=== PATIENT | male | born 1995 | race Caucasian/White ===

== ENCOUNTER → 2024-07-08 11:45 | Outpatient (BNVA) | payer OTHER, SELFPAY | PROVIDERS: PCP Internal Medicine; Visit Provider Internal Medicine | DX: M54.17 Radiculopathy, lumbosacral region (principal); M51.9 Unspecified thoracic, thoracolumbar and lumbosacral intervertebral disc disorder; M79.652 Pain in left thigh | CPT/HCPCS: 99212 ==

== ENCOUNTER 2024-08-20 08:41 | Outpatient (REF) | payer OTHER, SELFPAY | END 2024-08-20 08:42 | disposition home or self-care (01) | LOC: HO.MRI 08:41 | PROVIDERS: PCP Internal Medicine; Visit Provider Internal Medicine | DX: M54.17 Radiculopathy, lumbosacral region (principal); M79.652 Pain in left thigh | CPT/HCPCS: 72148 ==

== ENCOUNTER → 2024-08-20 08:50 | Outpatient (BNV) | payer OTHER, SELFPAY | PROVIDERS: PCP Internal Medicine; Visit Provider Radiology Diagnostic Radiology | DX: M54.17 Radiculopathy, lumbosacral region (principal); M51.26 Other intervertebral disc displacement, lumbar region | CPT/HCPCS: 72148 ==

== ENCOUNTER 2024-08-31 10:26 | Outpatient (AMB) | payer OTHER, SELFPAY ==
--- NOTE | 2024-08-31 10:36 | HO.SPINEOV ---
Vital Signs 08/31/24 10:38 Height 5 ft 9 in Weight 155 lb BMI 22.9 Intake Visit Reasons: Leg pain & numbness Intake Note: Mr. Foy is here today c/o pain and numbness in legs and low back. Participant Administrator Required: No Allergies No Known Allergies Allergy (Verified 08/31/24 10:40) Physical Exam Vital Signs: BMI result Body Mass Index 22.9 Assessment & Plan Assessment & Plan (1) Lumbar disc herniation with myelopathy: Code(s): M51.06 - Intervertebral disc disorders with myelopathy, lumbar region Category: Medical Plan Dear colleague Thank you for referring Zaki Foy to the office today with a chief complaint of progressive left leg pain and numbness. HPI: This 28-year-old male whose active in the [employer] developed severe back pain 3 years ago. Since that time he suffered intermittent severe low back pain that would resolve in a few days. In May, he developed severe pain radiating down his left leg. Specifically it goes to his posterior thigh to his calf and to the outside of his left foot to his small toe. In other words it, it radiates in a classic S1 distribution. He tried lifestyle modifications and position guided home exercise plan without success. Cxtm-ejz-ggxeiht medication does not alleviate his symptoms. The pain is most severe with sitting and laying down is the best position. Sneezing and coughing significantly increase the pain. In the last few weeks the pain has further progressed and in addition he developed tingling and numbness in the same distribution. No weakness. He tried an epidural shot last weekend without success. PMH: Noncontributory Medications: None Allergies: NKDA Social history: [employer] of a [employer] and active in the [employer] force. Nonsmoker Physical Exam: Pleasant male, in obvious agony. Straight leg raise is positive at 15 degrees with radiating pain down the left leg in an S1 distribution. There is numbness in the S1 dermatome. The ankle reflexes absent on the left side. Motor exam is 5/5 throughout Radiological Studies: MRI done at [facility] on 08/20/2024 shows severe lumbar degenerative disc disease L5-S1 and more importantly there is a disc herniation compressing the left S1 nerve root. 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 Conservative management has failed. In fact, his pain is further increasing and he developed neurological deficits. Therefore, I think he is an excellent candidate for a left L5-S1 lumbar microdiskectomy. He is otherwise healthy. I scheduled him for 09/13/2024. I called an 85 % success rate. We also discussed expected postoperative course. Thank you for allowing me to participate in your patients care. total time spent was 50 minutes in counseling ,coordination of plan, personal review of imaging, surgical decision making and subsequent plan Pavel Soler MD, PhD [facility] Trained Neurosurgeon Director, [facility] Coding Level of Care Code New Pt Level 4 (36132) Diagnoses Lumbar disc herniation with myelopathy M51.06
[2024-08-31 10:38] VITALS: BMI 22.9
--- OUTSIDE RECORDS SUMMARY | 2024-08-31 11:05 | XMS_ITS | Continuity of Care Document ---
Author Name [facility] Organization [facility] Care Team Providers Care Kennel Helper Name Role Phone [facility] Unavailable Unavailable Medications Combined list of outpatient medications from Department of Defense and Veterans Affairs facilities.Medications provided include 1) outpatient medications from the last 15 months, and 2) patient-reported medications. Medication Details Route Status Patient Instructions Prescription Expires Prescription Number Last Dispense Date Ordering Provider Order Date Order Qty Source ONDANSETRON ODT (ONDANSETRO N), 4MG, TAB RAPDIS, ORAL, GLENMARK PHARMA, 30 ea. BLIST PACK Active [id number] 2023 10 Pharmac y Data Transac tion Service Facilit y Allergies, Adverse Reactions, Alerts Combined list of allergies from Department of Defense and Veterans Affairs facilities. It does not include entries that were removed or entered in error. Substance Category Reaction Severity Reaction type Status Date Reported Comments Source No Known Allergies Drug allergy (disorder) active 11/18/2013 [place] [address] Immunizations Combined list of available immunizations from the Department of Defense and Veterans Affairs facilities. Immunization Series Date Given Administered By Site Reaction Lot Number CVX Code Drug Recycling Operator Status Comments Source influenza, injectable, quadrivalent- pf 2021 [id number] GlaxoSmithKli ne complet ed influenza , injectabl e, quadrival ent-pf 06/15/22 Given Ambulat ory Pharmac y influenza virus vaccine, inactivated 2020 [id number] Seqirus complet ed influenza virus vaccine, inactivat ed 05/19/21 Given Ambulat ory Pharmac y COVID Vaccine Pfizer 2020 [id number] PFIZER complet ed COVID Vaccine Pfizer 11/07/20 Given Ambulat ory Pharmac y COVID Vaccine Pfizer 2020 [id number] PFIZER complet ed COVID Vaccine Pfizer 10/17/20 Given Ambulat ory Pharmac y typhoid Vi capsular polysaccharid e vac 2020 [id number] sanofi pasteur complet ed typhoid Vi capsular polysacch aride vac 08/18/20 Given Ambulat ory Pharmac y influenza, injectable, quadrivalent, preservative free 2019 MARIELANDRENELSON, () Not Given influenza , injectabl e, quadrival ent, preservat preet free [facility] influenza, injectable, quadrivalent- pf 2018 [id number] 150 Seqirus complet ed influenza , injectabl e, quadrival ent-pf 05/13/19 Given Ambulat ory Pharmac y meningococcal A,C,Y,W-135 (MCV4P) 2018 [id number] 114 sanofi pasteur complet ed meningoco ccal A,C,Y,W-1 35 (MCV4P) 10/17/18 Given Ambulat ory Pharmac y influenza, injectable, quadrivalent- pf 2017 [id number] 150 Seqirus complet ed influenza , injectabl e, quadrival ent-pf 06/20/18 Given Ambulat ory Pharmac y typhoid Vi capsular polysaccharid e vac 2017 [id number] 101 sanofi pasteur complet ed typhoid Vi capsular polysacch aride vac 06/20/18 Given Ambulat ory Pharmac y Influenza, inj, MDCK, quadrivalent- pf 2016 [id number] Seqirus complet ed Influenza , inj, MDCK, quadrival ent-pf 06/14/17 Given Ambulat ory Pharmac y influenza, seasonal, injectable-pf 2015 [id number] 140 Seqirus complet ed influenza , seasonal, injectabl e-pf 05/18/16 Given Ambulat ory Pharmac y typhoid Vi capsular polysaccharid e vac 2015 [id number] 101 sanofi pasteur complet ed typhoid Vi capsular polysacch aride vac 05/18/16 Given Ambulat ory Pharmac y influenza, seasonal, injectable-pf 2014 [id number] 140 CSL Behring complet ed influenza , seasonal, injectabl e-pf 04/15/15 Given Ambulat ory Pharmac y typhoid Vi capsular polysaccharid e vac 2013 [id number] 101 sanofi pasteur complet ed typhoid Vi capsular polysacch aride vac 06/16/14 Given Ambulat ory Pharmac y hepatitis A adult vaccine 2013 [id number] 52 GlaxoSmithKli ne complet ed hepatitis A adult vaccine 06/16/14 Given Ambulat ory Pharmac y hepatitis B adult vaccine 2013 [id number] 43 Merck & Company Inc complet ed hepatitis B adult vaccine 06/16/14 Given Ambulat ory Pharmac y yellow fever vaccine 2013 [id number] 37 sanofi pasteur complet ed yellow fever vaccine 06/16/14 Given Ambulat ory Pharmac y yellow fever vaccine 1 2013 [id number] 37 Sanofi Pasteur (PMC) complet ed yellow fever vaccine DoD hepatitis B vaccine, adult dosage 3 2013 [id number] 43 Merck (MSD) complet ed hepatitis B vaccine, adult dosage DoD hepatitis A vaccine, adult dosage 3 2013 [id number] PressConnectKline (SKB) complet ed hepatitis A vaccine, adult dosage DoD typhoid Vi capsular polysaccharid e vaccine 1 2013 [id number] 101 Sanofi Pasteur (PMC) complet ed typhoid Vi capsular polysacch aride vaccine DoD influenza, seasonal, injectable 2013 [id number] complet ed influenza , seasonal, injectabl e 06/13/14 Given Ambulat ory Pharmac y Influenza, seasonal, injectable 1 2013 [id number] Transcribed (TRS) complet ed Influenza , seasonal, injectabl e DoD hepatitis A-hepatitis B vaccine 2013 [id number] 104 GlaxoSmithKli ne complet ed hepatitis A-hepatit is B vaccine 12/12/13 Given Ambulat ory Pharmac y varicella virus vaccine 2013 [id number] 21 Merck & Company Inc complet ed varicella virus vaccine 12/12/13 Given Ambulat ory Pharmac y measles/mumps /rubella virus vaccine 2013 [id number] 03 Merck & Company Inc complet ed measles/m umps/rube lla virus vaccine 12/12/13 Given Ambulat ory Pharmac y measles, mumps and rubella virus vaccine 2 2013 [id number] 03 Merck (MSD) complet ed measles, mumps and rubella virus vaccine DoD varicella virus vaccine 1 2013 [id number] 21 Merck (MSD) complet ed varicella virus vaccine DoD hepatitis A and hepatitis B vaccine 1 2013 [id number] 104 SmithKline (SKB) complet ed hepatitis A and hepatitis B vaccine DoD hepatitis A-hepatitis B vaccine 2013 [id number] 104 GlaxoSmithKli ne complet ed hepatitis A-hepatit is B vaccine 10/26/13 Given Ambulat ory Pharmac y measles/mumps /rubella virus vaccine 2013 [id number] 03 Merck & Company Inc complet ed measles/m umps/rube lla virus vaccine 10/26/13 Given Ambulat ory Pharmac y varicella virus vaccine 2013 [id number] 21 Merck & Company Inc complet ed varicella virus vaccine 10/26/13 Given Ambulat ory Pharmac y measles, mumps and rubella virus vaccine 1 2013 [id number] 03 Merck (MSD) complet ed measles, mumps and rubella virus vaccine DoD varicella virus vaccine 1 2013 [id number] 21 Merck (MSD) complet ed varicella virus vaccine DoD hepatitis A and hepatitis B vaccine 1 2013 [id number] 104 [facility] (SKB) complet ed hepatitis A and hepatitis B vaccine DoD poliovirus vaccine, inactivated 2013 [id number] 10 sanofi pasteur complet ed polioviru s vaccine, inactivat ed 10/20/13 Given Ambulat ory Pharmac y meningococcal A,C,Y,W-135 (MCV4P) 2013 [id number] 114 sanofi pasteur complet ed meningoco ccal A,C,Y,W-1 35 (MCV4P) 10/20/13 Given Ambulat ory Pharmac y influenza, seasonal, injectable-pf 2013 1342 1P 140 Novartis Pharmaceutica ls complet ed influenza , seasonal, injectabl e-pf 10/20/13 Given Ambulat ory Pharmac y adenovirus vaccine, live 2013 [id number] 143 Teva Pharmaceutica ls complet ed adenoviru s vaccine, live 10/20/13 Given Ambulat ory Pharmac y tuberculin purified protein derivative 2013 [id number] 96 [facility] complet ed tuberculi n purified protein derivativ e 10/20/13 Given Ambulat ory Pharmac y tetanus, diphtheria, acellular pertu is 2013 [id number] 115 GlaxACACIA SemiconductorithKli ne complet ed tetanus, diphtheri a, acellular pertussis 10/20/13 Given Ambulat ory Pharmac y poliovirus vaccine, inactivated 1 2013 [id number] 10 Sanofi Pasteur ([facility]) complet ed polioviru s vaccine, inactivat ed DoD meningococcal polysaccharid e (groups A, C, Y and W-135) diphtheria toxoid conjugate vaccine (MCV4P) 1 2013 [id number] 114 Sanofi Pasteur ([facility]) complet ed meningoco ccal polysacch aride (groups A, C, Y and W-135) diphtheri a toxoid conjugate vaccine (MCV4P) DoD tetanus toxoid, reduced diphtheria toxoid, and acellular pertu is vaccine, adsorbed 1 2013 [id number] 115 [employer] (SKB) complet ed tetanus toxoid, reduced diphtheri a toxoid, and acellular pertussis vaccine, adsorbed DoD Influenza, seasonal, injectable, preservative free 1 2013 1342 1P 140 Novartis Betify. (NOV) complet ed Influenza , seasonal, injectabl e, preservat preet free DoD Adenovirus, type 4 and type 7, live, oral 1 2013 [id number] 143 Wink (BRR) complet ed Adenoviru s, type 4 and type 7, live, oral DoD rubella virus vaccine 0 2013 06 () Not Given rubella virus vaccine DoD mumps virus vaccine 0 2013 07 () Not Given mumps virus vaccine DoD Results Combined list of recent chemistry, hematology and other laboratory results from Department of Defense and Veterans Affairs, ranging from 15 months to all on record, depending upon the facility. Order Name Results Value Reference Range Date Interpretation Specimen Comments Source Infectiou s Disease HIV-1/O/2 Non-Reac tive 1 (11/14/23 8:41 AM) 11/13 N Interpretiv e Data: INTERPRETAT ION: This method is a screening procedure for the detection of HIV p24 Antigen and Antibodies to HIV-1, including Group O, and/or HIV-2. NON-REACTIV E: HIV-1 antigen and HIV-1 / HIV-2 antibodies were not detected. No laboratory evidence of HIV infection. A negative test result does not exclude the possibility of exposure to or infection with HIV. HIV antibodies and/or p24 antigen may be undetectabl e in some stages of the infection and in some clinical conditions. If acute HIV infection is suspected, consider submitting another specimen to a reference laboratory for HIV-1 RNA. SCREEN REACTIVE - CONFIRMATIO N TO FOLLOW: Possible presence of HIV-1antibo dies, HIV-2 antibodies and/or HIV-1 p24 antigen. Specimen will reflex to the confirmatio n testing that fulfills the Center for Disease Control and Prevention' s HIV diagnostic algorithm. Refer to [facility] Lab Guide for additional information : [email or web address]://Move In Historyx. [email or web address]/ [email or web address] x Testing performed by Kaity goddard. [facility] Miscellan eous Sendouts Repository Sample Received (11/14/23 8:41 AM) 11/13 N [facility] Encounters Combined list of: 1) Encounters from Department of Veterans Affairs facilities going backup to the last 18 months, not all [place] inpatient encounters are included; 2) Encounters from the Department of Defense facilities going backup to 280 months. Location Location Details Encounter Type Encounter Number Reason For Visit Attending Provider ADM Date DC Date Status Disposition [place] [address](RAMIN Fco) OUTPATIENT [id number] Notes Entered by: DALILA CHANG 18 Nov 2013 0837 ------- ------- ------- ------- -- cough x 3 days DALILA CHANG 11/18 Released w/o Limitations [facility] [place] [address](Louise Larsenvo) [place] [address]([facility] Eleazar Metcalf) OUTPATIENT [id number] Notes Entered by: CAMI ROBLERO 03 Feb 2014 1144 ------- ------- ------- ------- -- DARRYL BLAKE 02/03 Released w/o Limitations [facility] [place] [address]([employer] Elva Falcon) [facility](Opt ometry Cl Carrera) OUTPATIENT [id number] Color Vision Testing Amauryer MAGDIEL GONZALEZ 08/23 Released w/o Limitations [employer](O ptometr y Cl Carrera) [employer](Opt ometry Cl Carrera) OUTPATIENT [id number] AEE per MAGDIEL Gong 01/23 Released w/o Limitations [employer](O ptometr y Cl Carrera) 8344R-439 AMDS Outpatient [id number] CODY KNOX 09/04 Discharge Disposition: Home or Self Care 8344R-4 39 AMDS 8344R-439 AMDS Outpatient [id number] CODY KNOX 11/11 Discharge Disposition: Home or Self Care 8344R-4 39 AMDS 8344R-439 AMDS Outpatient [id number] [facility] 11/13 Discharge Disposition: Home or Self Care 8344R-4 39 AMDS 8344R-439 AMDS Between Visit [id number] 04/16 Discharge Disposition: Home or Self Care 8344R-4 39 AMDS Procedures Combined list of: 1) Procedures from Department of Veterans Affairs facilities going back up to thelast 18 months, not all VA non-surgical procedures are included; 2) All procedures from the Department of Defense facilities. Procedure Procedure Type Code Date Perfomer Comments [facility] e OPHTHALMOLOGICAL SERVICES: MEDICAL EXAMINATION AND EVALUATION, WITH INITIATION OR CONTINUATION OF DIAGNOSTIC AND TREATMENT PROGRAM; INTERMEDIATE, ESTABLISHED PATIENT [facility] COLOR VISION EXAMINATION, EXTENDED, EG, ANOMALOSCOPE OR EQUIVALENT [facility] Ophthalmological Prior Patient Start Intermediate Level Care Ophthalmological Prior Patient Start Intermediate Level Care 22851 MAGDIEL GONZALEZ Extensive Color Vision Testing Extensive Color Vision Testing [id number] MAGDIEL GONZALEZ Determination Of Refractive State Determination Of Refractive State 85803 MAGDIEL GONZALEZ Ophthalmological New Patient Start Comprehensive Care Ophthalmological New Patient Start Comprehensive Care 46682 MAGDIEL GONZALEZ No data available for this section Ambulato ry Pharmacy Social History Combined list of available smoking, tobacco, and other social history from Department of Defense and Veterans Affairs facilities. Social History Type Response Date Comment Ghassan burks Male 07/24/2022 Ambulatory Pha rmacy This section is an empty soc ial history section. DoD Sexual Orientation Ambula tory Pharmacy Gender identity Ambulator y Pharmacy Assessment and Plan Combined list of future care activities from Department of Defense and Veterans Affairs facilities (e.g., assessment and plan notes, appointments, orders, and referrals). Additional future care activities may be listed in the Plan of Care section. Result Assessment and Plan Date Source Assessment and Plan Extracted from:Title : Fly PHA / MHA / Lab / Imms Author: LIZ NUGENT Date: 11/14/23 mbr came in for appt Addendum by KORTNEY KEY on November 14, 2023 10:42 EDT History of Refractive Surgery- No?Contact Lenses- N/A?Enrolled in Contact Lens Program- N/A?Gas Mask Inserts ordered- No?Current SRX on file- _ DVA (uncorrected) OD: 20/20 OS:?20/20 NVA (uncorrected) OD: 20/20 OS: 20/20 Phorias: ESO _2_ EXO ___ RH ___ LH _0.5__ Depth Perception Uncorrected?Pass through _F__ IOP OD:15 OS:16 Time:?1023 Optometry findings meet standards- Yes Addendum by ELSA ROWAN on November 14, 2023 10:51 EDT ?Vitals: Blood Pressure:?118 Heart Rate: 79 Height: 180 Weight: 155 BMI: Medications: None Chronic Problems: None SF 507: _ Comments: None Addendum by DENNIS JEFFREY on November 14, 2023 11:11 EDT Chief Complaint: Member here for annual fly PHA. Patient is able to complete duties required by [facility]. No acute complaints.NO: Fly?waiver. Initial Waiver Date: Waiver Exp Date: Justin. 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 Last Name: MAY 2. First Name: ZAKI 3. Middle Name: Sudarshan 4. Assessment Date: 5. : 6. Age: 27 7. Gender: M 8. DoD ID Number: [id number] 9. Service Branch: [employer] 10. 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 Unit Name: Debra GOLDSMITHFamilyLeaf 14. Duty Station/Location: [place] 15. UIC: [id number] 16. Is this your first Periodic Health Assessment (PHA)?: N 17. Are you enrolled in a secure messaging system with your health care provider?: 18. Current contact information: Preferred Method: Email 1 DSN: Day Time Phone: [phone] Night Time Phone: [phone] Email 1: [email or web address] Email 2: Address: [address] [place] [address] City: [place] State: [place] Zip Code: [id number] 19. Point of contact who can always reach you: Name: Rodo Foy Phone 1: [phone] Phone 2: EMAIL: Address: City: State: Zip Code: II. DEPLOYMENT INFORMATION (DEP) 1. [ 1 ] Total number of deployments in the PAST 5 YEARS 2. [ [place] ] Primary country of last deployment 3. [ ] Date departed theater 4. [ N ] Are you going to deploy within the NEXT 120 DAYS? III. 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 [ Yes ] Does your specialty require an operational duty physical exam? 4. [ No ] Are you currently enrolled in a medical surveillance/occupational health program?: No IV. MEDICAL CONDITIONS (IRON): 1. Since your last PHA, have you experienced any of the following health conditions, and if so, what is your status? [ ] Conditions with no medical care [ ] Conditions with medical care, but no longer under treatment [ ] Conditions with medical care, and NOW under treatment 2. Since your last PHA, have you experienced any of the following health conditions, and if so, what is your status? [ ] Conditions with no medical care [ ] Conditions with medical care, but no longer under treatment [ ] Conditions with medical care, and NOW under treatment 3. For any condition marked YES in question 1 or 2, are you currently on any profile or limited duty for that condition? [ ] Conditions 4. [ No ] Have you been based or stationed at a location where an open burn pit was used? 5. [ No ] Have you been exposed to toxic airborne chemicals or other airborne contaminants? 8. Have you had any surgery since your last PHA?: No 10.a. [ No ] Since your last PHA, has a health care provider recommended surgery(s) that you have not had? 11.a. [ No ] Do you currently require hearing aids, special medical supplies, CPAP, adaptive equipment, assistive technology devices, and/or other special accommodations? 12.a. [ No ] Do you have a waiver or profile for any part of your Service's physical fitness test? 13.a. [ No ] Do you have any problems wearing a gas mask, ballistic helmet, body armor, and/or chemical/biological protective garments? 14.a. [ No ] Have you ever been told by a health care provider that you SHOULD NOT receive an immunization for medical reasons? 15.a. [ No ] Do you have a permanent profile or an Assignment Limitation Code C? 16.a. [ No ] Are you on a temporary profile or limited duty? 17. [ 0 ] During the PAST 2 years, how many times have you been placed on a temporary profile or on limited duty? V. INDIVIDUAL MEDICAL READINESS (IMR) 1. [ No ] Do you have any allergies? 3. [ Not required ] Do you have red medical warning dog tags? 4. [ No ] Do you wear corrective lenses? . BEHAVIORAL HEALTH (MHA) 1. a. [ None ] Over the PAST MONTH, what major life stressors have you experienced that are a cause of significant concern or make it difficult for you to do your work, take care of things at home, or get along with other people (for example, serious conflicts with others, relationship problems, or a legal, disciplinary or financial problem)? 2. a. [ No ] In the PAST YEAR did you receive care for any mental health condition or concern such as, but not limited to post traumatic stress disorder (PTSD), depression, anxiety disorder, alcohol abuse or substance abuse? 3. [ None ] What prescription or over-the counter medications (including herbals/supplements) for sleep, pain, combat stress, or a mental health problem are you CURRENTLY taking? 4. a. [ No ] In the past 12 months, have you gambled? 5. a. [ 2-4 times a month ] How often do you have a drink containing alcohol? 5. b. [ 3 or 4 ] How many drinks containing alcohol do you have on a typical day when you are drinking? 5. c. [ Less than monthly ] How often do you have six or more drinks on one occasion? 6. Have you ever had any experience that was so frightening, horrible, or upsetting that in the PAST MONTH, you: 6. a. [ No ] Have had nightmares about it or thought about it when you did not want to? 6. b. [ No ] Tried hard not to think about it or went out of your way to avoid situations that remind you of it? 6. c. [ No ] Were constantly on guard, watchful or easily startled? 6. d. [ No ] [place] numb or detached from others, activities, or your surroundings? 6. e. [ Not answered ] [place] guilt or unable to stop blaming yourself or others for the event(s) or any problems the event(s) may have caused? 7. Over the LAST 2 WEEKS, how often have you been bothered by the following problems? 7. a. [ Not at all ] Little interest or pleasure in doing things 7. b. [ Not at all ] Feeling down, depressed, or hopeless 8. [ No ] Would you like to schedule an appointment with a health care provider to discuss any health concern(s)? 9. [ No ] Are you interested in receiving information or assistance for a stress, emotional or alcohol concern? 10. [ No ] Are you interested in receiving assistance for a family or relationship concern? 11. [ No ] Would you like to schedule a visit with a tool design drafter, mental health care provider, or a community support counselor? VII. FAMILY HISTORY AND LIFESTYLE (LIF) 1. [ Very Good ] Overall, how would you rate your health during the PAST MONTH? 2. [ Cancer, Diabet ] Member indicates that family members have the following problems 3. The following family members has/had a history of cancer: Colon: Brother Unknown Type of Cancer: Grandfather 5. The following family members has/had a history of diabetes: Type II: Father, Grandfather 6. [ Yes ] I participate in moderate intensity physical activites at least 2.5 hours, or a combination of moderate and vigorous aerobic activites, for at least 75 minutes per week. 7. In a typical week, I do physical activities specifically designed to STRENGTHEN my muscles: [ 2 ] Day(s) per week 8. [ None ] What prescriptions or hiwo-cpn-egprknf medications are you CURRENTLY taking for health problems on a ROUTINE BASIS? 9. Which of the following products have you taken since your last PHA: None of the above 11. Think about the PAST 30 DAYS. How often did you eat/drink the following foods/beverages? [ 3 to 6 servings per week ] Fruits [ 3 to 6 servings per week ] Vegetables [ 1 serving per day ] Starchy Vegetables [ 1 serving per day ] Whole Grains [ 3 to 6 servings per week ] Dairy and Calcium Containing Foods [ 1 or 2 servings per week ] Fish [ 1 serving per day ] Lean Protein [ 1 serving per day ] Sugar-Sweetened Beverages 12. [ No ] Have you had a cholesterol check by a health patient care manager within the PAST 5 YEARS? 13.a. In the PAST 30 DAYS, which of the following products have you used on at least one day? None 15. Which of the following best describes your past tobacco use? I have never used tobacco products. 16. [ No ] Are you regularly exposed to secondhand smoke? 17. [ 5 to less than 7 hours ] During the LAST 2 WEEKS, how many hours of sleep did you get on most days? 18. [ No ] During the LAST 2 WEEKS, have you felt impaired or unable to adequately perform due to sleepiness or poor quality sleep? 19. [ No ] Have you had any unexplained weight loss or gain since your last PHA? 20. Member is at risk for sexually transmitted infections. 21. [ No ] Have you had a syphillis, chlamydia, and gonorrhea test since your last PHA? 22. Since your last PHA, what, if anything, have you and your partner used to keep from getting ? [ Sterilization ] I am actively taking steps to prevent , including 23. [ No ] In the last year, have you or your partner had a scare, where you were not trying to get but were worried enough to use a home test? IX. RESERVE COMPONENT (RES) 1. [ No ] Do you have an injury, illness, Or disease which was incurred or aggravated while in a duty status since your last PHA? 4. [ Yes - ] Are you currently coverered under a health insurance policy? 5.a. [No, I have never applied for Worker's Compensation ] Do you have any current physical or mental health limitations related to a Worker's Compensation claim? 6. [ No ] Have you applied for or have you received a VA disability rating? X. OTHER MEDICAL (OTH) 1. [ 0 ] Rate the amount of pain you have had, on average, over the PAST 24 HOURS 3. [ Yes ] Since your last PHA, have you received care or treatment for any medical and/or mental health condition(s) from a civilian or non- facility? 4. List the condition(s) treated and where the care was provided: Conditions: Pilar Cyst removal Where: [facility] 5. Member acknowledged responsibility for reporting health issues. 7. [ No ] Woud you like to schedule an appointment with a health care provider to discuss any health concerns? XI. SEPARATION AND FDC 1. [ No ] Are you planning to separate or retire within the next year from Active Duty or [place] Duty (activated for greater than 30 continuous days) OR do you intend to file a claim for disability compensation with the [employer]? PART B. RECORD REVIEW AND RECOMMENDATIONS I. RECORD REVIEWER INFORMATION 1. Last Name: SAMIA 2. First Name: PIERO 3. Middle Name: CARROL 4. Service Branch: [employer] 5. Status: 6. 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 EMAIL: [email or web address] 8. Facility: [facility] 9. Unit: [facility] 10. Address: [address] [place] [address] 11. State: [place] 12. Zip Code: [address] 13. Phone: [phone] 14. Date Record Review: II. MEDICAL SCREENING 1. [ ] Date of retail team member's most recent PHA 2. [ 5 feet 11 inches Date: ] retail team member's most recently documented height 3. [ 155 pounds Date: ] retail team member's most recently documented weight 4. [ 121/73 Date: ] retail team member's most recently documented blood pressure reading 5. [ No ] Does the retail team member have a history of abnormal blood pressure since their last PHA? 6. [ Yes ] Does the retail team member have a laboratory test of sickle cell trait documented in their permanent medical record? 7. [ No Cholesterol Test Documented ] What is the date of the retail team member's most recently documented cholesterol test? 9. [ No Active Medications Documented ] List of retail team member's active medications listed in their permanent medical record 10. [ No ] Is there a discrepancy between the active medication record review and the retail team member's self-reported list of medications? 11. [ pilar cyst removal ] List documented significant care the retail team member has received since their last PHA from a provider OUTSIDE the Health System 12. [ No ] Is there a discrepancy between the retail team member's list of OUTSIDE care (from [facility]), and the OUTSIDE care found in the record? 13. [ No Inside Care Documented ] List documented significant care the retail team member has received since their last PHA from a provider INSIDE the Health System 15. [ Not Answered ] Confirm that vaccine exemptions are listed in the medical record for each vaccine listed III. OCCUPATION-SPECIFIC EXAMINATIONS 1. 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 IV. FAMILY HISTORY AND LIFESTYLE 1. [ Yes ] Does the [id number] reflect the retail team member's reported family history? 2. [ No ] Is there a record of the retail team member receiving a syphillis, chlamydia and gonorrhea test since their last PHA? . DEPLOYMENT-RELATED HEALTH ASSESSMENTS 1. [ No ] Based on your check of records, does the retail team member have any due or overdue deployment health assessments which need to be completed with this PHA? VII. INDIVIDUAL MEDICAL READINESS 1. [ No ] Does the retail team member have an Assignment Limitation Code C? 3. [ Classification: 1 ] Most recently documented dental exam 4. [ No: Meningococcal ] Is the retail team member current on all required immunizations in the immunization tracking system? 6. Does the retail team member have the following laboratory tests documented in their permanent medical record? [ No ] HIV test within the PAST 24 months [ Yes ] G6PD results on file [ Yes ] Blood type and Rh on file [ Yes ] DNA test on file IX. ADDITIONAL RECORD REVIEWER COMMENTS 1. This record review does NOT have a need for provider notification or referral.2. Additional comments about this record review that need to be forwarded to the Health [employer]isher completing PART C: No DLCs, pain, medications/supplements, major stressors, gambling, alcohol/tobacco concerns. Adequate diet, exercise, and sleep. Reported some numbness/tingling on SHPE earlier this yr. H/o finger injury. Date Record Review Completed: PART C. HEALTH CARE PROVIDER I. MENTAL HEALTH ASSESSMENT (MHA) PROVIDER INFORMATION 1. Last Name: WOJCIECH 2. First Name: DENNIS 3. Middle Name: 4. Service Branch: [employer] 5. 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 Title: Physician (DO WILLIAM) 7. EMAIL: [email or web address] 8. Facility: [facility] 9. Unit: [facility] 10. Address: [facility] [address] 11. State: [place] 12. Zip Code: [address] 13. Phone: [phone] 14. Date HCP Review initiated: 1. Member marked that they did not have a concern or a difficulty with a major life stressor. 2. Address concerns identified on member questions 2 and 3. History of mental health care: N/A Member's response: Provider's comments: Medications: N/A Member's response: Provider's comments: 3. Member's AUDIT-C screening score was 4. (nothing required) 4. Member did not geraldo yes on two or more of questions 6a through 6e. 5. Member did not geraldo More than half the days or nearly every day on question 7a or 7b. 6. Suicide risk evaluation. 6. a. Ask: Over the past month, have you wished you were or wished you could go to sleep and not wake up?: No 6. b. Ask: Have you actually had any thoughts of killing yourself?: No 6. f. 1. Ask: In you lifetime, have you done anything, started to do anything, or prepared to do anything to end your life?: No 6. g. Further risk assessment comments: 7. Member states that they have not had thoughts or concerns over the past month that they might hurt or lose control with someone. 9. Summary of Provider's identified concerns needing referrals: None 11. Comments: 13. Supplemental services recommended/information provided: No supplemental services required Date MHA Certified: III. PERIODIC HEALTH ASSESSMENT (PHA) PROVIDER INFORMATION 1. Last Name: WOJCIECH 2. First Name: DENNIS 3. Middle Name: 4. Service Branch: [employer] 5. 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 Title: Physician (DO WILLIAM) 7. EMAIL: [email or web address] 8. Facility: [facility] 9. Unit: [facility] 10. Address: [address] [place] [address] 11. State: [place] 12. Zip Code: [address] 13. Phone: [phone] 14. Date HCP Review initiated: IV. PERIODIC HEALTH ASSESSMENT PROVIDER RECOMMENDATIONS and REFERRALS 1. Provider concerns with this assessment: No issues or concerns identified V. SUMMARY AND COMMENTS 1. Additional information summarizing findings during the retail team member assessment: 2. Provider Comments: No new medical concern . INDIVIDUAL MEDICAL READINESS DISPOSITION DETERMINATION IRON: Ready DEN: Ready IMM: Ready LAB: Ready ME: Ready IMR Status: Fully Medically Ready VII. SERVICE MEDICAL DEPLOYABILITY EVALUATION INDICATED Based on your review of all documentation, is the retail team member medically deployable without limitations? Reference Cece 6490.07 Yes (retail team member DOES NOT currently have a medical condition that limits deployability) Date PHA Completed: END OF [id number] REPORT Impression: Meets?FCIII?medical standards per NNAMDI 48-123/MSD. Aeromedical Disposition: No DNIF. DD 2992?signed. No AF469 changes based on this encounter. [employer]. 08/31/2024 [id number] AMDS Functional Status Combined list of recent functional and cognitive assessments recorded at [employer] [facility] [employer] [facility] (VA).VA Functional Luna Measurement (FIM) Scale: 1 = Total Assistance (Subject = 0% +), 2 = Maximal Assistance (Subject = 25% +), 3 = Moderate Assistance (Subject = 50% +), 4 = Minimal Assistance (Subject = 75% +), 5 = Supervision, 6 = Modified Luna (Device), 7 = Complete Luna (Timely, Safely). Assessment Date/Time Source Assessment Type Assessment Skill Assessment Score Assessment Details No data available for this section
--- OUTSIDE RECORDS SUMMARY | 2024-08-31 11:06 | XMS_ITS | Data Portability ---
Author Organization [facility], , [facility] Address [address] [place] [address] Care Team Providers Care Gluer And Wedger Name Role Phone RAMESH HARDING Primary Care Provider [phone] Assessment Encounter Date Assessment Date Assessment LastModified by Organization Details LastModified Time 12/17/2020 12/17/2020 The care for this patient today involved the following: I have reviewed, collected, and updated relevant history and performed a physical exam. An independent historian was used to obtain history N. My assessment of Social Determinants of health: not at risk. At risk due to . My care of this patient involved: moderate Assessment of problems. moderate Review of data (review of x ray results) low Complexity of risk from disease or treatments Below is my assessment and plan for this patient? s care today. [email or web address] Not available 12/17/2020 12:49:27 01/17/2022 01/17/2022 A total of 13 minutes was spent in clinical care today, and the care for this patient involved the following: I have reviewed the patient's past medical history and medications, collected and updated relevant history, and performed a physical exam. My care of this patient involved: -Assessment of problems: -Review of data: ordered labs -Complexity of risk from disease or treatments: moderate -- new problem w/ uncertain prognosis -Providing relevant patient education and counseling. -Completing documentation of the visit. Below is my assessment and plan for this patient? s care today. [email or web address] Not available 01/20/2022 08:40:17 08/28/2022 08/28/2022 The care for this patient today involved the following: I have reviewed, collected, and updated relevant history and performed a physical exam. An independent historian was used to obtain history N. My assessment of Social Determinants of health: patient at risk. At risk due to: food, health insurance, housing, transportation, safety, health literacy. My care of this patient involved: Moderate assessment of problems. Low review of data. Moderate complexity of risk from disease or treatments. Below is my assessment and plan for this patient? s care today. [facility] Not available 08/28/2022 15:58:15 Plan of Treatment Reminders Order Date Submit Date Provider Last Modified By Organization Details Last Modified Time Details Appointments None recorded. Lab urinalysi s, dipstick 2022 023 [facility], [address] [place] [address], [address], 15:46:34 culture, urine 2022 023 [facility], [address] [place] [address], [address], 3 07:48:25 tick-born e disease panel 2021 022 [facility], [address] [place] [address], [address], 18:21:01 babesia duncani Ab, titer, immunoflo urescence , serum 2021 022 [facility], [address] [place] [address], [address], 2 18:21:00 CK (creatine kinase), total, serum 2021 022 [facility], [address] [place] [address], [address], 2 12:27:15 ESR (erythroc yte sedimenta tion rate), blood 2021 022 [facility], [address] [place] [address], [address], 17:59:49 C-reactiv e protein, quantitat preet, serum or plasma 2021 022 [facility], [address] [place], [address], 2 13:49:04 CMP, serum or plasma 2021 022 [facility], [address] [place] [address], [address], 2 12:27:14 CBC 2021 022 [facility], [address] [place] [address], [address], 2 17:07:44 Referral urologist referral 2022 023 [facility], [address] [place], [address], 3 11:20:15 Procedures None recorded. Surgeries None recorded. Imaging US, retroperi toneum - chronic painless hematuria , r/o subclinic al kidney stone vs bladder mass 2022 023 [facility] (Imaging), [address], [place], [place], [address], 3 10:49:24 XR, shoulder [address] (Outpt Imaging), [address] [place], [address], 1 13:13:17 XR, scapula [address] (Outpt Imaging), [address] [place], [address], 1 13:13:17 Medication Orders doxycycli ne hyclate 100 mg capsule 2021 022 [id number], [address], [place], [id number], 2 14:53:09 Patient TargetsNo targets recorded. Patient InstructionsNo instructions recorded. Reason for Referral Urologist Referral for Blood in urine painless hematuria x 2 years Referring Physician: Stevie Arevalo, Family Medicine, Encounter Date: 08/28/2022 Results Created Date Observation Date Name Description Value Unit Range Abnormal Flag Note LastModifiedBy Organization Detail LastModifiedTime 01/18/20 22 01/17/2022 CBC WBC 5.85 K/??L 4.23-9 .07 Not Available [address], [address], 01/17/2022 17:07:44 01/18/20 22 01/17/2022 CBC RBC 5.26 M/??L 4.63-6 .08 Not Available [address], [address], 01/17/2022 17:07:44 01/18/20 22 01/17/2022 CBC HGB 15.5 g/dL 13.7-1 7.5 Not Available [address], [address], 01/17/2022 17:07:44 01/18/20 22 01/17/2022 CBC HCT 46.8 % 40.1-5 1.0 Not Available [address], [address], 01/17/2022 17:07:44 01/18/20 22 01/17/2022 CBC MCV 89.0 fL 79.0-9 2.2 Not Available [address], [address], 01/17/2022 17:07:44 01/18/20 22 01/17/2022 CBC MCH 29.5 pg 25.7-3 2.2 Not Available [address], [address], 01/17/2022 17:07:44 01/18/20 22 01/17/2022 CBC MCHC 33.1 g/dL 32.3-3 6.5 Not Available [address], [address], 01/17/2022 17:07:44 01/18/20 22 01/17/2022 CBC plt 222 K/??L 163-33 7 Not Available [address], [address], 01/17/2022 17:07:44 01/18/20 22 01/17/2022 CBC MPV 9.7 fL 9.4-12 .4 Not Available [address], [address], 01/17/2022 17:07:44 01/18/20 22 01/17/2022 CBC neut% 55.4 % 34.0-6 7.9 Not Available [address], [address], 01/17/2022 17:07:44 01/18/20 22 01/17/2022 CBC neut# 3.24 1.78-5 .38 Not Available [address], [address], 01/17/2022 17:07:44 01/18/20 22 01/17/2022 CBC lymph % 32.1 % 21.8-5 3.1 Not Available [address], [address], 01/17/2022 17:07:44 01/18/20 22 01/17/2022 CBC lymph # 1.88 K/??L 1.32-3 .57 Not Available [address], [address], 01/17/2022 17:07:44 01/18/20 22 01/17/2022 CBC mono% 9.6 % 5.3-12 .2 Not Available [address], [address], 01/17/2022 17:07:44 01/18/20 22 01/17/2022 CBC mono# 0.56 0.30-0 .82 Not Available [address], [address], 01/17/2022 17:07:44 01/18/20 22 01/17/2022 CBC eo% 1.7 % 0.8-7. 0 Not Available [address], [address], 01/17/2022 17:07:44 01/18/20 22 01/17/2022 CBC eo# 0.10 0.04-0 .54 Not Available [address], [address], 01/17/2022 17:07:44 01/18/20 22 01/17/2022 CBC baso% 1.0 % 0.2-1. 2 Not Available [address], [address], 01/17/2022 17:07:44 01/18/20 22 01/17/2022 CBC baso# 0.06 0.00-0 .08 Not Available [address], [address], 01/17/2022 17:07:44 01/18/20 22 01/17/2022 CBC RDW-CV 12.0 % 11.6-1 4.4 Not Available [address], [address], 01/17/2022 17:07:44 01/18/20 22 01/17/2022 CBC Ig% 0.200 % 0.000- 1.500 Ig % >0.5 Indic ates possi ble Left Shift Not Available [address], [address], 01/17/2022 17:07:44 01/18/20 22 01/17/2022 CBC Ig# 0.010 0.000- 0.093 Not Available [address], [address], 01/17/2022 17:07:44 01/18/20 22 01/17/2022 CBC NRBC% 0.0 % 0.0-0. 2 Not Available [address], [address], 01/17/2022 17:07:44 01/18/20 22 01/17/2022 CBC NRBC# 0.000 0.000- 0.012 Not Available [address], [address], 01/17/2022 17:07:44 01/18/20 22 01/17/2022 ESR sed rate 2.0 0.0-20 .0 Not Available [address], [address], 01/17/2022 17:59:49 01/18/20 22 01/22/2022 COMP. METAB OLIC PANEL glucose 84 mg/dL 70-100 Not Available [address], [address], 01/22/2022 12:27:14 01/18/20 22 01/22/2022 COMP. METAB OLIC PANEL BUN 14 mg/dL 7-18 Not Available [address], [address], 01/22/2022 12:27:14 01/18/20 22 01/22/2022 COMP. METAB OLIC PANEL creatinine 1.0 mg/dL 0.8-1. 3 Not Available [address], [address], 01/22/2022 12:27:14 01/18/20 22 01/22/2022 COMP. METAB OLIC PANEL B/C 14.0 ratio Not Available [address], [address], 01/22/2022 12:27:14 01/18/20 22 01/22/2022 COMP. METAB OLIC PANEL GFR >=60ML /MIN mL/mi n normal >=60m L/min - Sue l or midly reduc ed <60mL /min- Decre ased kidne y funct ion <15mL /min - Kidne y failu re [facility] calcu lates estim ated Glome rular Filtr ation Rate (eGFR ) using the Chron ic Kidne y Disea se Epide miolo gy Colla borat ion (CKD- EPI) Equat ion (Daphne r et. al 2020) as recom raul d by the Natio nal Kidne y Found ation . eGFR is based on age, serum creat inine , and sex. CKD-E PI does not calcu late eGFR by race, does not apply to child je (age <18 years ), and shoul d not be used in pregn santi. Not Available [address], [address], 01/22/2022 12:27:14 01/18/20 22 01/22/2022 COMP. METAB OLIC PANEL sodium 142 mmol/ L 136-14 5 Not Available [address], [address], 01/22/2022 12:27:14 01/18/20 22 01/22/2022 COMP. METAB OLIC PANEL potassium 4.5 mmol/ L 3.5-5. 1 Not Available [address], [address], 01/22/2022 12:27:14 01/18/20 22 01/22/2022 COMP. METAB OLIC PANEL chloride 102 mmol/ L 96-107 Not Available [address], [address], 01/22/2022 12:27:14 01/18/20 22 01/22/2022 COMP. METAB OLIC PANEL anion gap 10.6 5.0-15 .0 Not Available [address], [address], 01/22/2022 12:27:14 01/18/20 22 01/22/2022 COMP. METAB OLIC PANEL CO2 29 mmol/ L 21-32 Not Available [address], [address], 01/22/2022 12:27:14 01/18/20 22 01/22/2022 COMP. METAB OLIC PANEL calcium 9.2 mg/dL 8.5-10 .3 Not Available [address], [address], 01/22/2022 12:27:14 01/18/20 22 01/22/2022 COMP. METAB OLIC PANEL total protein 7.3 g/dL 6.4-8. 2 Not Available [address], [address], 01/22/2022 12:27:14 01/18/20 22 01/22/2022 COMP. METAB OLIC PANEL albumin 4.6 g/dL 3.4-5. 0 Not Available [address], [address], 01/22/2022 12:27:14 01/18/20 22 01/22/2022 COMP. METAB OLIC PANEL globulin 2.7 g/dL Not Available [address], [address], 01/22/2022 12:27:14 01/18/20 22 01/22/2022 COMP. METAB OLIC PANEL A/G 1.7 ratio 0.8-2. 0 Not Available [address], [address], 01/22/2022 12:27:14 01/18/20 22 01/22/2022 COMP. METAB OLIC PANEL total bilirubin 0.50 mg/dL 0.00-1 .00 Not Available [address], [address], 01/22/2022 12:27:14 01/18/20 22 01/22/2022 COMP. METAB OLIC PANEL AST 34 U/L 0-37 Not Available [address], [address], 01/22/2022 12:27:14 01/18/20 22 01/22/2022 COMP. METAB OLIC PANEL ALT 29 U/L 6-63 Not Available [address], [address], 01/22/2022 12:27:14 01/18/20 22 01/22/2022 COMP. METAB OLIC PANEL alk. phos. 77 U/L 50-136 Not Available [address], [address], 01/22/2022 12:27:14 01/18/20 22 01/22/2022 CPK CPK 206.0 U/L 35.0-2 32.0 Not Available [address], [address], 01/22/2022 12:27:15 01/18/20 22 01/22/2022 C-ZAINA CTIVE PROTE IN-QU ANTIT ATIVE C-reactive protein -quant <2.0 mg/L 0.0-9. 0 < Not Available [address], [address], 01/22/2022 13:49:04 01/18/20 22 01/28/2022 BABES IA DUNCA NI (WA1) ANTIB CHLOÉ (IGG) , IFA babesia duncani (wa1) antibody (IgG), ifa <1:256 normal REFER ENCE RANGE : <1:25 6 INTER PRETI VE CRITE WILDA: <1:25 6 Antib chloé not detec paulie > or = 1:256 Antib chloé detec paulie Babes ia dunca ni, also known as WA1, has been assoc iated with sympt oms simil ar to those cause d by Babes ia micro ti. Littl e, if any, cross -reac tivit y occur s betwe en Babes ia micro ti and WA1. This test was devel oped and its adan tical perfo rmanc e tacho cteri stics have been deter mined by [facility]. It has not been clear ed or appro marleny by FDA. This assay has been valid ated pursu ant to the CLIA regul ation s and is used for clini livan purpo ses. Not Available [facility] [place] [facility] [address], [place], [address], 01/28/2022 18:21:00 01/18/20 22 01/28/2022 TICK BORNE DISEA SE, ACUTE MOLEC ULAR PANEL anaplasma phagocytophi lum DNA, ql real time PCR NOT DETECT ED not detect ed normal This test was devel oped and its adan tical perfo rmanc e tacho cteri stics have been deter mined by [facility]. It has not been clear ed or appro marleny by the FDA. This assay has been valid ated pursu ant to the CLIA regul ation s and is used for clini livan purpo ses. Not Available [facility] [place] [facility] [address], [place], [address], 01/28/2022 18:21:01 01/18/20 22 01/28/2022 TICK BORNE DISEA SE, ACUTE MOLEC ULAR PANEL babesia microti DNA, real time PCR NOT DETECT ED not detect ed normal This test was devel oped and its adan tical perfo rmanc e tacho cteri stics have been deter mined by [facility]. It has not been clear ed or appro marleny by the FDA. This assay has been valid ated pursu ant to the CLIA regul ation s and is used for clini livan purpo ses. Not Available [facility] [place] [facility] [address], [place], [address], 01/28/2022 18:21:01 01/18/20 22 01/28/2022 TICK BORNE DISEA SE, ACUTE MOLEC ULAR PANEL source BLOOD Not Available [facility] [place] [facility] [address], [place], [address], 01/28/2022 18:21:01 01/18/20 22 01/28/2022 TICK BORNE DISEA SE, ACUTE MOLEC ULAR PANEL borrelia miyamotoi DNA, real time PCR, misc NOT DETECT ED not detect ed normal This test was devel oped and its adan tical perfo rmanc e tacho cteri stics have been deter mined by [facility]. It has not been clear ed or appro marleny by the FDA. This assay has been valid ated pursu ant to the CLIA regul ation s and is used for clini livan purpo ses. Not Available [facility] [place] [facility] [address], [address], 01/28/2022 18:21:01 01/18/20 22 01/28/2022 TICK BORNE DISEA SE, ACUTE MOLEC ULAR PANEL ehrlichia chaffeensis DNA real time PCR NOT DETECT ED not detect ed normal This test was devel oped and its adan tical perfo rmanc e tacho cteri stics have been deter mined by [facility]. It has not been clear ed or appro marleny by the FDA. This assay has been valid ated pursu ant to the CLIA regul ation s and is used for clini livan purpo ses. Not Available [facility] [place] [facility] [address], [address], 01/28/2022 18:21:01 01/18/20 22 01/28/2022 TICK BORNE DISEA SE, ACUTE MOLEC ULAR PANEL lyme disease (borrelia spp)DNA,ql RT PCR,blood NOT DETECT ED not detect ed normal The diagn ostic value of a negat preet Borre enoc speci es PCR resul t from whole blood has not been estab lishe d. A negat preet resul t does not exclu de Borre enoc infec tion becau se the brunilda ntrat ion of the organ ism in blood tends to be low or non-e xiste nt in patie nts with Lyme disea se. This test was devel oped and its adan tical perfo rmanc e tacho cteri stics have been deter mined by [facility]. It has not been clear ed or appro marleny by the FDA. This assay has been valid ated pursu ant to the CLIA regul ation s and is used for clini livan purpo ses. Not Available [facility] [place] [facility] [address], [place], [address], 01/28/2022 18:21:01 04/07/20 22 04/08/2022 SARS- COV-2 RNA (COVI D-19) , QUALI TATIV E NAAT sarscov2 NEGATI VE negati ve normal This test has been autho rized by the FDA under an Emerg ency Use Autho rizat ion(E UA) for you by [facility]ho [facility]. Not Available [address], [address], 04/08/2022 14:33:17 08/28/19 23 08/28/2022 POC UA glu UA NEGATI VE Not Available [facility] [address] [place] [address], [address], 08/28/2022 15:19:38 08/28/19 23 08/28/2022 POC UA clarity UA CLEAR Not Available [facility] [address] [place] [address], [address], 08/28/2022 15:19:38 08/28/19 23 08/28/2022 POC UA uro UA 1.0000 Not Available [facility] [address] [place] [address], [address], 08/28/2022 15:19:38 08/28/19 23 08/28/2022 POC UA ket UA NEGATI VE Not Available [facility] [address] [place] [address], [address], 08/28/2022 15:19:38 08/28/19 23 08/28/2022 POC UA pro UA NEGATI VE Not Available [facility] [address] [place] [address], [address], 08/28/2022 15:19:38 08/28/19 23 08/28/2022 POC UA nit UA NEGATI VE Not Available [facility] [address] [place] [address], [address], 08/28/2022 15:19:38 08/28/19 23 08/28/2022 POC UA lazaro UA NEGATI VE Not Available [facility] [address] [place] [address], [address], 08/28/2022 15:19:38 08/28/19 23 08/28/2022 POC UA pH UA 6.5000 Not Available [facility] [address] [place] [address], [address], 08/28/2022 15:19:38 08/28/19 23 08/28/2022 POC UA SG UA 1.0250 Not Available [facility] [address] [place] [address], [address], 08/28/2022 15:19:38 08/28/19 23 08/28/2022 POC UA color UA YELLOW Not Available [facility] [address] [place] [address], [address], 08/28/2022 15:19:38 08/28/19 23 08/28/2022 POC UA blo UA 1+ abnormal Not Available [facility] [address] [place] [address], [address], 08/28/2022 15:19:38 08/28/19 23 08/28/2022 POC UA antonio UA NEGATI VE Not Available [facility] [address] [place], [address], 08/28/2022 15:19:38 08/28/19 23 08/30/2022 CULTU RE, URINE , ROUTI NE culture, urine, routine CULTU RE, URINE , ROUTI NE Micro Numbe r: [id number] Test Statu s: Final Speci men Sourc e: Urine Speci men Quali ty: Adequ ate Resul t: Mixed genit al joseph isola paulie. These super ficia l bacte wilda are not indic ative of a urina ry tract infec tion. No furth er organ ism ident ifica tion is warra nted on this speci men. If clini luz elena indic ated, recol lect clean -catc h, mid-s tream urine and trans viktoria immed iatel y to Urine Cultu re Trans port Tube. Not Available [facility] [place] [facility] [address], [place], [address], 08/30/2022 07:48:25 12/18/19 21 12/17/2020 XR, shoul theresa No observ ation record ed. [facility] (Outpt Imaging) [address] [facility], [place], [address], 12/17/2020 14:10:30 08/28/19 23 08/28/2022 xr finge r 2 or more views (valerie t) This image report has been auto-f inaliz ed and has not been read by a Radiol ogist. Interp retati on has been includ ed in the provid er encoun ter note for this date of niall anderson Final result MAURA-LY N GUMPRE CHT [id number] [facility] [address] [facility], [place], [address], 08/29/2022 10:06:33 09/01/19 23 09/01/2022 US, retro perit oneum CLINIC AL HISTOR Y: Chroni c painle ss hematu wilda TECHNI QUE: 2D sonogr aphy of the kidney s and bladde r. COMPAR SHASHANK: 017 FINDIN GS: Right kidney 4.2 x 0.2 cm The right kidney is normal in echote xture. There are no solid masses , stones , or hydron ephros is. Left kidney 5.5 x 11.4 cm The left kidney is normal in echote xture. There are no solid masses , stones , or hydron ephros is. Ureter al jets are visual ized bilate rally. The bladde r is normal in appear ance. The prevoi d bladde r volume is 77.6 mL. The post void bladde r volume is 10.1 mL. The prosta te gland is 3.8 x 3.0 x 3.2 cm. IMPRES CAROLINE: 1. Unrema rkable examin ation of the kidney s and bladde r. 2. 10.1 mL postvo id residu al. Jimi dumont Physic chio: Marcio ortiz Ziacarol ms [id number] [facility] (Imaging) [address], [place], [address], 09/19/2022 10:14:02 Result Notes None recorded. Problems No Known Problems Procedures Surgical History Date Name Laterality Status Provider Name and Address Organization Details Recorded Time Vasectomy MR completed Real Theodore Jr. MD [address] [place] [address], [id number], [facility] 04/11/2022 12:49:52 7 POC Urinalysis Testing completed Bridget Malone RN [facility] 07/28/2016 10:30:42 Imaging Results Imaging Date Name Status LastModified by Organization Details LastModified Time 12/17/2020 XR, shoulder completed [facility] (Outpt Imaging) [address] [place], [address], 12/17/2020 14:10:30 08/28/2022 xr finger 2 or more views (right) completed [facility] [address] [place], [address], 08/29/2022 10:06:33 09/01/2022 US, retroperitoneum completed [facility] ([facility]aging) [address], [place], [address], 09/19/2022 10:14:02 Procedure Notes None recorded. Medical Equipment None Reported. Allergies No known drug allergies Medications Name Sig Start Date Stop Date Status Note LastModified by Organization Details LastModified Time cyclobenza shea 10 mg tablet 06/25 completed Not Available Not Available Not Available Augmentin 875 mg-125 mg tablet Take 1 tablet every 12 hours by oral route for 7 days. 09/29 completed Not Available Not Available Not Available doxycyclin e hyclate 100 mg capsule Take 1 capsule every 12 hours by oral route for 10 days. 03/20 completed Not Available Not Available Not Available Aqua Glycolic Cleanser Wash daily 03/28 completed Not Available Not Available Not Available Retin-A 0.1 % topical cream Apply to the affected area(s) by topical route once daily 03/28 completed pt dosent use Not Available Not Available Not Available metronidaz ole 250 mg tablet Take 1 tablet every 8 hours by oral route for 5 days. 07/28 completed Not Available Not Available Not Available peg-electr olyte solution 420 gram oral solution 06/25 completed Not Available Not Available Not Available doxycyclin e monohydrat e 50 mg tablet Take 1 tablet twice a day by oral route for 30 days. 03/28 completed pt dosent use Not Available Not Available Not Available diclofenac sodium 50 mg tablet,del ayed release Take 1 tablet 3 times a day by oral route for 20 days. 05/13 completed Not Available Not Available Not Available diazepam 10 mg tablet TAKE 1 TABLET BY MOUTH 30 MINUTES PRIOR TO PROCEDUR E - MAY TAKE 1 ADDITION AL TABLET NEEDED 04/11 completed Not Available Not Available Not Available clindamyci n phosphate 1 % topical solution Apply 1 applicat ion twice a day by topical route. active Not Available Not Available No t Available Claravis 40 mg capsule active Not Available Not Available Not Available Claravis 30 mg capsule Take 2 tabs daily active Not Available Not Available No t Available Afluria [id number]( PF) 45 mcg (15 mcg x 3)/0.5 mL intramuscu lar syringe TO BE ADMINIST ERED BY PHARMACI ST FOR IMMUNIZA TION active Not Available Not Available No t Available Vitals Date Recorded Body height Body mass index (BMI) Body weight Heart rate Systolic blood pressure Diastolic blood pressure Provider Name and Address Organization Details Last Updated DateTime 1 176.53 cm 21.7 kg/m2 48995.2 6 g 84 /min 138 mm[Hg] 68 mm[Hg] Bruce King MA [facility] 1 09:25:36 Date Recorded Body weight Heart rate Systolic blood pressure Diastolic blood pressure Provider Name and Address Organization Details Last Updated DateTime 01/17/2022 01720.26 g 88 /min 128 mm[Hg] 88 mm[Hg] Jenaro [facility] 01/17/2022 14:01:00 Date Recorded Body temperature Provider Name a nd Address Organization Details Last Updated DateTime 01/17/2022 98.2 [degF] Melisa John, Beatriz [address] [place], [id number] 01/17/2022 14:54:17 Date Recorded Body height Body mass index (BMI) Body weight Heart rate Oxygen saturation Oxygen saturation in Arterial blood by Pulse oximetry Systolic blood pressure Diastolic blood pressure Provider Name and Address Organization Details Last Updated DateTime 2 176.53 cm 22.4 kg/m2 43568.2 2 g 73 /min 98 % 98 % 128 mm[Hg] 74 mm[Hg] Brenna Merritt MA [facility] 2 14:54:01 Date Recorded Body height Respiratory rate Systolic blood pressure Diastolic blood pressure Provider Name and Address Organization Details Last Updated DateTime 04/11/2022 176.53 cm 18 /min 138 mm[Hg] 82 mm[Hg] Jenny Llamas CMA [facility] 2 10:56:37 Date Recorded Body height Body mass index (BMI) Body weight Heart rate Oxygen saturation Oxygen saturation in Arterial blood by Pulse oximetry Systolic blood pressure Diastolic blood pressure Provider Name and Address Organization Details Last Updated DateTime 3 176.53 cm 23.7 kg/m2 56113.7 6 g 95 /min 99 % 99 % 126 mm[Hg] 84 mm[Hg] Arely Hyatt [place] [facility] 3 15:11:52 Social History Question Answer Notes LastModified by Organizat ion Details LastModified Time Tobacco Smoking Status [facility] 09:23:25 What Is Your Level Of Alcohol Consumption? None 09/2020 [email or web address] Information not available 09/24/2020 What Is Your Level Of Caffeine Consumption? Occasional Soda/coffee Information not available 09/06/2010 How Much Tobacco Do You Chew? None [email or web address] Information not available 05/29/2011 What Type Of Diet Are You Following? REGULAR [email or web address] Information not available 05/29/2011 Which Illicit Or Recreational Drugs Have You Used? None [email or web address] Information not available 05/29/2011 Do You Or Have You Ever Used E-cigarettes Or Vape? 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 0 Information not available 05/31/2015 Are There Any Guns Present In Your Home? No [email or web address] Information not available 05/29/2011 Live Alone Or With Others? With Others Information not available 05/31/2015 Marital Status jill Informbeatriz n not available 06/25/2017 Mosquito Repellent Used Routinely No DBA_[email or web address] Information not available 05/29/2011 What Was The Date Of Your Most Recent Tobacco Screening? 08/28/2022 [email or web address] Information not available 08/28/2022 How Many Children Do You Have? 2 7 And 4 Y/o 03/20/2022 [email or web address] Information not available 03/20/2022 Seat Belts Used Routinely Yes [email or web address] Information not available 05/29/2011 Are You Sexually Active? Yes 1 Person Information not available 10/08/2011 Do You Or Have You Ever Used Smokeless Tobacco? Never Used Smokeless Tobacco Information not available 09/10/2019 How Much Tobacco Do You Smoke? No [email or web address] Information not available 05/29/2011 What Types Of Sporting Activities Do You Participate In? Field Hockey Basketball, Baseball Information not available 09/06/2010 General Stress Level Low [email or web address] Information not available 05/29/2011 Do You Use Sunscreen Routinely? Yes [email or web address] Information not available 05/29/2011 How Many Years Have You Smoked Tobacco? 0 Information not available 09/10/2019 Sex: Unknown Functional Status Question Answer Note LastModified by Organization D etails LastModified Time What is your exercise level? Heavy Information n ot available 05/29/2011 Mental Status None recorded. Family History Nothing Reported. Medical History Condition Response acne Y Immunizations Vaccine Type Date Status Note Provider Nam e and Address Organization Details Recorded Time Influenza, live, trivalent, intranasal 1 completed Not Available Pending sale to [facility] 07/30/2019 02:26:40 Influenza, split virus, trivalent, preservative 2 completed Not Available [facility] 07/30/2019 02:31:15 influenza, unspecified formulation 0 completed Not Available [facility] 05/28/2011 05:22:52 OPV 4 completed Not Available [facility] 05/28/2011 05:22:52 Hep B, unspecified formulation 5 completed Not Available [facility] 05/28/2011 05:22:52 DTP 4 completed Not Available [facility] 05/28/2011 05:22:52 Hep B, unspecified formulation 4 completed Not Available [facility] 05/28/2011 05:22:52 DTP 5 completed Not Available [facility] 05/28/2011 05:22:52 Hep B, unspecified formulation 4 completed Not Available [facility] 05/28/2011 05:22:52 DTP 4 completed Not Available [facility] 05/28/2011 05:22:52 OPV 6 completed Not Available [facility] 05/28/2011 05:22:52 Hib, unspecified formulation 5 completed Not Available [facility] 05/28/2011 05:22:52 Hib, unspecified formulation 4 completed Not Available [facility] 05/28/2011 05:22:52 MMR 9 completed [facility] 05:22:52 OPV 4 completed Not Available [facility] 05/28/2011 05:22:52 OPV 9 completed Not Available [facility] 05/28/2011 05:22:52 Tdap 6 completed Not Available Pending sale to [facility] 05/28/2011 05:22:52 DTP 9 completed Not Available Pending sale to [facility] 05/28/2011 05:22:52 MMR 5 completed Not Available Pending sale to [facility] 05/28/2011 05:22:52 Hib, unspecified formulation 4 completed Not Available Pending sale to [facility] 05/28/2011 05:22:52 DTP 6 completed Not Available Pending sale to [facility] 05/28/2011 05:22:52 MMR 6 completed Not Available Pending sale to [facility] 05/28/2011 05:22:52 Hib, unspecified formulation 5 completed Not Available Pending sale to [facility] 05/28/2011 05:22:52 Influenza, split virus, quadrivalent, PF 9 completed Not Available Pending sale to [facility] 07/30/2019 02:24:08 Tdap 1 completed Kath Keen RN null, [facility] 09/26/2020 15:37:28 COVID-19, mRNA, LNP-S, PF, 30 mcg/0.3 mL dose 1 completed ZAC Simpson, [facility] 12/17/2020 09:23:55 COVID-19, mRNA, LNP-S, PF, 30 mcg/0.3 mL dose [address] [facility] 12/17/2020 09:24:02 Past Encounters Encounter ID Performer Location Encounter Start Date Encounter Closed Date Diagnosis/Indication Diagnosis SNOMED-CT Code Diagnosis ICD10 Code Diagnosis Note [id number] [facility], OFFICE [address] [facility] [place] [address] 09/06/2010 14:29:57 09/09/2010 08:07:32 [id number] [facility], OFFICE [address] [facility] [place] [address] 11/20/2010 13:14:13 11/21/2010 07:55:19 [id number] [facility], OFFICE [address] [facility] [place] [address] 12/19/2010 14:03:34 12/20/2010 08:12:37 [id number] [facility], OFFICE [address] [place] [address] [place] [address] 03/28/2011 11:05:16 03/28/2011 12:05:11 [id number] [facility] [address] [place] [address] 03/28/2011 11:34:37 03/28/2011 13:44:10 [id number] [facility], OFFICE [address] [place] [address] [place] [address] 10/08/2011 15:01:08 10/09/2011 08:00:43 [id number] [facility], OFFICE [address] [place] [address] [place] [address] 11/03/2011 14:52:40 11/03/2011 15:25:37 [id number] [facility], OFFICE [address] [place] [address] [place] [address] 11/11/2011 12:55:29 11/11/2011 14:37:10 [id number] Brina Ferguson LPN [facility], OFFICE [address] [place] [address] [place] [address] 05/03/2012 15:11:54 05/03/2012 15:33:33 [id number] Lon Randhawa [facility], OFFICE [address] [place] [address] [place] [address] 07/08/2012 10:59:52 07/08/2012 13:43:34 [id number] Ann Marie Martin MD [facility], OFFICE [address] [place] [address] [place] [address] 09/22/2012 15:58:01 09/23/2012 08:09:01 [id number] Lupis Tran PA-C [facility], OFFICE [address] [place] [address] [place] [address] 10/07/2012 15:40:16 10/07/2012 16:11:20 [id number] Seth Banegas MD [facility], OFFICE [address] [place] [address] [place] [address] 05/31/2015 12:46:37 06/01/2015 10:25:20 Altered bowel function 51843983 R19.4 2 weeks of altered bowel habits and abnormal weight loss despite normal appetite. Will check labs for infectious or inflammato ry casues. Will also refer to GI anila further evaluation and possible colonoscop y if workup is negative given his brothers history of colon cancer in late 30s. Abnormal weight loss [id number] 486858 R63.4 [id number] Brina Ferguson LPN , [facility], OFFICE [address] [place] [address] 07/28/2016 10:08:00 07/28/2016 10:47:07 Dysuria 69258454 R30.0 Venereal d isease screening 577519547 Z11.3 Pain in pelvis 44328500 R10.2 Reviewed case with REGIS Richard. Reviewed ddx including prostatits , STI, UTI. Exam is reassuring . Will treat for probably prostatiti s, check urine culture, gc/chlamyd ia, and ultrasound . Reviewed strict return precaution s. [id number] Seth Banegas MD , [facility], OFFICE [address] [place] [address] 06/25/2017 12:53:20 06/25/2017 13:29:24 Contusion of right hand [id number] 4628567 S60.221A Fracture o f proximal phalanx of finger 672046936 S62.640D Aluminum splint given to use for comfort. Advised ice, elevation, NSAIDs. X-ray result reviewed with patient and referral made to see a local hand surgeon. [id number] DEVAN Bowens , [facility], OFFICE [address] [place] [address] 05/13/2019 09:51:16 05/13/2019 11:08:41 Active or passive immunization 319488470 Z23 flu vaccine administer ed today Tendinitis of right hand [id number] 2830268 M67.843 A: 23 year old male patient present for evaluation of right hand pain for the past 2 weeks. 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 He avoids all medication s because will not let him fly if he takes medication . He wonders if he hurt his hand when moving heavy 4 galdamez vehicles 2 weeks ago; pain seemed to start hurting after that. Pain constant, low level. Nothing makes pain worse. Intermitte nt tingling sensation: to right hand. Denies any recent hand trauma, but history of right index finger fracture in 06/2017 from crush injury . He is right hand dominant. Not taking anything for pain. Denies redness or swelling of hand.. He has a history of right hand crush injury: he was seen on 06/25/2017 after suffering a crush injury to his right hand while at work: hand got trapped between excavator bucket and boom. 06/25/2017 X-ray showed a non-displa adam, comminuted , oblique fracture to the proximal phalanx of the right index finger. Other digits were normal. P: since he declines medication , will advise ice massage/co mpress 15 minutes 3 times daily. Activity modificati on. If not better in 2 weeks, patient will call [id number] Melisa John NP , [facility], OFFICE [address] [place] [address] 09/10/2019 10:48:06 09/10/2019 11:37:22 Acute low back pain 213878028 M54.5 [id number] FANTA Guerra, [facility], OFFICE [address] [place] [address] 09/24/2020 13:48:33 09/24/2020 15:33:49 Dog bite of lower leg 203894158 S81.852A Single puncture wound dog bite to posterior left knee/hamst ring area P -Wound is small, superficia l and does not appear infected at this time -Wound care instructio ness provided -Reviewed s/s of wound infection, as he will be out of town this week he will send me a portal photo in 48 hours to re-assess wound -Advised he contact the freight rate analyst of the dog and inquire for official rabies vaccinatio n records genie and within 72 hours. If he cannot locate the records he will notify the office and will go to the ER for rabies prophylaxi s treatment, we discussed the potential serious consequenc es of rabies including and the importance of ensuring the dog has been vaccinated , or receiving prophylact ic treatment for rabies if not, understand ing verbalized . -Will update tetanus -F/u in 48 hours [id number] Kath singh RN , [facility], OFFICE [address] [place] [id number] 09/26/2020 15:29:17 09/26/2020 20:24:35 Active or passive immunization 425144506 Z23 [id number] Ramesh Giraldo MD , [facility], OFFICE [address] [place] [id number] 12/17/2020 09:13:10 12/17/2020 13:13:17 Pain of left shoulder joint 2421294296 9532619 M25.512 Contusion, rule out fracture, RC injury. X ray. PT for fitness for duty assessment this week. No indication for immobiliza tion/analg esics as minimal pain with motion. [id number] Melisa John NP FP, [facility], OFFICE [address] [place] [id number] 01/17/2022 13:38:02 01/17/2022 15:35:30 Tick bite 68543822 W57.XXXA Muscle pain 74312700 M79 .10 [id number] Real Theodore Jr. MD , [facility], OFFICE [address] [place] [id number] 03/20/2022 14:32:40 03/20/2022 17:29:51 Education 265135207 Z30.09 Reviewed risks, benefits, and alternativ es for permanent contracept ion. Informatio n packet reviewed with patient in detail. He understand s that this is considered to be a permanent form of contracept ion. Reviewed preoperati ve and postoperat preet instructio ns. Patient is aware that he will need to use some form of backup contracept ion until semen specimen is confirmed to be absent of sperm at 12 weeks. Prescripti on for diazepam will be sent to the pharmacy the week of the procedure. He is aware that he needs a ride home following the procedure. I spent 25 minutes with the patient. More than 50% of visit was counseling or coordinati on of care, regarding diagnostic results/im pressions, instructio ns for management , patient education. [id number] Real Theodore Jr. MD , [facility], OFFICE [address] [place] [address] 04/11/2022 10:50:47 04/11/2022 13:18:56 Vasectomy requested 421723160 Z30.2 Tolerated well. Reviewed postoperat preet arzola. Patient to take ibuprofen which he has at home currently. Patient given a specimen cup for semen sample to be submitted in 12 weeks for confirmati on. [id number] Stevie Arevalo PA-C , [facility], OFFICE [address] [place] [address] 08/28/2022 14:56:29 08/28/2022 16:10:00 Blood in urine 39463719 R31.9 chronic, may be [place] recommend US of bladder and kidneyurol ogy consult Crush inju ry of right ring finger [id number] 9130004 S67.194A RHD, concern for crush injury with loss of sensation, advised to go to walk in [facility] todaygave contact informatio n with directions , able to drive himself Health Concerns Section Related Observation LastModified by Organization Detai ls LastModified Time None Recorded Concern Status LastModified by Organization Details LastModified Time None Recorded Advance Directives Directive None Recorded Payers Encounter Date Sequence Insurance Name Policy Number Policy Artis Covered Member ID Artis Member ID Guarantor Name 12/17/2020 1 EAST - DOS PRIOR TO 2024 - [employer] () Zaki Beausoleil [id number] Zaki Beausoleil 01/17/2022 1 [place] - DOS PRIOR TO 2024 - [employer] () Zaki Beausoleil [id number] Zaki Beausoleil 03/20/2022 1 [place] - DOS PRIOR TO 2024 - [employer] () Azki Beausoleil [id number] Zaki Beausoleil 04/11/2022 1 [place]AST - DOS PRIOR TO 2024 - [employer] () Zaki Beausoleil [id number] Zaki Beausoleil 08/28/2022 1 [place]AST - DOS PRIOR TO 2024 - [facility] () Zaki Foy [id number] Zaki Foy Notes Date Note Type Note Provider Name and Address Organization Details Recorded Time 12/17/2020 text/html Last night, Richard fell onto a brick while performing an obstacle course when a dog took out my feet. This happened at his friend's house. He has no pain at rest, but mild pain with abduction. No OTC analgesics. 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 No history of left shoulder problems. RH. Ramesh Giraldo MD [address] [place] [address], [phone], [facility] 12/17/2020 12:49:32 01/17/2022 text/html Same day prep ti me start: 1340Same day prep time end: 1344Visit start time: 1445Visit end time: 1458Same day documentation start:Same day documentation end:My total time spent today documenting and providing coordinated care for this patient is 13 minutes. --pt states all of his muscles hurt (arms, legs, abs, neck) -- aching -- not joints--doesn't think he has had fever--had two tick bites three to five weeks ago -- different times, both engorged -- not sure how long they were attached--no obvious bull's eye; no recent rashes Melisa John NP [address] [place] [address], [phone], [facility] 01/20/2022 08:40:36 03/20/2022 text/html Pt presents torios y to discuss vasectomy procedure. He has 2 children- 7 and 4 years old. Denies history of major trauma, surgery, or infections in the scrotum. Real Theodore Jr. [address] [place], [address], [facility] 03/21/2022 05:07:56 04/11/2022 text/html Patient presents for vasectomy procedure. Has been consented previously on: 03/20/22. No additional questions at this time. Wishes to proceed. Has taken diazepam approximately 10 minutes earlier. Real Theodore Jr. MD [address] [place], [address], [facility] 04/11/2022 12:50:10 08/28/2022 text/html Here with multip le issues 1. Right 4th digit injury this AM, pinched between a box car loader bucket and a tree as it fell when he misjudged the chainsaw cut'currently I don't really feel any pain now no analgesics, not coveredno gloves, no hard hatlast tetanus HD 2. heme in urine 2 years ago and this year at [facility] physical in tates that he has not been exercising vigorously or sexually active at this timeno trauma, denies tobacco useno urinary symptoms at this time or in the past Stevie Arevalo PA-C [address] [place], [phone], [facility] 08/28/2022 15:59:34
== END 2024-08-31 11:11 | disposition home or self-care (01) ==
PROVIDERS: PCP Internal Medicine; Referring Provider Internal Medicine; Visit Provider Neurological Surgery
DX: M51.06 Intervertebral disc disorders with myelopathy, lumbar region (principal)
CPT/HCPCS: 99204

== ENCOUNTER → 2024-08-31 10:26 | Outpatient (BNVA) | payer OTHER, SELFPAY | PROVIDERS: PCP Internal Medicine; Referring Provider Internal Medicine; Visit Provider Neurological Surgery | DX: M51.06 Intervertebral disc disorders with myelopathy, lumbar region (principal) | CPT/HCPCS: 99202 ==

== ENCOUNTER 2024-09-10 10:45 | Emergency (ER) | payer OTHER, SELFPAY ==
--- NOTE | ~2024-09-10 | XR_ITS ---
CLINICAL HISTORY: low back pain.known herniated disc 3 views lumbar spine Comparison: None Findings: Normal alignment. No acute fractures or dislocation. There is degenerative disc disease with disc space narrowing at the L5-S1 level. IMPRESSION: There is degenerative disc disease with disc space narrowing at the L5-S1 level. This document has been electronically signed by: Bishnu Merritt MD on 09/10/2024 12:59:45
--- NOTE | 2024-09-10 11:37 | ED.BACK ---
HPI - Back Pain/Injury General Chief Complaint: Back Pain/Injury Stated Complaint: back pain Time Seen by Provider: 09/10/24 14:16 Source: patient Mode of arrival: ambulatory Limitations: no limitations History of Present Illness ED Provider: Gavino Sandoval DO HPI Narrative: 28-year-old male scheduled for diskectomy in a few days with MRI from 08/20/2024 showing moderate left paramedian disc herniation at the L5-S1 level causing mass effect on the descending left S1 nerve root presents to the emergency department due to worsening pain. Patient states he bent over at the trunk at approximately 08:00 this morning and experienced severe pain with a ?pop? located over the lower spine which radiated up and below in the midline back. He denies any new numbness or tingling or weakness of the lower extremities. He denies saddle anesthesia, urinary retention, urinary or bowel incontinence, fevers, inability to walk or any additional symptoms. He has been avoiding NSAID therapy due to the upcoming surgery in 3 days. Has not taken anything at home for the pain. Procedure to be performed by Dr. Soler. Related Data Previous Rx's ?Medication ?Instructions ?Recorded diazepam 5 mg tablet (Valium) 5 mg PO BID PRN muscle spasm #7 09/10/24 tabs lidocaine 5 % topical patch 1 patch topical DAILY #30 ea 09/10/24 Allergies Allergy/AdvReac Type Severity Reaction Status Date / Time No Known Allergies Allergy Verified 09/10/24 11:41 Review of Systems Review of Systems: Yes all other systems are reviewed and are negative PMFSH Past Medical History Medical History (Updated 09/10/24 @ 15:40 by Gavino Sandoval DO) Numbness Back pain Surgical History (Updated 09/09/24 @ 09:29 by Cassie Soler RN) Hx of tooth extraction H/O colonoscopy Social History Social History Are you a primary manager critical care to a significant other at home: Yes Do you presently have visiting nurse or other home services: No Patient Tobacco Use Status: Never used Tobacco Advance Directives: No Advance Directives Information Provided: No Physical Exam Vital Signs: Vital Signs: Last Vital Signs Temp 97.3 F 09/10/24 11:40 Pulse 74 09/10/24 15:30 Resp 16 09/10/24 15:30 BP 120/82 09/10/24 15:30 Pulse Ox 98 09/10/24 15:30 O2 Del Method Room Air 09/10/24 15:30 BMI result Body Mass Index 21.6 Constitutional: ?Alert, oriented, speaking in full sentences, resting on exam stretcher with right leg hanging off the bed due to position of comfort HEENT: ?Normocephalic, atraumatic. Eyes: ?PERRL, EOMI Neck: ?Supple, no midline tenderness to palpation, normal range of motion Chest: ?No chest wall tenderness Respiratory: ?no increased work of breathing Cardio: 2+ DP pulses symmetrically Back: ?The patient is able to lie prone for reflex testing, stand up and sit down. He has some discomfort with all of these movements. He has no overlying skin changes or step-offs but there is midline tenderness to palpation from L1 down to the lower sacral area. There is reproducible pain in the back with straight leg raise of the bilateral lower extremities. Skin: ?No rash, no lesions Neuro: ?Alert and oriented to person, place and time, moves all 4 extremities, there is 5/5 strength of the bilateral lower extremities. There is decreased sensation all over the L1/S5 nerve roots on the left which the patient states is unchanged from baseline. 1+ patellar and Achilles reflexes symmetrically Extremities: ?No swelling or tenderness, full range of motion Psych: ?Calm, alert and cooperative, appropriate behavior Course Course Course Narrative: This is a Rapid Medical Exam performed in triage by Jennifer Davis PA-C. Full HPI, ROS and PE to be performed by primary ED provider. 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 Carl on Thursday presenting to the ED complaining of low back pain > right s/p bending over and feeling something in back. Reports pain with movement and ambulation. Denies incontinence of stool, urine, urinary retention. Denies taking anything for pain PE: + midline lumbar spinous tenderness and reproducible right paraspinal/MSK tenderness. Ambulating with steady gait. Plan: X-ray, pain control Medications Administered Discontinued Medications Generic Name Dose Route Start Last Admin Trade Name Freq PRN Reason Stop Dose Admin Acetaminophen 975 mg 09/10/24 14:56 09/10/24 15:31 Acetaminophen 325 Mg Tablet PO 09/10/24 14:57 975 mg ONCE ONE Administration Diazepam 5 mg 09/10/24 14:56 09/10/24 15:31 Diazepam 5 Mg Tablet PO 09/10/24 14:57 5 mg ONCE ONE Administration Lidocaine 1 patch 09/10/24 14:56 09/10/24 15:31 Lidocaine 4 % Patch Adh..Patch TRANSDERMA 09/10/24 14:57 1 patch ONCE ONE Administration Protocol Medical Decision Making Medical Decision Making MDM Narrative: Patient presenting with acute on chronic back pain in the setting of known disc herniation with planned procedure in 3 days. He has no new neurologic deficits per my exam. He does have a new and worsening midline lumbar and sacral back pain. Continuing to avoid NSAID therapy in preparation for surgery and provided acetaminophen, diazepam and Lidoderm patch to help manage the pain at this time. Case has been discussed with Neurosurgery specialist on-call who agrees with plan and will confirm with the patient's neurosurgeon. Plan is to discharge the patient home with pain management as needed. No fracture observed on x-ray imaging. Patient responded well to diazepam. Short course provided as needed for sleep at home. The patient is not driving home. His partners at the bedside and will machine operator picker the medication. Also encouraged acetaminophen and Lidoderm patch. The patient voices clear understanding to return with any new neurologic symptoms. Admission/Observation Consideration of admission/observation: Escalation of care including admission/observation considered Discharge Plan Discharge Clinical Impression: Lumbar disc disease Acute low back pain Qualifiers: Back pain laterality: midline Sciatica presence: without sciatica Qualified Code(s): M54.50 - Low back pain, unspecified Patient Disposition: Home, Self-Care Instructions: Acute Low Back Pain (ED) Additional Instructions: Take the prescribed diazepam up to twice a day as needed for discomfort while resting at home and to help with sleep. Do not drive with this medication as it will make you drowsy. Lidoderm patch for 12 hours, when not applied you can apply ice to your back. Acetaminophen 1000 mg 3 times a day. Return to the emergency department immediately if you develop ANY new or worsening symptoms, especially increased pain, losing control of your bladder or bowel movements, fevers (over 100.4 F), numbness in your groin/genital area, or numbness/tingling/weakness of the extremities that is NEW compared to your current symptoms. Prescriptions: New lidocaine 5 % adhesive patch,medicated 1 patch topical DAILY Qty: 30 0RF Rx Instructions: leave on most painful area for up to 12 hrs diazepam [Valium] 5 mg tablet 5 mg PO BID PRN (Reason: muscle spasm) Qty: 7 0RF Discharge Date/Time: 09/10/24 16:27 Print Language: Luxembourgish
[2024-09-10 11:40] VITALS: BP 130/94; PULSE 125; RESP 18; TEMP 36.3; O2SAT 99; BMI 21.6
--- OUTSIDE RECORDS SUMMARY | 2024-09-10 14:19 | XMS_ITS | Data Portability ---
Author Organization [facility], , [facility] Address [address] [place] [address] Care Team Providers Care Security System Technician Name Role Phone RAMESH HARDING Primary Care Provider Assessment Encounter Date Assessment Date Assessment LastModified [...] recorded. Lab urinalysi s, dipstick 2022 023 [facility], [address] [place] [address], [id number], 15:46:34 culture, urine 2022 023 [facility], [address] [place] [address], [id number], 3 07:48:25 tick-born e disease panel 2021 022 [facility], [address] [place] [address], [address], 18:21:01 babesia duncani Ab, titer, immunoflo urescence , serum 2021 022 [facility], [address] [place] [address], [id number], 2 18:21:00 CK (creatine kinase), total, serum 2021 022 [facility], [address] [place] [address], [address], 2 12:27:15 ESR (erythroc yte sedimenta tion rate), blood 2021 022 [facility], [address] [place] [address], [address], 17:59:49 C-reactiv e protein, quantitat preet, serum or plasma 2021 022 [facility], [address] [place], [address], 2 13:49:04 CMP, serum or plasma 2021 022 [facility], [address] [place] [address], [address], 2 12:27:14 CBC 2021 022 [facility], [address] [place] [address], [address], 2 17:07:44 Referral urologist referral 2022 023 [facility], [address] [place], [address], 3 11:20:15 Procedures None recorded. Surgeries None recorded. Imaging US, retroperi toneum - chronic painless hematuria , r/o subclinic al kidney stone vs bladder mass 2022 023 [facility] (Imaging), [address], [place], [place], [address], 3 10:49:24 XR, shoulder [address] (Outpt Imaging), [address] [place], [address], 1 13:13:17 XR, scapula [address] (Outpt Imaging), [address] [place], [address], 1 13:13:17 Medication Orders doxycycli ne hyclate 100 mg capsule 2021 022 [id number], [address] [place], [place], [id number], 2 14:53:09 Patient TargetsNo targets recorded. Patient InstructionsNo instructions recorded. Reason for Referral Urologist Referral for Blood in urine painless hematuria x 2 years Referring Physician: Stevie Arevalo, Family Medicine, Encounter Date: 08/28/2022 Results Created Date Observation Date Name Description Value Unit Range Abnormal Flag Note LastModifiedBy Organization Detail LastModifiedTime 01/18/20 22 01/17/2022 CBC WBC 5.85 K/??L 4.23-9 .07 Not Available [address], [address], 01/17/2022 17:07:44 01/18/20 22 01/17/2022 CBC RBC 5.26 M/??L 4.63-6 .08 Not Available [address], [address], 01/17/2022 17:07:44 01/18/20 22 01/17/2022 CBC HGB 15.5 g/dL 13.7-1 7.5 Not Available [address], [address], 01/17/2022 17:07:44 01/18/20 22 01/17/2022 CBC HCT 46.8 % 40.1-5 1.0 Not Available [address], [address], 01/17/2022 17:07:44 01/18/20 22 01/17/2022 CBC MCV 89.0 fL 79.0-9 2.2 Not Available [address], [address], 01/17/2022 17:07:44 01/18/20 22 01/17/2022 CBC MCH 29.5 pg 25.7-3 2.2 Not Available [address], [address], 01/17/2022 17:07:44 01/18/20 22 01/17/2022 CBC MCHC 33.1 g/dL 32.3-3 6.5 Not Available [address], [address], 01/17/2022 17:07:44 01/18/20 22 01/17/2022 CBC plt 222 K/??L 163-33 7 Not Available [address], [address], 01/17/2022 17:07:44 01/18/20 22 01/17/2022 CBC MPV 9.7 fL 9.4-12 .4 Not Available [address], [address], 01/17/2022 17:07:44 01/18/20 22 01/17/2022 CBC neut% 55.4 % 34.0-6 7.9 Not Available [address], [address], 01/17/2022 17:07:44 01/18/20 22 01/17/2022 CBC neut# 3.24 1.78-5 .38 Not Available [address], [address], 01/17/2022 17:07:44 01/18/20 22 01/17/2022 CBC lymph % 32.1 % 21.8-5 3.1 Not Available [address], [address], 01/17/2022 17:07:44 01/18/20 22 01/17/2022 CBC lymph # 1.88 K/??L 1.32-3 .57 Not Available [address], [address], 01/17/2022 17:07:44 01/18/20 22 01/17/2022 CBC mono% 9.6 % 5.3-12 .2 Not Available [address], [address], 01/17/2022 17:07:44 01/18/20 22 01/17/2022 CBC mono# 0.56 0.30-0 .82 Not Available [address], [address], 01/17/2022 17:07:44 01/18/20 22 01/17/2022 CBC eo% 1.7 % 0.8-7. 0 Not Available [address], [address], 01/17/2022 17:07:44 01/18/20 22 01/17/2022 CBC eo# 0.10 0.04-0 .54 Not Available [address], [address], 01/17/2022 17:07:44 01/18/20 22 01/17/2022 CBC baso% 1.0 % 0.2-1. 2 Not Available [address], [address], 01/17/2022 17:07:44 01/18/20 22 01/17/2022 CBC baso# 0.06 0.00-0 .08 Not Available [address], [address], 01/17/2022 17:07:44 01/18/20 22 01/17/2022 CBC RDW-CV 12.0 % 11.6-1 4.4 Not Available [address], [address], 01/17/2022 17:07:44 01/18/20 22 01/17/2022 CBC Ig% 0.200 % 0.000- 1.500 Ig % >0.5 Indic ates possi ble Left Shift Not Available [address], [address], 01/17/2022 17:07:44 01/18/20 22 01/17/2022 CBC Ig# 0.010 0.000- 0.093 Not Available [address], [address], 01/17/2022 17:07:44 01/18/20 22 01/17/2022 CBC NRBC% 0.0 % 0.0-0. 2 Not Available [address], [address], 01/17/2022 17:07:44 01/18/20 22 01/17/2022 CBC NRBC# 0.000 0.000- 0.012 Not Available [address], [address], 01/17/2022 17:07:44 01/18/20 22 01/17/2022 ESR sed rate 2.0 0.0-20 .0 Not Available [address], [address], 01/17/2022 17:59:49 01/18/20 22 01/22/2022 COMP. METAB OLIC PANEL glucose 84 mg/dL 70-100 Not Available [address], [address], 01/22/2022 12:27:14 01/18/20 22 01/22/2022 COMP. METAB OLIC PANEL BUN 14 mg/dL 7-18 Not Available [address], [address], 01/22/2022 12:27:14 01/18/20 22 01/22/2022 COMP. METAB OLIC PANEL creatinine 1.0 mg/dL 0.8-1. 3 Not Available [address], [address], 01/22/2022 12:27:14 01/18/20 22 01/22/2022 COMP. METAB OLIC PANEL B/C 14.0 ratio Not Available [address], [address], 01/22/2022 12:27:14 01/18/20 22 01/22/2022 COMP. METAB [...] be used in pregn santi. Not Available [address], [address], 01/22/2022 12:27:14 01/18/20 22 01/22/2022 COMP. METAB OLIC PANEL sodium 142 mmol/ L 136-14 5 Not Available [address], [address], 01/22/2022 12:27:14 01/18/20 22 01/22/2022 COMP. METAB OLIC PANEL potassium 4.5 mmol/ L 3.5-5. 1 Not Available [address], [address], 01/22/2022 12:27:14 01/18/20 22 01/22/2022 COMP. METAB OLIC PANEL chloride 102 mmol/ L 96-107 Not Available [address], [address], 01/22/2022 12:27:14 01/18/20 22 01/22/2022 COMP. METAB OLIC PANEL anion gap 10.6 5.0-15 .0 Not Available [address], [address], 01/22/2022 12:27:14 01/18/20 22 01/22/2022 COMP. METAB OLIC PANEL CO2 29 mmol/ L 21-32 Not Available [address], [address], 01/22/2022 12:27:14 01/18/20 22 01/22/2022 COMP. METAB OLIC PANEL calcium 9.2 mg/dL 8.5-10 .3 Not Available [address], [address], 01/22/2022 12:27:14 01/18/20 22 01/22/2022 COMP. METAB OLIC PANEL total protein 7.3 g/dL 6.4-8. 2 Not Available [address], [address], 01/22/2022 12:27:14 01/18/20 22 01/22/2022 COMP. METAB OLIC PANEL albumin 4.6 g/dL 3.4-5. 0 Not Available [address], [address], 01/22/2022 12:27:14 01/18/20 22 01/22/2022 COMP. METAB OLIC PANEL globulin 2.7 g/dL Not Available [address], [address], 01/22/2022 12:27:14 01/18/20 22 01/22/2022 COMP. METAB OLIC PANEL A/G 1.7 ratio 0.8-2. 0 Not Available [address], [address], 01/22/2022 12:27:14 01/18/20 22 01/22/2022 COMP. METAB OLIC PANEL total bilirubin 0.50 mg/dL 0.00-1 .00 Not Available [address], [address], 01/22/2022 12:27:14 01/18/20 22 01/22/2022 COMP. METAB OLIC PANEL AST 34 U/L 0-37 Not Available [address], [address], 01/22/2022 12:27:14 01/18/20 22 01/22/2022 COMP. METAB OLIC PANEL ALT 29 U/L 6-63 Not Available [address], [address], 01/22/2022 12:27:14 01/18/20 22 01/22/2022 COMP. METAB OLIC PANEL alk. phos. 77 U/L 50-136 Not Available [address], [address], 01/22/2022 12:27:14 01/18/20 22 01/22/2022 CPK CPK 206.0 U/L 35.0-2 32.0 Not Available [address], [address], 01/22/2022 12:27:15 01/18/20 22 01/22/2022 C-ZAINA CTIVE PROTE IN-QU ANTIT ATIVE C-reactive protein -quant <2.0 mg/L 0.0-9. 0 < Not Available [address], [address], 01/22/2022 13:49:04 01/18/20 22 01/28/2022 BABES IA [...] livan purpo ses. Not Available [facility] [place] [facility] [address], [place], [address], 01/28/2022 18:21:00 01/18/20 22 01/28/2022 TICK BORNE [...] livan purpo ses. Not Available [facility] [place] [facility] [address], [place], [address], 01/28/2022 18:21:01 01/18/20 22 01/28/2022 TICK BORNE DISEA SE, ACUTE MOLEC ULAR PANEL babesia microti DNA, real time PCR NOT DETECT ED not detect ed normal This test was devel oped and its adan tical perfo rmanc e tacho cteri stics have been deter mined by [facility]. It has not been clear ed or appro marleny by the FDA. This assay has been valid ated pursu ant to the CLIA regul ation s and is used for clini livan purpo ses. Not Available [facility] [place] [facility] [address], [place], [address], 01/28/2022 18:21:01 01/18/20 22 01/28/2022 TICK BORNE DISEA SE, ACUTE MOLEC ULAR PANEL source BLOOD Not Available [facility] [place] [facility] [address], [place], [address], 01/28/2022 18:21:01 01/18/20 22 01/28/2022 TICK BORNE DISEA SE, ACUTE MOLEC ULAR PANEL borrelia miyamotoi DNA, real time PCR, misc NOT DETECT ED not detect ed normal This test was devel oped and its adan tical perfo rmanc e tacho cteri stics have been deter mined by [facility]. It has not been clear ed or appro marleny by the FDA. This assay has been valid ated pursu ant to the CLIA regul ation s and is used for clini livan purpo ses. Not Available [facility] [place] [facility] [address], [address], 01/28/2022 18:21:01 01/18/20 22 01/28/2022 TICK BORNE DISEA SE, ACUTE MOLEC ULAR PANEL ehrlichia chaffeensis DNA real time PCR NOT DETECT ED not detect ed normal This test was devel oped and its adan tical perfo rmanc e tacho cteri stics have been deter mined by [facility]. It has not been clear ed or appro marleny by the FDA. This assay has been valid ated pursu ant to the CLIA regul ation s and is used for clini livan purpo ses. Not Available [facility] [place] [facility] [address], [address], 01/28/2022 18:21:01 01/18/20 22 01/28/2022 TICK BORNE [...] ation s and is used for clini livna purpo ses. Not Available [facility] [place] [facility] [address], [place], [address], 01/28/2022 18:21:01 04/07/20 22 04/08/2022 SARS- COV-2 RNA (COVI D-19) , QUALI TATIV E NAAT sarscov2 NEGATI VE negati ve normal This test has been autho rized by the FDA under an Emerg ency Use Autho rizat ion(E UA) for you by autho [facility]. Not Available [address], [address], 04/08/2022 14:33:17 08/28/19 23 08/28/2022 POC UA glu UA NEGATI VE Not Available [facility] [address] [place] [address], [address], 08/28/2022 15:19:38 08/28/19 23 08/28/2022 POC UA clarity UA CLEAR Not Available [facility] [address] [place] [address], [address], 08/28/2022 15:19:38 08/28/19 23 08/28/2022 POC UA uro UA 1.0000 Not Available [facility] [address] [place] [address], [address], 08/28/2022 15:19:38 08/28/19 23 08/28/2022 POC UA ket UA NEGATI VE Not Available [facility] [address] [place] [address], [address], 08/28/2022 15:19:38 08/28/19 23 08/28/2022 POC UA pro UA NEGATI VE Not Available [facility] [address] [place] [address], [address], 08/28/2022 15:19:38 08/28/19 23 08/28/2022 POC UA nit UA NEGATI VE Not Available [facility] [address] [place] [address], [address], 08/28/2022 15:19:38 08/28/19 23 08/28/2022 POC UA lazaro UA NEGATI VE Not Available [facility] [address] [place] [address], [address], 08/28/2022 15:19:38 08/28/19 23 08/28/2022 POC UA pH UA 6.5000 Not Available [facility] [address] [place] [address], [address], 08/28/2022 15:19:38 08/28/19 23 08/28/2022 POC UA SG UA 1.0250 Not Available [facility] [address] [place] [address], [address], 08/28/2022 15:19:38 08/28/19 23 08/28/2022 POC UA color UA YELLOW Not Available [facility] [address] [place] [address], [address], 08/28/2022 15:19:38 08/28/19 23 08/28/2022 POC UA blo UA 1+ abnormal Not Available [facility] [address] [place] [address], [address], 08/28/2022 15:19:38 08/28/19 23 08/28/2022 POC UA antonio UA NEGATI VE Not Available [facility] [address] [place], [address], 08/28/2022 15:19:38 08/28/19 23 08/30/2022 CULTU RE, URINE , ROUTI NE culture, urine, routine CULTU RE, URINE , ROUTI NE Micro Numbe r: [id number] Test Statu s: Final Speci men [...] Cultu re Trans port Tube. Not Available [email or web address] [place] [facility] [address], [place], [address], 08/30/2022 07:48:25 12/18/19 21 12/17/2020 XR, shoul theresa No observ ation record ed. [facility] (Outpt Imaging) [address] [facility], [place], [address], 12/17/2020 14:10:30 08/28/19 23 08/28/2022 xr finge r 2 or more views (valerie t) This image report has been auto-f inaliz ed and has not been read by a Radiol ogist. Interp retati on has been includ ed in the provid er encoun ter note for this date of niall anderson Final result MAURA-LY N GUMPRE CHT [email or web address] [facility] [address] [facility], [place], [address], 08/29/2022 10:06:33 09/01/19 23 09/01/2022 US, retro [...] dumont Physic chio: Marcio ortiz Ziacarol ms [email or web address] [facility] (Imaging) [address], [place], [address], 09/19/2022 10:14:02 Result Notes None recorded. Problems No Known Problems Procedures Surgical History Date Name Laterality Status Provider Name and Address Organization Details Recorded Time Vasectomy MR completed Real Theodore Jr. MD [address] [place] [address], [id number], [facility] 04/11/2022 12:49:52 7 POC Urinalysis Testing completed Bridget Malone RN [facility] 07/28/2016 10:30:42 Imaging Results Imaging Date Name Status LastModified by Organization Details LastModified Time 12/17/2020 XR, shoulder completed [facility] (Outpt Imaging) [address] [place], [address], 12/17/2020 14:10:30 08/28/2022 xr finger 2 or more views (right) completed [facility] [address] [place], [address], 08/29/2022 10:06:33 09/01/2022 US, retroperitoneum completed [email or web address] [facility] (Imaging) [address], [place], [address], 09/19/2022 10:14:02 Procedure Notes None recorded. Medical [...] Available Not Available No t Available Afluria [id number]( PF) 45 mcg (15 mcg x 3)/0.5 mL intramuscu lar syringe TO BE ADMINIST ERED BY PHARMACI ST FOR IMMUNIZA TION active Not Available Not Available No t Available Vitals Date Recorded Body height Body mass index (BMI) Body weight Heart rate Systolic blood pressure Diastolic blood pressure Provider Name and Address Organization Details Last Updated DateTime 1 176.53 cm 21.7 kg/m2 14057.2 6 g 84 /min 138 mm[Hg] 68 mm[Hg] Bruce King MA [facility] 1 09:25:36 Date Recorded Body weight Heart rate Systolic blood pressure Diastolic blood pressure Provider Name and Address Organization Details Last Updated DateTime 01/17/2022 18764.26 g 88 /min 128 mm[Hg] 88 mm[Hg] Jenaro [facility] 01/17/2022 14:01:00 Date Recorded Body temperature Provider Name a nd Address Organization Details Last Updated DateTime 01/17/2022 98.2 [degF] Melisa John, Beatriz P [address] [place], [address] 01/17/2022 14:54:17 Date Recorded Body height Body mass index (BMI) Body weight Heart rate Oxygen saturation Oxygen saturation in Arterial blood by Pulse oximetry Systolic blood pressure Diastolic blood pressure Provider Name and Address Organization Details Last Updated DateTime 2 176.53 cm 22.4 kg/m2 48639.2 2 g 73 /min 98 % 98 % 128 mm[Hg] 74 mm[Hg] Brenna Merritt MA [facility] 2 14:54:01 Date Recorded Body height Respiratory rate Systolic blood pressure Diastolic blood pressure Provider Name and Address Organization Details Last Updated DateTime 04/11/2022 176.53 cm 18 /min 138 mm[Hg] 82 mm[Hg] Jenny Llamas CMA [facility] 2 10:56:37 Date Recorded Body height Body mass index (BMI) Body weight Heart rate Oxygen saturation Oxygen saturation in Arterial blood by Pulse oximetry Systolic blood pressure Diastolic blood pressure Provider Name and Address Organization Details Last Updated DateTime 3 176.53 cm 23.7 kg/m2 24812.7 6 g 95 /min 99 % 99 % 126 mm[Hg] 84 mm[Hg] Arely Hyatt MA [facility] 3 15:11:52 Social History Question Answer Notes LastModified by Organizat ion Details LastModified Time Tobacco Smoking Status [facility] 12/17/2020 09:23:25 What Is Your Level Of [...] Of Your Most Recent Tobacco Screening? 08/28/2022 [email or web address] Information not available 08/28/2022 How Many Children Do You Have? 2 7 And 4 Y/o 03/20/2022 [email or web address] Information not available 03/20/2022 Seat Belts Used [...] live, trivalent, intranasal 1 completed Not Available [facility] 07/30/2019 02:26:40 Influenza, split virus, trivalent, preservative 2 completed Not Available [facility] 07/30/2019 02:31:15 influenza, unspecified formulation 0 completed Not Available [facility] 05/28/2011 05:22:52 OPV 4 completed Not Available [facility] 05/28/2011 05:22:52 Hep B, unspecified formulation 5 completed Not Available [facility] 05/28/2011 05:22:52 DTP 4 completed Not Available [facility] 05/28/2011 05:22:52 Hep B, unspecified formulation 4 completed Not Available [facility] 05/28/2011 05:22:52 DTP 5 completed Not Available [facility] 05/28/2011 05:22:52 Hep B, unspecified formulation 4 completed Not Available [facility] 05/28/2011 05:22:52 DTP 4 completed Not Available [facility] 05/28/2011 05:22:52 OPV 6 completed Not Available [facility] 05/28/2011 05:22:52 Hib, unspecified formulation 5 completed Not Available [facility] 05/28/2011 05:22:52 Hib, unspecified formulation 4 completed Not Available [facility] 05/28/2011 05:22:52 MMR 9 completed Not Available [facility] 05:22:52 OPV 4 completed Not Available [facility] 05/28/2011 05:22:52 OPV 9 completed Not Available [facility] 05/28/2011 05:22:52 Tdap 6 completed Not Available [facility] 05/28/2011 05:22:52 DTP 9 completed Not Available [facility] 05/28/2011 05:22:52 MMR 5 completed Not Available [facility] 05/28/2011 05:22:52 Hib, unspecified formulation 4 completed Not Available [facility] 05/28/2011 05:22:52 DTP 6 completed Not Available [facility] 05/28/2011 05:22:52 MMR 6 completed Not Available [facility] 05/28/2011 05:22:52 Hib, unspecified formulation 5 completed Not Available [facility] 05/28/2011 05:22:52 Influenza, split virus, quadrivalent, PF 9 completed Not Available [facility] 07/30/2019 02:24:08 Tdap 1 completed Kath Keen RN null, [facility] 09/26/2020 15:37:28 COVID-19, mRNA, LNP-S, PF, 30 mcg/0.3 mL dose 1 completed ZAC Simpson, [facility] 12/17/2020 09:23:55 COVID-19, mRNA, LNP-S, PF, 30 mcg/0.3 mL dose 1 completed ZAC Simpson [facility] 12/17/2020 09:24:02 Past Encounters Encounter ID Performer Location Encounter Start Date Encounter Closed Date Diagnosis/Indication Diagnosis SNOMED-CT Code Diagnosis ICD10 Code Diagnosis Note [id number] JUDY [facility], OFFICE [address] [facility] [place] [address] 09/06/2010 14:29:57 09/09/2010 08:07:32 [id number] JUDY [facility], OFFICE [address] [facility] [place] [address] 11/20/2010 13:14:13 11/21/2010 07:55:19 [id number] JUDY [facility], OFFICE [address] [facility] [place] [address] 12/19/2010 14:03:34 12/20/2010 08:12:37 [id number] [facility], OFFICE [address] [place] [address] [place] [address] 03/28/2011 11:05:16 03/28/2011 12:05:11 [id number] [facility] [address] [place] [address] 03/28/2011 11:34:37 03/28/2011 13:44:10 [id number] [facility], OFFICE [address] [place] [address] [place] [address] 10/08/2011 15:01:08 10/09/2011 08:00:43 [id number] [facility], OFFICE [address] [place] [address] [place] [address] 11/03/2011 14:52:40 11/03/2011 15:25:37 [id number] [facility], OFFICE [address] [place] [address] [place] [address] 11/11/2011 12:55:29 11/11/2011 14:37:10 [id number] Brina Ferguson LPN [facility], OFFICE [address] [place] [address] [place] [address] 05/03/2012 15:11:54 05/03/2012 15:33:33 [id number] Lon Randhawa [facility], OFFICE [address] [place] [address] [place] [address] 07/08/2012 10:59:52 07/08/2012 13:43:34 [id number] Ann Marie Martin MD [facility], OFFICE [address] [place] [address] [place] [address] 09/22/2012 15:58:01 09/23/2012 08:09:01 [id number] Lupis Tran PA-C [facility], OFFICE [address] [place] [address] [place] [address] 10/07/2012 15:40:16 10/07/2012 16:11:20 [id number] Seth Banegas MD [facility], OFFICE [address] [place] [address] [place] [address] 05/31/2015 12:46:37 06/01/2015 10:25:20 Altered bowel function 17687396 R19.4 2 weeks of altered bowel habits and abnormal weight loss despite normal appetite. Will check labs for infectious or inflammato ry casues. Will also refer to GI anila further evaluation and possible colonoscop y if workup is negative given his brothers history of colon cancer in late 30s. Abnormal weight loss 267 427706 R63.4 [id number] Brina Ferguson LPN , [facility], OFFICE [address] [facility] [place] [address] 07/28/2016 10:08:00 07/28/2016 10:47:07 Dysuria 76240041 R30.0 Venereal d isease screening 384877584 Z11.3 Pain in pelvis 68647062 R10.2 Reviewed case with REGIS Richard. Reviewed ddx including prostatits , STI, UTI. Exam is reassuring . Will treat for probably prostatiti s, check urine culture, gc/chlamyd ia, and ultrasound . Reviewed strict return precaution s. [id number] Seth Banegas MD , [facility], OFFICE [address] [facility] [place] [address] 06/25/2017 12:53:20 06/25/2017 13:29:24 Contusion of right hand [id number] S60.221A Fracture o f proximal phalanx of finger 788714979 S62.640D Aluminum splint given to use for comfort. Advised ice, elevation, NSAIDs. X-ray result reviewed with patient and referral made to see a local hand surgeon. [id number] DEVAN Bowens , [facility], OFFICE [address] [facility] [place] [address] 05/13/2019 09:51:16 05/13/2019 11:08:41 Active or passive immunization 562357682 Z23 flu vaccine administer ed today Tendinitis of right hand [id number] M67.843 A: 23 year old male patient [...] better in 2 weeks, patient will call [id number] Melisa John NP , [facility], OFFICE [address] [place] [address] 09/10/2019 10:48:06 09/10/2019 11:37:22 Acute low back pain [id number] M54.5 [id number] FANTA Guerra, [facility] [facility], OFFICE [address] [place] [address] 09/24/2020 13:48:33 09/24/2020 15:33:49 Dog bite of lower leg [id number] S81.852A Single puncture wound dog bite to posterior left knee/hamst ring area P -Wound is small, superficia l and does not appear infected at this time -Wound care instructio ness provided -Reviewed s/s of wound infection, as he will be out of town this week he will send me a portal photo in 48 hours to re-assess wound -Advised he contact the 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 X ray. PT for fitness for duty assessment this week. No indication for immobiliza tion/analg esics as minimal pain with motion. [id number] Melisa John NP FP, [facility], OFFICE [address] [place] [phone] 1 01/17/2022 13:38:02 01/17/2022 15:35:30 Tick bite [id number] W57.XXXA Muscle pain [id number] M79 .10 [id number] Real Theodore Jr. MD , [facility], OFFICE [address] [place] [phone] 1 03/20/2022 14:32:40 03/20/2022 17:29:51 Education [id number] Z30.09 Reviewed risks, benefits, and alternativ es [...] instructio ns for management , patient education. [id number] Real Theodore Jr. MD , [facility], OFFICE [address] [facility] [place] [address] 04/11/2022 10:50:47 04/11/2022 13:18:56 Vasectomy requested [id number] Z30.2 Tolerated well. Reviewed postoperat preet arzola. Patient to take ibuprofen which he has at home currently. Patient given a specimen cup for semen sample to be submitted in 12 weeks for confirmati on. [id number] Stevie Arevalo PA-C , [facility], OFFICE [address] [facility] [place] [address] 08/28/2022 14:56:29 08/28/2022 16:10:00 Blood in urine [id number] R31.9 chronic, may be [place] recommend US of bladder and kidneyurol ogy consult Crush inju ry of right ring finger [id number] S67.194A RHD, concern for crush injury with [...] TO 2024 - [facility] () Zaki Beausoleil [id number] Zaki Beausoleil 01/17/2022 1 EAST - DOS PRIOR TO 2024 - [facility] () Zaki Beausoleil [id number] Zaki Beausoleil 03/20/2022 1 EAST - DOS PRIOR TO 2024 - [facility] () Zaki Beausoleil [id number] Zaki Beausoleil 04/11/2022 1 EAST - DOS PRIOR TO 2024 - [facility] () Zaki Beausoleil [id number] Zaki Beausoleil 08/28/2022 1 EAST - DOS PRIOR TO 2024 - [facility] () Zaki Foy [id number] Zaki Foy Notes Date Note Type Note Provider Name and Address Organization Details Recorded Time 12/17/2020 text/html Last night, Richard fell onto a brick while performing an obstacle course when a dog took out my feet. This happened at his friend's house. He has no pain at rest, but mild pain with abduction. No OTC analgesics. 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 No history of left shoulder problems. RH. Ramesh Giraldo MD [address] [place] [address], [phone], [facility] 12/17/2020 12:49:32 01/17/2022 text/html Same day prep [...] eye; no recent rashes Melisa John NP [address] [place] [address], [phone], [facility] 01/20/2022 08:40:36 03/20/2022 text/html Pt presents torios y to discuss vasectomy procedure. He has 2 children- 7 and 4 years old. Denies history of major trauma, surgery, or infections in the scrotum. Real Theodore Jr. [address] [place], [phone], [facility] 03/21/2022 05:07:56 04/11/2022 text/html Patient presents for vasectomy procedure. Has been consented previously on: 03/20/22. No additional questions at this time. Wishes to proceed. Has taken diazepam approximately 10 minutes earlier. Real Theodore Jr. MD [address] [place], [phone], [facility] 04/11/2022 12:50:10 08/28/2022 text/html Here with multip le issues 1. Right 4th digit injury this AM, pinched between a concrete bucket loader bucket and a tree as it fell when he misjudged the chainsaw cut'currently I don't really feel any pain now no analgesics, not coveredno gloves, no hard hatlast tetanus HD 2. heme in urine 2 years ago and this year at [facility] physical in tates that he has not been exercising vigorously or sexually active at this timeno trauma, denies tobacco useno urinary symptoms at this time or in the past Stevie Arevalo PA-C [address] [place], [phone], [facility] 08/28/2022 15:59:34
[2024-09-10 15:30] VITALS: BP 120/82; PULSE 74; RESP 16; O2SAT 98
[2024-09-10] MEDS: Lidocaine 4 % Patch ADH..PATCH 1 PATCH TRANSDERMA (15:31)
[2024-09-10] MEDS: Acetaminophen 325 MG TABLET 975 MG PO (15:31)
[2024-09-10] MEDS: diazePAM 5 MG TABLET PO (15:31)
== END 2024-09-10 16:27 | disposition home or self-care (01) ==
PROVIDERS: Emergency Provider Emergency Medicine; PCP Internal Medicine
DX: M54.50 Low back pain, unspecified (principal); M51.369 Other intervertebral disc degeneration, lumbar region without mention of lumbar back pain or lower extremity pain
CPT/HCPCS: 72100; 99283

== ENCOUNTER → 2024-09-10 11:43 | Outpatient (BNV) | payer OTHER, SELFPAY | PROVIDERS: PCP Internal Medicine; Visit Provider Radiology Diagnostic Radiology | DX: M54.50 Low back pain, unspecified (principal); M51.369 Other intervertebral disc degeneration, lumbar region without mention of lumbar back pain or lower extremity pain | CPT/HCPCS: 72100 ==

== ENCOUNTER 2024-09-13 11:14 | Day surgery (SDC) | payer OTHER, SELFPAY ==
--- OUTSIDE RECORDS SUMMARY | 2024-09-02 12:17 | XMS_ITS | Continuity of Care Document ---
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 BLIST PACK Active [id number] 2023 10 Pharmac y Data Transac tion Service Facilit y Allergies, Adverse Reactions, Alerts Combined list of allergies from Department of Defense and Veterans Affairs facilities. It does not include entries that were removed or entered in error. Substance Category Reaction Severity Reaction type Status Date Reported Comments Source No Known Allergies Drug allergy (disorder) active 11/18/2013 [facility] [place] [address] Immunizations Combined list of available immunizations from the Department of Defense and Veterans Affairs facilities. 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 Source influenza, injectable, quadrivalent- pf 2021 [id number] GlaxoSmithKli ne complet ed influenza , injectabl e, quadrival ent-pf 06/15/22 Given Ambulat ory Pharmac y influenza virus vaccine, inactivated 2020 [id number] Seqirus complet ed influenza virus vaccine, inactivat ed 05/19/21 Given Ambulat ory Pharmac y COVID Vaccine Pfizer 2020 [id number] PFIZER complet ed COVID Vaccine Pfizer 11/07/20 Given Ambulat ory Pharmac y COVID Vaccine Pfizer 2020 [id number] PFIZER complet ed COVID Vaccine Pfizer 10/17/20 Given Ambulat ory Pharmac y typhoid Vi capsular polysaccharid e vac 2020 [id number] sanofi pasteur complet ed typhoid Vi capsular polysacch aride vac 08/18/20 Given Ambulat ory Pharmac y influenza, injectable, quadrivalent, preservative free 2019 MARIELANDRENELSON, () Not Given influenza , injectabl e, quadrival ent, preservat preet free [facility] influenza, injectable, quadrivalent- pf 2018 [id number] 150 Seqirus complet ed influenza , injectabl e, quadrival ent-pf 05/13/19 Given Ambulat ory Pharmac y meningococcal A,C,Y,W-135 (MCV4P) 2018 [id number] 114 sanofi pasteur complet ed meningoco ccal A,C,Y,W-1 35 (MCV4P) 10/17/18 Given Ambulat ory Pharmac y influenza, injectable, quadrivalent- pf 2017 [id number] 150 Seqirus complet ed influenza , injectabl e, quadrival ent-pf 06/20/18 Given Ambulat ory Pharmac y typhoid Vi capsular polysaccharid e vac 2017 [id number] 101 sanofi pasteur complet ed typhoid Vi capsular polysacch aride vac 06/20/18 Given Ambulat ory Pharmac y Influenza, inj, MDCK, quadrivalent- pf 2016 [id number] 171 Seqirus complet ed Influenza , inj, MDCK, quadrival ent-pf 06/14/17 Given Ambulat ory Pharmac y influenza, seasonal, injectable-pf 2015 [id number] 140 Seqirus complet ed influenza , seasonal, injectabl e-pf 05/18/16 Given Ambulat ory Pharmac y typhoid Vi capsular polysaccharid e vac 2015 [id number] 101 sanofi pasteur complet ed typhoid Vi capsular polysacch aride vac 05/18/16 Given Ambulat ory Pharmac y influenza, seasonal, injectable-pf 2014 [id number] 140 CSL Behring complet ed influenza , [...] Pharmac y hepatitis B adult vaccine 2013 [id number] 43 Merck & Company Inc complet ed hepatitis B adult vaccine 06/16/14 Given Ambulat ory Pharmac y yellow fever vaccine 2013 [id number] 37 sanofi pasteur complet ed yellow fever vaccine 06/16/14 Given Ambulat ory Pharmac y yellow fever vaccine 1 2013 [id number] 37 Sanofi Pasteur (PMC) complet ed yellow fever vaccine DoD hepatitis B vaccine, adult dosage 3 2013 [id number] 43 Merck (MSD) complet ed hepatitis B vaccine, adult dosage DoD hepatitis A vaccine, adult dosage 3 2013 [id number] 52 AudigenceKline (SKB) complet ed hepatitis A vaccine, adult dosage DoD typhoid Vi capsular polysaccharid e vaccine 1 2013 [id number] 101 Sanofi Pasteur (PMC) complet ed typhoid Vi capsular polysacch aride vaccine DoD influenza, seasonal, injectable 2013 [id number] 141 complet ed influenza , seasonal, injectabl e 06/13/14 Given Ambulat ory Pharmac y Influenza, seasonal, injectable 1 2013 [id number] 141 Transcribed (TRS) complet ed Influenza , seasonal, injectabl e DoD hepatitis A-hepatitis B vaccine 2013 [id number] 104 GlaxoSmithKli ne complet ed hepatitis A-hepatit is B vaccine 12/12/13 Given Ambulat ory Pharmac y varicella virus vaccine 2013 [id number] 21 Merck & Company Inc complet ed varicella virus vaccine 12/12/13 Given Ambulat ory Pharmac y measles/mumps /rubella virus vaccine 2013 [id number] 03 Merck & Company Inc complet ed measles/m umps/rube lla virus vaccine 12/12/13 Given Ambulat ory Pharmac y measles, mumps and rubella virus vaccine 2 2013 [id number] 03 Merck (MSD) complet ed measles, mumps and rubella virus vaccine DoD varicella virus vaccine 1 2013 [id number] 21 Merck (MSD) complet ed varicella virus vaccine DoD hepatitis A and hepatitis B vaccine 1 2013 [id number] 104 SmithKline (SKB) complet ed hepatitis A and hepatitis B vaccine DoD hepatitis A-hepatitis B vaccine 2013 [id number] 104 GlaxoSmithKli ne complet ed hepatitis A-hepatit is B vaccine 10/26/13 Given Ambulat ory Pharmac y measles/mumps /rubella virus vaccine 2013 [id number] 03 Merck & Company Inc complet ed measles/m umps/rube lla virus vaccine 10/26/13 Given Ambulat ory Pharmac y varicella virus vaccine 2013 [id number] 21 Merck & Company Inc complet ed varicella virus vaccine 10/26/13 Given Ambulat ory Pharmac y measles, mumps and rubella virus vaccine 1 2013 [id number] 03 Merck (MSD) complet ed measles, mumps and rubella virus vaccine DoD varicella virus vaccine 1 2013 [id number] 21 Merck (MSD) complet ed varicella virus vaccine DoD hepatitis A and hepatitis B vaccine 1 2013 [id number] 104 [facility] (SKB) complet ed hepatitis A and hepatitis B vaccine DoD poliovirus vaccine, inactivated 2013 [id number] 10 sanofi pasteur complet ed polioviru s vaccine, inactivat ed 10/20/13 Given Ambulat ory Pharmac y meningococcal A,C,Y,W-135 (MCV4P) 2013 [id number] 114 sanofi pasteur complet ed meningoco ccal A,C,Y,W-1 35 (MCV4P) 10/20/13 Given Ambulat ory Pharmac y influenza, seasonal, injectable-pf 2013 1342 1P 140 Novartis Pharmaceutica ls complet ed influenza , seasonal, injectabl e-pf 10/20/13 Given Ambulat ory Pharmac y adenovirus vaccine, live 2013 [id number] 143 Teva Pharmaceutica ls complet ed adenoviru s vaccine, live 10/20/13 Given Ambulat ory Pharmac y tuberculin purified protein derivative 2013 [id number] 96 [facility] complet ed tuberculi n purified protein derivativ e 10/20/13 Given Ambulat ory Pharmac y tetanus, diphtheria, acellular pertu is 2013 [id number] 115 GlaxMobiTVithKli ne complet ed tetanus, diphtheri a, acellular pertussis 10/20/13 Given Ambulat ory Pharmac y poliovirus vaccine, inactivated 1 2013 [id number] 10 Sanofi Pasteur ([facility]) complet ed polioviru s vaccine, inactivat ed DoD meningococcal polysaccharid e (groups A, C, Y and W-135) diphtheria toxoid conjugate vaccine (MCV4P) 1 2013 [id number] 114 Sanofi Pasteur ([facility]) complet ed meningoco ccal polysacch aride (groups A, C, Y and W-135) diphtheri a toxoid conjugate vaccine (MCV4P) DoD tetanus toxoid, reduced diphtheria toxoid, and acellular pertu is vaccine, adsorbed 1 2013 [id number] 115 dooub (SKB) complet ed tetanus toxoid, reduced diphtheri a toxoid, and acellular pertussis vaccine, adsorbed DoD Influenza, seasonal, injectable, preservative free 1 2013 1342 1P 140 Novartis conXt. (NOV) complet ed Influenza , seasonal, injectabl e, preservat preet free DoD Adenovirus, type 4 and type 7, live, oral 1 2013 [id number] 143 katena (BRR) complet ed Adenoviru s, type 4 [...] Prevention' s HIV diagnostic algorithm. Refer to [facility] Lab Guide for additional information : [email or web address] x Testing performed by Kaity goddard. [facility] EPILAB Miscellan eous Sendouts Repository Sample Received (11/14/23 8:41 AM) 11/13 N [facility] EP[facility] Encounters Combined list of: 1) Encounters from Department of Veterans Affairs facilities going backup to the last 18 months, not all [place] inpatient encounters are included; 2) Encounters from the Department of Defense facilities going backup to 280 months. Location Location Details Encounter Type Encounter Number Reason For Visit Attending Provider ADM Date DC Date Status Disposition Source [facility] [place] [address](RAMIN Fco) OUTPATIENT [id number] Notes Entered by: DALILA CHANG 18 Nov 2013 0837 ------- ------- ------- ------- -- cough x 3 days DALILA CHANG 11/18 Released w/o Limitations [facility] [place] [address](Louise Larsenvo) [facility] [place] [address]([facility] Eleazar Metcalf) OUTPATIENT [id number] Notes Entered by: CAMI ROBLERO 03 Feb 2014 1144 ------- ------- ------- ------- -- DARRYL BLAKE 02/03 [facility]itations [facility] [place] [address]([employer] Elva Falcon) [facility](Opt ometry Cl Carrera) OUTPATIENT [id number] Color Vision Testing Amauryer MAGDIEL GONZALEZ 08/23 Released w/o Limitations [employer] [facility](O ptometr y Cl Carrera) [employer] [facility](Opt ometry Cl Carrera) OUTPATIENT [id number] AEE per MAGDIEL Gong 01/23 Released w/o Limitations [employer](O ptometr y Cl Carrera) 8344R-439 AMDS Outpatient [id number] CODY KNOX 09/04 Discharge Disposition: Home or Self Care 8344R-4 39 AMDS 8344R-439 AMDS Outpatient [id number] CODY KNOX 11/11 Discharge Disposition: Home or Self Care 8344R-4 39 AMDS 8344R-439 AMDS Outpatient [id number] [facility] 11/13 Discharge Disposition: Home or Self Care 8344R-4 39 AMDS 8344R-439 AMDS Between Visit [id number] 04/16 Discharge Disposition: Home or Self Care 8344R-4 39 AMDS Procedures Combined list of: 1) Procedures from Department of Veterans Affairs facilities going back up to thelast 18 months, not all VA non-surgical procedures are included; 2) All procedures from the Department of Defense facilities. Procedure Procedure Type Code Date Perfomer Comments [facility] e OPHTHALMOLOGICAL SERVICES: MEDICAL EXAMINATION AND EVALUATION, WITH INITIATION OR CONTINUATION OF DIAGNOSTIC AND TREATMENT PROGRAM; INTERMEDIATE, ESTABLISHED PATIENT [facility] COLOR VISION EXAMINATION, EXTENDED, EG, ANOMALOSCOPE OR EQUIVALENT [facility] Ophthalmological Prior Patient Start Intermediate Level Care Ophthalmological Prior Patient Start Intermediate Level Care 84331 MAGDIEL GONZALEZ Extensive Color Vision Testing Extensive Color Vision Testing 80803 MAGDIEL GONZALEZ Determination Of Refractive State Determination Of Refractive State 20504 MAGDIEL GONZALEZ Ophthalmological New Patient Start Comprehensive Care Ophthalmological New Patient Start Comprehensive Care 90718 MAGDIEL GONZALEZ No data available for this [...] is able to complete duties required by [facility]. No acute complaints.NO: Fly?waiver. Initial Waiver Date: Waiver Exp Date: Justin. Test results reviewed: Audio: Audiogram H-1, no asymmetric hearing loss, no significant threshhold shift Optometry:Meets vision standards for: Near and distant visual acuity, IOP, Depth perception, Phorias EKG:?_ PHYSICAL EXAM: HEENT:?Normal Valsalva:?Normal Joints:?Normal Spine:Normal Skin:Normal Neuro:?Normal Lungs:?Normal Heart:?Normal Abdomen:?Normal Comments: ANNUAL PERIODIC HEALTH ASSESSMENT I. STUDIO HAND INFORMATION AND DEMOGRAPHICS (SMI) 1. Last Name: MAY 2. First Name: ZAKI 3. Middle Name: Sudarshan 4. Assessment Date: 5. : 6. Age: 27 7. Gender: M 8. DoD ID Number: [id number] 9. Service Branch: [employer] 10. 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 Unit Name: Debra [employer] 14. Duty Station/Location: [place] 15. UIC: [id number] 16. Is this your first Periodic Health Assessment (PHA)?: N 17. Are you enrolled in a secure messaging system with your health care provider?: 18. Current contact information: Preferred Method: Email 1 DSN: Day Time Phone: [phone] Night Time Phone: [phone] Email 1: [email or web address] Email 2: Address: [address] [place] [address] City: [place] State: [place] Zip Code: [id number] 19. Point of contact who can always reach you: Name: Rodo Foy Phone 1: [phone] Phone 2: EMAIL: Address: City: State: Zip Code: II. DEPLOYMENT INFORMATION (DEP) 1. [ 1 ] Total number of deployments in the PAST 5 YEARS 2. [ [place] ] Primary country of last deployment 3. [ ] Date departed theater 4. [ N ] Are you going to deploy within the NEXT 120 DAYS? III. OCCUPATIONAL INFORMATION (OCC) 1 [ [id number] ] What is your occupational code 2. [...] easily startled? 6. d. [ No ] [place] numb or detached from others, activities, or your surroundings? 6. e. [ Not answered ] [place] guilt or unable to stop blaming yourself [...] like to schedule a visit with a cork sorter, mental health care provider, or a community [...] 8. [ None ] What prescriptions or looy-tiv-txoxqkn medications are you CURRENTLY taking for health [...] had a cholesterol check by a health behavioral health care coordinator within the PAST 5 YEARS? 13.a. In [...] was provided: Conditions: Pilar Cyst removal Where: [facility] 5. Member acknowledged responsibility for reporting health issues. 7. [ No ] Woud you like to schedule an appointment with a health care provider to discuss any health concerns? XI. SEPARATION AND MCFP 1. [ No ] Are you planning to separate or retire within the next year from Active Duty or [place] Duty (activated for greater than 30 continuous days) OR do you intend to file a claim for disability compensation with the [employer]? PART B. RECORD REVIEW AND RECOMMENDATIONS I. RECORD REVIEWER INFORMATION 1. Last Name: SAMIA 2. First Name: PIERO 3. Middle Name: [place] 4. Service Branch: [employer] 5. Status: 6. 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 EMAIL: [email or web address] 8. Facility: [facility] 9. Unit: [facility] 10. Address: [address] [place] [address] 11. State: [place] 12. Zip Code: [address] 13. Phone: [phone] 14. Date Record Review: II. MEDICAL SCREENING 1. 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 [ 155 pounds Date: ] forestry faculty member's most recently documented weight 4. [ 121/73 Date: ] forestry faculty member's most recently documented blood pressure reading 5. [ No ] Does the forestry faculty member have a history of abnormal blood pressure since their last PHA? 6. [ Yes ] Does the forestry faculty member have a laboratory test of sickle cell trait documented in their permanent medical record? 7. [ No Cholesterol Test Documented ] What is the date of the forestry faculty member's most recently documented cholesterol test? 9. [ No Active Medications Documented ] List of forestry faculty member's active medications listed in their permanent medical record 10. [ No ] Is there a discrepancy between the active medication record review and the forestry faculty member's self-reported list of medications? 11. [ pilar cyst removal ] List documented significant care the forestry faculty member has received since their last PHA from a provider OUTSIDE the Health System 12. [ No ] Is there a discrepancy between the forestry faculty member's list of OUTSIDE care (from OTH5), and the OUTSIDE care found in the record? 13. 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 [ Not Answered ] Confirm that vaccine exemptions are listed in the medical record for each vaccine listed III. OCCUPATION-SPECIFIC EXAMINATIONS 1. 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 IV. FAMILY HISTORY AND LIFESTYLE 1. [ Yes ] Does the RC8501 reflect the forestry faculty member's reported family history? 2. [ No ] Is there a record of the forestry faculty member receiving a syphillis, chlamydia and gonorrhea test since their last PHA? . DEPLOYMENT-RELATED HEALTH ASSESSMENTS 1. [ No ] Based on your check of records, does the forestry faculty member have any due or overdue deployment health assessments which need to be completed with this PHA? VII. INDIVIDUAL MEDICAL READINESS 1. [ No ] Does the forestry faculty member have an Assignment Limitation Code C? 3. [ Classification: 1 ] Most recently documented dental exam 4. [ No: Meningococcal ] Is the forestry faculty member current on all required immunizations in the immunization tracking system? 6. Does the forestry faculty member have the following laboratory tests documented [...] need to be forwarded to the Health Loan Representative completing PART C: No DLCs, pain, medications/supplements, [...] 6. Title: Physician (DO WILLIAM) 7. EMAIL: [email or web address] 8. Facility: [facility] 9. Unit: [facility] 10. Address: [facility] [place] 11. State: [place] 12. Zip Code: [address] 13. Phone: [phone] 14. Date HCP Review initiated: 1. Member [...] DENNIS 3. Middle Name: 4. Service Branch: [employer] 5. 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 Title: Physician (DO WILLIAM) 7. EMAIL: [email or web address] 8. Facility: [facility] 9. Unit: [facility] 10. Address: [address] [place] [address] 11. State: [place] 12. Zip Code: [address] 13. Phone: [phone] 14. Date HCP Review initiated: IV. PERIODIC HEALTH ASSESSMENT PROVIDER RECOMMENDATIONS and REFERRALS 1. Provider concerns with this assessment: No issues or concerns identified V. SUMMARY AND COMMENTS 1. Additional information summarizing findings during the forestry faculty member assessment: 2. Provider Comments: No new medical concern . INDIVIDUAL MEDICAL READINESS DISPOSITION DETERMINATION IRON: Ready DEN: Ready IMM: Ready LAB: Ready ME: Ready IMR Status: Fully Medically Ready VII. SERVICE MEDICAL DEPLOYABILITY EVALUATION INDICATED Based on your review of all documentation, is the forestry faculty member medically deployable without limitations? Reference Cece 6490.07 Yes (forestry faculty member DOES NOT currently have a medical condition that limits deployability) Date PHA Completed: END OF [id number] REPORT Impression: Meets?FCIII?medical standards per NNAMDI 48-123/MSD. Aeromedical Disposition: No DNIF. DD 2992?signed. No AF469 changes based on this encounter. [employer]. 09/02/2024 8344R-439 AMDS Functional Status Combined list of recent functional and cognitive assessments recorded at Department of Defense and Veterans Affairs (VA).VA Functional Concho Measurement (FIM) Scale: 1 = Total Assistance (Subject = 0% +), 2 = Maximal Assistance (Subject = 25% +), 3 = Moderate Assistance (Subject = 50% +), 4 = Minimal Assistance (Subject = 75% +), 5 = Supervision, 6 = Modified Concho (Device), 7 = Complete Concho (Timely, Safely). Assessment Date/Time Source Assessment Type Assessment Skill Assessment Score Assessment Details No data available for this section
[2024-09-09 09:30] VITALS: BMI 21.6
[2024-09-13] VITALS (13 sets, daily range): BP systolic 95–127; BP diastolic 50–89; PULSE 67–108; RESP 16–18; TEMP 36.1–36.8; O2SAT 98–100
--- NOTE | ~2024-09-13 | FL_ITS ---
EXAMINATION: FL GUIDANCE ONLY HISTORY: L5-S1 MicroLumbar Discectomy COMPARISON: Correlation is made with plain films of the lumbar spine dated 09/10/2024. TECHNIQUE: Fluoroscopy time: 3.5 seconds. Cumulative Dose: 1.2193 mGy. DAP: 0.3935 mGym2 Images: 1. FINDINGS: Images demonstrate a probe within the L5-S1 intervertebral disc space from a posterior approach. FL/FL guidance in OR IMPRESSION: Fluoroscopy during procedure. Please see procedure report for additional information. Electronically signed by: Nicholas Wu MD 09/16/2024 09:11 AM JAD
[2024-09-13] MEDS: methocarbamoL 750 MG TABLET PO (12:08)
[2024-09-13] MEDS: Gabapentin 300 MG CAPSULE PO (12:08)
[2024-09-13] MEDS: Lactated Ringers 1,000 ML 100 ML IVCONT (12:09)
--- NOTE | 2024-09-13 12:17 | MHC.SHP ---
Pre-Procedural Eval Section A - 24 Hr Update-Section A only Date of Service: 09/13/24 The patient is an INPATIENT: No Section B - Complete if H&P > 30 days Chief Complaint: Intervertebral disc disorders with myelopathy, lum Allergies: Allergies Allergy/AdvReac Type Severity Reaction Status Date / Time No Known Allergies Allergy Verified 09/10/24 11:41 Review of Systems Sugical H&P ROS: Negative: Constitution, Cardiovascular, Respiratory, Psychiatric, Hem-Onc, Allergic/Immunologic, Gastrointestinal, Genitourinary, Musculoskeletal, Integumentary, Endocrine and Eyes/Ears/Nose/Throat and Yes, Specify: Neurological (numbness left leg) Exam Surgical H&P Exam: Normal: HEENT, Normal: Heart, Normal: Lungs, Normal: Extremities, Normal: Abdomen, Normal: Skin and Normal: Neurological Plan I have reviewed the history and physical and performed a pertinent physical examination on my patient. No changes have occurred unless specified. left L5-S1 microdiscectomy Time Spent With Patient Time: Total time managing care of this patient today ___5_ minutes.
--- NOTE | 2024-09-13 13:04 | HO.ANESPROP2 ---
Documented by User: Gloria Alvares NP 09/12/24 11:57 HPI - Anesthesia Eval Consult details Narrative: 28yo M for Left L5-S1 MicroLumbar discectomy [facility] Active Problems Active Problems: All Active Problems Lumbar disc herniation with myelopathy (Acute) Lumbosacral radiculopathy at L5 (Acute) Left thigh pain (Acute) Lumbosacral radiculopathy at S1 (Acute) Lumbar disc disease (Acute) Pain of right great toe (Acute) Past Medical History Medical History (Updated 09/11/24 @ 00:00 by Background Daemon) Numbness Back pain Surgical History Surgical History (Updated 09/09/24 @ 09:29 by Cassie Soler RN) Hx of tooth extraction H/O colonoscopy Social History Social History Are you a 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 If so, by whom?: No Are you DNR?: No Advance Directives: No Advance Directives Information Provided: Yes Advance Directives on File: No Recently lost weight without trying: No Eating poorly because of decreased appetite: No Nutrition Risks: No Nutritional Risk Poor oral hygiene: No Meds Allergies Allergy/AdvReac Type Severity Reaction Status Date / Time No Known Allergies Allergy Verified 09/10/24 11:41 Exam Height,Weight and Vital Signs: Height 5 ft 11 in Weight 70.307 kg Assessment and Plan Assessment Anesthesia Assessment: Chart Reviewed Documented by User: Heidi Robles DO 09/13/24 13:05 [facility] Past Medical History Medical History (Updated 09/11/24 @ 00:00 by Background Daalisia) Numbness Back pain Family History Family history of problems with anesthesia: No Surgical History Surgical History (Updated 09/09/24 @ 09:29 by Cassie Soler RN) Hx of tooth extraction H/O colonoscopy History of Problems with Anesthesia: Unobtainable (never had anesthesia previously) Social History Social History Are you a 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 If so, by whom?: No Are you DNR?: No Advance Directives: No Advance Directives Information Provided: Yes Advance Directives on File: No Recently lost weight without trying: No Eating poorly because of decreased appetite: No Nutrition Risks: No Nutritional Risk Poor oral hygiene: No Meds Allergies Allergy/AdvReac Type Severity Reaction Status Date / Time No Known Allergies Allergy Verified 09/10/24 11:41 Exam Exam Date and Time: 09/13/24 1303 Height,Weight and Vital Signs: Height 5 ft 11 in Weight 70.307 kg Vital Signs Temperature 98.2 F 09/13/24 12:09 Pulse Rate 108 H 09/13/24 12:09 Respiratory Rate 16 09/13/24 12:09 Blood Pressure 114/76 09/13/24 12:09 Pulse Oximetry 98 09/13/24 12:09 Oxygen Delivery Method Room Air 09/13/24 12:09 Temperature 98.2 F 09/13/24 12:09 Pulse Rate 108 H 09/13/24 12:09 Respiratory Rate 16 09/13/24 12:09 Blood Pressure 114/76 09/13/24 12:09 Pulse Oximetry 98 09/13/24 12:09 Oxygen Delivery Method Room Air 09/13/24 12:09 Airway Mallampati Class: I TM Dist: >3cm Neck ROM: Full Loose/Missing/Broken Teeth: No (patient denies any loose or broken teeth) Heart: S1S2 Lungs: CTAB Assessment and Plan Assessment Anesthesia Assessment: Anesthesia Plan Discussed and Chart Reviewed Final Anesthetic Review Family History of Problems with Anesthesia: No History of Problems with Anesthesia: Unobtainable (never had anesthesia previously) NPO: Yes ASA Class: I Final Preanesthetic Review: No Changes in Pt Med Stat, Meds/Allgs Chart Reviewed, Consent Obtained/Reviewed and Anes Risks/Benef Reviewed Patient Risk: Low Procedure Risk: Low Anesthetic Plan Anesthetic Plan: GA and Agree w/ Assess. and Plan Disposition: Standard PACU
[2024-09-13] MEDS: ceFAZolin Sodium/Dextrose,Iso 2 GM/50 ML PIGGYBACK IV (13:35)
--- NOTE | 2024-09-13 15:04 | P.OP_ITS ---
Operative Note Operative Note Date of Service: 09/13/24 Narrative: Preoperative diagnosis: Left S1 radiculopathy due to disc herniation Postoperative diagnosis: Same Procedure: Left L5-S1 microdiskectomy with microscope Surgeon: Pavel Soler MD, PhD Culinary Arts Instructor: hermelindo Barrow Due to a disc herniation L5-S1 compressing S under.. The patient was offered a L5-S1 microdiskectomy to decompress the nerve root. The procedure complications were explained. The patient was consented. The patient was brought to the operating room and endotracheally intubated. The patient was turned in a prone position on the Doug frame. Prepping and draping was done followed by time-out. A mid lumbar incision was made followed by release of the paravertebral muscles on the left side to expose the L5-S1 interspace. An intraoperative x-rays obtained to confirm the correct level. The microscope was brought in. A L5 laminotomy was done followed by opening of the flavum ligament. The S1 nerve root was identified and retracted medially to expose the L5-S1 disc space. I found a perforation in the annulus which I enlarged. I could palpate a disc herniation medial from the S1 nerve root, which I carefully removed with a pituitary. This fragments were hard to remove at was a very soft material. The disc space was very degenerated. The disc space was inspected and any residual disc fragments were removed. This resulted in an excellent decompression of the S1 nerve root. Hemostasis was done. The microscope was removed. Marcaine was injected intramuscularly.The incision was closed in two layers. Steri-Strips used to approximate the incision. An op-site were taken there was used to cover the incision. All sponge and needle counts were correct. Patient was extubated and transported in stable condition to recovery room. this procedure was done with the aid of a physician patient care nursing assistant who performed the initial exposure until the microscope was brought in and performed the closure of the incision. Anesthesia: General Blood loss: 10 mL Complications: None Specimen: None Surgical time: Disposition: Discharge home
--- NOTE | 2024-09-13 15:11 | PM.DS ---
DS: Providers Provider Date of Service: 09/13/24 Date of discharge: 09/13/24 Primary care physician: Brittany Augustin MD Admitting clinician: Pavel Soler DS: Diagnosis Discharge Diagnosis (1) Lumbar disc herniation with myelopathy: Status: Acute DS: Summary Time Attestation Discharge Coordination Time (in mins): 5 Quality: Safe Use of Opioids Does Pt have an Active Cancer Diagnosis on the Problem List?: No Quality: Stroke Does the patient have a stroke diagnosis?: No Physical Exam Vital Signs: Vital Signs: Last Vital Signs Temp 98.2 F 09/13/24 12:09 Pulse 108 H 09/13/24 12:09 Resp 16 09/13/24 12:09 BP 114/76 09/13/24 12:09 Pulse Ox 98 09/13/24 12:09 O2 Del Method Room Air 09/13/24 12:09 BMI result Body Mass Index 21.6 Discharge Plan Discharge Patient Disposition: Home, Self-Care Referrals: Brittany Augustin MD [Primary Care Provider] - 1 Week Discharge Medications: New docusate sodium [Colace] 100 mg capsule 100 mg PO BID Qty: 20 0RF oxycodone 5 mg tablet 5 mg PO Q4H PRN (Reason: pain) Qty: 14 0RF Rx Instructions: Partial Fill upon patient request. Continued lidocaine 5 % adhesive patch,medicated 1 patch topical DAILY Qty: 30 0RF Rx Instructions: leave on most painful area for up to 12 hrs diazepam [Valium] 5 mg tablet 5 mg PO BID PRN (Reason: muscle spasm) Qty: 7 0RF Discharge Orders: Discharge Order (Routine); Ordered 09/13/24 Ordered By: Rela Knight Diet: Advance to usual diet Activity on Discharge: As tolerated Activity Restrictions/Additional Instructions: After your spinal surgery we ask you to observe the following restrictions/guidelines: Activity: It is normal to feel some discomfort as you increase your activity, but that will improve with time. We ask you avoid heavy lifting or acitivities that cause pain. As a general rule, 8lbs is a safe limit for lifting right after surgery. Walk as much as you feel comfortable but not to exhaustion. You will feel extra tired the first few days after surgery. Stay well hydrated. It is OK to walk up and down stairs You may return to driving when you are off narcotics (such as vicodin, oxycodone, dilaudid, etc), and you are back to normal functional capacity. If you have any concerns please check with office before driving. Return to work is specific to each patient and each surgery, so please speak with your doctor/PA at first follow up. Please bring paperwork such as FMLA at that time if you need it filled out. Medications: For optimum pain control, it is best to start with a combination of 500 mg of Tylenol every 4 hours with 600 mg of Motrin every 8 hours, and use narcotics as needed in between for breakthrough pain. We will give you a short supply of narcotics after surgery (usually one weeks worth). If you need more please call the office but do not use more than prescribed. You will need to give our office 48 hours notice if you need narcotics refilled and we do not fill narcotics on weekends or evenings. If you are on a narcotic, it is a good idea to take a stool softener such as colace or senna to avoid constipation If you take blood thinner such as aspirin, Plavix, Coumadin, Effient, Eliquis etc for conditions such as Afib, DVT, Pulmonary embolus, coronary disease, stents etc please speak with your surgeon about specific details as to when you can resume these medications. You can resume NSAIDs on post op day 1 (eg: Motrin, Naproxen, etc). Follow up: Please call the office, , after surgery to arrange a 3 week follow up for wound check. Wound Care: You may remove your dressing on the first day after surgery. ?You may ?leave open to air. Please do not remove the steri strips underneath. they will fall off on their own in one week. IT IS NORMAL FOR THE WOUND TO OOZE OR BE BLOODY FOR A FEW DAYS AFTER SURGERY. ?IF THIS HAPPENS JUST PLACE NEW DRESSING OVER IT TO AVOID STAINING CLOTHES. You may shower on post op day # 1 We ask that you do not let the water soak the wound. If it does get wet, just towel dry lightly. Please do not scrub your incision or place any type of chemical/ointment on the wound. No tub baths, pools or jacuzzis for one month. If you have any leaking or redness from your wound, or fevers, please call office Print Language: Citizen [place]
[2024-09-13] MEDS: fentaNYL citrate/PF 100 MCG/2 ML VIAL 50 MCG IVPUSH (15:55)
== END 2024-09-13 16:52 | disposition home or self-care (01) ==
PROVIDERS: PCP Internal Medicine; Visit Provider Neurological Surgery
PROC: (CPT 63030; principal; 2024-09-13 13:50)
DX: M51.16 Intervertebral disc disorders with radiculopathy, lumbar region (principal); R20.0 Anesthesia of skin; M54.50 Low back pain, unspecified
CPT/HCPCS: 63030; J0131; J0690; J1100; J1885; J2003; J2250; J2405; J2704; J3010

== ENCOUNTER → 2024-09-13 11:14 | Outpatient (BNV) | payer OTHER, SELFPAY | PROVIDERS: PCP Internal Medicine; Visit Provider Neurological Surgery | DX: M51.16 Intervertebral disc disorders with radiculopathy, lumbar region (principal) | CPT/HCPCS: 63030; 99499 ==

== ENCOUNTER 2024-09-15 13:14 | Outpatient (AMB) | payer OTHER, SELFPAY ==
--- NOTE | 2024-09-15 13:15 | A.SPINEOV_ITS ---
Intake Visit Reasons: pain and low temp Intake Note: Mr. Foy is here today c/o pain that will not go away after surgery. Straight Line Press Setter Required: No Allergies No Known Allergies Allergy (Verified 09/10/24 11:41) Assessment & Plan Assessment & Plan (1) Lumbar disc herniation with myelopathy: Code(s): M51.06 - Intervertebral disc disorders with myelopathy, lumbar region Category: Medical Plan Mr Foy is 2 days out from an L5-S1 microdiskectomy. He noticed an in crease in back pain yesterday after having had about 24 hours or so after surgery feeling excellent. He noticed a little return of his leg pain similar to what he had before surgery but primarily centralized low back pain was his complaint currently. Did take oxycodone, Tylenol and Motrin and that seems to have made things better. He is much more comfortable today and this morning than he was last night. On my exam he looks comfortable, his strength reveals he has some mild weakness of his left EHL but I am not sure if this is just pain related. He positive straight leg raise at about 30 degrees. His wound is healed up beautifully. I reassured him that I think this is probably muscle spasm or just postsurgical reaction as he is now about 48 hours after surgery and he is in peak period of swelling. I called him in and gabapentin and a muscle relaxer. I told him to check in with us next week. He was also reporting a fever but tells me he has gotten sick with a virus since his surgery 2 days ago so he is suspecting that is where that is coming from. Real Soler MD, PhD [facility] Medications: New methocarbamol 500 mg PO Q8H 30 tabs 0RF gabapentin 300 mg PO TID 90 caps 11RF Coding Level of Care Code Global (30153) Diagnoses Lumbar disc herniation with myelopathy M51.06
== END 2024-09-15 13:35 | disposition home or self-care (01) ==
LOC: HO.HNS 13:14
PROVIDERS: PCP Internal Medicine; Visit Provider Physician Assistant
DX: M51.06 Intervertebral disc disorders with myelopathy, lumbar region (principal)
CPT/HCPCS: 99024

== ENCOUNTER → 2024-09-15 13:14 | Outpatient (BNVA) | payer OTHER, SELFPAY | PROVIDERS: PCP Internal Medicine; Visit Provider Physician Assistant | DX: M51.06 Intervertebral disc disorders with myelopathy, lumbar region (principal); Z47.89 Encounter for other orthopedic aftercare; Z98.890 Other specified postprocedural states | CPT/HCPCS: 99212 ==

== ENCOUNTER 2024-09-20 18:44 | Emergency (ER) | payer OTHER, SELFPAY ==
--- NOTE | ~2024-09-20 | CT_ITS ---
CLINICAL HISTORY: shortness of breath CT angiography chest with contrast. 3D Postprocessing. Comparison: None Findings: The heart size is normal. RV/LV ratio is normal. The thoracic aorta is normal caliber. No acute pulmonary embolus. The visualized thyroid and mediastinum are unremarkable. No consolidation. 2 mm subpleural nodule of the left upper lobe series 6, image 50. 2 mm nodule of the left upper lobe image 52. 5 mm nodule of the right lower lobe image 94. 4.8 mm nodule of the right middle lobe image 99. There is mild emphysema. Small hypodensities of the liver is too small to characterize statistically representing a cyst or hemangioma. No acute fractures. IMPRESSION: No pulmonary emboli in the visualized pulmonary artery. There are multiple pulmonary nodules measuring up to [address] chest follow-up as indicated. The Fleischner criteria does not apply due to patient's young age. This document has been electronically signed by: Sarah Elias MD on 09/20/2024 20:47:37
--- NOTE | ~2024-09-20 | US_ITS ---
CLINICAL HISTORY: pain Venous duplex ultrasound left lower extremity Comparison: None Findings: The visualized deep veins are fully compressible with normal Doppler color flow and spectral tracings. No popliteal cyst. IMPRESSION: 1. Negative for left lower extremity deep vein thrombosis. This document has been electronically signed by: Musa Bernard MD on 09/20/2024 20:02:32
[2024-09-20 18:49] VITALS: BP 126/87; PULSE 127; RESP 20; TEMP 36.3; O2SAT 99; BMI 20.6
--- NOTE | 2024-09-20 18:53 | ECG_ITS ---
Test Reason : TACHYCARDIA Blood Pressure : */* mmHG Vent. Rate : 112 BPM Atrial Rate : 112 BPM P-R Int : 146 ms QRS Dur : 108 ms QT Int : 332 ms P-R-T Axes : 76 95 10 degrees QTcB Int : 453 ms Sinus tachycardia Biatrial enlargement Rightward axis Incomplete right bundle branch block Nonspecific ST abnormality Abnormal ECG No previous ECGs available Referred By: Aris Fernandez Electronically Signed By: SANGITA NEWSOME
--- NOTE | 2024-09-20 18:53 | ED.GENADULT ---
HPI - General Adult General Chief complaint: Dyspnea Stated complaint: SOB /7 days post op Time Seen by Provider: 09/20/24 21:17 Source: patient and family (, Brittany) Mode of arrival: ambulatory Limitations: no limitations History of Present Illness ED Provider: Dr. Abhijit Mitchell HPI narrative: 28-year-old male with a history of lumbar disc disease who had a microdiscectomy at L5-S1 on 09/13/2024 (7 days prior) at [facility] [place] Soler. Patient states that prior to the surgery, he was having pain in his left lower extremity and after the surgery the discomfort persisted. Patient states that he developed fever, chills and a cough on Thursday ( 09/13/2024) 6 days prior to evaluation. Patient was re-evaluated by Dr. Johnson and later at home he took a flu test which was positive. Patient states that his cough is still present but has improved. His cough is nonproductive.. He denied fever, chills, myalgias, arthralgias nausea, vomiting or diarrhea. He states that prior to coming to the emergency department, he developed shortness of breath at rest. He states that when he got up and walked around his heart rate went from 90 beats per minute to 140 beats per minute. He denied dyspnea on exertion. His chest pain is worse with taking a deep breath in, he states that he has to pause secondary to discomfort. He states that his chest pain is 5/10 at its worse and at the time my evaluation. The pain is a sharp pain. The patient has been taking ibuprofen 600 mg and acetaminophen 1000 mg with no relief of his leg pain or his chest pain. He states that he was prescribed oxycodone but he was only taken 1 or 2 doses of this medication. Related Data Previous Rx's ?Medication ?Instructions ?Recorded diazepam 5 mg tablet (Valium) 5 mg PO BID PRN muscle spasm #7 09/10/24 tabs lidocaine 5 % topical patch 1 patch topical DAILY #30 ea 09/10/24 docusate sodium 100 mg capsule 100 mg PO BID #20 caps 09/13/24 (Colace) oxycodone 5 mg tablet 5 mg PO Q4H PRN pain #14 tabs 09/13/24 gabapentin 300 mg capsule 300 mg PO TID #90 caps 09/15/24 methocarbamol 500 mg tablet 500 mg PO Q8H #30 tabs 09/15/24 Allergies Allergy/AdvReac Type Severity Reaction Status Date / Time No Known Allergies Allergy Verified 09/20/24 18:53 Review of Systems Review of Systems: Yes all other systems are reviewed and are negative [facility] Past Medical History [facility] Narrative: Social history: Patient was . His is here in the emergency department with him. He denies tobacco use. He states he occasionally drinks alcohol. 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 Do you presently have visiting nurse or other home services: No Patient Tobacco Use Status: Never used Tobacco Advance Directives: No Advance Directives Information Provided: No Physical Exam ED Vital Signs: Vital Signs - 24 hr 09/20/24 18:49 09/20/24 19:09 09/20/24 20:35 Temperature 97.4 F 97.6 F 97.3 F Pulse Rate 127 H 96 Respiratory Rate 20 16 Blood Pressure 126/87 106/59 L Pulse Oximetry 99 97 Oxygen Delivery Method Room Air Room Air BMI result Body Mass Index 20.6 Vital signs revealed an elevated heart rate of 127 otherwise unremarkable Exam: General: Awake, alert in no distress Head: Normocephalic, atraumatic EENT: PERRL, Lids normal, sclera normal, conjunctiva normal, nose normal , ears normal, throat without erythema or exudates Neck: Supple, no adenopathy Lung: breath sounds symmetric, no wheezing, rales or rhonchi Chest: symmetric movement, nontender Heart: regular rate and rhythm, normal S1, S2 no murmurs or rubs Abdomen: soft, non-tender, nondistended, normal bowel sounds Back: Patient does have mild to moderate tenderness over the surgical incision site, dressing was not taken down, no significant erythema surrounding the dressing, no significant tenderness palpation of the paraspinal muscles of the thoracic, lumbar sacral region. Patient has positive straight leg raise on the right and positive straight leg raise on the left. Extremities: no deformities, moves all extremities symmetrically Neuro: Awake, alert, oriented, normal speech, moves all extremities symmetrically Psych: Pleasant, cooperative Course Course Course Narrative: RME, this is a rapid medical exam performed by Sina Fernandez please refer to primary provider for complete H&P- 28-year-old male presents for evaluation of shortness of breath. He had an L4-L5 microdiskectomy last week here. He has been complaining of left leg pain and shortness of breath. Per his who reports that she was a physician, the patient was hypoxic to 88% and tachycardic to 130 while ambulating around the house at home. The patient is tachycardic to 130 in triage at rest but is not hypoxic. His sat is 99% on room air. Plan for labs, CT angiography. We will also get an ultrasound of the left lower extremity to rule out DVT. Medications Administered Discontinued Medications Generic Name Dose Route Start Last Admin Trade Name Freq PRN Reason Stop Dose Admin Iohexol 65 ml 09/20/24 19:49 09/20/24 19:50 Iohexol 350 Mg/Ml 100 Ml Infus..Btl IV 09/20/24 19:50 65 ml ONCE ONE Administration Medical Decision Making Medical Decision Making [facility] Narrative: 28-year-old male with a history of lumbar disc disease who had a microdiscectomy at L5-S1 on 09/13/2024 (7 days prior) at [facility] [place]. Soler. Patient states that prior to the surgery, he was having pain in his left lower extremity and after the surgery the discomfort persisted. Patient states that he developed fever, chills and a cough on Thursday ( 09/13/2024) 6 days prior to evaluation. Patient was re-evaluated by Dr. Johnson and later at home he took a flu test which was positive. Patient states that his cough is still present but has improved. His cough is nonproductive.. He denied fever, chills, myalgias, arthralgias nausea, vomiting or diarrhea. Prior to coming to the emergency department the patient developed pleuritic chest pain, shortness of breath but no dyspnea on exertion. He also was continuing to experience left lower extremity pain. He denied fever, chills, myalgias arthralgias. Patient was taking ibuprofen 600 mg and acetaminophen 1000 mg no improvement of his pain. He did not take any of his oxycodone that was prescribed postoperatively for his pain Differential diagnosis: ?Includes but is not limited to left lower extremity DVT, left lower extremity radiculopathy, pleuritic chest pain, pneumonia, pulmonary embolism, pericarditis, myocarditis, electrolyte abnormalities, anemia Course: 22:07 My interpretation patient's laboratory evaluation is as follows: Glucose was elevated 127. CBC was normal. Troponin was below detectable limits. BNP was below detectable limits. COVID-19 and RSV were negative. Influenza was positive. Urinalysis was positive for blood. Microscopic revealed 6-10 RBCs, 0-7 WBCs, no bacteria. CT pulmonary angiogram PE protocol did not reveal any PEs, the patient did have multiple pulmonary nodules less than 5 mm-I suspect that this may be secondary to his influenza and I do not think that these represent a malignancy, this patient was a low risk since he was young and has no history of smoking. Duplex ultrasound revealed no DVT in the right lower extremity. Twelve EKG did reveal a sinus tachycardia but otherwise was unremarkable. Given the patient was negative workup, I suspect that the patient has pleuritic pain most likely related to influenza and I did discuss this with him. He was given Toradol 15 mg IV here in the emergency department prior to being discharged. He was advised to continue taking his ibuprofen in his Tylenol as directed and I also advised him to take oxycodone as needed for his pain. Patient was given printed and verbal instructions and discharged home. Admission/Observation Consideration of admission/observation: Escalation of care including admission/observation considered (Yes) Lab Data MDM Lab Attestation statement: I reviewed the patient's lab results. 09/20/24 19:01 09/20/24 19:01 Labs: Lab Results 09/20/24 09/20/24 Range/Units 19:01 19:38 WBC 8.8 (4.8-10.8) X10*3/uL RBC 5.53 (4.60-5.80) X10*6/uL Hgb 16.4 (14.0-18.0) g/dl Hct 48.9 (42.0-52.0) % MCV 88.4 (80.0-98.0) fL MCH 29.7 (27.0-33.0) pg MCHC 33.5 (31.0-36.0) g/dl RDW 11.9 (11.0-16.0) % Plt Count 175 (160-400) X10*3/uL MPV 9.3 L (9.4-12.4) fL Immature Gran % (Auto) 0.2 (0.0-0.4) % Neut % (Auto) 70.9 (45-73) % Lymph % (Auto) 22.5 (20-40) % [place] % (Auto) 5.0 (2-11) % Eos % (Auto) 1.1 (0-4) % Baso % (Auto) 0.3 (0-2) % Lymph # (Auto) 2.0 (1.2-4.9) X10*3/uL [place] # (Auto) 0.4 (0.1-1.2) X10*3/uL Eos # (Auto) 0.1 (0.0-0.4) X10*3/uL Baso # (Auto) 0.0 (0.0-0.2) X10*3/uL Abs Immat Gran (auto) 0.02 (0.00-0.03) X10*3/uL Absolute Neuts (auto) 6.2 (2.0-8.3) x10*3/uL Absolute Nucleated RBC 0.000 (0.0-0.012) X10*3/uL Nucleated RBC % (auto) 0.0 (0.0-0.2) /100WBC Sodium 141 (135-145) mmol/L Potassium 4.3 (3.3-5.1) mmol/L Chloride 105 (96-108) mmol/L Carbon Dioxide 28 (22-29) mmol/L Anion Gap 12 (12-20) BUN 14 (9-16) mg/dL Creatinine 0.99 (0.5-1.4) mg/dL Estim Creat Clear Calc 103.2 Estimated GFR > 60 Random Glucose 127 H (60-115) mg/dL Calcium 9.9 (8.4-10.2) mg/dL Total Bilirubin 0.7 (0.0-1.0) mg/dL AST 20 (5-37) U/L ALT 22 (0-40) U/L Alkaline Phosphatase 60 (39-117) U/L Troponin I High Sens < 2.7 (<3.5-35.0) ng/L B-Natriuretic Peptide < 10 (<100) pg/mL Total Protein 7.9 (6.5-8.0) g/dL Albumin 4.6 (3.5-5.0) g/dL Urine Color Yellow Urine Appearance Clear Urine pH 5.5 (5.0-9.0) Ur Specific [place] 1.025 (1.005-1.025) Urine Protein Negative (Neg-Trace) mg/dL Urine Glucose (UA) Negative (Negative) mg/dL Urine Ketones Trace (Negative) mg/dL Urine Blood Small (1+) H (Negative) Urine Nitrite Negative (Negative) Ur Leukocyte Esterase Negative (Negative) Urine RBC 6-10 H (0-2) /HPF Urine WBC 0-5 (0-5) /HPF Ur Squamous Epith Cells 0-2 (0-2) /HPF Urine Bacteria None Seen (None Seen) Hyaline Casts 0-2 (0-2) /LPF Influenza Type A (PCR) POSITIVE A (Negative) Influenza Type B (PCR) NEGATIVE (Negative) RSV RNA Qual (PCR) NEGATIVE (Negative) SARS-CoV-2 RNA (RT-PCR) NEGATIVE (Negative) Independent Interpretation I performed an independent interpretation of an: EKG Interpretation: My independent interpretation patient's 12 EKG done on 09/20/2024 at 18:54 hours is as follows: Sinus tachycardia with a rate of 112, normal UT interval, slightly prolonged QRS interval 108 milliseconds, normal QTC interval, no ST segment elevation, no ST segment depression, no significant T-wave abnormalities, RR prime in V1 consistent with incomplete right bundle-branch block. Radiology Impression Discussion of test interpretation with radiology: I have reviewed the radiologist's reading. Radiologist Impression: CT angiography chest with contrast. 3D Postprocessing. Comparison: None Findings: The heart size is normal. RV/LV ratio is normal. The thoracic aorta is normal caliber. No acute pulmonary embolus. The visualized thyroid and mediastinum are unremarkable. No consolidation. 2 mm subpleural nodule of the left upper lobe series 6, image 50. 2 mm nodule of the left upper lobe image 52. 5 mm nodule of the right lower lobe image 94. 4.8 mm nodule of the right middle lobe image 99. There is mild emphysema. Small hypodensities of the liver is too small to characterize statistically representing a cyst or hemangioma. No acute fractures. IMPRESSION: No pulmonary emboli in the visualized pulmonary artery. There are multiple pulmonary nodules measuring up to [address] chest follow-up as indicated. The Fleischner criteria does not apply due to patient's young age. This document has been electronically signed by: Sarah Elias MD on 09/20/2024 20:47:37 Venous duplex ultrasound left lower extremity Comparison: None Findings: The visualized deep veins are fully compressible with normal Doppler color flow and spectral tracings. No popliteal cyst. IMPRESSION: 1. Negative for left lower extremity deep vein thrombosis. This document has been electronically signed by: Musa Bernard MD on 09/20/2024 20:02:32 Independent Historian Clinical information obtained from an independent historian. History obtained from or confirmed by: Spouse Discharge Plan Discharge Clinical Impression: Chest pain, pleuritic, Dyspnea, Left leg pain, Influenza A Patient Disposition: Home, Self-Care Instructions: Pleurisy (ED) Additional Instructions: You had a complete blood count and comprehensive metabolic panel. These tests were normal. Your troponin (marker of heart damage) was below detectable limits. Your EKG revealed a slightly fast heart rate 112 beats per minute but otherwise was unremarkable. Your COVID and RSV tests were negative. Your influenza test was positive for influenza A. The duplex ultrasound of your left lower extremity did not reveal any blood clots. This test can miss small blood clots so if the pain is getting worse or if you develop swelling of your calf or thigh then you will need a repeat ultrasound to re-evaluate your leg for possible blood clots. The CT angiogram of your pulmonary artery revealed no blood clots. Again, this test can miss small blood clots as well, but usually small blood clots do not cause shortness of breath or significant pain. The CT scan did reveal small pulmonary nodules, I believe that the he was may be related to your influenza A. There was no evidence for pneumonia at this time on the CT scan of your lungs. Your chest pain is consistent with pleuritic chest pain (pain that is worse with breathing) and influenza A may have caused inflammation of the pleural space giving you this discomfort. Continue taking ibuprofen 200 mg pills, 2 pills (400 mg, 3 times a day as needed for pain. Continue taking your Tylenol 500 mg pills, 2 pills 3 times a day as needed for pain. For pain not relieved by these medications take oxycodone as prescribed by your providers. Follow-up with your doctor in 2 days. Please return to the emergency department if your symptoms get worse or if you develop any symptoms that are concerning to you. Prescriptions: No Action docusate sodium [Colace] 100 mg capsule 100 mg PO BID Qty: 20 0RF oxycodone 5 mg tablet 5 mg PO Q4H PRN (Reason: pain) Qty: 14 0RF Rx Instructions: Partial Fill upon patient request. lidocaine 5 % adhesive patch,medicated 1 patch topical DAILY Qty: 30 0RF Rx Instructions: leave on most painful area for up to 12 hrs diazepam [Valium] 5 mg tablet 5 mg PO BID PRN (Reason: muscle spasm) Qty: 7 0RF methocarbamol 500 mg tablet 500 mg PO Q8H Qty: 30 0RF gabapentin 300 mg capsule 300 mg PO TID Qty: 90 11RF Print Language: Mozambican
[2024-09-20 19:05] LABS: MANUAL DIFF FLAG NO
[2024-09-20 19:08] LABS: Basophils Percent Auto 0.3 % (0-2); Eosinophils Absolute Auto 0.1 X10*3/uL (0.0-0.4); Eosinophils Percent Auto 1.1 % (0-4); Hematocrit 48.9 % (42.0-52.0); Hemoglobin 16.4 g/dl (14.0-18.0); Imm Gran Abs Auto 0.02 X10*3/uL (0.00-0.03); Imm Gran Pct Auto 0.2 % (0.0-0.4); Lymphocytes Percent Auto 22.5 % (20-40); Mean Corpuscular HGB Conc 33.5 g/dl (31.0-36.0); Mean Corpuscular Hemoglobin 29.7 pg (27.0-33.0); Mean Corpuscular Volume 88.4 fL (80.0-98.0); Mean Platelet Volume 9.3 fL (9.4-12.4); Monocytes Absolute Auto 0.4 X10*3/uL (0.1-1.2); Neutrophils Absolute Auto 6.2 x10*3/uL (2.0-8.3); Neutrophils Percent Auto 70.9 % (45-73); Platelet Count 175 X10*3/uL (160-400); Red Blood Count 5.53 X10*6/uL (4.60-5.80); Red Cell Distribution Width 11.9 % (11.0-16.0); White Blood Count 8.8 X10*3/uL (4.8-10.8)
[2024-09-20 19:09] VITALS: TEMP 36.4
[2024-09-20 19:22] LABS: Alanine Aminotransferase 22 U/L (0-40); Albumin Level 4.6 g/dL (3.5-5.0); Alkaline Phosphatase 60 U/L (39-117); Anion Gap 12 (12-20); Aspartate Amino Transferase 20 U/L (5-37); Bilirubin Total 0.7 mg/dL (0.0-1.0); Blood Urea Nitrogen 14 mg/dL (9-16); Calcium 9.9 mg/dL (8.4-10.2); Carbon Dioxide 28 mmol/L (22-29); Chloride 105 mmol/L (96-108); Creatinine Clr Calc Pharmacy 103.2; Estimated Glomerular Filt Rate > 60; Glucose Random 127 mg/dL (60-115); Potassium 4.3 mmol/L (3.3-5.1); Sodium 141 mmol/L (135-145); Total Protein 7.9 g/dL (6.5-8.0)
[2024-09-20 19:28] LABS: B Type Natriuretic Peptide < 10 pg/mL (<100)
[2024-09-20 19:35] LABS: Troponin-I High Sensitivity < 2.7 ng/L (<3.5-35.0)
--- OUTSIDE RECORDS SUMMARY | 2024-09-20 19:38 | XMS_ITS | Data Portability ---
Author Organization [facility], , [facility] Address [address] [place] [address] Care Team Providers Care Miller Head Name Role Phone RAMESH HARDING Primary Care [...] plan for this patient? s care today. [facility] Not available 08/28/2022 15:58:15 Plan of Treatment Reminders Order Date Submit Date Provider Last Modified By Organization Details Last Modified Time Details Appointments None recorded. Lab urinalysi s, dipstick 2022 023 [facility], [address] [place] [address], [address], 15:46:34 culture, urine 2022 023 [facility], [address] [place] [address], [address], 3 07:48:25 tick-born e disease panel 2021 022 [facility], [address] [place] [address], [address], 18:21:01 babesia duncani Ab, titer, immunoflo urescence , serum 2021 022 [facility], [address] [place] [address], [address], 2 18:21:00 CK (creatine kinase), total, serum 2021 022 [facility], [address] [place] [address], [address], 2 12:27:15 ESR (erythroc yte sedimenta tion rate), blood 2021 022 [facility], [address] [place] [address], [address], 17:59:49 C-reactiv e protein, quantitat preet, serum or plasma 2021 022 [facility], [address] [place], [address], 2 13:49:04 CMP, serum or plasma 2021 022 [facility], [address] [place] [address], [address], 2 12:27:14 CBC 2021 022 [facility], [address] [place] [address], [address], 2 17:07:44 Referral urologist referral 2022 023 [facility], [address] [place], [address], 3 11:20:15 Procedures None recorded. Surgeries None recorded. Imaging US, retroperi toneum - chronic painless hematuria , r/o subclinic al kidney stone vs bladder mass 2022 023 [facility] (Imaging), [address], [place], [place], [address], 3 10:49:24 XR, shoulder [address] (Outpt Imaging), [address] [place], [address], 1 13:13:17 XR, scapula [address] (Outpt Imaging), [address] [place], [address], 1 13:13:17 Medication Orders doxycycli ne hyclate 100 mg capsule 2021 022 [id number], [address] [place], [place], [id number], 2 14:53:09 Patient TargetsNo targets recorded. Patient InstructionsNo instructions recorded. Reason for Referral Urologist Referral for Blood in urine painless hematuria x 2 years Referring Physician: Stevie Arevalo, Family Medicine, Encounter Date: 08/28/2022 Results Created Date Observation Date Name Description Value Unit Range Abnormal Flag Note LastModifiedBy Organization Detail LastModifiedTime 01/18/20 22 01/17/2022 CBC WBC 5.85 K/??L 4.23-9 .07 Not Available [address], [address], 01/17/2022 17:07:44 01/18/20 22 01/17/2022 CBC RBC 5.26 M/??L 4.63-6 .08 Not Available [address], [address], 01/17/2022 17:07:44 01/18/20 22 01/17/2022 CBC HGB 15.5 g/dL 13.7-1 7.5 Not Available [address], [address], 01/17/2022 17:07:44 01/18/20 22 01/17/2022 CBC HCT 46.8 % 40.1-5 1.0 Not Available [address], [address], 01/17/2022 17:07:44 01/18/20 22 01/17/2022 CBC MCV 89.0 fL 79.0-9 2.2 Not Available [address], [address], 01/17/2022 17:07:44 01/18/20 22 01/17/2022 CBC MCH 29.5 pg 25.7-3 2.2 Not Available [address], [address], 01/17/2022 17:07:44 01/18/20 22 01/17/2022 CBC MCHC 33.1 g/dL 32.3-3 6.5 Not Available [address], [address], 01/17/2022 17:07:44 01/18/20 22 01/17/2022 CBC plt 222 K/??L 163-33 7 Not Available [address], [address], 01/17/2022 17:07:44 01/18/20 22 01/17/2022 CBC MPV 9.7 fL 9.4-12 .4 Not Available [address], [address], 01/17/2022 17:07:44 01/18/20 22 01/17/2022 CBC neut% 55.4 % 34.0-6 7.9 Not Available [address], [address], 01/17/2022 17:07:44 01/18/20 22 01/17/2022 CBC neut# 3.24 1.78-5 .38 Not Available [address], [address], 01/17/2022 17:07:44 01/18/20 22 01/17/2022 CBC lymph % 32.1 % 21.8-5 3.1 Not Available [address], [address], 01/17/2022 17:07:44 01/18/20 22 01/17/2022 CBC lymph # 1.88 K/??L 1.32-3 .57 Not Available [address], [address], 01/17/2022 17:07:44 01/18/20 22 01/17/2022 CBC mono% 9.6 % 5.3-12 .2 Not Available [address], [address], 01/17/2022 17:07:44 01/18/20 22 01/17/2022 CBC mono# 0.56 0.30-0 .82 Not Available [address], [address], 01/17/2022 17:07:44 01/18/20 22 01/17/2022 CBC eo% 1.7 % 0.8-7. 0 Not Available [address], [address], 01/17/2022 17:07:44 01/18/20 22 01/17/2022 CBC eo# 0.10 0.04-0 .54 Not Available [address], [address], 01/17/2022 17:07:44 01/18/20 22 01/17/2022 CBC baso% 1.0 % 0.2-1. 2 Not Available [address], [address], 01/17/2022 17:07:44 01/18/20 22 01/17/2022 CBC baso# 0.06 0.00-0 .08 Not Available [address], [address], 01/17/2022 17:07:44 01/18/20 22 01/17/2022 CBC RDW-CV 12.0 % 11.6-1 4.4 Not Available [address], [address], 01/17/2022 17:07:44 01/18/20 22 01/17/2022 CBC Ig% 0.200 % 0.000- 1.500 Ig % >0.5 Indic ates possi ble Left Shift Not Available [address], [address], 01/17/2022 17:07:44 01/18/20 22 01/17/2022 CBC Ig# 0.010 0.000- 0.093 Not Available [address], [address], 01/17/2022 17:07:44 01/18/20 22 01/17/2022 CBC NRBC% 0.0 % 0.0-0. 2 Not Available [address], [address], 01/17/2022 17:07:44 01/18/20 22 01/17/2022 CBC NRBC# 0.000 0.000- 0.012 Not Available [address], [address], 01/17/2022 17:07:44 01/18/20 22 01/17/2022 ESR sed rate 2.0 0.0-20 .0 Not Available [address], [address], 01/17/2022 17:59:49 01/18/20 22 01/22/2022 COMP. METAB OLIC PANEL glucose 84 mg/dL 70-100 Not Available [address], [address], 01/22/2022 12:27:14 01/18/20 22 01/22/2022 COMP. METAB OLIC PANEL BUN 14 mg/dL 7-18 Not Available [address], [address], 01/22/2022 12:27:14 01/18/20 22 01/22/2022 COMP. METAB OLIC PANEL creatinine 1.0 mg/dL 0.8-1. 3 Not Available [address], [address], 01/22/2022 12:27:14 01/18/20 22 01/22/2022 COMP. METAB OLIC PANEL B/C 14.0 ratio Not Available [address], [address], 01/22/2022 12:27:14 01/18/20 22 01/22/2022 COMP. METAB [...] be used in pregn santi. Not Available [address], [address], 01/22/2022 12:27:14 01/18/20 22 01/22/2022 COMP. METAB OLIC PANEL sodium 142 mmol/ L 136-14 5 Not Available [address], 05[address], 01/22/2022 12:27:14 01/18/20 22 01/22/2022 COMP. METAB OLIC PANEL potassium 4.5 mmol/ L 3.5-5. 1 Not Available [address], 67[address], 01/22/2022 12:27:14 01/18/20 22 01/22/2022 COMP. METAB OLIC PANEL chloride 102 mmol/ L 96-107 Not Available [address], 12603, 01/22/2022 12:27:14 01/18/20 22 01/22/2022 COMP. METAB OLIC PANEL anion gap 10.6 5.0-15 .0 Not Available [address], [address], 01/22/2022 12:27:14 01/18/20 22 01/22/2022 COMP. METAB OLIC PANEL CO2 29 mmol/ L 21-32 Not Available [address], 67361, 01/22/2022 12:27:14 01/18/20 22 01/22/2022 COMP. METAB OLIC PANEL calcium 9.2 mg/dL 8.5-10 .3 Not Available [address], [address]298, 01/22/2022 12:27:14 01/18/20 22 01/22/2022 COMP. METAB OLIC PANEL total protein 7.3 g/dL 6.4-8. 2 Not Available [address], [address], 01/22/2022 12:27:14 01/18/20 22 01/22/2022 COMP. METAB OLIC PANEL albumin 4.6 g/dL 3.4-5. 0 Not Available [address], 9[address]58, 01/22/2022 12:27:14 01/18/20 22 01/22/2022 COMP. METAB OLIC PANEL globulin 2.7 g/dL Not Available [address], 13454, 01/22/2022 12:27:14 01/18/20 22 01/22/2022 COMP. METAB OLIC PANEL A/G 1.7 ratio 0.8-2. 0 Not Available [address], [address]98, 01/22/2022 12:27:14 01/18/20 22 01/22/2022 COMP. METAB OLIC PANEL total bilirubin 0.50 mg/dL 0.00-1 .00 Not Available [address], 08397, 01/22/2022 12:27:14 01/18/20 22 01/22/2022 COMP. METAB OLIC PANEL AST 34 U/L 0-37 Not Available [address], 24[address], 01/22/2022 12:27:14 01/18/20 22 01/22/2022 COMP. METAB OLIC PANEL ALT 29 U/L 6-63 Not Available [address], 39400, 01/22/2022 12:27:14 01/18/20 22 01/22/2022 COMP. METAB OLIC PANEL alk. phos. 77 U/L 50-136 Not Available [address], 04149, 01/22/2022 12:27:14 01/18/20 22 01/22/2022 CPK CPK 206.0 U/L 35.0-2 32.0 Not Available [address], 18[address], 01/22/2022 12:27:15 01/18/20 22 01/22/2022 C-ZAINA CTIVE PROTE IN-QU ANTIT ATIVE C-reactive protein -quant <2.0 mg/L 0.0-9. 0 < Not Available [address], [address], 01/22/2022 13:49:04 01/18/20 22 01/28/2022 BABES IA [...] livan purpo ses. Not Available [facility] [place] [facility] [address], [place], [address], 01/28/2022 18:21:00 01/18/20 22 01/28/2022 TICK BORNE [...] livan purpo ses. Not Available [facility] [place] [facility] [address], [place], [address], 01/28/2022 18:21:01 01/18/20 22 01/28/2022 TICK BORNE DISEA SE, ACUTE MOLEC ULAR PANEL babesia microti DNA, real time PCR NOT DETECT ED not detect ed normal This test was devel oped and its adan tical perfo rmanc e tacho cteri stics have been deter mined by [facility]. It has not been clear ed or appro marleny by the FDA. This assay has been valid ated pursu ant to the CLIA regul ation s and is used for clini livan purpo ses. Not Available [facility] [place] [facility] [address], [place], [address], 01/28/2022 18:21:01 01/18/20 22 01/28/2022 TICK BORNE DISEA SE, ACUTE MOLEC ULAR PANEL source BLOOD Not Available [facility] [place] [facility] [address], [place], [address], 01/28/2022 18:21:01 01/18/20 22 01/28/2022 TICK BORNE DISEA SE, ACUTE MOLEC ULAR PANEL borrelia miyamotoi DNA, real time PCR, misc NOT DETECT ED not detect ed normal This test was devel oped and its adan tical perfo rmanc e tacho cteri stics have been deter mined by [facility] [employer] [facility]. It has not been clear ed or appro marleny by the FDA. This assay has been valid ated pursu ant to the CLIA regul ation s and is used for clini livan purpo ses. Not Available [facility] [place] [facility] [address], [address], 01/28/2022 18:21:01 01/18/20 22 01/28/2022 TICK BORNE DISEA SE, ACUTE MOLEC ULAR PANEL ehrlichia chaffeensis DNA real time PCR NOT DETECT ED not detect ed normal This test was devel oped and its adan tical perfo rmanc e tacho cteri stics have been deter mined by [employer] [facility]. It has not been clear ed or appro marleny by the FDA. This assay has been valid ated pursu ant to the CLIA regul ation s and is used for clini livan purpo ses. Not Available [facility] [place] [facility] [address], [address], 01/28/2022 18:21:01 01/18/20 22 01/28/2022 TICK BORNE [...] for clini livan purpo ses. Not Available [facility] [place] [facility] [address], [place], [address], 01/28/2022 18:21:01 04/07/20 22 04/08/2022 SARS- COV-2 RNA (COVI D-19) , QUALI TATIV E NAAT sarscov2 NEGATI VE negati ve normal This test has been autho rized by the FDA under an Emerg ency Use Autho rizat ion(E UA) for you by autho [facility]. Not Available [address], [address], 04/08/2022 14:33:17 08/28/19 23 08/28/2022 POC UA glu UA NEGATI VE Not Available [facility] [address] [place] [address], [address], 08/28/2022 15:19:38 08/28/19 23 08/28/2022 POC UA clarity UA CLEAR Not Available [facility] [address] [place] [address], [address], 08/28/2022 15:19:38 08/28/19 23 08/28/2022 POC UA uro UA 1.0000 Not Available [facility] [address] [place] [address], [address], 08/28/2022 15:19:38 08/28/19 23 08/28/2022 POC UA ket UA NEGATI VE Not Available [facility] [address] [place] [address], [address], 08/28/2022 15:19:38 08/28/19 23 08/28/2022 POC UA pro UA NEGATI VE Not Available [facility] [address] [place] [address], [address], 08/28/2022 15:19:38 08/28/19 23 08/28/2022 POC UA nit UA NEGATI VE Not Available [facility] [address] [place] [address], [address], 08/28/2022 15:19:38 08/28/19 23 08/28/2022 POC UA lazaro UA NEGATI VE Not Available [facility] [address] [place] [address], [address], 08/28/2022 15:19:38 08/28/19 23 08/28/2022 POC UA pH UA 6.5000 Not Available [facility] [address] [place] [address], [address], 08/28/2022 15:19:38 08/28/19 23 08/28/2022 POC UA SG UA 1.0250 Not Available [facility] [address] [place] [address], [address], 08/28/2022 15:19:38 08/28/19 23 08/28/2022 POC UA color UA YELLOW Not Available [facility] [address] [place] [address], [address], 08/28/2022 15:19:38 08/28/19 23 08/28/2022 POC UA blo UA 1+ abnormal Not Available [facility] [address] [place] [address], [address], 08/28/2022 15:19:38 08/28/19 23 08/28/2022 POC UA antonio UA NEGATI VE Not Available [facility] [address] [place], [address], 08/28/2022 15:19:38 08/28/19 23 08/30/2022 CULTU RE, URINE , ROUTI NE culture, urine, routine CULTU RE, URINE , ROUTI NE Micro Numbe r: [id number] Test Statu s: Final Speci men [...] Cultu re Trans port Tube. Not Available [facility] [place] [facility] [address], [place], [address], 08/30/2022 07:48:25 12/18/19 21 12/17/2020 XR, shoul theresa No observ ation record ed. [facility] (Outpt Imaging) [address] [facility], [place], [address], 12/17/2020 14:10:30 08/28/19 23 08/28/2022 xr finge r 2 or more views (valerie t) This image report has been auto-f inaliz ed and has not been read by a Radiol ogist. Interp retati on has been includ ed in the provid er encoun ter note for this date of niall anderson Final result MAURA-LY N GUMPRE CHT [facility] [address] [facility], [place], [address], 08/29/2022 10:06:33 09/01/19 23 09/01/2022 US, retro [...] dumont Physic chio: Marcio ortiz Ziacarol ms [facility] (Imaging) [address], [place], [address], 09/19/2022 10:14:02 Result Notes None recorded. Problems No Known Problems Procedures Surgical History Date Name Laterality Status Provider Name and Address Organization Details Recorded Time Vasectomy MR completed Real Theodore Jr. MD [address] [place] [address], [id number], [facility] 04/11/2022 12:49:52 7 POC Urinalysis Testing completed Bridget Malone RN [facility] 07/28/2016 10:30:42 Imaging Results Imaging Date Name Status LastModified by Organization Details LastModified Time 12/17/2020 XR, shoulder completed [facility] (Outpt Imaging) [address] [place], [address], 12/17/2020 14:10:30 08/28/2022 xr finger 2 or more views (right) completed [email or web address] [facility] [address] [place], [address], 08/29/2022 10:06:33 09/01/2022 US, retroperitoneum completed [facility] (Imaging) [address], [place], [address], 09/19/2022 10:14:02 Procedure Notes None recorded. Medical [...] Available Not Available No t Available Afluria [id number]( PF) 45 mcg (15 mcg x 3)/0.5 mL intramuscu lar syringe TO BE ADMINIST ERED BY PHARMACI ST FOR IMMUNIZA TION active Not Available Not Available No t Available Vitals Date Recorded Body height Body mass index (BMI) Body weight Heart rate Systolic blood pressure Diastolic blood pressure Provider Name and Address Organization Details Last Updated DateTime 1 176.53 cm 21.7 kg/m2 03020.2 6 g 84 /min 138 mm[Hg] 68 mm[Hg] Bruce King MA [facility] 1 09:25:36 Date Recorded Body weight Heart rate Systolic blood pressure Diastolic blood pressure Provider Name and Address Organization Details Last Updated DateTime 01/17/2022 97088.26 g 88 /min 128 mm[Hg] 88 mm[Hg] Jenaro [facility] 01/17/2022 14:01:00 Date Recorded Body temperature Provider Name a nd Address Organization Details Last Updated DateTime 01/17/2022 98.2 [degF] Melisa John, Beatriz P [address] [place], [address] 01/17/2022 14:54:17 Date Recorded Body height Body mass index (BMI) Body weight Heart rate Oxygen saturation Oxygen saturation in Arterial blood by Pulse oximetry Systolic blood pressure Diastolic blood pressure Provider Name and Address Organization Details Last Updated DateTime 2 176.53 cm 22.4 kg/m2 08544.2 2 g 73 /min 98 % 98 % 128 mm[Hg] 74 mm[Hg] Brenna Merritt MA [facility] 2 14:54:01 Date Recorded Body height Respiratory rate Systolic blood pressure Diastolic blood pressure Provider Name and Address Organization Details Last Updated DateTime 04/11/2022 176.53 cm 18 /min 138 mm[Hg] 82 mm[Hg] Jenny Llamas CMA [facility] 2 10:56:37 Date Recorded Body height Body mass index (BMI) Body weight Heart rate Oxygen saturation Oxygen saturation in Arterial blood by Pulse oximetry Systolic blood pressure Diastolic blood pressure Provider Name and Address Organization Details Last Updated DateTime 3 176.53 cm 23.7 kg/m2 92042.7 6 g 95 /min 99 % 99 % 126 mm[Hg] 84 mm[Hg] Arely Hyatt MA [facility] 3 15:11:52 Social History Question Answer Notes LastModified by Organizat ion Details LastModified Time Tobacco Smoking Status [facility]/2020 09:23:25 What Is Your Level Of [...] Of Your Most Recent Tobacco Screening? 08/28/2022 [email or web address] Information not available 08/28/2022 How Many Children Do You Have? 2 7 And 4 Y/o 03/20/2022 [email or web address] Information not available 03/20/2022 Seat Belts Used [...] live, trivalent, intranasal 1 completed Not Available [facility] 07/30/2019 02:26:40 Influenza, split virus, trivalent, preservative 2 completed Not Available [facility] 07/30/2019 02:31:15 influenza, unspecified formulation 0 completed Not Available [facility] 05/28/2011 05:22:52 OPV 4 completed Not Available [facility] 05/28/2011 05:22:52 Hep B, unspecified formulation 5 completed Not Available [facility] 05/28/2011 05:22:52 DTP 4 completed Not Available [facility] 05/28/2011 05:22:52 Hep B, unspecified formulation 4 completed Not Available [facility] 05/28/2011 05:22:52 DTP 5 completed Not Available [facility] 05/28/2011 05:22:52 Hep B, unspecified formulation 4 completed Not Available [facility] 05/28/2011 05:22:52 DTP 4 completed Not Available [facility] 05/28/2011 05:22:52 OPV 6 completed Not Available [facility] 05/28/2011 05:22:52 Hib, unspecified formulation 5 completed Not Available [facility] 05/28/2011 05:22:52 Hib, unspecified formulation 4 completed Not Available [facility] 05/28/2011 05:22:52 MMR 9 completed [facility] Available [facility] 05:22:52 OPV 4 completed Not Available [facility] 05/28/2011 05:22:52 OPV 9 completed Not Available [facility] 05/28/2011 05:22:52 Tdap 6 completed Not Available [facility] 05/28/2011 05:22:52 DTP 9 completed Not Available [facility] 05/28/2011 05:22:52 MMR 5 completed Not Available [facility] 05/28/2011 05:22:52 Hib, unspecified formulation 4 completed Not Available [facility] 05/28/2011 05:22:52 DTP 6 completed Not Available [facility] 05/28/2011 05:22:52 MMR 6 completed Not Available [facility] 05/28/2011 05:22:52 Hib, unspecified formulation 5 completed Not Available [facility] 05/28/2011 05:22:52 Influenza, split virus, quadrivalent, PF 9 completed Not Available [facility] 07/30/2019 02:24:08 Tdap 1 completed Kath Keen RN null, [facility] 09/26/2020 15:37:28 COVID-19, mRNA, LNP-S, PF, 30 mcg/0.3 mL dose 1 completed ZAC Simpson, [facility] 12/17/2020 09:23:55 COVID-19, mRNA, LNP-S, PF, 30 mcg/0.3 mL dose 1 completed ZAC Simpson [facility] 12/17/2020 09:24:02 Past Encounters Encounter ID Performer Location Encounter Start Date Encounter Closed Date Diagnosis/Indication Diagnosis SNOMED-CT Code Diagnosis ICD10 Code Diagnosis Note [id number] [facility], OFFICE [address] [facility] [place] [address] 09/06/2010 14:29:57 09/09/2010 08:07:32 [id number] [facility], OFFICE [address] [facility] [place] [address] 11/20/2010 13:14:13 11/21/2010 07:55:19 [id number] [facility], OFFICE [address] [facility] [place] [address] 12/19/2010 14:03:34 12/20/2010 08:12:[id number] [facility], OFFICE [address] [place] [address] [place] [address] 03/28/2011 11:05:16 03/28/2011 12:05:11 [id number] [facility] [address] [place] [address] 03/28/2011 11:34:37 03/28/2011 13:44:[id number] [facility], OFFICE [address] [place] [address] [place] [address] 10/08/2011 15:01:08 10/09/2011 08:00:[id number] [facility], OFFICE [address] [place] [address] [place] [address] 11/03/2011 14:52:40 11/03/2011 15:25:[id number] [facility], OFFICE [address] [place] [address] [place] [address] 11/11/2011 12:55:29 11/11/2011 14:37:10 [id number] Ferguson LPN [facility], OFFICE [address] [place] [address] [place] [address] 05/03/2012 15:11:54 05/03/2012 15:33:[id number] [facility], OFFICE [address] [place] [address] [place] [address] 07/08/2012 10:59:52 07/08/2012 13:43:34 [id number] Ann Marie Martin MD [facility], OFFICE [address] [place] [address] [place] [address] 09/22/2012 15:58:01 09/23/2012 08:09:01 [id number] Lupis Tran PA-C [facility], OFFICE [address] [place] [address] [place] [address] 10/07/2012 15:40:16 10/07/2012 16:11:20 [id number] [address] [facility], OFFICE [address] [place] [address] [place] [address] 05/31/2015 12:46:37 06/01/2015 10:25:20 Altered bowel function 47053222 R19.4 2 weeks of altered bowel habits and abnormal weight loss despite normal appetite. Will check labs for infectious or inflammato ry casues. Will also refer to GI anila further evaluation and possible colonoscop y if workup is negative given his brothers history of colon cancer in late 30s. Abnormal weight loss 267 315725 R63.4 [id number] Brina Ferguson LPN , [facility], OFFICE [address] [place] [address] 07/28/2016 10:08:00 07/28/2016 10:47:07 Dysuria 32152728 R30.0 Venereal d isease screening [id number] Z11.3 Pain in pelvis 43215424 R10.2 Reviewed case with REGIS Richard. Reviewed ddx including prostatits , STI, UTI. Exam is reassuring . Will treat for probably prostatiti s, check urine culture, gc/chlamyd ia, and ultrasound . Reviewed strict return precaution s. [id number] Seth Banegas MD , [facility], OFFICE [address] [place] [address] 06/25/2017 12:53:20 06/25/2017 13:29:24 Contusion of right hand [id number] S60.221A Fracture o f proximal phalanx of finger 711018653 S62.640D Aluminum splint given to use for comfort. Advised ice, elevation, NSAIDs. X-ray result reviewed with patient and referral made to see a local hand surgeon. [id number] DEVAN Bowens , [facility], OFFICE [address] [place] [address] 05/13/2019 09:51:16 05/13/2019 11:08:41 Active or passive immunization [id number] Z23 flu vaccine administer ed today Tendinitis of right hand [id number] M67.843 A: 25 year old male patient [...] better in 2 weeks, patient will call [phone] Melisa John NP , [facility], OFFICE [address] [place] [address] 09/10/2019 10:48:06 09/10/2019 11:37:22 Acute low back pain [id number] M54.5 [id number] FANTA Guerra, [facility], OFFICE [address] [place] [address] 09/24/2020 13:48:33 09/24/2020 15:33:49 Dog bite of lower leg [id number] S81.852A Single puncture wound dog bite to posterior left knee/hamst ring area P -Wound is small, superficia l and does not appear infected at this time -Wound care instructio ness provided -Reviewed s/s of wound infection, as he will be out of town this week he will send me a portal photo in 48 hours to re-assess wound -Advised he contact the owner/photographer of the dog and inquire for official [...] -Will update tetanus -F/u in 48 hours [id number] Kath singh RN , [facility], OFFICE [address] [place] [phone] 09/26/2020 15:29:17 09/26/2020 20:24:35 Active or passive immunization [id number] Z23 [id number] aRmesh Giraldo MD , [facility], OFFICE [address] [place] [phone] 12/17/2020 09:13:10 12/17/2020 13:13:17 Pain of left shoulder joint [id number] M25.512 Contusion, rule out fracture, RC injury. X ray. PT for fitness for duty assessment this week. No indication for immobiliza tion/analg esics as minimal pain with motion. [id number] Melisa John NP FP, [facility], OFFICE [address] [place] [phone] 01/17/2022 13:38:02 01/17/2022 15:35:30 Tick bite [id number] W57.XXXA Muscle pain [id number] M79 .10 [id number] Real Theodore Jr. MD , [facility], OFFICE [address] [place] [phone] 03/20/2022 14:32:40 03/20/2022 17:29:51 Education [id number] Z30.09 Reviewed risks, benefits, and alternativ es [...] instructio ns for management , patient education. [id number] Real Theodore Jr. MD , [facility], OFFICE [address] [place] [address] 04/11/2022 10:50:47 04/11/2022 13:18:56 Vasectomy requested [id number] Z30.2 Tolerated well. Reviewed postoperat preet arzola. Patient to take ibuprofen which he has at home currently. Patient given a specimen cup for semen sample to be submitted in 12 weeks for confirmati on. [id number] Stevie Arevalo PA-C , [facility], [address]ICE [address] [place] [address] 08/28/2022 14:56:29 08/28/2022 16:10:00 Blood in urine [id number] R31.9 chronic, may be [place] recommend US of bladder and kidneyurol ogy consult Crush inju ry of right ring finger [id number] S67.194A RHD, concern for crush injury with [...] TO 2024 - [facility] () Zaki Beausoleil [id number] Zaki Beausoleil 01/17/2022 1 E[facility] - DOS PRIOR TO 2024 - [facility] () Zaki Beausoleil [id number] Zaki Beausoleil 03/20/2022 1 E[facility] - DOS PRIOR TO 2024 - [facility] () Zaki Beausoleil [id number] Zaki Beausoleil 04/11/2022 1 E[facility] - DOS PRIOR TO 2024 - [facility] () Zaki Beausoleil [id number] Zaki Beausoleil 08/28/2022 1 E[facility] - DOS PRIOR TO 2024 - [facility] () Zaki Foy [id number] Zaki Foy Notes Date Note Type Note Provider Name and Address Organization Details Recorded Time 12/17/2020 text/html Last night, Richard fell onto a brick while performing an obstacle course when a dog took out my feet. This happened at his friend's house. He has no pain at rest, but mild pain with abduction. No OTC analgesics. 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 No history of left shoulder problems. RH. Ramesh Giraldo MD [address] [place] [address], [phone], [facility] 12/17/2020 12:49:32 01/17/2022 text/html Same day prep [...] eye; no recent rashes Melisa John NP [address] [place] [address], [phone], [facility] 01/20/2022 08:40:36 03/20/2022 text/html Pt presents torios y to discuss vasectomy procedure. He has 2 children- 7 and 4 years old. Denies history of major trauma, surgery, or infections in the scrotum. Real Theodore Jr. [address] [place], [phone], [facility] 03/21/2022 05:07:56 04/11/2022 text/html Patient presents for vasectomy procedure. Has been consented previously on: 03/20/22. No additional questions at this time. Wishes to proceed. Has taken diazepam approximately 10 minutes earlier. Real Theodore Jr. MD [address] [place], [phone], [facility] 04/11/2022 12:50:10 08/28/2022 text/html Here with multip le issues 1. 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 heme in urine 2 years ago and this year at [facility] physical in tates that he has not been exercising vigorously or sexually active at this timeno trauma, denies tobacco useno urinary symptoms at this time or in the past Stevie Arevalo PA-C [address] [place], [phone], [facility] 08/28/2022 15:59:34
--- OUTSIDE RECORDS SUMMARY | 2024-09-20 19:38 | XMS_ITS | Continuity of Care Document ---
Author Name [facility] Organization [facility] Care Team Providers Care Scenery Builder Name Role Phone [facility] Unavailable Unavailable Medications Combined list of outpatient [...] GLENMARK PHARMA, 30 ea. BLIST PACK Active [id number] 2023 10 Pharmac y Data Transac tion Service Facilit y Allergies, Adverse Reactions, Alerts Combined list of allergies from Department of Defense and Veterans Affairs facilities. It does not include entries that were removed or entered in error. Substance Category Reaction Severity Reaction type Status Date Reported Comments Source No Known Allergies Drug allergy (disorder) active 11/18/2013 [place] [address] Immunizations Combined list of available immunizations from the Department of Defense and Veterans Affairs facilities. Immunization Series Date Given Administered By Site Reaction Lot Number CVX Code Drug Early Childhood Education Specialist Status Comments Source influenza, injectable, quadrivalent- pf 2021 [id number] GlaxoSmithKli ne complet ed influenza , injectabl e, quadrival ent-pf 06/15/22 Given Ambulat ory Pharmac y influenza virus vaccine, inactivated 2020 [id number] Seqirus complet ed influenza virus vaccine, inactivat ed 05/19/21 Given Ambulat ory Pharmac y COVID Vaccine Pfizer 2020 [id number] PFIZER complet ed COVID Vaccine Pfizer 11/07/20 Given Ambulat ory Pharmac y COVID Vaccine Pfizer 2020 [id number] PFIZER complet ed COVID Vaccine Pfizer 10/17/20 Given Ambulat ory Pharmac y typhoid Vi capsular polysaccharid e vac 2020 [id number] sanofi pasteur complet ed typhoid Vi capsular polysacch aride vac 08/18/20 Given Ambulat ory Pharmac y influenza, injectable, quadrivalent, preservative free 2019 MARIELANDRENELSON, () Not Given influenza , injectabl e, quadrival ent, preservat preet free [facility] influenza, injectable, quadrivalent- pf 2018 [id number] 150 Seqirus complet ed influenza , injectabl e, quadrival ent-pf 05/13/19 Given Ambulat ory Pharmac y meningococcal A,C,Y,W-135 (MCV4P) 2018 [id number] 114 sanofi pasteur complet ed meningoco ccal A,C,Y,W-1 35 (MCV4P) 10/17/18 Given Ambulat ory Pharmac y influenza, injectable, quadrivalent- pf 2017 [id number] 150 Seqirus complet ed influenza , injectabl e, quadrival ent-pf 06/20/18 Given Ambulat ory Pharmac y typhoid Vi capsular polysaccharid e vac 2017 [id number] 101 sanofi pasteur complet ed typhoid Vi capsular polysacch aride vac 06/20/18 Given Ambulat ory Pharmac y Influenza, inj, MDCK, quadrivalent- pf 2016 [id number] 171 Seqirus complet ed Influenza , inj, MDCK, quadrival ent-pf 06/14/17 Given Ambulat ory Pharmac y influenza, seasonal, injectable-pf 2015 [id number] 140 Seqirus complet ed influenza , seasonal, injectabl e-pf 05/18/16 Given Ambulat ory Pharmac y typhoid Vi capsular polysaccharid e vac 2015 [id number] 101 sanofi pasteur complet ed typhoid Vi capsular polysacch aride vac 05/18/16 Given Ambulat ory Pharmac y influenza, seasonal, injectable-pf 2014 [id number] 140 CSL Behring complet ed influenza , [...] Pharmac y hepatitis B adult vaccine 2013 [id number] 43 Merck & Company Inc complet ed hepatitis B adult vaccine 06/16/14 Given Ambulat ory Pharmac y yellow fever vaccine 2013 [id number] 37 sanofi pasteur complet ed yellow fever vaccine 06/16/14 Given Ambulat ory Pharmac y yellow fever vaccine 1 2013 [id number] 37 Sanofi Pasteur (PMC) complet ed yellow fever vaccine DoD hepatitis B vaccine, adult dosage 3 2013 [id number] 43 Merck (MSD) complet ed hepatitis B vaccine, adult dosage DoD hepatitis A vaccine, adult dosage 3 2013 [id number] 52 KrossoverKline (SKB) complet ed hepatitis A vaccine, adult dosage DoD typhoid Vi capsular polysaccharid e vaccine 1 2013 [id number] 101 Sanofi Pasteur (PMC) complet ed typhoid Vi capsular polysacch aride vaccine DoD influenza, seasonal, injectable 2013 [id number] 141 complet ed influenza , seasonal, injectabl e 06/13/14 Given Ambulat ory Pharmac y Influenza, seasonal, injectable 1 2013 [id number] 141 Transcribed (TRS) complet ed Influenza , seasonal, injectabl e DoD hepatitis A-hepatitis B vaccine 2013 [id number] 104 GlaxoSmithKli ne complet ed hepatitis A-hepatit is B vaccine 12/12/13 Given Ambulat ory Pharmac y varicella virus vaccine 2013 [id number] 21 Merck & Company Inc complet ed varicella virus vaccine 12/12/13 Given Ambulat ory Pharmac y measles/mumps /rubella virus vaccine 2013 [id number] 03 Merck & Company Inc complet ed measles/m umps/rube lla virus vaccine 12/12/13 Given Ambulat ory Pharmac y measles, mumps and rubella virus vaccine 2 2013 [id number] 03 Merck (MSD) complet ed measles, mumps and rubella virus vaccine DoD varicella virus vaccine 1 2013 [id number] 21 Merck (MSD) complet ed varicella virus vaccine DoD hepatitis A and hepatitis B vaccine 1 2013 [id number] 104 SmithKline (SKB) complet ed hepatitis A and hepatitis B vaccine DoD hepatitis A-hepatitis B vaccine 2013 [id number] 104 GlaxoSmithKli ne complet ed hepatitis A-hepatit is B vaccine 10/26/13 Given Ambulat ory Pharmac y measles/mumps /rubella virus vaccine 2013 [id number] 03 Merck & Company Inc complet ed measles/m umps/rube lla virus vaccine 10/26/13 Given Ambulat ory Pharmac y varicella virus vaccine 2013 [id number] 21 Merck & Company Inc complet ed varicella virus vaccine 10/26/13 Given Ambulat ory Pharmac y measles, mumps and rubella virus vaccine 1 2013 [id number] 03 Merck (MSD) complet ed measles, mumps and rubella virus vaccine DoD varicella virus vaccine 1 2013 [id number] 21 Merck (MSD) complet ed varicella virus vaccine DoD hepatitis A and hepatitis B vaccine 1 2013 [id number] 104 [facility] (SKB) complet ed hepatitis A and hepatitis B vaccine DoD poliovirus vaccine, inactivated 2013 [id number] 10 sanofi pasteur complet ed polioviru s vaccine, inactivat ed 10/20/13 Given Ambulat ory Pharmac y meningococcal A,C,Y,W-135 (MCV4P) 2013 [id number] 114 sanofi pasteur complet ed meningoco ccal A,C,Y,W-1 35 (MCV4P) 10/20/13 Given Ambulat ory Pharmac y influenza, seasonal, injectable-pf 2013 1342 1P 140 Novartis Pharmaceutica ls complet ed influenza , seasonal, injectabl e-pf 10/20/13 Given Ambulat ory Pharmac y adenovirus vaccine, live 2013 [id number] 143 Teva Pharmaceutica ls complet ed adenoviru s vaccine, live 10/20/13 Given Ambulat ory Pharmac y tuberculin purified protein derivative 2013 [id number] 96 [facility] complet ed tuberculi n purified protein derivativ e 10/20/13 Given Ambulat ory Pharmac y tetanus, diphtheria, acellular pertu is 2013 [id number] 115 GlaxKewenithKli ne complet ed tetanus, diphtheri a, acellular pertussis 10/20/13 Given Ambulat ory Pharmac y poliovirus vaccine, inactivated 1 2013 J1561 10 Sanofi Pasteur ([facility]) complet ed polioviru s vaccine, inactivat ed DoD meningococcal polysaccharid e (groups A, C, Y and W-135) diphtheria toxoid conjugate vaccine (MCV4P) 1 2013 [id number] 114 Sanofi Pasteur ([facility]) complet ed meningoco ccal polysacch aride (groups A, C, Y and W-135) diphtheri a toxoid conjugate vaccine (MCV4P) DoD tetanus toxoid, reduced diphtheria toxoid, and acellular pertu is vaccine, adsorbed 1 2013 [id number] 115 News Corp (SKB) complet ed tetanus toxoid, reduced diphtheri a toxoid, and acellular pertussis vaccine, adsorbed DoD Influenza, seasonal, injectable, preservative free 1 2013 1342 1P 140 Novartis Nomanini. (NOV) complet ed Influenza , seasonal, injectabl e, preservat preet free DoD Adenovirus, type 4 and type 7, live, oral 1 2013 [id number] 143 [employer] (BRR) complet ed Adenoviru s, type 4 [...] Prevention' s HIV diagnostic algorithm. Refer to [facility] Lab Guide for additional information : [email or web address] x Testing performed by Kaity goddard. [facility] EP[facility] Miscellan eous Sendouts Repository Sample Received (11/14/23 8:41 AM) 11/13 N [facility] Encounters Combined list of: 1) Encounters from Department of Veterans Affairs facilities going backup to the last 18 months, not all [place] inpatient encounters are included; 2) Encounters from the Department of Defense facilities going backup to 280 months. Location Location Details Encounter Type Encounter Number Reason For Visit Attending Provider ADM Date DC Date Status Disposition [place] [address](RAMIN Fco) OUTPATIENT [id number] Notes Entered by: DALILA CHANG 18 Nov 2013 0837 ------- ------- ------- ------- -- cough x 3 days DALILA CHANG 11/18 Released w/o Limitations [facility] [place] [address](Louise Larsenvo) [place] [address]([facility] Eleazar Metcalf) OUTPATIENT [id number] Notes Entered by: CAMI ROBLERO 03 Feb 2014 1144 ------- ------- ------- ------- -- DARRYL BLAKE 02/03 Released w/o Limitations [facility] [place] [address]([employer] Elva Falcon) [facility](Opt ometry Cl Carrera) OUTPATIENT [id number] Color Vision Testing Amauryer MAGDIEL GONZALEZ 08/23 Released w/o Limitations [employer] [employer] [facility](O ptometr y Cl Carrera) [facility] [employer] [facility](Opt ometry Cl Carrera) OUTPATIENT [id number] AEE per MAGDIEL Gong 01/23 Released w/o Limitations [employer] [employer] [facility](O ptometr y Cl Carrera) 8344R-439 AMDS Outpatient [id number] CODY KNOX 11/11 Discharge Disposition: Home or Self Care 8344R-4 39 AMDS 8344R-439 AMDS Outpatient [id number] CODY KNOX 11/13 Discharge Disposition: Home or Self Care 8344R-4 39 AMDS 8344R-439 AMDS Between Visit [id number] 04/16 Discharge Disposition: Home or Self Care 8344R-4 39 AMDS Procedures Combined list of: 1) Procedures from Department of Veterans Affairs facilities [facility], not all [facility] non-surgical procedures are included; 2) All procedures from the Department of Defense facilities. Procedure Procedure Type Code Date Perfomer Comments Sourc e No data available for this section Ambulato ry Pharmacy Ophthalmological Prior Patient Start Intermediate Level Care Ophthalmological Prior Patient Start Intermediate Level Care 54882 MAGDIEL GONZALEZ [facility] Extensive Color Vision Testing Extensive Color Vision Testing [id number] MAGDIEL GONZALEZ Determination Of Refractive State Determination Of Refractive State [id number] MAGDIEL GONZALEZ Ophthalmological New Patient Start Comprehensive Care Ophthalmological New Patient Start Comprehensive Care [id number] MAGDIEL GONZALEZ [facility] Social History Combined list of available smoking, tobacco, and other social history from Department of Defense and Veterans Affairs facilities. Social History Type Response Date Comment Sourc e Sex Representation Male 07/24/2022 Unknow n Organization Sexual Orientation Ambula tory Pharmacy Gender identity Ambulator y Pharmacy This section is an empty soc ial history section. DoD Assessment and Plan Combined list of future care activities from Department of Defense and Veterans Affairs facilities (e.g., assessment and plan notes, appointments, orders, and referrals). Additional future care activities may be listed in the Plan of Care section. Result Assessment and Plan Date Source Assessment and Plan Extracted from:Title : Office Clinic Note Author: ROGE MARTINEZ MD Date: 09/10/24 Needs DNIF.? Surgery planned with Neurosurgery 09/13/24 after unclear mechanism of injury and extensive workup to include MRI and NSS planning surgery.? Will DNIF today. Will place Mobility restricting 469. Recommend f/u after surgery with surgical notes Will need aeromedical waiver. Flyer aware of plan and will go home today due to acute pain. ? Extracted from:Title: Fly PHA / MHA / Lab / [...] 155 BMI: Medications: None Chronic Problems: None 507: _ Comments: None Addendum by DENNIS JEFFREY on November 14, 2023 11:11 EDT Chief Complaint: Member here for annual fly PHA. Patient is able to complete duties required by [facility]. No acute complaints.NO: Fly?waiver. Initial Waiver Date: Waiver Exp Date: Justin. Test results reviewed: Audio: Audiogram H-1, no asymmetric hearing loss, no significant threshhold shift Optometry:Meets vision standards for: Near and distant visual acuity, IOP, Depth perception, Phorias EKG:?_ PHYSICAL EXAM: HEENT:?Normal Valsalva:?Normal Joints:?Normal Spine:Normal Skin:Normal Neuro:?Normal Lungs:?Normal Heart:?Normal Abdomen:?Normal Comments: ANNUAL PERIODIC HEALTH ASSESSMENT I. CRIMINAL PSYCHOLOGIST INFORMATION AND DEMOGRAPHICS (SMI) 1. Last Name: MAY 2. First Name: ZAKI 3. Middle Name: Sudarshan 4. Assessment Date: 5. : 6. Age: 27 7. Gender: M 8. DoD ID Number: [id number] 9. Service Branch: [employer] 10. 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 Unit Name: [address] 14. Duty Station/Location: [place] 15. UIC: [id number] 16. Is this your first Periodic Health Assessment (PHA)?: N 17. Are you enrolled in a secure messaging system with your health care provider?: 18. Current contact information: Preferred Method: Email 1 DSN: Day Time Phone: [phone] Night Time Phone: [phone] Email 1: [email or web address] Email 2: Address: [address] [place] [address] City: [place] State: [place] Zip Code: [id number] 19. Point of contact who can always reach you: Name: Rodo Foy Phone 1: [phone] Phone 2: EMAIL: Address: City: State: Zip Code: II. DEPLOYMENT INFORMATION (DEP) 1. [ 1 ] Total number of deployments in the PAST 5 YEARS 2. [ [place] ] Primary country of last deployment 3. [ ] Date departed theater 4. [ N ] Are you going to deploy within the NEXT 120 DAYS? III. OCCUPATIONAL INFORMATION (OCC) 1 [ [id number] ] What is your occupational code 2. [...] easily startled? 6. d. [ No ] [place] numb or detached from others, activities, or your surroundings? 6. e. [ Not answered ] [place] guilt or unable to stop blaming yourself [...] like to schedule a visit with a dip lube operator, mental health care provider, or a community [...] 8. [ None ] What prescriptions or mket-oiw-lscabyg medications are you CURRENTLY taking for health [...] had a cholesterol check by a health critical care paramedic within the PAST 5 YEARS? 13.a. In [...] was provided: Conditions: Pilar Cyst removal Where: [facility] 5. Member acknowledged responsibility for reporting health issues. 7. [ No ] Woud you like to schedule an appointment with a health care provider to discuss any health concerns? XI. SEPARATION AND INTERMEDIATE 1. [ No ] Are you planning to separate or retire within the next year from Active Duty or [place] Duty (activated for greater than 30 continuous days) OR do you intend to file a claim for disability compensation with the [employer]? PART B. RECORD REVIEW AND RECOMMENDATIONS I. RECORD REVIEWER INFORMATION 1. Last Name: SAMIA 2. First Name: PIERO 3. Middle Name: CARROL 4. Service Branch: [employer] 5. Status: 6. 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 EMAIL: [email or web address] 8. Facility: [facility] 9. Unit: [facility] 10. Address: [address] [place], [place] [address]Ar[place] 11. State: [place] 12. Zip Code: [address] 13. Phone: [phone] 14. Date Record Review: II. MEDICAL SCREENING 1. [ ] Date of produce service team member's most recent PHA 2. [ 5 feet 11 inches Date: ] produce service team member's most recently documented height 3. [ 155 pounds Date: ] produce service team member's most recently documented weight 4. [ 121/73 Date: ] produce service team member's most recently documented blood pressure reading 5. [ No ] Does the produce service team member have a history of abnormal blood pressure since their last PHA? 6. [ Yes ] Does the produce service team member have a laboratory test of sickle cell trait documented in their permanent medical record? 7. [ No Cholesterol Test Documented ] What is the date of the produce service team member's most recently documented cholesterol test? 9. [ No Active Medications Documented ] List of produce service team member's active medications listed in their permanent medical record 10. [ No ] Is there a discrepancy between the active medication record review and the produce service team member's self-reported list of medications? 11. [ pilar cyst removal ] List documented significant care the produce service team member has received since their last PHA from a provider OUTSIDE the Health System 12. [ No ] Is there a discrepancy between the produce service team member's list of OUTSIDE care (from OTH5), and the OUTSIDE care found in the record? 13. [ No Inside Care Documented ] List documented significant care the produce service team member has received since their last PHA from a provider INSIDE the Health System 15. [ Not Answered ] Confirm that vaccine exemptions are listed in the medical record for each vaccine listed III. OCCUPATION-SPECIFIC EXAMINATIONS 1. [ ] When was the produce service team member's most recently documented special operational duty physical exam? IV. FAMILY HISTORY AND LIFESTYLE 1. [ Yes ] Does the [id number] reflect the produce service team member's reported family history? 2. [ No ] Is there a record of the produce service team member receiving a syphillis, chlamydia and gonorrhea test since their last PHA? . DEPLOYMENT-RELATED HEALTH ASSESSMENTS 1. [ No ] Based on your check of records, does the produce service team member have any due or overdue deployment health assessments which need to be completed with this PHA? VII. INDIVIDUAL MEDICAL READINESS 1. [ No ] Does the produce service team member have an Assignment Limitation Code C? 3. [ Classification: 1 ] Most recently documented dental exam 4. [ No: Meningococcal ] Is the produce service team member current on all required immunizations in the immunization tracking system? 6. Does the produce service team member have the following laboratory tests [...] need to be forwarded to the Health Straight Line Press Setter completing PART C: No DLCs, pain, medications/supplements, [...] 6. Title: Physician (DO WILLIAM) 7. EMAIL: [email or web address] 8. Facility: [address] [facility] 9. Unit: [address] [facility] 10. Address: [address] [place] [address] 11. State: [place] 12. Zip Code: [address] 13. Phone: [phone] 14. Date HCP Review initiated: 1. Member [...] DENNIS 3. Middle Name: 4. Service Branch: [employer] 5. 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 Title: Physician (DO WILLIAM) 7. EMAIL: [email or web address] 8. Facility: [facility] 9. Unit: [facility] 10. Address: [address] [place] [address] 11. State: [facility]. Zip Code: [address] 13. Phone: [phone] 14. Date HCP Review initiated: IV. PERIODIC HEALTH ASSESSMENT PROVIDER RECOMMENDATIONS and REFERRALS 1. Provider concerns with this assessment: No issues or concerns identified V. SUMMARY AND COMMENTS 1. Additional information summarizing findings during the produce service team member assessment: 2. Provider Comments: No new medical concern . INDIVIDUAL MEDICAL READINESS DISPOSITION DETERMINATION IRON: Ready DEN: Ready IMM: Ready LAB: Ready ME: Ready IMR Status: Fully Medically Ready VII. SERVICE MEDICAL DEPLOYABILITY EVALUATION INDICATED Based on your review of all documentation, is the produce service team member medically deployable without limitations? Reference [facility] 6490.07 Yes (produce service team member DOES NOT currently have a medical condition that limits deployability) Date PHA Completed: END OF [id number] REPORT Impression: Meets?FCIII?medical standards per NNAMDI 48-123/MSD. Aeromedical Disposition: No DNIF. DD 2992?signed. No AF469 changes based on this encounter. [employer]ide Qualified. 09/20/2024 8344R-439 AMDS Functional Status Combined list of recent functional and cognitive assessments recorded at Department of Defense and Veterans Affairs (VA).VA Functional [place] Measurement (FIM) Scale: 1 = Total Assistance (Subject = 0% +), 2 = Maximal Assistance (Subject = 25% +), 3 = Moderate Assistance (Subject = 50% +), 4 = Minimal Assistance (Subject = 75% +), 5 = Supervision, 6 = Modified [place] (Device), 7 = Complete [place] (Timely, Safely). Assessment Date/Time Source Assessment Type Assessment Skill Assessment Score Assessment Details No data available for this section
--- NOTE | 2024-09-20 19:41 | PC.NURSE ---
Pt brought to room, supervisor policy change clerks, ua collected and sent, Iv placed in left AC.
[2024-09-20 19:50] LABS: Appearance Urine Clear; Color Urine Yellow; Glucose Urine UA Negative (Negative); Leukocyte Esterase Urine Negative (Negative); Nitrite Urine Negative (Negative); PH 5.5 (5.0-9.0); Specific Gravity - Urine 1.025 (1.005-1.025); UMIC TRIGGER UACC YES; Urine Blood Small (1+) (Negative); Urine Ketones Trace mg/dL (Negative); Urine Protein Negative (Neg-Trace)
[2024-09-20] MEDS: iohexoL 350 MG/ML 100 ML INFUS..BTL 65 ML IV (19:50)
[2024-09-20 19:55] LABS: Bacteria Urine None Seen (None Seen); Hyaline Casts Urine 0-2 /LPF (0-2); Squamous Epithelial Cell Urine 0-2 /HPF (0-2); WBC Urine 0-5 /HPF (0-5)
[2024-09-20 19:59] LABS: Influenza A PCR POSITIVE (Negative); Influenza B PCR NEGATIVE (Negative); Resp Syncy Virus RNA Qual PCR NEGATIVE (Negative); SARS COV2 PCR INHOUSE NEGATIVE (Negative)
[2024-09-20 20:35] VITALS: BP 106/59; PULSE 96; RESP 16; TEMP 36.3; O2SAT 97
--- NOTE | 2024-09-20 21:11 | PC.NURSE ---
Notified provider of imaging results are in.
--- NOTE | 2024-09-20 21:42 | PC.NURSE ---
Provider into discuss plan of care.
[2024-09-20] MEDS: Ketorolac Tromethamine 15 MG/ML VIAL IVPUSH (21:49)
[2024-09-20 21:59] VITALS: BP 122/63; PULSE 81; RESP 16; TEMP 36.7; O2SAT 98
--- NOTE | 2024-09-20 22:03 | PC.NURSE ---
Reviewed discharge instructions with pt. pt verbalized understanding, no sign of distress upon discharge. Iv removed.
[2024-09-20 22:04] VITALS: BP 122/63; PULSE 81; RESP 16; TEMP 36.7; O2SAT 98
== END 2024-09-20 22:05 | disposition home or self-care (01) ==
PROVIDERS: Physician Assistant; Emergency Provider Emergency Medicine Emergency Medical Services; PCP Internal Medicine
DX: J10.1 Influenza due to other identified influenza virus with other respiratory manifestations (principal); R07.89 Other chest pain; R06.02 Shortness of breath; M79.662 Pain in left lower leg; R50.9 Fever, unspecified; R05.9 Cough, unspecified; R60.0 Localized edema; Z03.818 Encounter for observation for suspected exposure to other biological agents ruled out; Z79.899 Other long term (current) drug therapy
CPT/HCPCS: 0241U; 36415; 71275; 80053; 81001; 83880; 84484; 85025; 93005; 93971; 96374; 99284; 99285; J1885; Q9967

== ENCOUNTER → 2024-09-20 18:53 | Outpatient (BNV) | payer OTHER, SELFPAY | PROVIDERS: Emergency Provider Emergency Medicine Emergency Medical Services; PCP Internal Medicine; Visit Provider Internal Medicine | DX: R00.0 Tachycardia, unspecified (principal); I51.7 Cardiomegaly; I45.19 Other right bundle-branch block; R94.31 Abnormal electrocardiogram [ECG] [EKG] | CPT/HCPCS: 93010 ==

== ENCOUNTER → 2024-09-20 18:57 | Outpatient (BNV) | payer OTHER, SELFPAY | PROVIDERS: PCP Internal Medicine; Visit Provider Nuclear Medicine | DX: R06.02 Shortness of breath (principal); R91.8 Other nonspecific abnormal finding of lung field; M79.662 Pain in left lower leg | CPT/HCPCS: 71275; 93971 ==

== ENCOUNTER 2024-10-04 13:17 | Outpatient (AMB) | payer OTHER, SELFPAY ==
--- NOTE | 2024-10-04 13:19 | HO.SPINEOV ---
Intake Visit Reasons: 1st post op Intake Note: Mr. Foy is here today for his 1st post op. [employer] Required: No Allergies No Known Allergies Allergy (Verified 10/04/24 13:30) Assessment & Plan Assessment & Plan (1) S/P lumbar microdiscectomy: Code(s): Z98.890 - Other specified postprocedural states Category: Surgical Plan Procedure: L5-S1 microdiskectomy Zaki comes in today for his 1st postoperative visit after having a L5-S1 microdiskectomy completed by Dr. Domingo about 3 weeks ago. To recap he had a complicated postoperative course, and unfortunately was diagnosed with influenza shortly after surgery. He was seen acutely in office for a fever and severe leg pain. Thankfully, today he is doing much better. He reports that yesterday and today he had no leg pain on the left side. He has been completing his activities of daily living without much issue. He asked several questions regarding the postoperative healing course, all of which I answered to the best of my ability. We reviewed postoperative lifting and activity guidelines. 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 No new neurological deficits. The patient ambulates well and rises from seated position without assistance/difficulty. His posterior incision site is closed and well healed, but does still have a small area of edema which is nontender to palpation and soft. I would like Zaki to follow up with us again in 6 weeks for his 2nd postoperative visit. He requested a letter to return to work at his next visit. Ben Soler MD,PhD [facility] Coding Level of Care Code Global (71988) Diagnoses S/P lumbar microdiscectomy Z98.890
--- OUTSIDE RECORDS SUMMARY | 2024-10-04 16:09 | XMS_ITS | Data Portability ---
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 s care today. [facility] 08/28/2022 15:58:15 Plan of Treatment Reminders Order Date Submit Date Provider Last Modified By Organization Details Last Modified Time Details Appointments None recorded. Lab urinalysi s, dipstick 2022 023 [facility], [address] [place] [address], [address], 3 15:46:34 culture, urine 2022 023 [facility], [address] [place] [address], [address], 3 07:48:25 tick-born e disease panel 2021 022 [facility], [address] [place] [address], [address], 2 18:21:01 babesia duncani Ab, titer, immunoflo urescence , serum 2021 022 [facility], [address] [place] [address], [address], 2 18:21:00 CK (creatine kinase), total, serum 2021 022 [facility], [address] [place] [address], [address], 2 12:27:15 ESR (erythroc yte sedimenta tion rate), blood 2021 022 [facility], [address] [place] [address], [address], 17:59:49 C-reactiv e protein, quantitat preet, serum or plasma 2021 022 [facility], [address] [place], [address], 2 13:49:04 CMP, serum or plasma 2021 022 [facility], [address] [place] [address], [address], 2 12:27:14 CBC 2021 022 [facility], [address] [place], [address], 2 17:07:44 Referral urologist referral 2022 023 [facility], [address] [place], [address], 3 11:20:15 Procedures None recorded. Surgeries None recorded. Imaging US, retroperi toneum - chronic painless hematuria , r/o subclinic al kidney stone vs bladder mass 2022 023 [facility] (Imaging), [address], [place], [address], 3 10:49:24 XR, shoulder [address] (Outpt Imaging), [address] [place], [address], 1 13:13:17 XR, scapula [address] (Outpt Imaging), [address] [place], [address], 1 13:13:17 Medication Orders doxycycli ne hyclate 100 mg capsule 2021 022 [id number], [address] [place], [place], [id number], 14:53:09 Patient TargetsNo targets recorded. Patient InstructionsNo instructions recorded. Reason for Referral Urologist Referral for Blood in urine painless hematuria x 2 years Referring Physician: Stevie Arevalo, Family Medicine, Encounter Date: 08/28/2022 Results Created Date Observation Date Name Description Value Unit Range Abnormal Flag Note LastModifiedBy Organization Detail LastModifiedTime 01/18/20 22 01/17/2022 CBC WBC 5.85 K/? ? ?L 4.23-9 .07 Not Available [address], [address], 01/17/2022 17:07:44 01/18/20 22 01/17/2022 CBC RBC 5.26 M/? ? ?L 4.63-6 .08 Not Available [address], [address], 01/17/2022 17:07:44 01/18/20 22 01/17/2022 CBC HGB 15.5 g/dL 13.7-1 7.5 Not Available [address], [address], 01/17/2022 17:07:44 01/18/20 22 01/17/2022 CBC HCT 46.8 % 40.1-5 1.0 Not Available [address], [address], 01/17/2022 17:07:44 01/18/20 22 01/17/2022 CBC MCV 89.0 fL 79.0-9 2.2 Not Available [address], [address], 01/17/2022 17:07:44 01/18/20 22 01/17/2022 CBC MCH 29.5 pg 25.7-3 2.2 Not Available [address], [address], 01/17/2022 17:07:44 01/18/20 22 01/17/2022 CBC MCHC 33.1 g/dL 32.3-3 6.5 Not Available [address], [address], 01/17/2022 17:07:44 01/18/20 22 01/17/2022 CBC plt 222 K/? ? ?L 163-33 7 Not Available [address], [address], 01/17/2022 17:07:44 01/18/20 22 01/17/2022 CBC MPV 9.7 fL 9.4-12 .4 Not Available [address], [address], 01/17/2022 17:07:44 01/18/20 22 01/17/2022 CBC neut% 55.4 % 34.0-6 7.9 Not Available [address], [address], 01/17/2022 17:07:44 01/18/20 22 01/17/2022 CBC neut# 3.24 1.78-5 .38 Not Available [address], [address], 01/17/2022 17:07:44 01/18/20 22 01/17/2022 CBC lymph % 32.1 % 21.8-5 3.1 Not Available [address], [address], 01/17/2022 17:07:44 01/18/20 22 01/17/2022 CBC lymph # 1.88 K/? ? ?L 1.32-3 .57 Not Available [address], [address], 01/17/2022 17:07:44 01/18/20 22 01/17/2022 CBC mono% 9.6 % 5.3-12 .2 Not Available [address], [address], 01/17/2022 17:07:44 01/18/20 22 01/17/2022 CBC mono# 0.56 0.30-0 .82 Not Available [address], [address], 01/17/2022 17:07:44 01/18/20 22 01/17/2022 CBC eo% 1.7 % 0.8-7. 0 Not Available [address], [address], 01/17/2022 17:07:44 01/18/20 22 01/17/2022 CBC eo# 0.10 0.04-0 .54 Not Available [address], [address], 01/17/2022 17:07:44 01/18/20 22 01/17/2022 CBC baso% 1.0 % 0.2-1. 2 Not Available [address], [address], 01/17/2022 17:07:44 01/18/20 22 01/17/2022 CBC baso# 0.06 0.00-0 .08 Not Available [address], [address], 01/17/2022 17:07:44 01/18/20 22 01/17/2022 CBC RDW-CV 12.0 % 11.6-1 4.4 Not Available [address], [address], 01/17/2022 17:07:44 01/18/20 22 01/17/2022 CBC Ig% 0.200 % 0.000- 1.500 Ig % >0.5 Indic ates possi ble Left Shift Not Available [address], [address], 01/17/2022 17:07:44 01/18/20 22 01/17/2022 CBC Ig# 0.010 0.000- 0.093 Not Available [address] [place], [address], 01/17/2022 17:07:44 01/18/20 22 01/17/2022 CBC NRBC% 0.0 % 0.0-0. 2 Not Available [address], [address], 01/17/2022 17:07:44 01/18/20 22 01/17/2022 CBC NRBC# 0.000 0.000- 0.012 Not Available [address], [address], 01/17/2022 17:07:44 01/18/20 22 01/17/2022 ESR sed rate 2.0 0.0-20 .0 Not Available [address], [address], 01/17/2022 17:59:49 01/18/20 22 01/22/2022 COMP. METAB OLIC PANEL glucose 84 mg/dL 70-100 Not Available [address], [address], 01/22/2022 12:27:14 01/18/20 22 01/22/2022 COMP. METAB OLIC PANEL BUN 14 mg/dL 7-18 Not Available [address], [address], 01/22/2022 12:27:14 01/18/20 22 01/22/2022 COMP. METAB OLIC PANEL creatinine 1.0 mg/dL 0.8-1. 3 Not Available [address], [address], 01/22/2022 12:27:14 01/18/20 22 01/22/2022 COMP. METAB OLIC PANEL B/C 14.0 ratio Not Available [address], [address], 01/22/2022 12:27:14 01/18/20 22 01/22/2022 COMP. METAB [...] be used in pregn santi. Not Available [address], [address], 01/22/2022 12:27:14 01/18/20 22 01/22/2022 COMP. METAB OLIC PANEL sodium 142 mmol/ L 136-14 5 Not Available [address], [address], 01/22/2022 12:27:14 01/18/20 22 01/22/2022 COMP. METAB OLIC PANEL potassium 4.5 mmol/ L 3.5-5. 1 Not Available [address], [address], 01/22/2022 12:27:14 01/18/20 22 01/22/2022 COMP. METAB OLIC PANEL chloride 102 mmol/ L 96-107 Not Available [address], [address], 01/22/2022 12:27:14 01/18/20 22 01/22/2022 COMP. METAB OLIC PANEL anion gap 10.6 5.0-15 .0 Not Available [address], [address], 01/22/2022 12:27:14 01/18/20 22 01/22/2022 COMP. METAB OLIC PANEL CO2 29 mmol/ L 21-32 Not Available [address], [address], 01/22/2022 12:27:14 01/18/20 22 01/22/2022 COMP. METAB OLIC PANEL calcium 9.2 mg/dL 8.5-10 .3 Not Available [address], [address], 01/22/2022 12:27:14 01/18/20 22 01/22/2022 COMP. METAB OLIC PANEL total protein 7.3 g/dL 6.4-8. 2 Not Available [address], [address], 01/22/2022 12:27:14 01/18/20 22 01/22/2022 COMP. METAB OLIC PANEL albumin 4.6 g/dL 3.4-5. 0 Not Available [address], [address], 01/22/2022 12:27:14 01/18/20 22 01/22/2022 COMP. METAB OLIC PANEL globulin 2.7 g/dL Not Available [address], [address], 01/22/2022 12:27:14 01/18/20 22 01/22/2022 COMP. METAB OLIC PANEL A/G 1.7 ratio 0.8-2. 0 Not Available [address], [address], 01/22/2022 12:27:14 01/18/20 22 01/22/2022 COMP. METAB OLIC PANEL total bilirubin 0.50 mg/dL 0.00-1 .00 Not Available [address], [address], 01/22/2022 12:27:14 01/18/20 22 01/22/2022 COMP. METAB OLIC PANEL AST 34 U/L 0-37 Not Available [address], [address], 01/22/2022 12:27:14 01/18/20 22 01/22/2022 COMP. METAB OLIC PANEL ALT 29 U/L 6-63 Not Available [address], [address], 01/22/2022 12:27:14 01/18/20 22 01/22/2022 COMP. METAB OLIC PANEL alk. phos. 77 U/L 50-136 Not Available [address], [address], 01/22/2022 12:27:14 01/18/20 22 01/22/2022 CPK CPK 206.0 U/L 35.0-2 32.0 Not Available [address], [address], 01/22/2022 12:27:15 01/18/20 22 01/22/2022 C-ZAINA CTIVE PROTE IN-QU ANTIT ATIVE C-reactive protein -quant <2.0 mg/L 0.0-9. 0 < Not Available [address], [address], 01/22/2022 13:49:04 01/18/20 22 01/28/2022 BABES IA CATINAA NI (WA1) ANTIB LAZ (IGG) , IFA babesia duncani (wa1) antibody (IgG), ifa <1:256 normal REFER ENCE RANGE : <1:25 6 INTER PRETI VE CRITE WILDA: <1:25 6 Antib laz not detec paulie > or = 1:256 Antib laz detec paulie Babes ia dunca ni, also [...] livan purpo ses. Not Available [facility] [place] [facility] [address], [place], [address], 01/28/2022 18:21:00 01/18/20 22 01/28/2022 TICK BORNE [...] livan purpo ses. Not Available [facility] [place] [facility] [address], [place], [address], 01/28/2022 18:21:01 01/18/20 22 01/28/2022 TICK BORNE [...] livan purpo ses. Not Available [facility] [place] [facility] [address], [place], [address], 01/28/2022 18:21:01 01/18/20 22 01/28/2022 TICK BORNE DISEA SE, ACUTE MOLEC ULAR PANEL source BLOOD Not Available [facility] [place] [facility] [address], [place], [address], 01/28/2022 18:21:01 01/18/20 22 01/28/2022 TICK BORNE [...] livan purpo ses. Not Available [facility] [place] [facility] [address], [address], 01/28/2022 18:21:01 01/18/20 22 01/28/2022 TICK BORNE DISEA SE, ACUTE MOLEC ULAR PANEL ehrlichia chaffeensis DNA real time PCR NOT DETECT ED not detect ed normal This test was devel oped and its adan tical perfo rmanc e tacho cteri stics have been deter mined by [employer]. It has not been clear ed or appro marleny by the FDA. This assay has been valid ated pursu ant to the CLIA regul ation s and is used for clini livan purpo ses. Not Available [facility] [place] [facility] [address], [address], 01/28/2022 18:21:01 01/18/20 22 01/28/2022 TICK BORNE [...] for clini livan purpo ses. Not Available [facility] [place] [facility] [address] [place], [place], [address], 01/28/2022 18:21:01 04/07/20 22 04/08/2022 SARS- COV-2 RNA (COVI D-19) , QUALI TATIV E NAAT sarscov2 NEGATI VE negati ve normal This test has been autho rized by the FDA under an Emerg ency Use Autho rizat ion(E UA) for you by autho rized labs. Not Available [address], [address], 04/08/2022 14:33:17 08/28/19 23 08/28/2022 POC UA glu UA NEGATI VE Not Available [facility] [address] [place] [address], [address], 08/28/2022 15:19:38 08/28/19 23 08/28/2022 POC UA clarity UA CLEAR Not Available [facility] [address] [place] [address], [address], 08/28/2022 15:19:38 08/28/19 23 08/28/2022 POC UA uro UA 1.0000 Not Available [facility] [address] [place] [address], [address], 08/28/2022 15:19:38 08/28/19 23 08/28/2022 POC UA ket UA NEGATI VE Not Available [facility] [address] [place] [address], [address], 08/28/2022 15:19:38 08/28/19 23 08/28/2022 POC UA pro UA NEGATI VE Not Available [facility] [address] [place] [address], [address], 08/28/2022 15:19:38 08/28/19 23 08/28/2022 POC UA nit UA NEGATI VE Not Available [facility] [address] [place] [address], [address], 08/28/2022 15:19:38 08/28/19 23 08/28/2022 POC UA lazaro UA NEGATI VE Not Available [facility] [address] [place] [address], [address], 08/28/2022 15:19:38 08/28/19 23 08/28/2022 POC UA pH UA 6.5000 Not Available [facility] [address] [place] [address], [address], 08/28/2022 15:19:38 08/28/19 23 08/28/2022 POC UA SG UA 1.0250 Not Available [facility] [address] [place] [address], [address], 08/28/2022 15:19:38 08/28/19 23 08/28/2022 POC UA color UA YELLOW Not Available [facility] [address] [place] [address], [address], 08/28/2022 15:19:38 08/28/19 23 08/28/2022 POC UA blo UA 1+ abnormal Not Available [facility] [address] [place] [address], [address], 08/28/2022 15:19:38 08/28/19 23 08/28/2022 POC UA antonio UA NEGATI VE Not Available [facility] [address] [place] [address], [address], 08/28/2022 15:19:38 08/28/19 23 08/30/2022 CULTU RE, URINE , ROUTI NE culture, urine, routine CULTU RE, URINE , ROUTI NE Micro Numbe r: [id number] Test Statu s: Final Speci men [...] Cultu re Trans port Tube. Not Available [facility] [place] [facility] [address], [place], [address], 08/30/2022 07:48:25 12/18/19 21 12/17/2020 XR, shoul theresa No observ ation record ed. [facility] (Outpt Imaging) [address] [place], [address], 12/17/2020 14:10:30 08/28/19 23 08/28/2022 xr finge r 2 or more views (valerie t) This image report has been auto-f inaliz ed and has not been read by a Radiol ogist. Interp retati on has been includ ed in the provid er encoun ter note for this date of niall anderson Final result MAURA-LY N GUMPRE CHT [email or web address] [facility] [address] [facility], [place], [address], 08/29/2022 10:06:33 09/01/19 23 09/01/2022 US, retro [...] 2. 10.1 mL postvo id residu al. Readin g Physic chio: Joseafshin diana Xiomara ms [facility] (Imaging) [address] [place], [address], 09/19/2022 10:14:02 Result Notes None recorded. Problems No Known Problems Procedures Surgical History Date Name Laterality Status Provider Name and Address Organization Details Recorded Time Vasectomy MR completed Real Theodore Jr. MD [address] [place] [address], [phone], [facility] 04/11/2022 12:49:52 7 POC Urinalysis Testing completed Bridget Malone RN [facility] 07/28/2016 10:30:42 Imaging Results Imaging Date Name Status LastModified by Organization Details LastModified Time 12/17/2020 XR, shoulder completed [facility] (Outpt Imaging) [address] [place], [address], 12/17/2020 14:10:30 08/28/2022 xr finger 2 or more views (right) completed [facility] [address] [place], [address], 08/29/2022 10:06:33 09/01/2022 US, retroperitoneum completed [email or web address] [facility] (Imaging) [address] [place], [address], 09/19/2022 10:14:02 Procedure Notes None recorded. Medical [...] Available Not Available No t Available Afluria 6130-3191( PF) 45 mcg (15 mcg x 3)/0.5 mL intramuscu lar syringe TO BE ADMINIST ERED BY PHARMACI ST FOR IMMUNIZA TION active Not Available Not Available No t Available Vitals Date Recorded Body height Body mass index (BMI) Body weight Heart rate Systolic blood pressure Diastolic blood pressure Provider Name and Address Organization Details Last Updated DateTime 1 176.53 cm 21.7 kg/m2 45155.2 6 g 84 /min 138 mm[Hg] 68 mm[Hg] Bruce King MA [facility] 1 09:25:36 Date Recorded Body weight Heart rate Systolic blood pressure Diastolic blood pressure Provider Name and Address Organization Details Last Updated DateTime 01/17/2022 30912.26 g 88 /min 128 mm[Hg] 88 mm[Hg] Jenaro Salas [facility] 01/17/2022 14:01:00 Date Recorded Body temperature Provider Name a pa Address Organization Details Last Updated DateTime 01/17/2022 98.2 [degF] Melisa John, Beatriz P [address] [place] [address], [id number] 01/17/2022 14:54:17 Date Recorded Body height Body mass index (BMI) Body weight Heart rate Oxygen saturation Oxygen saturation in Arterial blood by Pulse oximetry Systolic blood pressure Diastolic blood pressure Provider Name and Address Organization Details Last Updated DateTime 2 176.53 cm 22.4 kg/m2 15401.2 2 g 73 /min 98 % 98 % 128 mm[Hg] 74 mm[Hg] Brenna Merritt MA [facility] 2 14:54:01 Date Recorded Body height Respiratory rate Systolic blood pressure Diastolic blood pressure Provider Name and Address Organization Details Last Updated DateTime 04/11/2022 176.53 cm 18 /min 138 mm[Hg] 82 mm[Hg] Jenny Llamas CMA [facility] 2 10:56:37 Date Recorded Body height Body mass index (BMI) Body weight Heart rate Oxygen saturation Oxygen saturation in Arterial blood by Pulse oximetry Systolic blood pressure Diastolic blood pressure Provider Name and Address Organization Details Last Updated DateTime 3 176.53 cm 23.7 kg/m2 62292.7 6 g 95 /min 99 % 99 % 126 mm[Hg] 84 mm[Hg] Arely Hyatt MA [facility] 3 15:11:52 Social History Question Answer Notes LastModified by Organizat ion Details LastModified Time Tobacco Smoking Status Never Smoker ZAC Simpson, [facility] 12/17/2020 09:23:25 What Is Your Level [...] Information not available 05/31/2015 Marital Status jill Reyes n not available 06/25/2017 Mosquito Repellent Used Routinely No [email or web address] Information not available 05/29/2011 What Was The Date Of Your Most Recent Tobacco Screening? 08/28/2022 [email or web address] Information not available 08/28/2022 How Many Children Do You Have? 2 7 And 4 Y/o 03/20/2022 [email or web address] Information not available 03/20/2022 Seat Belts Used [...] trivalent, intranasal 1 completed Not Available [facility] 07/30/2019 02:26:40 Influenza, split virus, trivalent, preservative 2 completed Not Available [facility] 07/30/2019 02:31:15 influenza, unspecified formulation 0 completed Not Available [facility] 05/28/2011 05:22:52 OPV 4 completed Not Available [facility] 05/28/2011 05:22:52 Hep B, unspecified formulation 5 completed Not Available [facility] 05/28/2011 05:22:52 DTP 4 completed Not Available [facility] 05/28/2011 05:22:52 Hep B, unspecified formulation 4 completed Not Available [facility] 05/28/2011 05:22:52 DTP 5 completed Not Available [facility] 05/28/2011 05:22:52 Hep B, unspecified formulation 4 completed Not Available [facility] 05/28/2011 05:22:52 DTP 4 completed Not Available [facility] 05/28/2011 05:22:52 OPV 6 completed Not Available [facility] 05/28/2011 05:22:52 Hib, unspecified formulation 5 completed Not Available [facility] 05/28/2011 05:22:52 Hib, unspecified formulation 4 completed Not Available [facility] 05/28/2011 05:22:52 MMR 9 completed Not Available [facility] 05/28/2011 05:22:52 OPV 4 completed Not Available [facility] 05/28/2011 05:22:52 OPV 9 completed Not Available [facility] 05/28/2011 05:22:52 Tdap 6 completed Not Available [facility] 05/28/2011 05:22:52 DTP 9 completed Not Available [facility] 05/28/2011 05:22:52 MMR 5 completed Not Available [facility] 05/28/2011 05:22:52 Hib, unspecified formulation 4 completed Not Available [facility] 05/28/2011 05:22:52 DTP 6 completed Not Available [facility] 05/28/2011 05:22:52 MMR 6 completed Not Available [facility] 05/28/2011 05:22:52 Hib, unspecified formulation 5 completed Not Available [facility] 05/28/2011 05:22:52 Influenza, split virus, quadrivalent, PF 9 completed Not Available [facility] 07/30/2019 02:24:08 Tdap 1 completed KIMMIE Lopez, [facility] 09/26/2020 15:37:28 COVID-19, mRNA, LNP-S, PF, 30 mcg/0.3 mL dose 1 completed ZAC Simpson, [facility] 12/17/2020 09:23:55 COVID-19, mRNA, LNP-S, PF, 30 mcg/0.3 mL dose 1 completed ZAC Simpson [facility] 12/17/2020 09:24:02 Past Encounters Encounter ID Performer Location Encounter Start Date Encounter Closed Date Diagnosis/Indication Diagnosis SNOMED-CT Code Diagnosis ICD10 Code Diagnosis Note [id number] ALBA KIM, OFFICE [address] [facility] [place] [address] 09/06/2010 14:29:57 09/09/2010 08:07:32 [id number] ALBA KIM, OFFICE [address] [facility] [place] [address] 11/20/2010 13:14:13 11/21/2010 07:55:19 [id number] ALBA KIM, OFFICE [address] [facility] [place] [address] 12/19/2010 14:03:34 12/20/2010 08:12:37 [id number] [facility], OFFICE [address] [place] [address] 03/28/2011 11:05:16 03/28/2011 12:05:11 [id number] [facility] [address] [place] [address] 03/28/2011 11:34:37 03/28/2011 13:44:10 [id number] [facility], OFFICE [address] [place], [place] [address] 10/08/2011 15:01:08 10/09/2011 08:00:43 [id number] [facility], OFFICE [facility] [place], [place] [address] 11/03/2011 14:52:40 11/03/2011 15:25:37 [id number] [facility], [place] [address] 11/11/2011 12:55:29 11/11/2011 14:37:10 [id number] Brina Ferguson LPN [facility], OFFICE [facility] [place], [place] [address] 05/03/2012 15:11:54 05/03/2012 15:33:33 [id number] Lon Randhawa [facility], OFFICE [facility] [place], [place] [address] 07/08/2012 10:59:52 07/08/2012 13:43:34 [id number] Ann Marie Martin MD [facility], [place] [address] 09/22/2012 15:58:01 09/23/2012 08:09:01 [id number] Lupis Tran PA-C [facility], [place] [address] 10/07/2012 15:40:16 10/07/2012 16:11:20 [id number] Seth Banegas MD [facility], OFFICE [facility] [place] [address] 05/31/2015 12:46:37 06/01/2015 10:25:20 Altered bowel function 26097637 R19.4 2 weeks of altered bowel habits and abnormal weight loss despite normal appetite. Will check labs for infectious or inflammato ry casues. Will also refer to GI anila further evaluation and possible colonoscop y if workup is negative given his brothers history of colon cancer in late 30s. Abnormal weight loss 267 708720 R63.4 [id number] Brina Ferguson LPN , [facility], OFFICE [address] [place] [address] 07/28/2016 10:08:00 07/28/2016 10:47:07 Dysuria 13373085 R30.0 Venereal d isease screening 982292503 Z11.3 Pain in pelvis 50683438 R10.2 Reviewed case with REGIS Richard. Reviewed ddx including prostatits , STI, UTI. Exam is reassuring . Will treat for probably prostatiti s, check urine culture, gc/chlamyd ia, and ultrasound . Reviewed strict return precaution s. [id number] Seth Banegas MD , [facility], OFFICE [address] [place] [address] 06/25/2017 12:53:20 06/25/2017 13:29:24 Contusion of right hand [id number] S60.221A Fracture o f proximal phalanx of finger 256885611 S62.640D Aluminum splint given to use for comfort. Advised ice, elevation, NSAIDs. X-ray result reviewed with patient and referral made to see a local hand surgeon. [id number] DEVAN Bowens, [facility], OFFICE [address] [place] [address] 05/13/2019 09:51:16 05/13/2019 11:08:41 Active or passive immunization 561169306 Z23 flu vaccine administer ed today Tendinitis of right hand [id number] M67.843 A: 23 year old male patient [...] better in 2 weeks, patient will call [id number] Melisa John NP , [facility], OFFICE [address] [place] [address] 09/10/2019 10:48:06 09/10/2019 11:37:22 Acute low back pain 195966490 M54.5 [id number] FANTA Guerra , [facility], OFFICE [address] [place] [address] 09/24/2020 13:48:33 09/24/2020 15:33:49 Dog bite of lower leg 264319277 S81.852A Single puncture wound dog bite to posterior left knee/hamst ring area P -Wound is small, superficia l and does not appear infected at this time -Wound care instructio ness provided -Reviewed s/s of wound infection, as he will be out of town this week he will send me a portal photo in 48 hours to re-assess wound -Advised he contact the base cloth inspector of the dog and inquire for official [...] -Will update tetanus -F/u in 48 hours [id number] Kath singh RN , [facility], OFFICE [address] [place], [place] [id number] 1 09/26/2020 15:29:17 09/26/2020 20:24:35 Active or passive immunization [id number] Z23 [id number] Ramesh Giraldo MD , [facility], OFFICE [address] [place] [id number] 1 12/17/2020 09:13:10 12/17/2020 13:13:17 Pain of left shoulder joint [id number] M25.512 Contusion, rule out fracture, RC injury. X ray. PT for fitness for duty assessment this week. No indication for immobiliza tion/analg esics as minimal pain with motion. [id number] Melisa John NP , [facility], OFFICE [address] [place] [id number] 1 01/17/2022 13:38:02 01/17/2022 15:35:30 Tick bite [id number] W57.XXXA Muscle pain 98388056 M79 .10 [id number] Real Theodore Jr. MD , [facility], OFFICE [address] [place] [id number] 1 03/20/2022 14:32:40 03/20/2022 17:29:51 Education [id number] Z30.09 Reviewed risks, benefits, and alternativ es [...] instructio ns for management , patient education. [id number] Real Theodore Jr. MD , [facility], OFFICE [address] [place] [phone] 04/11/2022 10:50:47 04/11/2022 13:18:56 Vasectomy requested [id number] Z30.2 Tolerated well. Reviewed postoperat preet arzola. Patient to take ibuprofen which he has at home currently. Patient given a specimen cup for semen sample to be submitted in 12 weeks for confirmati on. [id number] Stevie Arevalo PA-C , [facility], OFFICE [address] [place] [phone] 08/28/2022 14:56:29 08/28/2022 16:10:00 Blood in urine [id number] R31.9 chronic, may be Bill recommend US of bladder and kidneyurol ogy consult Crush inju ry of right ring finger [id number] S67.194A RHD, concern for crush injury with [...] TO 2024 - [facility] () Zaki Beausoleil [id number] Zaki Beausoleil 01/17/2022 1 EAST - DOS PRIOR TO 2024 - [facility] () Azki Beausoleil [id number] Zaki Beausoleil 03/20/2022 1 EAST - DOS PRIOR TO 2024 - [facility] () Zaki Beausoleil [id number] Zaki Beausoleil 04/11/2022 1 EAST - DOS PRIOR TO 2024 - [facility] () Zaki Beausoleil [id number] Zaki Law 08/28/2022 1 EAST - DOS PRIOR TO 2024 - [facility] () Zaki Law [id number] Zaki Foy Notes Date Note Type Note Provider Name and Address Organization Details Recorded Time 12/17/2020 text/html Last night, Richard fell onto a brick while performing an obstacle course when a dog took out my feet. This happened at his friend's house. He has no pain at rest, but mild pain with abduction. No OTC analgesics. 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 No history of left shoulder problems. RH. Ramesh Giraldo MD [address] [place] [address], [phone], [facility] [place] 12/17/2020 12:49:32 01/17/2022 text/html [...] eye; no recent rashes Melisa John NP [address] [place] [address], [phone], [facility] [place] 01/20/2022 08:40:36 03/20/2022 text/html Pt presents toda y to discuss vasectomy procedure. He has 2 children- 7 and 4 years old. Denies history of major trauma, surgery, or infections in the scrotum. Real Theodore Jr. [address] [place] [address], [phone], [facility] [place] 03/21/2022 05:07:56 04/11/2022 text/html Patient presents for vasectomy procedure. Has been consented previously on: 9/8/22. No additional questions at this time. Wishes to proceed. Has taken diazepam approximately 10 minutes earlier. Real Theodore Jr. [address] [place], [phone], [facility] [place] 04/11/2022 12:50:10 08/28/2022 text/html Here with multip le issues 1. Right 4th digit injury this AM, pinched between a buggy loader bucket and a tree as it fell when he misjudged the chainsaw cut'currently I don't really feel any pain now no analgesics, not coveredno gloves, no hard hatlast tetanus HD 2. heme in urine 2 years ago and this year at [employer] physical in tates that he has not been exercising vigorously or sexually active at this timeno trauma, denies tobacco useno urinary symptoms at this time or in the past Stevie Arevalo PA-C [address] [place] [address], [phone], [facility] [place] 08/28/2022 15:59:34
== END 2024-10-04 13:54 | disposition home or self-care (01) ==
LOC: HO.HNS 13:18
PROVIDERS: PCP Internal Medicine; Visit Provider Physician Assistant
DX: Z98.890 Other specified postprocedural states (principal)
CPT/HCPCS: 99024

== ENCOUNTER → 2024-10-04 13:17 | Outpatient (BNVA) | payer OTHER, SELFPAY | PROVIDERS: PCP Internal Medicine; Visit Provider Physician Assistant | DX: Z47.89 Encounter for other orthopedic aftercare (principal); Z98.890 Other specified postprocedural states | CPT/HCPCS: 99212 ==

== ENCOUNTER 2024-11-09 14:13 | Outpatient (AMB) | payer OTHER, SELFPAY ==
--- NOTE | 2024-11-09 14:31 | HO.SPINEOV ---
Intake Visit Reasons: 2nd post op Intake Note: Mr. Foy is here today for his 2nd post op. Management Professor Required: No Allergies No Known Allergies Allergy (Verified 10/04/24 13:30) Assessment & Plan Assessment & Plan (1) S/P lumbar microdiscectomy: Code(s): Z98.890 - Other specified postprocedural states Category: Surgical Plan Procedure: Left L5-S1 microdiskectomy Zaki is a pleasant 28-year-old male who underwent L5-S1 microdiskectomy with Dr. Soler about 2 months ago. To recap he initially had a difficult postoperative course and was in quite a bit of pain directly after surgery, but thankfully this subsided on its own. Today, he states he is essentially back to regular activity, with no significant pain or restrictions. He has been completing activities of daily living without much issue, and has been more mindful about how he lifts things, bending with his knees primarily versus his back. 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 No new neurological deficits. The patient ambulates well and rises from seated position without difficulty. His gait is non spastic and nonantalgic. His posterior incision site is closed and well healed. 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 Given this is overall risk of recurrent disc herniation should be fairly low now that he has passed the 8 week thresholds during which over 90% of recurrent herniated discs occur. Ben Soler MD,PhD [facility] Coding Level of Care Code Global (37897) Diagnoses S/P lumbar microdiscectomy Z98.890
--- OUTSIDE RECORDS SUMMARY | 2024-11-09 15:26 | XMS_ITS | Data Portability ---
Author Organization [facility], , [facility] Address [address] [place] [address] Care Team Providers Care Accounting Advisory Services Manager Name Role Phone RAMESH HARDING Primary Care Provider [phone] Assessment Encounter Date Assessment Date Assessment LastModified [...] plan for this patient? [facility] care today. [facility] 08/28/2022 15:58:15 Plan of Treatment Reminders Order Date Submit Date Provider Last Modified By Organization Details Last Modified Time Details Appointments None recorded. Lab urinalysi s, dipstick 2022 023 [facility], [address] [place] [address], [address], 3 15:46:34 culture, urine 2022 023 [facility], [address] [place] [address], [address], 3 07:48:25 tick-born e disease panel 2021 022 [facility], [address] [place] [address], [address], 2 18:21:01 babesia duncani Ab, titer, immunoflo urescence , serum 2021 022 [facility], [address] [place] [address], [address], 2 18:21:00 CK (creatine kinase), total, serum 2021 022 [facility], [address] [place] [address], [address], 2 12:27:15 ESR (erythroc yte sedimenta tion rate), blood 2021 022 [facility], [address] [place] [address], [address], 17:59:49 C-reactiv e protein, quantitat preet, serum or plasma 2021 022 [facility], [address] [place], [address], 2 13:49:04 CMP, serum or plasma 2021 022 [facility], [address] [place] [address], [address], 2 12:27:14 CBC 2021 022 [facility], [address] [place], [address], 2 17:07:44 Referral urologist referral 2022 023 [facility], [address] [place], [address], 3 11:20:15 Procedures None recorded. Surgeries None recorded. Imaging US, retroperi toneum - chronic painless hematuria , r/o subclinic al kidney stone vs bladder mass 2022 023 [facility] (Imaging), [address], [place], [address], 3 10:49:24 XR, shoulder [address] (Outpt Imaging), [address] [place], [address], 1 13:13:17 XR, scapula [address] (Outpt Imaging), [address] [place], [address], 1 13:13:17 Medication Orders doxycycli ne hyclate 100 mg capsule 2021 022 [id number], [address], [place], [id number], 14:53:09 Patient TargetsNo targets recorded. Patient InstructionsNo instructions recorded. Reason for Referral Urologist Referral for Blood in urine painless hematuria x 2 years Referring Physician: Stevie Arevalo, Family Medicine, Encounter Date: 08/28/2022 Results Created Date Observation Date Name Description Value Unit Range Abnormal Flag Note LastModifiedBy Organization Detail LastModifiedTime 01/18/20 22 01/17/2022 CBC WBC 5.85 K/? ? ?L 4.23-9 .07 Not Available [address], [address], 01/17/2022 17:07:44 01/18/20 22 01/17/2022 CBC RBC 5.26 M/? ? ?L 4.63-6 .08 Not Available [address], [address], 01/17/2022 17:07:44 01/18/20 22 01/17/2022 CBC HGB 15.5 g/dL 13.7-1 7.5 Not Available [address], [address], 01/17/2022 17:07:44 01/18/20 22 01/17/2022 CBC HCT 46.8 % 40.1-5 1.0 Not Available [address], [address], 01/17/2022 17:07:44 01/18/20 22 01/17/2022 CBC MCV 89.0 fL 79.0-9 2.2 Not Available [address], [address], 01/17/2022 17:07:44 01/18/20 22 01/17/2022 CBC MCH 29.5 pg 25.7-3 2.2 Not Available [address], [address], 01/17/2022 17:07:44 01/18/20 22 01/17/2022 CBC MCHC 33.1 g/dL 32.3-3 6.5 Not Available [address], [address], 01/17/2022 17:07:44 01/18/20 22 01/17/2022 CBC plt 222 K/? ? ?L 163-33 7 Not Available [address], [address], 01/17/2022 17:07:44 01/18/20 22 01/17/2022 CBC MPV 9.7 fL 9.4-12 .4 Not Available [address], [address], 01/17/2022 17:07:44 01/18/20 22 01/17/2022 CBC neut% 55.4 % 34.0-6 7.9 Not Available [address], [address], 01/17/2022 17:07:44 01/18/20 22 01/17/2022 CBC neut# 3.24 1.78-5 .38 Not Available [address], [address], 01/17/2022 17:07:44 01/18/20 22 01/17/2022 CBC lymph % 32.1 % 21.8-5 3.1 Not Available [address], [address], 01/17/2022 17:07:44 01/18/20 22 01/17/2022 CBC lymph # 1.88 K/? ? ?L 1.32-3 .57 Not Available [address], [address], 01/17/2022 17:07:44 01/18/20 22 01/17/2022 CBC mono% 9.6 % 5.3-12 .2 Not Available [address], [address], 01/17/2022 17:07:44 01/18/20 22 01/17/2022 CBC mono# 0.56 0.30-0 .82 Not Available [address], [address], 01/17/2022 17:07:44 01/18/20 22 01/17/2022 CBC eo% 1.7 % 0.8-7. 0 Not Available [address], [address], 01/17/2022 17:07:44 01/18/20 22 01/17/2022 CBC eo# 0.10 0.04-0 .54 Not Available [address], [address], 01/17/2022 17:07:44 01/18/20 22 01/17/2022 CBC baso% 1.0 % 0.2-1. 2 Not Available [address], [address], 01/17/2022 17:07:44 01/18/20 22 01/17/2022 CBC baso# 0.06 0.00-0 .08 Not Available [address], [address], 01/17/2022 17:07:44 01/18/20 22 01/17/2022 CBC RDW-CV 12.0 % 11.6-1 4.4 Not Available [address], [address], 01/17/2022 17:07:44 01/18/20 22 01/17/2022 CBC Ig% 0.200 % 0.000- 1.500 Ig % >0.5 Indic ates possi ble Left Shift Not Available [address], [address], 01/17/2022 17:07:44 01/18/20 22 01/17/2022 CBC Ig# 0.010 0.000- 0.093 Not Available [address] [place], [address], 01/17/2022 17:07:44 01/18/20 22 01/17/2022 CBC NRBC% 0.0 % 0.0-0. 2 Not Available [address], [address], 01/17/2022 17:07:44 01/18/20 22 01/17/2022 CBC NRBC# 0.000 0.000- 0.012 Not Available [address], [address], 01/17/2022 17:07:44 01/18/20 22 01/17/2022 ESR sed rate 2.0 0.0-20 .0 Not Available [address], [address], 01/17/2022 17:59:49 01/18/20 22 01/22/2022 COMP. METAB OLIC PANEL glucose 84 mg/dL 70-100 Not Available [address], [address], 01/22/2022 12:27:14 01/18/20 22 01/22/2022 COMP. METAB OLIC PANEL BUN 14 mg/dL 7-18 Not Available [address], [address], 01/22/2022 12:27:14 01/18/20 22 01/22/2022 COMP. METAB OLIC PANEL creatinine 1.0 mg/dL 0.8-1. 3 Not Available [address], [address], 01/22/2022 12:27:14 01/18/20 22 01/22/2022 COMP. METAB OLIC PANEL B/C 14.0 ratio Not Available [address], [address], 01/22/2022 12:27:14 01/18/20 22 01/22/2022 COMP. METAB [...] be used in pregn santi. Not Available [address], [address], 01/22/2022 12:27:14 01/18/20 22 01/22/2022 COMP. METAB OLIC PANEL sodium 142 mmol/ L 136-14 5 Not Available [address], [address], 01/22/2022 12:27:14 01/18/20 22 01/22/2022 COMP. METAB OLIC PANEL potassium 4.5 mmol/ L 3.5-5. 1 Not Available [address], [address], 01/22/2022 12:27:14 01/18/20 22 01/22/2022 COMP. METAB OLIC PANEL chloride 102 mmol/ L 96-107 Not Available [address], [address], 01/22/2022 12:27:14 01/18/20 22 01/22/2022 COMP. METAB OLIC PANEL anion gap 10.6 5.0-15 .0 Not Available [address], [address], 01/22/2022 12:27:14 01/18/20 22 01/22/2022 COMP. METAB OLIC PANEL CO2 29 mmol/ L 21-32 Not Available [address], [address], 01/22/2022 12:27:14 01/18/20 22 01/22/2022 COMP. METAB OLIC PANEL calcium 9.2 mg/dL 8.5-10 .3 Not Available [address], [address], 01/22/2022 12:27:14 01/18/20 22 01/22/2022 COMP. METAB OLIC PANEL total protein 7.3 g/dL 6.4-8. 2 Not Available [address], [address], 01/22/2022 12:27:14 01/18/20 22 01/22/2022 COMP. METAB OLIC PANEL albumin 4.6 g/dL 3.4-5. 0 Not Available [address], [address], 01/22/2022 12:27:14 01/18/20 22 01/22/2022 COMP. METAB OLIC PANEL globulin 2.7 g/dL Not Available [address], [address], 01/22/2022 12:27:14 01/18/20 22 01/22/2022 COMP. METAB OLIC PANEL A/G 1.7 ratio 0.8-2. 0 Not Available [address], [address], 01/22/2022 12:27:14 01/18/20 22 01/22/2022 COMP. METAB OLIC PANEL total bilirubin 0.50 mg/dL 0.00-1 .00 Not Available [address], [address], 01/22/2022 12:27:14 01/18/20 22 01/22/2022 COMP. METAB OLIC PANEL AST 34 U/L 0-37 Not Available [address], [address], 01/22/2022 12:27:14 01/18/20 22 01/22/2022 COMP. METAB OLIC PANEL ALT 29 U/L 6-63 Not Available [address], [address], 01/22/2022 12:27:14 01/18/20 22 01/22/2022 COMP. METAB OLIC PANEL alk. phos. 77 U/L 50-136 Not Available [address], [address], 01/22/2022 12:27:14 01/18/20 22 01/22/2022 CPK CPK 206.0 U/L 35.0-2 32.0 Not Available [address], [address], 01/22/2022 12:27:15 01/18/20 22 01/22/2022 C-ZAINA CTIVE PROTE IN-QU ANTIT ATIVE C-reactive protein -quant <2.0 mg/L 0.0-9. 0 < Not Available [address], [address], 01/22/2022 13:49:04 01/18/20 22 01/28/2022 BABES IA CATINAA NI (WA1) ANTIB ALZ (IGG) , IFA babesia duncani (wa1) antibody [...] livan purpo ses. Not Available [facility] [place] [facility] [address], [place], [address], 01/28/2022 18:21:00 01/18/20 22 01/28/2022 TICK BORNE [...] livan purpo ses. Not Available [facility] [place] [facility] [address], [place], [address], 01/28/2022 18:21:01 01/18/20 22 01/28/2022 TICK BORNE [...] livan purpo ses. Not Available [facility] [place] [facility] [address], [place], [address], 01/28/2022 18:21:01 01/18/20 22 01/28/2022 TICK BORNE DISEA SE, ACUTE MOLEC ULAR PANEL source BLOOD Not Available [facility] [place] [facility] [address], [place], [address], 01/28/2022 18:21:01 01/18/20 22 01/28/2022 TICK BORNE [...] livan purpo ses. Not Available [facility] [place] [facility] [address], [address], 01/28/2022 18:21:01 01/18/20 22 01/28/2022 TICK BORNE DISEA SE, ACUTE MOLEC ULAR PANEL ehrlichia chaffeensis DNA real time PCR NOT DETECT ED not detect ed normal This test was devel oped and its adan tical perfo rmanc e tacho cteri stics have been deter mined by [employer] ostic s. It has not been clear ed or appro marleny by the FDA. This assay has been valid ated pursu ant to the CLIA regul ation s and is used for clini livan purpo ses. Not Available [facility] [place] [facility] [address], [address], 01/28/2022 18:21:01 01/18/20 22 01/28/2022 TICK BORNE [...] for clini livan purpo ses. Not Available [facility] [place] [facility] [address], [place], [address], 01/28/2022 18:21:01 04/07/20 22 04/08/2022 SARS- COV-2 RNA (COVI D-19) , QUALI TATIV E NAAT sarscov2 NEGATI VE negati ve normal This test has been autho rized by the FDA under an Emerg ency Use Autho rizat ion(E UA) for you by autho rized labs. Not Available [address], [address], 04/08/2022 14:33:17 08/28/19 23 08/28/2022 POC UA glu UA NEGATI VE Not Available [facility] [address] [place] [address], [address], 08/28/2022 15:19:38 08/28/19 23 08/28/2022 POC UA clarity UA CLEAR Not Available [facility] [address] [place] [address], [address], 08/28/2022 15:19:38 08/28/19 23 08/28/2022 POC UA uro UA 1.0000 Not Available [facility] [address] [place] [address], [address], 08/28/2022 15:19:38 08/28/19 23 08/28/2022 POC UA ket UA NEGATI VE Not Available [facility] [address] [place] [address], [address], 08/28/2022 15:19:38 08/28/19 23 08/28/2022 POC UA pro UA NEGATI VE Not Available [facility] [address] [place] [address], [address], 08/28/2022 15:19:38 08/28/19 23 08/28/2022 POC UA nit UA NEGATI VE Not Available [facility] [address] [place] [address], [address], 08/28/2022 15:19:38 08/28/19 23 08/28/2022 POC UA lazaro UA NEGATI VE Not Available [facility] [address] [place] [address], [address], 08/28/2022 15:19:38 08/28/19 23 08/28/2022 POC UA pH UA 6.5000 Not Available [facility] [address] [place] [address], [address], 08/28/2022 15:19:38 08/28/19 23 08/28/2022 POC UA SG UA 1.0250 Not Available [facility] [address] [place] [address], [address], 08/28/2022 15:19:38 08/28/19 23 08/28/2022 POC UA color UA YELLOW Not Available [facility] [address] [place] [address], [address], 08/28/2022 15:19:38 08/28/19 23 08/28/2022 POC UA blo UA 1+ abnormal Not Available [facility] [address] [place] [address], [address], 08/28/2022 15:19:38 08/28/19 23 08/28/2022 POC UA antonio UA NEGATI VE Not Available [facility] [address] [place] [address], [address], 08/28/2022 15:19:38 08/28/19 23 08/30/2022 CULTU RE, URINE , ROUTI NE culture, urine, routine CULTU RE, URINE , ROUTI NE Micro Numbe r: [id number] Test Statu s: Final Speci men [...] Cultu re Trans port Tube. Not Available [facility] [place] [facility] [address], [place], [address], 08/30/2022 07:48:25 12/18/19 21 12/17/2020 XR, shoul theresa No observ ation record ed. [facility] (Outpt Imaging) [address] [place], [address], 12/17/2020 14:10:30 08/28/19 23 08/28/2022 xr finge r 2 or more views (valerie t) This image report has been auto-f inaliz ed and has not been read by a Radiol ogist. Interp retati on has been includ ed in the provid er encoun ter note for this date of niall anderson Final result MAURA-LY N GUMPRE CHT [email or web address] [facility] [address] [facility], [place], [address], 08/29/2022 10:06:33 09/01/19 23 09/01/2022 US, retro [...] g Physic chio: Joseafshin diana Xiomara ms [email or web address] [facility] (Imaging) [address] [place], [address], 09/19/2022 10:14:02 Result Notes None recorded. Problems No Known Problems Procedures Surgical History Date Name Laterality Status Provider Name and Address Organization Details Recorded Time Vasectomy MR completed Real Theodore Jr. MD [address] [place] [address], [id number], [facility] 04/11/2022 12:49:52 7 POC Urinalysis Testing completed Bridget Malone RN [facility] 07/28/2016 10:30:42 Imaging Results Imaging Date Name Status LastModified by Organization Details LastModified Time 12/17/2020 XR, shoulder completed [facility] (Outpt Imaging) [address] [place], [address], 12/17/2020 14:10:30 08/28/2022 xr finger 2 or more views (right) completed [facility] [address] [place], [address], 08/29/2022 10:06:33 09/01/2022 US, retroperitoneum completed [email or web address] [facility] (Imaging) [address] [place], [address], 09/19/2022 10:14:02 Procedure Notes None recorded. Medical [...] Available Not Available No t Available Afluria 6027-1037( PF) 45 mcg (15 mcg x 3)/0.5 mL intramuscu lar syringe TO BE ADMINIST ERED BY PHARMACI ST FOR IMMUNIZA TION active Not Available Not Available No t Available Vitals Date Recorded Body height Body mass index (BMI) Body weight Heart rate Systolic blood pressure Diastolic blood pressure Provider Name and Address Organization Details Last Updated DateTime 1 176.53 cm 21.7 kg/m2 35089.2 6 g 84 /min 138 mm[Hg] 68 mm[Hg] Bruce King MA [facility] 1 09:25:36 Date Recorded Body weight Heart rate Systolic blood pressure Diastolic blood pressure Provider Name and Address Organization Details Last Updated DateTime 01/17/2022 10957.26 g 88 /min 128 mm[Hg] 88 mm[Hg] Jenaro Salas [facility] 01/17/2022 14:01:00 Date Recorded Body temperature Provider Name a nm Address Organization Details Last Updated DateTime 01/17/2022 98.2 [degF] Melisa John, Beatriz P [address] [place] [address], [id number] 01/17/2022 14:54:17 Date Recorded Body height Body mass index (BMI) Body weight Heart rate Oxygen saturation Oxygen saturation in Arterial blood by Pulse oximetry Systolic blood pressure Diastolic blood pressure Provider Name and Address Organization Details Last Updated DateTime 2 176.53 cm 22.4 kg/m2 26367.2 2 g 73 /min 98 % 98 % 128 mm[Hg] 74 mm[Hg] Brenna Merritt MA [facility] 2 14:54:01 Date Recorded Body height Respiratory rate Systolic blood pressure Diastolic blood pressure Provider Name and Address Organization Details Last Updated DateTime 04/11/2022 176.53 cm 18 /min 138 mm[Hg] 82 mm[Hg] Jenny Llamas CMA [facility] 2 10:56:37 Date Recorded Body height Body mass index (BMI) Body weight Heart rate Oxygen saturation Oxygen saturation in Arterial blood by Pulse oximetry Systolic blood pressure Diastolic blood pressure Provider Name and Address Organization Details Last Updated DateTime 3 176.53 cm 23.7 kg/m2 09662.7 6 g 95 /min 99 % 99 % 126 mm[Hg] 84 mm[Hg] Arely Hyatt MA [facility] 3 15:11:52 Social History Question Answer Notes LastModified by Organizat ion Details LastModified Time Tobacco Smoking Status Never Smoker ZAC Simpson, [facility] 12/17/2020 09:23:25 What Is Your [...] Of Your Most Recent Tobacco Screening? 08/28/2022 [email or web address] Information not available 08/28/2022 How Many Children Do You Have? 2 7 And 4 Y/o 03/20/2022 Information not available 03/20/2022 Seat Belts Used [...] live, trivalent, intranasal 1 completed Not Available [facility] 07/30/2019 02:26:40 Influenza, split virus, trivalent, preservative 2 completed Not Available [facility] 07/30/2019 02:31:15 influenza, unspecified formulation 0 completed Not Available [facility] 05/28/2011 05:22:52 OPV 4 completed Not Available [facility] 05/28/2011 05:22:52 Hep B, unspecified formulation 5 completed Not Available [facility] 05/28/2011 05:22:52 DTP 4 completed Not Available [facility] 05/28/2011 05:22:52 Hep B, unspecified formulation 4 completed Not Available [facility] 05/28/2011 05:22:52 DTP 5 completed Not Available [facility] 05/28/2011 05:22:52 Hep B, unspecified formulation 4 completed Not Available [facility] 05/28/2011 05:22:52 DTP 4 completed Not Available [facility] 05/28/2011 05:22:52 OPV 6 completed Not Available [facility] 05/28/2011 05:22:52 Hib, unspecified formulation 5 completed Not Available [facility] 05/28/2011 05:22:52 Hib, unspecified formulation 4 completed Not Available [facility] 05/28/2011 05:22:52 MMR 9 completed Not Available [facility] 05/28/2011 05:22:52 OPV 4 completed Not Available [facility] 05/28/2011 05:22:52 OPV 9 completed [facility] Available [facility] 05/28/2011 05:22:52 Tdap 6 completed Not Available [facility] 05/28/2011 05:22:52 DTP 9 completed Not Available [facility] 05/28/2011 05:22:52 MMR 5 completed Not Available [facility] 05/28/2011 05:22:52 Hib, unspecified formulation 4 completed Not Available [facility] 05/28/2011 05:22:52 DTP 6 completed Not Available [facility] 05/28/2011 05:22:52 MMR 6 completed Not Available [facility] 05/28/2011 05:22:52 Hib, unspecified formulation 5 completed Not Available [facility] 05/28/2011 05:22:52 Influenza, split virus, quadrivalent, PF 9 completed Not Available [facility] 07/30/2019 02:24:08 Tdap 1 completed Kath Keen RN null, [facility] 09/26/2020 15:37:28 COVID-19, mRNA, LNP-S, PF, 30 mcg/0.3 mL dose 1 completed ZAC Simpson, [facility] 12/17/2020 09:23:55 COVID-19, mRNA, LNP-S, PF, 30 mcg/0.3 mL dose [address] [facility] 12/17/2020 09:24:02 Past Encounters Encounter ID Performer Location Encounter Start Date Encounter Closed Date Diagnosis/Indication Diagnosis SNOMED-CT Code Diagnosis ICD10 Code Diagnosis Note [id number] Dana Smith MD FP, [facility], OFFICE [address] [facility] [place] [address] 09/06/2010 14:29:57 09/09/2010 08:07:32 [id number] Lupis Tran PA-C FP, [facility], OFFICE [address] [facility] [place] [address] 11/20/2010 13:14:13 11/21/2010 07:55:19 [id number] Bailee Hahn NP FP, [facility], OFFICE [address] [facility] [place] [address] 12/19/2010 14:03:34 12/20/2010 08:12:37 [id number] Ramesh Giraldo MD [facility], OFFICE [address] [facility] [place] [id number] 03/28/2011 11:05:16 03/28/2011 12:05:11 [id number] [facility] , [address] [place] [address] 03/28/2011 11:34:37 03/28/2011 13:44:10 [id number] Lupis Tran PA-C [facility], OFFICE [address] [facility] [place] [place] [address] 10/08/2011 15:01:08 10/09/2011 08:00:43 [id number] Makayla Eagle MD [facility], OFFICE [address] [facility] [place] [id number] 11/03/2011 14:52:40 11/03/2011 15:25:37 [id number] Lupis Tran PA-C [facility], OFFICE [address] [facility] [place] [id number] 11/11/2011 12:55:29 11/11/2011 14:37:10 [id number] FAMILY PRACTICE TREATMENT NURSE [facility], OFFICE [address] [facility] [place] [id number] 05/03/2012 15:11:54 05/03/2012 15:33:33 [id number] Ann Marie Martin MD [facility], OFFICE [address] [facility] [place] [id number] 07/08/2012 10:59:52 07/08/2012 13:43:34 [id number] [facility] [address] [place] [address] [facility] [place] [place] [id number] 09/22/2012 15:58:01 09/23/2012 08:09:01 [id number] Ann Marie Martin MD [facility], OFFICE [address] [place] [address] [place] [id number] 10/07/2012 15:40:16 10/07/2012 16:11:20 [id number] MD JUDY Casanova, [facility], OFFICE [address] [place] [address] 05/31/2015 12:46:37 06/01/2015 10:25:20 Altered bowel function 29029580 R19.4 2 weeks of altered bowel habits and abnormal weight loss despite normal appetite. Will check labs for infectious or inflammato ry casues. Will also refer to GI anila further evaluation and possible colonoscop y if workup is negative given his brothers history of colon cancer in late 30s. Abnormal weight loss 267 873999 R63.4 [id number] Melyssa Acosta NP , [facility], OFFICE [address] [place] [address] 07/28/2016 10:08:00 07/28/2016 10:47:07 Dysuria 88767282 R30.0 Venereal d isease screening 049183797 Z11.3 Pain in pelvis 17518505 R10.2 Reviewed case with REGIS Richard. Reviewed ddx including prostatits , STI, UTI. Exam is reassuring . Will treat for probably prostatiti s, check urine culture, gc/chlamyd ia, and ultrasound . Reviewed strict return precaution s. [id number] Real Theodore Jr. MD , [facility], OFFICE [address] [place] [address] 06/25/2017 12:53:20 06/25/2017 13:29:24 Contusion of right hand 8230406476 2168529 S60.221A Fracture o f proximal phalanx of finger 807100205 S62.640D Aluminum splint given to use for comfort. Advised ice, elevation, NSAIDs. X-ray result reviewed with patient and referral made to see a local hand surgeon. [id number] Ann Marie Martin MD , [facility], OFFICE [address] [place] [address] 05/13/2019 09:51:16 05/13/2019 11:08:41 Active or passive immunization 308582745 Z23 flu vaccine administer ed today Tendinitis of right hand [id number] 1476471 M67.843 A: 23 year old male patient [...] better in 2 weeks, patient will call [id number] Juani Barkley MD , [facility], OFFICE [address] [place] [address] 09/10/2019 10:48:06 09/10/2019 11:37:22 Acute low back pain 432969498 M54.5 [id number] Sushma South MD , [facility], OFFICE [address] [place] [address] 09/24/2020 13:48:33 09/24/2020 15:33:49 Dog bite of lower leg 289826795 S81.852A Single puncture wound dog bite to posterior left knee/hamst ring area P -Wound is small, superficia l and does not appear infected at this time -Wound care instructio ness provided -Reviewed s/s of wound infection, as he will be out of town this week he will send me a portal photo in 48 hours to re-assess wound -Advised he contact the bird raiser of the dog and inquire for official [...] -Will update tetanus -F/u in 48 hours [id number] Ramesh Giraldo MD , [facility], OFFICE [address] [place] [address], [place] [phone] 09/26/2020 15:29:17 09/26/2020 20:24:35 Active or passive immunization [id number] [id number] Ramesh Giraldo MD , [facility], OFFICE [address] [place] [address], [place] [address] 12/17/2020 09:13:10 12/17/2020 13:13:17 Pain of left shoulder joint [id number] M25.512 Contusion, rule out fracture, RC injury. X ray. PT for fitness for duty assessment this week. No indication for immobiliza tion/analg esics as minimal pain with motion. [id number] Ramesh Giraldo MD , [facility], OFFICE [address] [place] [address], [place] [address] 01/17/2022 13:38:02 01/17/2022 15:35:30 Tick bite [id number] W57.XXXA Muscle pain [id number] M79 .10 [id number] Real Theodore Jr. MD , [facility], OFFICE [address] [place] [id number] 03/20/2022 14:32:40 03/20/2022 17:29:51 Education [id number] Z30.09 Reviewed risks, benefits, and alternativ es [...] instructio ns for management , patient education. [id number] Real Theodore Jr. , [facility], OFFICE [address] [place] [address] 04/11/2022 10:50:47 04/11/2022 13:18:56 Vasectomy requested [id number] Z30.2 Tolerated well. Reviewed postoperat preet instructio ns. Patient to take ibuprofen which he has at home currently. Patient given a specimen cup for semen sample to be submitted in 12 weeks for confirmati on. [id number] FEDERICA Henderson MD , [facility], OFFICE [address] [place] [address] 08/28/2022 14:56:29 08/28/2022 16:10:00 Blood in urine [id number] R31.9 chronic, may be Bill recommend US of bladder and kidneyurol ogy consult Crush inju ry of right ring finger [id number] S67.194A RHD, concern for crush injury with loss of sensation, advised to go to walk in [facility] clinic todaygave contact informatio n with directions [...] TO 2024 - [facility] () Zaki Beausoleil [id number] Zaki Beausoleil 01/17/2022 1 EAST - DOS PRIOR TO 2024 - [facility] () Zaki Beausoleil [id number] Zaki Beausoleil 03/20/2022 1 EAST - DOS PRIOR TO 2024 - [facility] () Zaki Beausoleil [id number] Zaki Beausoleil 04/11/2022 1 EAST - DOS PRIOR TO 2024 - [facility] () Zaki Beausoleil [id number] Zaki Beausoleil 08/28/2022 1 EAST - DOS PRIOR TO 2024 - [facility] () Zaki Raooleil [id number] Zaki Raooleelvie Notes Date Note Type Note Provider Name and Address Organization Details Recorded Time 12/17/2020 text/html Last night, Richard fell onto a brick while performing an obstacle course when a dog took out my feet. This happened at his friend's house. He has no pain at rest, but mild pain with abduction. No OTC analgesics. 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 No history of left shoulder problems. RH. Ramesh Giraldo MD [address] [place] [address], [phone], [facility] 12/17/2020 12:49:32 01/17/2022 text/html Same day prep [...] eye; no recent rashes Melisa John NP [address] [place] [address], [phone], [facility] 01/20/2022 08:40:36 03/20/2022 text/html Pt presents torios malik to discuss vasectomy procedure. He has 2 children- 7 and 4 years old. Denies history of major trauma, surgery, or infections in the scrotum. Real Theodore Jr. MD [address] [place] [address], [phone], [facility] 03/21/2022 05:07:56 04/11/2022 text/html Patient presents for vasectomy procedure. Has been consented previously on: 03/20/22. No additional questions at this time. Wishes to proceed. Has taken diazepam approximately 10 minutes earlier. Real Theodore Jr. MD [address] [place] [address], [phone], [facility] 04/11/2022 12:50:10 08/28/2022 text/html Here with multip le issues 1. Right 4th digit injury this AM, pinched between a lehr loader bucket and a tree as it [...] or in the past Stevie Arevalo PA-C [address] [place] [address], [phone], [facility] 08/28/2022 15:59:34
--- OUTSIDE RECORDS SUMMARY | 2024-11-09 15:27 | XMS_ITS | Continuity of Care Document ---
Author Name [facility] Organization [facility] Care Team Providers Care Instructional Technology Coordinator Name Role Phone [facility] Unavailable Unavailable Medications Combined list of outpatient [...] GLENMARK PHARMA, 30 ea. BLIST PACK Active [id number] 2023 10 Pharmac y Data Transac tion Service Facilit y Allergies, Adverse Reactions, Alerts Combined list of allergies from Department of Defense and Veterans Affairs facilities. It does not include entries that were removed or entered in error. Substance Category Reaction Severity Reaction type Status Date Reported Comments Source No Known Allergies Drug allergy (disorder) active 11/18/2013 [place] [address] Immunizations Combined list of available immunizations from the Department of Defense and Veterans Affairs facilities. Immunization Series Date Given Administered By Site Reaction Lot Number CVX Code Drug Paper Spooler Status Comments Source influenza, injectable, quadrivalent- pf 2021 [id number] GlaxoSmithKli ne complet ed influenza , injectabl e, quadrival ent-pf 06/15/22 Given Ambulat ory Pharmac y influenza virus vaccine, inactivated 2020 [id number] Seqirus complet ed influenza virus vaccine, inactivat ed 05/19/21 Given Ambulat ory Pharmac y COVID Vaccine Pfizer 2020 [id number] PFIZER complet ed COVID Vaccine Pfizer 11/07/20 Given Ambulat ory Pharmac y COVID Vaccine Pfizer 2020 [id number] PFIZER complet ed COVID Vaccine Pfizer 10/17/20 Given Ambulat ory Pharmac y typhoid Vi capsular polysaccharid e vac 2020 [id number] 101 sanofi pasteur complet ed typhoid Vi capsular polysacch aride vac 08/18/20 Given Ambulat ory Pharmac y influenza, injectable, quadrivalent, preservative free 2019 MARIELANDRENELSON, () Not Given influenza , injectabl e, quadrival ent, preservat preet free [facility] influenza, injectable, quadrivalent- pf 2018 [id number] 150 Seqirus complet ed influenza , injectabl e, quadrival ent-pf 05/13/19 Given Ambulat ory Pharmac y meningococcal A,C,Y,W-135 (MCV4P) 2018 [id number] 114 sanofi pasteur complet ed meningoco ccal A,C,Y,W-1 35 (MCV4P) 10/17/18 Given Ambulat ory Pharmac y influenza, injectable, quadrivalent- pf 2017 [id number] 150 Seqirus complet ed influenza , injectabl e, quadrival ent-pf 06/20/18 Given Ambulat ory Pharmac y typhoid Vi capsular polysaccharid e vac 2017 [id number] 101 sanofi pasteur complet ed typhoid Vi capsular polysacch aride vac 06/20/18 Given Ambulat ory Pharmac y Influenza, inj, MDCK, quadrivalent- pf 2016 [id number] 171 Seqirus complet ed Influenza , inj, MDCK, quadrival ent-pf 06/14/17 Given Ambulat ory Pharmac y influenza, seasonal, injectable-pf 2015 [id number] 140 Seqirus complet ed influenza , seasonal, injectabl e-pf 05/18/16 Given Ambulat ory Pharmac y typhoid Vi capsular polysaccharid e vac 2015 [id number] 101 sanofi pasteur complet ed typhoid Vi capsular polysacch aride vac 05/18/16 Given Ambulat ory Pharmac y influenza, seasonal, injectable-pf 2014 [id number] 140 CSL Behring complet ed influenza , [...] Pharmac y hepatitis B adult vaccine 2013 [id number] 43 Merck & Company Inc complet ed hepatitis B adult vaccine 06/16/14 Given Ambulat ory Pharmac y yellow fever vaccine 2013 [id number] 37 sanofi pasteur complet ed yellow fever vaccine 06/16/14 Given Ambulat ory Pharmac y yellow fever vaccine 1 2013 [id number] 37 Sanofi Pasteur (PMC) complet ed yellow fever vaccine DoD hepatitis B vaccine, adult dosage 3 2013 [id number] 43 Merck (MSD) complet ed hepatitis B vaccine, adult dosage DoD hepatitis A vaccine, adult dosage 3 2013 [id number] 52 Cyber GiftsKline (SKB) complet ed hepatitis A vaccine, adult dosage DoD typhoid Vi capsular polysaccharid e vaccine 1 2013 [id number] 101 Sanofi Pasteur (PMC) complet ed typhoid Vi capsular polysacch aride vaccine DoD influenza, seasonal, injectable 2013 [id number] complet ed influenza , seasonal, injectabl e 06/13/14 Given Ambulat ory Pharmac y Influenza, seasonal, injectable 1 2013 [id number] 141 Transcribed (TRS) complet ed Influenza , seasonal, injectabl e DoD hepatitis A-hepatitis B vaccine 2013 [id number] 104 GlaxoSmithKli ne complet ed hepatitis A-hepatit is B vaccine 12/12/13 Given Ambulat ory Pharmac y varicella virus vaccine 2013 [id number] 21 Merck & Company Inc complet ed varicella virus vaccine 12/12/13 Given Ambulat ory Pharmac y measles/mumps /rubella virus vaccine 2013 [id number] 03 Merck & Company Inc complet ed measles/m umps/rube lla virus vaccine 12/12/13 Given Ambulat ory Pharmac y measles, mumps and rubella virus vaccine 2 2013 [id number] 03 Merck (MSD) complet ed measles, mumps and rubella virus vaccine DoD varicella virus vaccine 1 2013 [id number] 21 Merck (MSD) complet ed varicella virus vaccine DoD hepatitis A and hepatitis B vaccine 1 2013 [id number] 104 SmithKline (SKB) complet ed hepatitis A and hepatitis B vaccine DoD hepatitis A-hepatitis B vaccine 2013 [id number] 104 GlaxoSmithKli ne complet ed hepatitis A-hepatit is B vaccine 10/26/13 Given Ambulat ory Pharmac y measles/mumps /rubella virus vaccine 2013 [id number] 03 Merck & Company Inc complet ed measles/m umps/rube lla virus vaccine 10/26/13 Given Ambulat ory Pharmac y varicella virus vaccine 2013 [id number] 21 Merck & Company Inc complet ed varicella virus vaccine 10/26/13 Given Ambulat ory Pharmac y measles, mumps and rubella virus vaccine 1 2013 [id number] 03 Merck (MSD) complet ed measles, mumps and rubella virus vaccine DoD varicella virus vaccine 1 2013 [id number] 21 Merck (MSD) complet ed varicella virus vaccine DoD hepatitis A and hepatitis B vaccine 1 2013 [id number] 104 [facility] (SKB) complet ed hepatitis A and hepatitis B vaccine DoD poliovirus vaccine, inactivated 2013 [id number] 10 sanofi pasteur complet ed polioviru s vaccine, inactivat ed 10/20/13 Given Ambulat ory Pharmac y meningococcal A,C,Y,W-135 (MCV4P) 2013 [id number] 114 sanofi pasteur complet ed meningoco ccal A,C,Y,W-1 35 (MCV4P) 10/20/13 Given Ambulat ory Pharmac y influenza, seasonal, injectable-pf 2013 1342 1P 140 Novartis Pharmaceutica ls complet ed influenza , seasonal, injectabl e-pf 10/20/13 Given Ambulat ory Pharmac y adenovirus vaccine, live 2013 [id number] 143 Teva Pharmaceutica ls complet ed adenoviru s vaccine, live 10/20/13 Given Ambulat ory Pharmac y tuberculin purified protein derivative 2013 [id number] 96 [facility] complet ed tuberculi n purified protein derivativ e 10/20/13 Given Ambulat ory Pharmac y tetanus, diphtheria, acellular pertu is 2013 [id number] 115 GlaxWangluotianxiaithKli ne complet ed tetanus, diphtheri a, acellular pertussis 10/20/13 Given Ambulat ory Pharmac y poliovirus vaccine, inactivated 1 2013 [id number] 10 Sanofi Pasteur ([facility]) complet ed polioviru s vaccine, inactivat ed DoD meningococcal polysaccharid e (groups A, C, Y and W-135) diphtheria toxoid conjugate vaccine (MCV4P) 1 2013 [id number] 114 Sanofi Pasteur ([facility]) complet ed meningoco ccal polysacch aride (groups A, C, Y and W-135) diphtheri a toxoid conjugate vaccine (MCV4P) DoD tetanus toxoid, reduced diphtheria toxoid, and acellular pertu is vaccine, adsorbed 1 2013 [id number] 115 StaphOff Biotech (SKB) complet ed tetanus toxoid, reduced diphtheri a toxoid, and acellular pertussis vaccine, adsorbed DoD Influenza, seasonal, injectable, preservative free 1 2013 1342 1P 140 Novartis Digital [employer] Systems. (NOV) complet ed Influenza , seasonal, injectabl e, preservat preet free DoD Adenovirus, type 4 and type 7, live, oral 1 2013 [id number] 143 [employer] (BRR) complet ed Adenoviru s, type 4 [...] Prevention' s HIV diagnostic algorithm. Refer to [facility] Lab Guide for additional information : [email or web address]/ [email or web address]/[email or web address]/EPIL [email or web address] [email or web address] x Testing performed by Kaity goddard. [facility] EPILAB Miscellan eous Sendouts Repository Sample Received (11/14/23 8:41 AM) 11/13 N [facility] Encounters Combined list of: 1) Encounters from Department of Veterans Affairs facilities going backup to the last 18 months, not all [place] inpatient encounters are included; 2) Encounters from the Department of Defense facilities going backup to 280 months. Location Location Details Encounter Type Encounter Number Reason For Visit Attending Provider ADM Date DC Date Status Disposition Source [facility] [place] [address](RAMIN Fco) OUTPATIENT [id number] Notes Entered by: DALILA CHANG 18 Nov 2013 0837 ------- ------- ------- ------- -- cough x 3 days DALILA CHANG 11/18 Released w/o Limitations [facility] [place] [address](Louise Larsenvo) [facility] [place] [address]([facility] Eleazar Metcalf) OUTPATIENT [id number] Notes Entered by: CAMI ROBLERO 03 Feb 2014 1144 ------- ------- ------- ------- -- DARRYL BLAKE 02/03 Released w/o Limitations [facility] [place] [address]([facility] [employer] [facility] Elva Falcon) [facility](Opt ometry Cl Carrera) OUTPATIENT [id number] Color Vision Testing Amauryer MAGDIEL GONZALEZ 08/23 Released w/o Limitations [employer](O ptometr y Cl Carrera) [employer](Opt ometry Cl Carrera) OUTPATIENT [id number] AEE per MAGDIEL Gong 01/23 Released w/o Limitations [employer](O ptometr y Cl Carrera) 8344R-439 AMDS Outpatient [id number] [facility] 11/11 Discharge Disposition: Home or Self Care 8344R-4 39 AMDS 8344R-439 AMDS Outpatient [id number] [facility] 11/13 Discharge Disposition: Home or Self Care 8344R-4 39 AMDS 8344R-439 AMDS Between Visit [id number] 04/16 Discharge Disposition: Home or Self Care 8344R-4 39 AMDS Procedures Combined list of: 1) Procedures from Department of Veterans Affairs facilities [facility], not all VA non-surgical procedures are included; 2) All procedures from the Department of Defense facilities. Procedure Procedure Type Code Date Perfomer Comments Sourc e OPHTHALMOLOGICAL SERVICES: MEDICAL EXAMINATION AND EVALUATION, WITH INITIATION OR CONTINUATION OF DIAGNOSTIC AND TREATMENT PROGRAM; INTERMEDIATE, ESTABLISHED PATIENT [facility] COLOR VISION EXAMINATION, EXTENDED, EG, ANOMALOSCOPE OR EQUIVALENT [facility] Ophthalmological Prior Patient Start Intermediate Level Care Ophthalmological Prior Patient Start Intermediate Level Care [id number] MAGDIEL GONZALEZ Extensive Color Vision Testing Extensive Color Vision Testing [id number] MAGDIEL GONZALEZ Determination Of Refractive State Determination Of Refractive State [id number] [phone] MAGDIEL GONZALEZ Ophthalmological New Patient Start Comprehensive Care Ophthalmological New Patient Start Comprehensive Care [id number] MAGDIEL GONZALEZ [facility] No data available for this section Ambulato ry Pharmacy Social History Combined list of available smoking, tobacco, and other social history from Department of Defense and Veterans Affairs facilities. Social History Type Response Date Comment Sourc e Sex Representation Male (finding) 07/24/2022 Un known Organization This section is an empty social history section. [facility] Sexual Orientation Ambula tory Pharmacy Gender identity [...] is able to complete duties required by AFKS. No acute complaints.NO: Fly?waiver. Initial Waiver Date: Waiver Exp Date: IMR?green. Test results reviewed: Audio: Audiogram H-1, no asymmetric hearing loss, no significant threshhold shift Optometry:Meets vision standards for: Near and distant visual acuity, IOP, Depth perception, Phorias EKG:?_ PHYSICAL EXAM: HEENT:?Normal Valsalva:?Normal Joints:?Normal Spine:Normal Skin:Normal Neuro:?Normal Lungs:?Normal Heart:?Normal Abdomen:?Normal Comments: ANNUAL PERIODIC HEALTH ASSESSMENT I. 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 Last Name: MAY 2. First Name: ZAKI 3. Middle Name: Sudarshan 4. Assessment Date: 5. : 6. Age: 27 7. Gender: M 8. DoD ID Number: [id number] 9. Service Branch: [employer] 10. 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 Unit Name: Debra ANDINO 14. Duty Station/Location: [place] 15. UIC: [id number] 16. Is this your first Periodic Health Assessment (PHA)?: N 17. Are you enrolled in a secure messaging system with your health care provider?: 18. Current contact information: Preferred Method: Email 1 DSN: Day Time Phone: [phone] Night Time Phone: [phone] Email 1: [email or web address] Email 2: Address: [address] [place] [address] City: [place] State: [place] Zip Code: [id number] 19. Point of contact who can always reach you: Name: Rodo Foy Phone 1: [phone] Phone 2: EMAIL: Address: City: State: Zip Code: II. DEPLOYMENT INFORMATION (DEP) 1. [ 1 ] Total number of deployments in the PAST 5 YEARS 2. [ [place] ] Primary country of last deployment 3. [ ] Date departed theater 4. [ N ] Are you going to deploy within the NEXT 120 DAYS? III. OCCUPATIONAL INFORMATION (OCC) 1 [ [id number] ] What is your occupational code 2. [...] easily startled? 6. d. [ No ] [place] numb or detached from others, activities, or your surroundings? 6. e. [ Not answered ] [place] guilt or unable to stop blaming yourself [...] like to schedule a visit with a land department head, mental health care provider, or a community [...] 8. [ None ] What prescriptions or rsco-jvi-xunmyeq medications are you CURRENTLY taking for health [...] had a cholesterol check by a health post anesthesia care unit nurse within the PAST 5 YEARS? 13.a. In [...] was provided: Conditions: Pilar Cyst removal Where: [facility] 5. Member acknowledged responsibility for reporting health issues. 7. [ No ] Woud you like to schedule an appointment with a health care provider to discuss any health concerns? XI. SEPARATION AND MCC 1. [ No ] Are you planning to separate or retire within the next year from Active Duty or [place] Duty (activated for greater than 30 continuous days) OR do you intend to file a claim for disability compensation with the Veterans Benefits Administration? PART B. RECORD REVIEW AND RECOMMENDATIONS I. RECORD REVIEWER INFORMATION 1. Last Name: SAMIA 2. First Name: PIERO 3. Middle Name: CARROL 4. Service Branch: Interior Define 5. Status: 6. 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 EMAIL: [email or web address] 8. Facility: [facility] 9. Unit: [facility] 10. Address: [address] [place] [address] 11. State: [place] 12. Zip Code: [address] 13. Phone: [phone] 14. Date Record Review: II. MEDICAL SCREENING 1. [ ] Date of service member's most recent PHA 2. [ 5 feet 11 inches Date: ] service member's most recently documented height 3. [ 155 pounds Date: ] service member's most recently documented weight 4. [ 121/73 Date: ] service member's most recently documented blood pressure reading 5. [ No ] Does the service member have a history of abnormal blood pressure since their last PHA? 6. [ Yes ] Does the service member have a laboratory test of sickle cell trait documented in their permanent medical record? 7. [ No Cholesterol Test Documented ] What is the date of the service member's most recently documented cholesterol test? 9. [ No Active Medications Documented ] List of service member's active medications listed in their permanent medical record 10. [ No ] Is there a discrepancy between the active medication record review and the service member's self-reported list of medications? 11. [ pilar cyst removal ] List documented significant care the service member has received since their last PHA from a provider OUTSIDE the Health System 12. [ No ] Is there a discrepancy between the service member's list of OUTSIDE care (from OTH5), and the OUTSIDE care found in the record? 13. [ No Inside Care Documented ] List documented significant care the service member has received since their last PHA from a provider INSIDE the Health System 15. [ Not Answered ] Confirm that vaccine exemptions are listed in the medical record for each vaccine listed III. OCCUPATION-SPECIFIC EXAMINATIONS 1. [ ] When was the service member's most recently documented special operational duty physical exam? IV. FAMILY HISTORY AND LIFESTYLE 1. [ Yes ] Does the FC6115 reflect the service member's reported family history? 2. [ No ] Is there a record of the service member receiving a syphillis, chlamydia and gonorrhea test since their last PHA? . DEPLOYMENT-RELATED HEALTH ASSESSMENTS 1. [ No ] Based on your check of records, does the service member have any due or overdue deployment health assessments which need to be completed with this PHA? VII. INDIVIDUAL MEDICAL READINESS 1. [ No ] Does the service member have an Assignment Limitation Code C? 3. [ Classification: 1 ] Most recently documented dental exam 4. [ No: Meningococcal ] Is the service member current on all required immunizations in the immunization tracking system? 6. Does the service member have the following laboratory tests documented [...] need to be forwarded to the Health Front Desk Specialist completing PART C: No DLCs, pain, medications/supplements, major stressors, gambling, alcohol/tobacco concerns. Adequate diet, exercise, and sleep. Reported some numbness/tingling on SHPE earlier this yr. H/o finger injury. Date Record Review Completed: PART C. HEALTH CARE PROVIDER I. MENTAL HEALTH ASSESSMENT (MHA) PROVIDER INFORMATION 1. Last Name: WOJCIECH 2. First Name: DENNIS 3. Middle Name: 4. Service Branch: Interior [employer] 5. 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 Title: Physician (DO WILLIAM) 7. EMAIL: [email or web address] 8. Facility: [address] [place], [place] [address] 9. Unit: [address] [place], [place] [address] 10. Address: [address] [place], [place] [address] 11. State: [place] 12. Zip Code: [address] 13. Phone: [phone] 14. Date HCP Review initiated: 1. Member [...] DENNIS 3. Middle Name: 4. Service Branch: Interior Define 5. 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 Title: Physician (DO WILLIAM) 7. EMAIL: [email or web address] 8. Facility: [address] [place], [place] [address] 9. Unit: [address] [place], [place] [address] 10. Address: [address] [place] [address] 11. State: [place] 12. Zip Code: [address] 13. Phone: [phone] 14. Date HCP Review initiated: IV. PERIODIC HEALTH ASSESSMENT PROVIDER RECOMMENDATIONS and REFERRALS 1. Provider concerns with this assessment: No issues or concerns identified V. SUMMARY AND COMMENTS 1. Additional information summarizing findings during the service member assessment: 2. Provider Comments: No new medical concern . INDIVIDUAL MEDICAL READINESS DISPOSITION DETERMINATION IRON: Ready DEN: Ready IMM: Ready LAB: Ready ME: Ready IMR Status: Fully Medically Ready VII. SERVICE MEDICAL DEPLOYABILITY EVALUATION INDICATED Based on your review of all documentation, is the service member medically deployable without limitations? Reference Cece 6490.07 Yes (service member DOES NOT currently have a medical condition that limits deployability) Date PHA Completed: END OF EI0029 REPORT Impression: Meets?FCIII?medical standards per NNAMDI 48-123/MSD. Aeromedical Disposition: No DNIF. DD 2992?signed. No AF469 changes based on this encounter. [employer] Qualified. 11/09/2024 8344R-439 AMDS Functional Status Combined list of recent functional and cognitive assessments recorded at Department of Defense and Veterans Affairs (VA).VA Functional [place] Measurement (FIM) Scale: 1 = Total Assistance (Subject = 0% +), 2 = Maximal Assistance (Subject = 25% +), 3 = Moderate Assistance (Subject = 50% +), 4 = Minimal Assistance (Subject = 75% +), 5 = Supervision, 6 = Modified [place] (Device), 7 = Complete [place] (Timely, Safely). Assessment Date/Time Source Assessment Type Assessment Skill Assessment Score Assessment Details No data available for this section
== END 2024-11-09 14:47 | disposition home or self-care (01) ==
LOC: HO.HNS 14:13
PROVIDERS: PCP Internal Medicine; Visit Provider Physician Assistant
DX: Z98.890 Other specified postprocedural states (principal)
CPT/HCPCS: 99024

== ENCOUNTER → 2024-11-09 14:13 | Outpatient (BNVA) | payer OTHER, SELFPAY | PROVIDERS: PCP Internal Medicine; Visit Provider Physician Assistant | DX: Z48.89 Encounter for other specified surgical aftercare (principal); Z98.890 Other specified postprocedural states | CPT/HCPCS: 99212 ==

== ENCOUNTER 2025-02-08 14:49 | Outpatient (AMB) | payer OTHER, SELFPAY ==
--- OUTSIDE RECORDS SUMMARY | 2025-02-08 15:30 | XMS_ITS | Continuity of Care Document ---
Author Name [facility] Organization [facility] Care Team Providers Care Instrumentation Engineering Technician Name Role Phone [facility] Unavailable Unavailable Medications Combined list of outpatient [...] GLENMARK PHARMA, 30 ea. BLIST PACK Active [id number] 2023 10 Pharmac y Data Transac tion Service Facilit y Allergies, Adverse Reactions, Alerts Combined list of allergies from Department of Defense and Veterans Affairs facilities. It does not include entries that were removed or entered in error. Substance Category Reaction Severity Reaction type Status Date Reported Comments Source No Known Allergies Drug allergy (disorder) active 11/18/2013 [place] [address] Immunizations Combined list of available immunizations from the Department of Defense and Veterans Affairs facilities. Immunization Series Date Given Administered By Site Reaction Lot Number CVX Code Drug Business Continuity Consultant Status Comments Source influenza, injectable, quadrivalent- pf 2021 [id number] GlaxoSmithKli ne complet ed influenza , injectabl e, quadrival ent-pf 06/15/22 Given Ambulat ory Pharmac y influenza virus vaccine, inactivated 2020 [id number] Seqirus complet ed influenza virus vaccine, inactivat ed 05/19/21 Given Ambulat ory Pharmac y COVID Vaccine Pfizer 2020 [id number] PFIZER complet ed COVID Vaccine Pfizer 11/07/20 Given Ambulat ory Pharmac y COVID Vaccine Pfizer 2020 [id number] 208 PFIZER complet ed COVID Vaccine Pfizer 10/17/20 Given Ambulat ory Pharmac y typhoid Vi capsular polysaccharid e vac 2020 [id number] 101 sanofi pasteur complet ed typhoid Vi capsular polysacch aride vac 08/18/20 Given Ambulat ory Pharmac y influenza, injectable, quadrivalent, preservative free 2019 MARIELANDRENELSON, () Not Given influenza , injectabl e, quadrival ent, preservat preet free [facility] influenza, injectable, quadrivalent- pf 2018 [id number] 150 Seqirus complet ed influenza , injectabl e, quadrival ent-pf 05/13/19 Given Ambulat ory Pharmac y meningococcal A,C,Y,W-135 (MCV4P) 2018 [id number] 114 sanofi pasteur complet ed meningoco ccal A,C,Y,W-1 35 (MCV4P) 10/17/18 Given Ambulat ory Pharmac y influenza, injectable, quadrivalent- pf 2017 [id number] 150 Seqirus complet ed influenza , injectabl e, quadrival ent-pf 06/20/18 Given Ambulat ory Pharmac y typhoid Vi capsular polysaccharid e vac 2017 [id number] 101 sanofi pasteur complet ed typhoid Vi capsular polysacch aride vac 06/20/18 Given Ambulat ory Pharmac y Influenza, inj, MDCK, quadrivalent- pf 2016 [id number] 171 Seqirus complet ed Influenza , inj, MDCK, quadrival ent-pf 06/14/17 Given Ambulat ory Pharmac y influenza, seasonal, injectable-pf 2015 [id number] 140 Seqirus complet ed influenza , seasonal, injectabl e-pf 05/18/16 Given Ambulat ory Pharmac y typhoid Vi capsular polysaccharid e vac 2015 [id number] 101 sanofi pasteur complet ed typhoid Vi capsular polysacch aride vac 05/18/16 Given Ambulat ory Pharmac y influenza, seasonal, injectable-pf 2014 [id number] 140 CSL Behring complet ed influenza , [...] Pharmac y hepatitis B adult vaccine 2013 [id number] 43 Merck & Company Inc complet ed hepatitis B adult vaccine 06/16/14 Given Ambulat ory Pharmac y yellow fever vaccine 2013 [id number] 37 sanofi pasteur complet ed yellow fever vaccine 06/16/14 Given Ambulat ory Pharmac y yellow fever vaccine 1 2013 [id number] 37 Sanofi Pasteur (PMC) complet ed yellow fever vaccine DoD hepatitis B vaccine, adult dosage 3 2013 [id number] 43 Merck (MSD) complet ed hepatitis B vaccine, adult dosage DoD hepatitis A vaccine, adult dosage 3 2013 [id number] 52 PogoplugKline (SKB) complet ed hepatitis A vaccine, adult dosage DoD typhoid Vi capsular polysaccharid e vaccine 1 2013 [id number] 101 Sanofi Pasteur (PMC) complet ed typhoid Vi capsular polysacch aride vaccine DoD influenza, seasonal, injectable 2013 [id number] 141 complet ed influenza , seasonal, injectabl e 06/13/14 Given Ambulat ory Pharmac y Influenza, seasonal, injectable 1 2013 [id number] 141 Transcribed (TRS) complet ed Influenza , seasonal, injectabl e DoD hepatitis A-hepatitis B vaccine 2013 [id number] 104 GlaxoSmithKli ne complet ed hepatitis A-hepatit is B vaccine 12/12/13 Given Ambulat ory Pharmac y varicella virus vaccine 2013 [id number] 21 Merck & Company Inc complet ed varicella virus vaccine 12/12/13 Given Ambulat ory Pharmac y measles/mumps /rubella virus vaccine 2013 [id number] 03 Merck & Company Inc complet ed measles/m umps/rube lla virus vaccine 12/12/13 Given Ambulat ory Pharmac y measles, mumps and rubella virus vaccine 2 2013 [id number] 03 Merck (MSD) complet ed measles, mumps and rubella virus vaccine DoD varicella virus vaccine 1 2013 [id number] 21 Merck (MSD) complet ed varicella virus vaccine DoD hepatitis A and hepatitis B vaccine 1 2013 [id number] 104 SmithKline (SKB) complet ed hepatitis A and hepatitis B vaccine DoD hepatitis A-hepatitis B vaccine 2013 [id number] 104 GlaxoSmithKli ne complet ed hepatitis A-hepatit is B vaccine 10/26/13 Given Ambulat ory Pharmac y measles/mumps /rubella virus vaccine 2013 [id number] 03 Merck & Company Inc complet ed measles/m umps/rube lla virus vaccine 10/26/13 Given Ambulat ory Pharmac y varicella virus vaccine 2013 [id number] 21 Merck & Company Inc complet ed varicella virus vaccine 10/26/13 Given Ambulat ory Pharmac y measles, mumps and rubella virus vaccine 1 2013 [id number] 03 Merck (MSD) complet ed measles, mumps and rubella virus vaccine DoD varicella virus vaccine 1 2013 [id number] 21 Merck (MSD) complet ed varicella virus vaccine DoD hepatitis A and hepatitis B vaccine 1 2013 [id number] 104 [facility] (SKB) complet ed hepatitis A and hepatitis B vaccine DoD poliovirus vaccine, inactivated 2013 [id number] 10 sanofi pasteur complet ed polioviru s vaccine, inactivat ed 10/20/13 Given Ambulat ory Pharmac y meningococcal A,C,Y,W-135 (MCV4P) 2013 [id number] 114 sanofi pasteur complet ed meningoco ccal A,C,Y,W-1 35 (MCV4P) 10/20/13 Given Ambulat ory Pharmac y influenza, seasonal, injectable-pf 2013 1342 1P 140 Novartis Pharmaceutica ls complet ed influenza , seasonal, injectabl e-pf 10/20/13 Given Ambulat ory Pharmac y adenovirus vaccine, live 2013 [id number] 143 Teva Pharmaceutica ls complet ed adenoviru s vaccine, live 10/20/13 Given Ambulat ory Pharmac y tuberculin purified protein derivative 2013 [id number] 96 [facility] complet ed tuberculi n purified protein derivativ e 10/20/13 Given Ambulat ory Pharmac y tetanus, diphtheria, acellular pertu is 2013 [id number] 115 GlaxOpenEdithKli ne complet ed tetanus, diphtheri a, acellular pertussis 10/20/13 Given Ambulat ory Pharmac y poliovirus vaccine, inactivated 1 2013 J1561 10 Sanofi Pasteur ([facility]) complet ed polioviru s vaccine, inactivat ed DoD meningococcal polysaccharid e (groups A, C, Y and W-135) diphtheria toxoid conjugate vaccine (MCV4P) 1 2013 [id number] 114 Sanofi Pasteur ([facility]) complet ed meningoco ccal polysacch aride (groups A, C, Y and W-135) diphtheri a toxoid conjugate vaccine (MCV4P) DoD tetanus toxoid, reduced diphtheria toxoid, and acellular pertu is vaccine, adsorbed 1 2013 [id number] 115 NovaSparks (SKB) complet ed tetanus toxoid, reduced diphtheri a toxoid, and acellular pertussis vaccine, adsorbed DoD Influenza, seasonal, injectable, preservative free 1 2013 1342 1P 140 Novartis Facio. (NOV) complet ed Influenza , seasonal, injectabl e, preservat preet free DoD Adenovirus, type 4 and type 7, live, oral 1 2013 [id number] 143 Plain Vanilla (BRR) complet ed Adenoviru s, type 4 [...] Prevention' s HIV diagnostic algorithm. Refer to [facility] Lab Guide for additional information : [email or web address] x Testing performed by Kaity goddard. [facility] EPIL[facility] Miscellan eous Sendouts Repository Sample Received (11/14/23 8:41 AM) 11/13 N [facility] Encounters Combined list of: 1) Encounters from Department of Veterans Affairs facilities going backup to the last 18 months, not all [place] inpatient encounters are included; 2) Encounters from the Department of Defense facilities going backup to 280 months. Location Location Details Encounter Type Encounter Number Reason For Visit Attending Provider ADM Date DC Date Status Disposition Source [facility] [place] [address](RAMIN Fco) OUTPATIENT [id number] Notes Entered by: DALILA CHANG 18 Nov 2013 0837 ------- ------- ------- ------- -- cough x 3 days DALILA CHNAG 11/18 Released w/o Limitations [facility] [place] [facility] [place] [address](Louise Larsenvo) [place] [address]([facility] Eleazar Metcalf) OUTPATIENT [id number] Notes Entered by: CAMI ROBLERO 03 Feb 2014 1144 ------- ------- ------- ------- -- DARRYL BLAKE 02/03 [facility] w/o Limitations [facility] [place] [place] [address]([employer] Elva Falcon) [facility](Opt ometry Cl Carrera) OUTPATIENT [id number] Color Vision Testing Amauryer MAGDIEL GONZALEZ 08/23 Released w/o Limitations [employer] [facility](O ptometr y Cl Carrera) [employer] [facility](Opt ometry Cl Carrera) OUTPATIENT [id number] AEE per MAGDIEL Gong 01/23 Released w/o Limitations [employer] [facility](O ptometr y Cl Carrera) 8344R-439 AMDS Between Visit [id number] 04/16 Discharge Disposition: Home or Self Care 8344R-4 39 AMDS 8344R-439 AMDS Between Visit [id number] 11/16 Discharge Disposition: Home or Self Care 8344R-4 39 AMDS 8344R-439 AMDS Preclinic [id number] 02/02 8344R-4 39 AMDS Procedures Combined list of: 1) Procedures from Department of Veterans Affairs facilities [facility], not all [facility] non-surgical procedures are included; 2) All procedures from the Department of Defense facilities. Procedure Procedure Type Code Date Perfomer Comments Sourc e No data available for this section Ambulato ry Pharmacy Ophthalmological Prior Patient Start Intermediate Level Care Ophthalmological Prior Patient Start Intermediate Level Care 30583 MAGDIEL GONZALEZ [facility] Extensive Color Vision Testing Extensive Color Vision Testing 92452 MAGDIEL GONZALEZ [facility] Determination Of Refractive State Determination Of Refractive State [address]367 MAGDIEL GONZALEZ Ophthalmological New Patient Start Comprehensive Care Ophthalmological New Patient Start Comprehensive Care [address] MAGDIEL GONZALEZ [facility] OPHTHALMOLOGICAL SERVICES: MEDICAL EXAMINATION AND EVALUATION, WITH INITIATION OR CONTINUATION OF DIAGNOSTIC AND TREATMENT PROGRAM; INTERMEDIATE, ESTABLISHED PATIENT [facility] COLOR VISION EXAMINATION, EXTENDED, EG, ANOMALOSCOPE OR EQUIVALENT [facility] Social History Combined list of available smoking, tobacco, and other social history from Department of Defense and Veterans Affairs facilities. Social History Type Response Date Comment Sourc e Sex Representation Male (finding) 07/24/2022 Un known Organization Sexual Orientation Ambula tory Pharmacy Gender identity Ambulator y Pharmacy This section is an empty social history section. DoD Assessment and Plan Combined list of future care activities from Department of Defense and Veterans Affairs facilities (e.g., assessment and plan notes, appointments, orders, and referrals). Additional future care activities may be listed in the Plan of Care section. Result Assessment and Plan Date Source Assessment and Plan Extracted from:Title : Fly PHA Author: SOLOMON MARINA Date: 02/02/25 Mbr came in for appt Addendum by ANUPAM PIMENTEL on February 02, 2025 08:58 EDT History of Refractive Surgery- No C ontact Lenses- N/A E nrolled in Contact Lens Program- N/A G as Mask Inserts ordered- No C urrent SRX on file- _ [facility] (Uncorrected) OD: 20/20 OS: 2 0/20 [facility] (Corrected) OD: 20/ OS: 20/ [facility] (Uncorrected) OD: 20/20 OS: 20/20 Phorias: ESO _2_ EXO ___ RH ___ LH ___ Depth Perception Uncorrected P ass through _E__ IOP OD:14 OS:15 Time: 0 855 Optometry findings meet standards- Yes Addendum by EMANUEL BLACK on February 02, 2025 09:10 EDT V itals: Blood Pressure: 1 Heart Rate:80 Height: 71 Weight: 155 lbs BMI: 21.62 Medications: none Ciprofloxacin (Cipro) 500 mg 06/16/2014 Cleared Temazepam (Restoril) 30 mg 06/16/2014 Deferred Zaleplon (Sonata) 10 mg 06/16/2014 Deferred Zolpidem (Ambien) 10 mg 06/16/2014 Deferred 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 N o acute complaints. I MR julia sanchez. HEENT: N ormal Joints: N ormal Lungs: N ormal Heart: N ormal Comments: A NNUAL PERIODIC HEALTH ASSESSMENT I. 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 Last Name: MAY 2. First Name: ZAKI 3. Middle Name: Sudarshan 4. Assessment Date: 5. : 6. Age: 28 7. Sex: M 8. DoD ID Number: [id number] 9. Service Branch: [employer] 10. 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 Unit Name: Debra ANDINO 14. Duty Station/Location: [place] 15. UIC: [id number] 16. Is this your first Periodic Health Assessment (PHA)?: N 17. Are you enrolled in a secure messaging system with your health care provider?: 18. Current contact information: Preferred Method: Night Time Phone DSN: Day Time Phone: [phone] Night Time Phone: [phone] Email 1: [email or web address] Email 2: Address: [address] [place] [address] City: [place] State: [place] Zip Code: [phone] 19. Point of contact who can always reach you: Name: Sabrinabrittjeffrey Foy Phone 1: [phone] Phone 2: EMAIL: Address: City: State: Zip Code: II. DEPLOYMENT INFORMATION (DEP) 1. [ 1 ] Total number of deployments in the PAST 5 YEARS 2. [ [place] ] Primary country of last deployment 3. [ ] Date departed theater 4. [ N ] Are you going to deploy within the NEXT 120 DAYS? III. 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 [ [...] ] Conditions with no medical care [ Recurring muscle, joint, or low back pain ] Conditions with medical care, but no longer under treatment [ ] Conditions with medical care, and NOW under treatment 3. For any condition marked YES in question 1 or 2, are you currently on any profile or limited duty for that condition? [ Recurring muscle, joint, or low back pain ] Conditions 4. [ No ] Have you been based or stationed at a location where an open burn pit was used? 5. [ No ] Have you been exposed to toxic airborne chemicals or other airborne contaminants? 8. Have you had any surgery since your last PHA?: Yes 9. What was the condition(s) for which you had surgery and the type of surgery? 9.a. Condition: Herniated Disc 5.a.1 Type of Surgery: Microdisectomy 9.b. Condition: 5.b.1 Type of Surgery: 9.c. Condition: 5.c.1 Type of Surgery: 10.a. [ No ] Since your last [...] an Assignment Limitation Code C? 16.a. [ Yes, but I feel ready to be evaluated and return to full duty ] Are you on a temporary profile or limited duty? 16.b. [ surgery ] Why? 17. [ 1 ] During the PAST 2 years, how [...] months, have you gambled? 5. a. [ Monthly or less ] How often do you have a drink containing alcohol? 5. b. [ 1 or 2 ] How many drinks containing alcohol do you have on a typical day when you are drinking? 5. c. [ Never ] How often do you have six [...] easily startled? 6. d. [ No ] Goree numb or detached from others, activities, or your surroundings? 6. e. [ Not answered ] Goree guilt or unable to stop blaming yourself [...] like to schedule a visit with a sales mgr, mental health care provider, or a community support counselor? 12. [ Not answered ] Are you currently being evaluated for, have a current diagnosis or history of, or exhibit symptoms consistent with gender dysphoria? (i.e. distress due to gender identity differing from sex that impacts or limits functioning) VII. FAMILY HISTORY AND LIFESTYLE (LIF) 1. [ Very Good ] Overall, how would you rate your health during the PAST MONTH? 2. [ Cancer, Diabet ] Member indicates that family members have the following problems 3. The following family members has/had a history of cancer: Breast: Mother Colon: Brother Lung: Mother Unknown Type of Cancer: Grandfather 5. The [...] specifically designed to STRENGTHEN my muscles: [ 0 ] Day(s) per week 8. [ None ] What prescriptions or uhra-laa-cowgegk medications are you CURRENTLY taking for health problems on a ROUTINE BASIS? 9. Which of the following products have you taken since your last PHA: None of the above 11. Think about the PAST 30 DAYS. How often did you eat/drink the following foods/beverages? [ 3 to 6 servings per week ] Fruits [ 1 serving per day ] Vegetables [ 3 to 6 servings per week ] Starchy Vegetables [ 2 servings per day ] Whole Grains [ 1 serving per day ] Dairy and Calcium Containing Foods [ 1 or 2 servings per week ] Fish [ 2 servings per day ] Lean Protein [ 1 or 2 servings per week ] Sugar-Sweetened Beverages 12. [ No ] Have you had a cholesterol check by a health career center advisor within the PAST 5 YEARS? 13.a. In the PAST 30 DAYS, which of the following products have you used on at least one day? None 15. Which of the following best describes your past tobacco use? I have never used tobacco products. 16. [ No ] Are you regularly exposed to secondhand smoke? 17. [ 7 to 9 hours ] During the LAST 2 WEEKS, how many hours of sleep did you get on most days? 18. [ No ] During the LAST 2 WEEKS, have you felt impaired or unable to adequately perform due to sleepiness or poor quality sleep? 19. [ No ] Have you had any unexplained weight loss or gain since your last PHA? 20. Member is not at risk for sexually transmitted infections. 22. Since your last PHA, what, if [...] and where the care was provided: Conditions: herniated disc Where: [facility] 5. Member acknowledged responsibility for reporting health issues. 7. [ No ] Woud you like to schedule an appointment with a health care provider to discuss any health concerns? XI. SEPARATION AND SENIOR CARE 1. [ No ] Are you planning to separate or retire within the next year from Active Duty or [place] Duty (activated for greater than 30 continuous days) OR do you intend to file a claim for disability compensation with the Veterans Benefits Administration? PART B. RECORD REVIEW AND RECOMMENDATIONS I. RECORD REVIEWER INFORMATION 1. Last Name: HARPAL 2. First Name: ELSA 3. Middle Name: 4. Service Branch: [employer] 5. 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 EMAIL: [email or web address] 8. Facility: [facility] 9. Unit: [facility] 10. Address: [address] [place] [address] 11. State: [place] 12. Zip Code: [address] 13. Phone: [phone] 14. Date Record Review: II. MEDICAL SCREENING 1. [ ] Date of kennel staff member's most recent PHA 2. [ 5 feet 11 inches Date: ] kennel staff member's most recently documented height 3. [ 154 pounds Date: ] kennel staff member's most recently documented weight 4. [ 118/79 Date: ] kennel staff member's most recently documented blood pressure reading 5. [ No ] Does the kennel staff member have a history of abnormal blood pressure since their last PHA? 6. [ Yes ] Does the kennel staff member have a laboratory test of sickle cell trait documented in their permanent medical record? 7. [ No Cholesterol Test Documented ] What is the date of the kennel staff member's most recently documented cholesterol test? 9. [ No Active Medications Documented ] List of kennel staff member's active medications listed in their permanent medical record 10. [ No ] Is there a discrepancy between the active medication record review and the kennel staff member's self-reported list of medications? 11. [ No Outside Care Documented ] List documented significant care the kennel staff member has received since their last PHA from a provider OUTSIDE the Health System 12. [ No ] Is there a discrepancy between the kennel staff member's list of OUTSIDE care (from OT5), and the OUTSIDE care found in the record? 13. [ No Inside Care Documented ] List documented significant care the kennel staff member has received since their last PHA from a provider INSIDE the Health System 14. Is there documentation in the record for each surgery listed below? Herniated Disc/Microdisectomy: Yes 15. [ Not Answered ] Confirm that vaccine exemptions are listed in the medical record for each vaccine listed III. OCCUPATION-SPECIFIC EXAMINATIONS 1. [ ] When was the kennel staff member's most recently documented special operational duty physical exam? IV. FAMILY HISTORY AND LIFESTYLE 1. [ Yes ] Does the [id number] reflect the kennel staff member's reported family history? . DEPLOYMENT-RELATED HEALTH ASSESSMENTS 1. [ No ] Based on your check of records, does the kennel staff member have any due or overdue deployment health assessments which need to be completed with this PHA? VII. INDIVIDUAL MEDICAL READINESS 1. [ No ] Does the kennel staff member have an Assignment Limitation Code C? 2. [ 1 Expires: ] Number of months in the past year the kennel staff member has been in temporary duty status 3. [ Classification: 1 ] Most recently documented dental exam 4. [ No: Typhoid ] Is the kennel staff member current on all required immunizations in the immunization tracking system? 6. Does the kennel staff member have the following laboratory tests documented in their permanent medical record? [ Yes ] HIV test within the PAST 24 [...] need to be forwarded to the Health Marketing Information Analyst completing PART C: One deployment within the past five years. Member is currently on a temporary profile or limited duty end 12/09/2024. Member reports very good health. Member has never used tobacco products. No VA rating. Pain level: 0. Member is not currently taking prescription or tjjc-hki-iipodhc medications. No other significant findings. JLV reviewed. No other discrepancies found. Date Record Review Completed: PART C. HEALTH CARE PROVIDER I. MENTAL HEALTH ASSESSMENT (MHA) PROVIDER INFORMATION 1. Last Name: ESTRADA 2. First Name: NANCI 3. Middle Name: 4. Service Branch: [employer] 5. 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 Title: Physician (DO WILLIAM) 7. EMAIL: [email or web address] 8. Facility: [address] [place], [place] [address] 9. Unit: [address] [place], [place] [address] 10. Address: [address] [place] [address] 11. State: [place] 12. Zip Code: [address] 13. Phone: [phone] 14. Date HCP Review initiated: 1. Member marked that they did not have a concern or a difficulty with a major life stressor. 2. Address concerns identified on member questions 2 and 3. History of mental health care: N/A Member's response: Provider's comments: NA Medications: N/A Member's response: Provider's comments: NA 3. Member's AUDIT-C screening score was 1. (nothing required) 4. Member did not geraldo [...] ASSESSMENT (PHA) PROVIDER INFORMATION 1. Last Name: SEAN 2. First Name: NANCI 3. Middle Name: 4. Service Branch: [employer] 5. 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 Title: Physician (DO WILLIAM) 7. EMAIL: [email or web address] 8. Facility: [address] [place], [place] [address] 9. Unit: [address] [place], [place] [address] 10. Address: [address] [place] [address] 11. State: [place] 12. Zip Code: [address] 13. Phone: [phone] 14. Date HCP Review initiated: IV. PERIODIC HEALTH ASSESSMENT PROVIDER RECOMMENDATIONS and REFERRALS 1. Provider concerns with this assessment: No issues or concerns identified V. SUMMARY AND COMMENTS 1. Additional information summarizing findings during the kennel staff member assessment: 2. Provider Comments: member with herniated disc s/p surgery September 13, 2024, microdiscectomy, was doing well and back up, now with recurrent symptoms, will be evaluated next week and let us know . INDIVIDUAL MEDICAL READINESS DISPOSITION DETERMINATION IRON: Ready DEN: Ready IMM: Ready LAB: Ready ME: Ready IMR Status: Fully Medically Ready VII. SERVICE MEDICAL DEPLOYABILITY EVALUATION INDICATED Based on your review of all documentation, is the kennel staff member medically deployable without limitations? Reference Cece 6490.07 Yes (kennel staff member DOES NOT currently have a medical condition that limits deployability) Date PHA Completed: END OF [id number] REPORT Impression:Meets m edical standards per NNAMDI 48-123/MSD. Disposition: N o AF469 changes based on this encounter.World-Wide Qualified. Extracted from:Title: Office Clinic Note Author: ROGE MARTINEZ MD Date: 09/10/24 Needs DNIF. Surgery planned with Neurosurgery 09/13/24 after unclear mechanism of injury and extensive workup to include MRI and NSS planning surgery. Will DNIF today. Will place Mobility restricting 469. Recommend f/u after surgery with surgical notes Will need aeromedical waiver. Flyer aware of plan and will go home today due to acute pain. Extracted from:Title: Fly PHA / MHA / Lab / Imms Author: LIZ NUGENT Date: 11/14/23 mbr came in for appt Addendum by KORTNEY KEY on November 14, 2023 10:42 EDT History of Refractive Surgery- No C ontact Lenses- N/A E nrolled in Contact Lens Program- N/A G as Mask Inserts ordered- No C urrent SRX on file- _ DVA (uncorrected) OD: 20/20 OS: 2 0/20 NVA (uncorrected) OD: 20/20 OS: 20/20 Phorias: ESO _2_ EXO ___ RH ___ LH _0.5__ Depth Perception Uncorrected P ass through _F__ IOP OD:15 OS:16 Time: 1 023 Optometry findings meet standards- Yes Addendum by ELSA ROWAN on November 14, 2023 10:51 EDT V itals: Blood Pressure: 1 18 Heart Rate: 79 Height: 180 Weight: 155 BMI: Medications: None Chronic Problems: None 507: _ Comments: None Addendum by DENNIS JEFFREY on November 14, 2023 11:11 EDT Chief Complaint: Member here for annual fly PHA. Patient is able to complete duties required by AFTN. No acute complaints.NO: Fly w aiver. Initial Waiver Date: Waiver Exp Date: [facility] julia sanchez. Test results reviewed: Audio: Audiogram H-1, no asymmetric hearing loss, no significant threshhold shift Optometry:Meets vision standards for: Near and distant visual acuity, IOP, Depth perception, Phorias EKG: _ PHYSICAL EXAM: HEENT: N ormal Valsalva: N ormal Joints: N ormal Spine:Normal Skin:Normal Neuro: N ormal Lungs: N ormal Heart: N ormal Abdomen: N ormal Comments: ANNUAL PERIODIC HEALTH ASSESSMENT I. 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 Last Name: MAY 2. First Name: ZAKI 3. Middle Name: Sudarshan 4. Assessment Date: 5. : 6. Age: 27 7. Gender: M 8. DoD ID Number: [id number] 9. Service Branch: [employer] 10. 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 Unit Name: [facility] 14. Duty Station/Location: [place] 15. UIC: [id number] 16. Is this your first Periodic Health Assessment (PHA)?: N 17. Are you enrolled in a secure messaging system with your health care provider?: 18. Current contact information: Preferred Method: Email 1 DSN: Day Time Phone: [phone] Night Time Phone: [phone] Email 1: [email or web address] Email 2: Address: [address] [place] [address] City: [place] State: [place] Zip Code: [id number] 19. Point of contact who can always reach you: Name: Rodo Foy Phone 1: [phone] Phone 2: EMAIL: Address: City: State: Zip Code: II. DEPLOYMENT INFORMATION (DEP) 1. [ 1 ] Total number of deployments in the PAST 5 YEARS 2. [ [place] ] Primary country of last deployment 3. [ ] Date departed theater 4. [ N ] Are you going to deploy within the NEXT 120 DAYS? III. OCCUPATIONAL INFORMATION (OCC) 1 [ [id number] ] What is your occupational code 2. [...] easily startled? 6. d. [ No ] Gore[place] numb or detached from others, activities, or your surroundings? 6. e. [ Not answered ] [place] guilt or unable to stop blaming yourself [...] like to schedule a visit with a sales mgr, mental health care provider, or a community [...] 8. [ None ] What prescriptions or vlme-ogl-yadmcie medications are you CURRENTLY taking for health [...] had a cholesterol check by a health career center advisor within the PAST 5 YEARS? 13.a. In [...] Conditions: Pilar Cyst removal Where: [facility] 5. Member acknowledged responsibility for reporting health issues. 7. [ No ] Woud you like to schedule an appointment with a health care provider to discuss any health concerns? XI. SEPARATION AND SENIOR CARE 1. [ No ] Are you planning to separate or retire within the next year from Active Duty or Lockney Duty (activated for greater than 30 continuous days) OR do you intend to file a claim for disability compensation with the Veterans Benefits Administration? PART B. RECORD REVIEW AND RECOMMENDATIONS I. RECORD REVIEWER INFORMATION 1. Last Name: SAMIA 2. First Name: SABRINA 3. Middle Name: CARROL 4. Service Branch: [employer] 5. Status: 6. 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 EMAIL: [email or web address] 8. Facility: [facility] 9. Unit: [facility] 10. Address: [address] [place] [address] 11. State: [place] 12. Zip Code: [address] 13. Phone: [phone] 14. Date Record Review: II. MEDICAL SCREENING 1. [ ] Date of kennel staff member's most recent PHA 2. [ 5 feet 11 inches Date: ] kennel staff member's most recently documented height 3. [ 155 pounds Date: ] kennel staff member's most recently documented weight 4. [ 121/73 Date: ] kennel staff member's most recently documented blood pressure reading 5. [ No ] Does the kennel staff member have a history of abnormal blood pressure since their last PHA? 6. [ Yes ] Does the kennel staff member have a laboratory test of sickle cell trait documented in their permanent medical record? 7. [ No Cholesterol Test Documented ] What is the date of the kennel staff member's most recently documented cholesterol test? 9. [ No Active Medications Documented ] List of kennel staff member's active medications listed in their permanent medical record 10. [ No ] Is there a discrepancy between the active medication record review and the kennel staff member's self-reported list of medications? 11. [ pilar cyst removal ] List documented significant care the kennel staff member has received since their last PHA from a provider OUTSIDE the Health System 12. [ No ] Is there a discrepancy between the kennel staff member's list of OUTSIDE care (from OT5), and the OUTSIDE care found in the record? 13. [ No Inside Care Documented ] List documented significant care the kennel staff member has received since their last PHA from a provider INSIDE the Health System 15. [ Not Answered ] Confirm that vaccine exemptions are listed in the medical record for each vaccine listed III. OCCUPATION-SPECIFIC EXAMINATIONS 1. [ ] When was the kennel staff member's most recently documented special operational duty physical exam? IV. FAMILY HISTORY AND LIFESTYLE 1. [ Yes ] Does the [id number] reflect the kennel staff member's reported family history? 2. [ No ] Is there a record of the kennel staff member receiving a syphillis, chlamydia and gonorrhea test since their last PHA? . DEPLOYMENT-RELATED HEALTH ASSESSMENTS 1. [ No ] Based on your check of records, does the kennel staff member have any due or overdue deployment health assessments which need to be completed with this PHA? VII. INDIVIDUAL MEDICAL READINESS 1. [ No ] Does the kennel staff member have an Assignment Limitation Code C? 3. [ Classification: 1 ] Most recently documented dental exam 4. [ No: Meningococcal ] Is the kennel staff member current on all required immunizations in the immunization tracking system? 6. Does the kennel staff member have the following laboratory tests documented [...] need to be forwarded to the Health Marketing Information Analyst completing PART C: No DLCs, pain, medications/supplements, major stressors, gambling, alcohol/tobacco concerns. Adequate diet, exercise, and sleep. Reported some numbness/tingling on SHPE earlier this yr. H/o finger injury. Date Record Review Completed: PART C. HEALTH CARE PROVIDER I. MENTAL HEALTH ASSESSMENT (MHA) PROVIDER INFORMATION 1. Last Name: WOJCIECH 2. First Name: DENNIS 3. Middle Name: 4. Service Branch: [employer] 5. 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 Title: Physician (DO WILLIAM) 7. EMAIL: [email or web address] 8. Facility: [facility] 9. Unit: [address] [place], [place] [address] 10. Address: [address] [place] [address] 11. State: [place] 12. Zip Code: [address] 13. Phone: [phone] 14. Date HCP Review initiated: 1. Member [...] ASSESSMENT (PHA) PROVIDER INFORMATION 1. Last Name: LAKESHAHUGO 2. First Name: DENNIS 3. Middle Name: 4. Service Branch: [employer] 5. 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 Title: Physician (DO WILLIAM) 7. EMAIL: [email or web address] 8. Facility: [address] [place], [place] [address] 9. Unit: [address] [place], [place] [address] 10. Address: [address] [place] [address] 11. State: [place] 12. Zip Code: [address] 13. Phone: [phone] 14. Date HCP Review initiated: IV. PERIODIC HEALTH ASSESSMENT PROVIDER RECOMMENDATIONS and REFERRALS 1. Provider concerns with this assessment: No issues or concerns identified V. SUMMARY AND COMMENTS 1. Additional information summarizing findings during the kennel staff member assessment: 2. Provider Comments: No new medical concern . INDIVIDUAL MEDICAL READINESS DISPOSITION DETERMINATION IRON: Ready DEN: Ready IMM: Ready LAB: Ready ME: Ready IMR Status: Fully Medically Ready VII. SERVICE MEDICAL DEPLOYABILITY EVALUATION INDICATED Based on your review of all documentation, is the kennel staff member medically deployable without limitations? Reference Cece 6490.07 Yes (kennel staff member DOES NOT currently have a medical condition that limits deployability) Date PHA Completed: END OF [id number] REPORT Impression: Meets F CIII m edical standards per NNAMDI 48-123/MSD. Aeromedical Disposition: No DNIF. DD 2992 s igned. No AF469 changes based on this encounter. World-Wide Qualified. 02/08/2025 [id number] AMDS Functional Status Combined list of recent functional and cognitive assessments recorded at Department of Defense and Veterans Affairs (VA).VA Functional Bethesda Measurement (FIM) Scale: 1 = Total Assistance (Subject = 0% +), 2 = Maximal Assistance (Subject = 25% +), 3 = Moderate Assistance (Subject = 50% +), 4 = Minimal Assistance (Subject = 75% +), 5 = Supervision, 6 = Modified Bethesda (Device), 7 = Complete Bethesda (Timely, Safely). Assessment Date/Time Source Assessment Type Assessment Skill Assessment Score Assessment Details No data available for this section
--- OUTSIDE RECORDS SUMMARY | 2025-02-08 15:31 | XMS_ITS | Clinical Summary ---
Author Organization [facility] Address [address] [facility] [address] [place] [phone] Phone Care Team Providers Care New Client Banking Services Clerk Name Role Phone Stevie Arevalo Primary Care Provider Allergies No known active allergies Medications No known medications Active Problems No known active problems Social History Tobacco Use Types Packs/Day Years Used Date Smoking Tobacco: Never Assessed Education Answer Date Recorded Are you interested in more education? Not on lois e 11/08/2022 Are you concerned about learning? Not on file 11/08/2022 No 11/08/2022 No 11/08/2022 Digital Access Answer Date Recorded No 2022 No 2022 Reliable internet access at home? Not on file 2022 Device with a working camera? Not on file Sex and Gender Information Value Date Recorded Sex Assigned at Not on file Legal Sex Male 1:03 PM EST Gender Identity Not on file Sexual Orientation Not on file Last Filed Vital Signs Vital Sign Reading Time Taken Comments Blood Pressure 130/71 05/16/2024 9:20 AM EST Pulse 68 05/16/2024 9:20 AM EST Temperature 36.8 C (98.2 F) 05/16/2024 9:20 AM EST Respiratory Rate 16 05/27/2022 3:21 PM EST Oxygen Saturation 99% 05/16/2024 9:20 AM EST Inhaled Oxygen Concentration - - Weight 70.3 kg (155 lb) 05/16/2024 9:20 AM EST Height 180.3 cm (5' 11 ) 05/16/2024 9:20 AM EST Body Mass Index 21.62 05/16/2024 9:20 AM EST Plan of Treatment Health Maintenance Due Date Last Done Comments DEPRESSION SCREENING 2005 SMOKING Hx and SMOKELESS TOBACCO SCREENING 2006 HEPATITIS C SCREENING 12/08/2011 HIV ONE-TIME SCREENING (18-65 YEARS) 12/08/2011 COVID-19 VACCINE ( season) 2024 11/07/2020, 10/17/2020 Adult Td,Tdap Booster 09/26/2030 09/26/2020, 006 HIB VACCINES Completed 05/05/1995, 07/13, 04/07/1994, Additional history exists HEPATITIS A VACCINES Aged Out No long er eligible based on patient's age to complete this topic MENINGOCOCCAL VACCINES (ACWY) Aged Out No longer eligible based on patient's age to complete this topic MENINGOCOCCAL VACCINES (B) Aged Out N o longer eligible based on patient's age to complete this topic PNEUMOCOCCAL VACCINES (0-49 years) Aged Out No longer eligible based on patient's age to complete this topic Medical Devices Not on file Insurance [facility] SAF[employer] NET PARTIAL [facility] SAF[employer] NET PARTIAL Member Subscriber Plan / Payer (Ef fective 2021-Present) Name:Law Zaki Relation to Subscriber:Self Name:FrankorikaelvieZaki Payer ID:Not on file Group ID:Not on file Type:Medicaid Address: [address] [facility] PART[facility] SAF[employer] NET PARTIAL Member Subscriber Plan / Payer (Ef fective 2021-) Name:Zaki Foy Relation to Subscriber:Self Name:Zaki Foy Payer ID:Not on file Group ID:Not on file Type:Medicaid Address: [address] [employer] Member Subscriber Plan / Payer (Ef fective 2021-Present) Name:Zaki Foy Relation to Subscriber:Self Name:Zaki Foy Payer ID:Not on file Group ID:Not on file Type:Medicaid Address: [address] [facility] NET PARTIAL Member Subscriber Plan / Payer (Ef fective 2021-Present) Name:Zaki Foy Relation to Subscriber:Self Name:Zaki Foy Payer ID:Not on file Group ID:Not on file Type:Medicaid Address: [address] [facility] NET PARTIAL [employer] Care Teams New Client Banking Services Clerk Relationship Specialty Start Date End Date Stevie Arevalo PA [address] [place] [phone] [email or web address] PCP - General Physician Supervisor Coffee 08/28/22 Additional Source Comments The information contained in this document represents components of the legal health record. It is not the complete legal health record.[facility]
--- NOTE | 2025-02-08 15:37 | HO.SPINEOV ---
Intake Visit Reasons: recurring pain after surgery Intake Note: Mr. Foy is here today c/o recurring pain after surgery. 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 He underwent a left L5-S1 microdiskectomy about 4-5 months ago. About 4 weeks ago he was shoveling and felt something pop in his back and immediately felt pain shooting down his leg into his calf. He has numbness of his foot and severe pain with activity or prolonged sitting. He has been taking ibuprofen, Tylenol and doing some light stretching to try to help this out but unfortunately it is not getting any better. Lying down seems to help quite a bit. On examination today, he is very uncomfortable, he has a straight leg raise at about 20 degrees. He has antalgic gait. Appears to have an early footdrop which I would rate as 4-5. Absent Achilles reflex. I am concerned he has reherniated the disc or has a new herniated disc. There is some foot weakness and positive straight leg raise so I would like to get an MRI lumbar with and without gadolinium. We can call him with the results. Total amount of time spent in this visit was 20 minutes in discussion of symptoms, ordering imaging and subsequent plan of care Real Soler MD,PhD [facility] Orders: Orders MR lumbar spine wo/w con Today M51.06 - Intervertebral disc disorders with myelopathy, lumbar region Coding Level of Care Code Est Pt Level 3 (95470) Diagnoses Lumbar disc herniation with myelopathy M51.06
== END 2025-02-08 16:29 | disposition home or self-care (01) ==
LOC: HO.HNS 14:50
PROVIDERS: PCP Internal Medicine; Visit Provider Physician Assistant
DX: M51.06 Intervertebral disc disorders with myelopathy, lumbar region (principal)
CPT/HCPCS: 99213

== ENCOUNTER → 2025-02-08 14:49 | Outpatient (BNVA) | payer OTHER, SELFPAY | PROVIDERS: PCP Internal Medicine; Visit Provider Physician Assistant | DX: M51.06 Intervertebral disc disorders with myelopathy, lumbar region (principal); Z98.890 Other specified postprocedural states | CPT/HCPCS: 99212 ==

== ENCOUNTER → 2025-02-18 19:10 | Outpatient (BNV) | payer OTHER, SELFPAY | PROVIDERS: PCP Internal Medicine; Visit Provider Radiology Diagnostic Radiology | DX: M51.27 Other intervertebral disc displacement, lumbosacral region (principal) | CPT/HCPCS: 72158 ==

== ENCOUNTER 2025-02-18 19:12 | Outpatient (REF) | payer OTHER, SELFPAY ==
--- NOTE | ~2025-02-18 | MR_ITS ---
CLINICAL HISTORY: M51.06 - Intervertebral disc disorders with myelopathy, lumbar region --- Additional Notes or Special Instructions: Recurrent left leg pain, status post microdiskectomy 4 months ago. MRI lumbar spine without/with contrast Comparison: 08/20/2024 Findings: L5-S1 midline and left paramidline disc herniation. This encroaches upon left S1 nerve root. Finding is unchanged from prior study. Disc fragment margins and S1 nerve root enhance. This indicates current inflammation. Enhancing scar noted in left canal. Probable small left laminectomy defect. No fluid collections are identified. No other significant intervertebral disc abnormality. No other canal or neural foraminal narrowing. No acute bony signal abnormalities noted. Posterior bony alignment is normal. No other abnormal areas of contrast enhancement. Impression: Large midline and left paramidline L5-S1 disc rupture Left L5-S1 spinal canal enhancing scar Findings involve left S1 nerve root as above This document has been electronically signed by: Chai Jane MD on 02/18/2025 20:26:24
--- OUTSIDE RECORDS SUMMARY | 2025-02-18 19:19 | XMS_ITS | Clinical Summary ---
Author Organization [facility] Address [address] [facility] [address] [place] [phone] Phone Care Team Providers Care Risk Assessment Consultant Name Role Phone Stevie Arevalo Primary Care [...] topic Medical Devices Not on file Insurance [facility] SAFET[facility] NET PARTIAL [facility] SAF[employer] NET PARTIAL Member Subscriber Plan / Payer (Ef fective 2021-Present) Name:Law Zaki Relation to Subscriber:Self Name:FrankorikaelvieZaki Payer ID:Not on file Group ID:Not on file Type:Medicaid Address: [address] [facility] Address: [facility] [id number] [place] [phone] [facility] SAFET[facility] NET PARTIAL Member Subscriber Plan / Payer (Ef fective 2021-) Name:Zaki Foy Relation to Subscriber:Self Name:Zaki Foy Payer ID:Not on file Group ID:Not on file Type:Medicaid Address: [address] [facility] Address: [facility] [id number] [place] [phone] Member Subscriber Plan / Payer (Ef fective 2021-Present) Name:Zaki Foy Relation to Subscriber:Self Name:Zaki Foy Payer ID:Not on file Group ID:Not on file Type:Medicaid Address: [address] [facility] Address: [facility] [id number] [place] [phone] [facility] NET PARTIAL Member Subscriber Plan / Payer (Ef fective 2021-Present) Name:Zaki Foy Relation to Subscriber:Self Name:Zaki Foy Payer ID:Not on file Group ID:Not on file Type:Medicaid Address: [address] [facility] [employer]IAL [employer] Care Teams Risk Assessment Consultant Relationship Specialty Start Date End Date Stevie Arevalo PA [address] [place] [phone] [email or web address] PCP - General Physician Director Of Planning 08/28/22 Additional Source Comments The information contained in this document represents components of the legal health record. It is not the complete legal health record.[facility]
== END 2025-02-18 19:13 | disposition home or self-care (01) ==
LOC: HO.MRI 19:12
PROVIDERS: PCP Internal Medicine; Visit Provider Internal Medicine
DX: M51.06 Intervertebral disc disorders with myelopathy, lumbar region (principal)
CPT/HCPCS: 72158; A9585

== ENCOUNTER 2025-03-07 08:07 | Outpatient (AMB) | payer OTHER, SELFPAY ==
--- OUTSIDE RECORDS SUMMARY | 2025-03-07 08:13 | XMS_ITS | Continuity of Care Document ---
Author Name [facility] Organization [facility] Care Team Providers Care Research Tech Name Role Phone [facility] Unavailable Unavailable Medications Combined list of outpatient [...] GLENMARK PHARMA, 30 ea. BLIST PACK Active [id number] 2023 10 Pharmac y Data Transac tion Service Facilit y Allergies, Adverse Reactions, Alerts Combined list of allergies from Department of Defense and Veterans Affairs facilities. It does not include entries that were removed or entered in error. Substance Category Reaction Severity Reaction type Status Date Reported Comments Source No Known Allergies Drug allergy (disorder) active 11/18/2013 [place] [address] Immunizations Combined list of available immunizations from the Department of Defense and Veterans Affairs facilities. 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 Status Comments Source influenza, injectable, quadrivalent- pf 2021 [id number] GlaxoSmithKli ne complet ed influenza , injectabl e, quadrival ent-pf 06/15/22 Given Ambulat ory Pharmac y influenza virus vaccine, inactivated 2020 [id number] Seqirus complet ed influenza virus vaccine, inactivat ed 05/19/21 Given Ambulat ory Pharmac y COVID Vaccine Pfizer 2020 [id number] PFIZER complet ed COVID Vaccine Pfizer 11/07/20 Given Ambulat ory Pharmac y COVID Vaccine Pfizer 2020 [id number] PFIZER complet ed COVID Vaccine Pfizer 10/17/20 Given Ambulat ory Pharmac y typhoid Vi capsular polysaccharid e vac 2020 [id number] sanofi pasteur complet ed typhoid Vi capsular polysacch aride vac 08/18/20 Given Ambulat ory Pharmac y influenza, injectable, quadrivalent, preservative free 2019 MARIELANDRENELSON, () Not Given influenza , injectabl e, quadrival ent, preservat preet free [facility] influenza, injectable, quadrivalent- pf 2018 [id number] 150 Seqirus complet ed influenza , injectabl e, quadrival ent-pf 05/13/19 Given Ambulat ory Pharmac y meningococcal A,C,Y,W-135 (MCV4P) 2018 [id number] 114 sanofi pasteur complet ed meningoco ccal A,C,Y,W-1 35 (MCV4P) 10/17/18 Given Ambulat ory Pharmac y influenza, injectable, quadrivalent- pf 2017 [id number] 150 Seqirus complet ed influenza , injectabl e, quadrival ent-pf 06/20/18 Given Ambulat ory Pharmac y typhoid Vi capsular polysaccharid e vac 2017 [id number] 101 sanofi pasteur complet ed typhoid Vi capsular polysacch aride vac 06/20/18 Given Ambulat ory Pharmac y Influenza, inj, MDCK, quadrivalent- pf 2016 [id number] 171 Seqirus complet ed Influenza , inj, MDCK, quadrival ent-pf 06/14/17 Given Ambulat ory Pharmac y influenza, seasonal, injectable-pf 2015 [id number] 140 Seqirus complet ed influenza , seasonal, injectabl e-pf 05/18/16 Given Ambulat ory Pharmac y typhoid Vi capsular polysaccharid e vac 2015 [id number] 101 sanofi pasteur complet ed typhoid Vi capsular polysacch aride vac 05/18/16 Given Ambulat ory Pharmac y influenza, seasonal, injectable-pf 2014 [id number] 140 CSL Behring complet ed influenza , [...] Pharmac y hepatitis B adult vaccine 2013 [id number] 43 Merck & Company Inc complet ed hepatitis B adult vaccine 06/16/14 Given Ambulat ory Pharmac y yellow fever vaccine 2013 [id number] 37 sanofi pasteur complet ed yellow fever vaccine 06/16/14 Given Ambulat ory Pharmac y yellow fever vaccine 1 2013 [id number] 37 Sanofi Pasteur (PMC) complet ed yellow fever vaccine DoD hepatitis B vaccine, adult dosage 3 2013 [id number] 43 Merck (MSD) complet ed hepatitis B vaccine, adult dosage DoD hepatitis A vaccine, adult dosage 3 2013 [id number] 52 TubisKline (SKB) complet ed hepatitis A vaccine, adult dosage DoD typhoid Vi capsular polysaccharid e vaccine 1 2013 [id number] 101 Sanofi Pasteur (PMC) complet ed typhoid Vi capsular polysacch aride vaccine DoD influenza, seasonal, injectable 2013 [id number] 141 complet ed influenza , seasonal, injectabl e 06/13/14 Given Ambulat ory Pharmac y Influenza, seasonal, injectable 1 2013 [id number] 141 Transcribed (TRS) complet ed Influenza , seasonal, injectabl e DoD hepatitis A-hepatitis B vaccine 2013 [id number] 104 GlaxoSmithKli ne complet ed hepatitis A-hepatit is B vaccine 12/12/13 Given Ambulat ory Pharmac y varicella virus vaccine 2013 [id number] 21 Merck & Company Inc complet ed varicella virus vaccine 12/12/13 Given Ambulat ory Pharmac y measles/mumps /rubella virus vaccine 2013 [id number] 03 Merck & Company Inc complet ed measles/m umps/rube lla virus vaccine 12/12/13 Given Ambulat ory Pharmac y measles, mumps and rubella virus vaccine 2 2013 [id number] 03 Merck (MSD) complet ed measles, mumps and rubella virus vaccine DoD varicella virus vaccine 1 2013 [id number] 21 Merck (MSD) complet ed varicella virus vaccine DoD hepatitis A and hepatitis B vaccine 1 2013 [id number] 104 SmithKline (SKB) complet ed hepatitis A and hepatitis B vaccine DoD hepatitis A-hepatitis B vaccine 2013 [id number] 104 GlaxoSmithKli ne complet ed hepatitis A-hepatit is B vaccine 10/26/13 Given Ambulat ory Pharmac y measles/mumps /rubella virus vaccine 2013 [id number] 03 Merck & Company Inc complet ed measles/m umps/rube lla virus vaccine 10/26/13 Given Ambulat ory Pharmac y varicella virus vaccine 2013 [id number] 21 Merck & Company Inc complet ed varicella virus vaccine 10/26/13 Given Ambulat ory Pharmac y measles, mumps and rubella virus vaccine 1 2013 [id number] 03 Merck (MSD) complet ed measles, mumps and rubella virus vaccine DoD varicella virus vaccine 1 2013 [id number] 21 Merck (MSD) complet ed varicella virus vaccine DoD hepatitis A and hepatitis B vaccine 1 2013 [id number] 104 [facility] (SKB) complet ed hepatitis A and hepatitis B vaccine DoD poliovirus vaccine, inactivated 2013 [id number] 10 sanofi pasteur complet ed polioviru s vaccine, inactivat ed 10/20/13 Given Ambulat ory Pharmac y meningococcal A,C,Y,W-135 (MCV4P) 2013 [id number] 114 sanofi pasteur complet ed meningoco ccal A,C,Y,W-1 35 (MCV4P) 10/20/13 Given Ambulat ory Pharmac y influenza, seasonal, injectable-pf 2013 1342 1P 140 Novartis Pharmaceutica ls complet ed influenza , seasonal, injectabl e-pf 10/20/13 Given Ambulat ory Pharmac y adenovirus vaccine, live 2013 [id number] 143 Teva Pharmaceutica ls complet ed adenoviru s vaccine, live 10/20/13 Given Ambulat ory Pharmac y tuberculin purified protein derivative 2013 [id number] 96 [facility] complet ed tuberculi n purified protein derivativ e 10/20/13 Given Ambulat ory Pharmac y tetanus, diphtheria, acellular pertu is 2013 [id number] 115 GlaxClear VascularithKli ne complet ed tetanus, diphtheri a, acellular pertussis 10/20/13 Given Ambulat ory Pharmac y poliovirus vaccine, inactivated 1 2013 J1561 10 Sanofi Pasteur ([facility]) complet ed polioviru s vaccine, inactivat ed DoD meningococcal polysaccharid e (groups A, C, Y and W-135) diphtheria toxoid conjugate vaccine (MCV4P) 1 2013 [id number] 114 Sanofi Pasteur ([facility]) complet ed meningoco ccal polysacch aride (groups A, C, Y and W-135) diphtheri a toxoid conjugate vaccine (MCV4P) DoD tetanus toxoid, reduced diphtheria toxoid, and acellular pertu is vaccine, adsorbed 1 2013 [id number] 115 Trac Emc & Safety (SKB) complet ed tetanus toxoid, reduced diphtheri a toxoid, and acellular pertussis vaccine, adsorbed DoD Influenza, seasonal, injectable, preservative free 1 2013 1342 1P 140 Novartis Vokle. (NOV) complet ed Influenza , seasonal, injectabl e, preservat preet free DoD Adenovirus, type 4 and type 7, live, oral 1 2013 [id number] 143 Vital Art and Science (BRR) complet ed Adenoviru s, type 4 [...] Prevention' s HIV diagnostic algorithm. Refer to [facility] Lab Guide for additional information : [email or web address] [email or web address]/ [email or web address] x Testing performed by Kaity goddard. [facility] EPILAB Miscellan eous Sendouts Repository Sample Received (11/14/23 8:41 AM) 11/13 N [facility] Encounters Combined list of: 1) Encounters from Department of Veterans Affairs facilities going backup to the last 18 months, not all [place] inpatient encounters are included; 2) Encounters from the Department of Defense facilities going backup to 280 months. Location Location Details Encounter Type Encounter Number Reason For Visit Attending Provider ADM Date DC Date Status Disposition Source [place] [address](RAMIN Fco) OUTPATIENT [id number] Notes Entered by: DALILA CHANG 18 Nov 2013 0837 ------- ------- ------- ------- -- cough x 3 days DALILA CHANG 11/18 Released w/o Limitations [facility] [place] [address](Louise Larsenvo) [place] [address]([facility] Eleazar Metcalf) OUTPATIENT [id number] Notes Entered by: CAMI ROBLERO 03 Feb 2014 1144 ------- ------- ------- ------- -- DARRYL BLAKE 02/03 [facility] w[facility] Limitations [facility] [place] [place] [address]([employer] Elva Falcon) [facility](Opt ometry Cl Carrera) OUTPATIENT [id number] Color Vision Testing Amauryer MAGDIEL GONZALEZ 08/23 Released w/o Limitations [employer](O ptometr y Cl Carrera) [employer](Opt ometry Cl Carrera) OUTPATIENT [id number] AEE per MAGDIEL Gong 01/23 Released w/o Limitations [employer](O ptometr y Cl Carrera) 8344R-439 AMDS Between Visit [id number] 04/16 Discharge Disposition: Home or Self Care 8344R-4 39 AMDS 8344R-439 AMDS Between Visit [id number] 11/16 Discharge Disposition: Home or Self Care 8344R-4 39 AMDS 8344R-439 AMDS Care Not Rendered [id number] 02/02 Discharge Disposition: Home or Self Care 8344R-4 39 AMDS Procedures Combined list of: 1) Procedures from Department of Veterans Affairs facilities going back up to [facility], not all VA non-surgical procedures are included; 2) All procedures from the Department of Defense facilities. Procedure Procedure Type Code Date Perfomer Comments Sourc e No data available for this section Ambulato ry Pharmacy Ophthalmological Prior Patient Start Intermediate Level Care Ophthalmological Prior Patient Start Intermediate Level Care [address]14 MAGDIEL GONZALEZ [facility] Extensive Color Vision Testing Extensive Color Vision Testing 83635 MAGDIEL GONZALEZ [facility] Determination Of Refractive State Determination Of Refractive State [address] MAGDIEL GONZALEZ Ophthalmological New Patient Start Comprehensive Care Ophthalmological New Patient Start Comprehensive Care [address]76 MAGDIEL GONZALEZ [facility] OPHTHALMOLOGICAL SERVICES: MEDICAL EXAMINATION AND EVALUATION, WITH INITIATION OR CONTINUATION OF DIAGNOSTIC AND TREATMENT PROGRAM; INTERMEDIATE, ESTABLISHED PATIENT [facility] COLOR VISION EXAMINATION, EXTENDED, EG, ANOMALOSCOPE OR EQUIVALENT [facility] Social History Combined list of available smoking, [...] 09:10 EDT V itals: Blood Pressure: 1 27/86 Heart Rate:80 Height: 71 Weight: 155 lbs [...] Comments: A NNUAL PERIODIC HEALTH ASSESSMENT I. APPLICATION SPEC INFORMATION AND DEMOGRAPHICS (SMI) 1. Last Name: MAY 2. First Name: ZAKI 3. Middle Name: Sudarshan 4. Assessment Date: 5. : 6. Age: 28 7. Sex: M 8. DoD ID Number: [id number] 9. Service Branch: [employer] 10. 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 Unit Name: Debra ANDINO 14. Duty Station/Location: [place] 15. UIC: [id number] 16. Is this your first Periodic Health Assessment (PHA)?: N 17. Are you enrolled in a secure messaging system with your health care provider?: 18. Current contact information: Preferred Method: Night Time Phone DSN: Day Time Phone: [phone] Night Time Phone: [phone] Email 1: [email or web address] Email 2: Address: [address] [place] [address] City: [place] State: [place] Zip Code: [id number] 19. Point of contact who can always reach you: Name: Sabrinabrittjeffrey Foy Phone 1: [phone] Phone 2: EMAIL: Address: City: State: Zip Code: II. DEPLOYMENT INFORMATION (DEP) 1. [ 1 ] Total number of deployments in the PAST 5 YEARS 2. [ [place] ] Primary country of last deployment 3. [ ] Date departed theater 4. [ N ] Are you going to deploy within the NEXT 120 DAYS? III. OCCUPATIONAL INFORMATION (OCC) 1 [ [id number] ] What is your occupational code 2. [...] easily startled? 6. d. [ No ] [place] numb or detached from others, activities, or your surroundings? 6. e. [ Not answered ] [place] guilt or unable to stop blaming yourself [...] like to schedule a visit with a psychology tech, mental health care provider, or a community [...] 8. [ None ] What prescriptions or vdbe-vvf-xsggkah medications are you CURRENTLY taking for health [...] had a cholesterol check by a health team primary care physician within the PAST 5 YEARS? 13.a. In [...] care was provided: Conditions: herniated disc Where: [facility] 5. Member acknowledged responsibility for reporting health issues. 7. [ No ] Woud you like to schedule an appointment with a health care provider to discuss any health concerns? XI. SEPARATION AND RESIDENTIAL 1. [ No ] Are you planning to separate or retire within the next year from Active Duty or [place] Duty (activated for greater than 30 continuous days) OR do you intend to file a claim for disability compensation with the Veterans Benefits Administration? PART B. RECORD REVIEW AND RECOMMENDATIONS I. RECORD REVIEWER INFORMATION 1. Last Name: HARPAL 2. First Name: ELSA 3. Middle Name: 4. Service Branch: [employer] 5. 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 Title: Medic/Paid Intern/Operations And Maintenance Technican 7. EMAIL: [email or web address] 8. Facility: [facility] 9. Unit: [facility] 10. Address: [address] [place] [address] 11. State: [place] 12. Zip Code: [address] 13. Phone: [phone] 14. Date Record Review: II. MEDICAL SCREENING 1. [ ] Date of store team member's most recent PHA 2. [ 5 feet 11 inches Date: ] store team member's most recently documented height 3. [ 154 pounds Date: ] store team member's most recently documented weight 4. [ 118/79 Date: ] store team member's most recently documented blood pressure reading 5. [ No ] Does the store team member have a history of abnormal blood pressure since their last PHA? 6. [ Yes ] Does the store team member have a laboratory test of sickle cell trait documented in their permanent medical record? 7. [ No Cholesterol Test Documented ] What is the date of the store team member's most recently documented cholesterol test? 9. [ No Active Medications Documented ] List of store team member's active medications listed in their permanent medical record 10. [ No ] Is there a discrepancy between the active medication record review and the store team member's self-reported list of medications? 11. [ No Outside Care Documented ] List documented significant care the store team member has received since their last PHA from a provider OUTSIDE the Health System 12. [ No ] Is there a discrepancy between the store team member's list of OUTSIDE care (from OT5), and the OUTSIDE care found in the record? 13. [ No Inside Care Documented ] List documented significant care the store team member has received since their last PHA from a provider INSIDE the Health System 14. Is there documentation in the record for each surgery listed below? Herniated Disc/Microdisectomy: Yes 15. [ Not Answered ] Confirm that vaccine exemptions are listed in the medical record for each vaccine listed III. OCCUPATION-SPECIFIC EXAMINATIONS 1. [ ] When was the store team member's most recently documented special operational duty physical exam? IV. FAMILY HISTORY AND LIFESTYLE 1. [ Yes ] Does the [id number] reflect the store team member's reported family history? . DEPLOYMENT-RELATED HEALTH ASSESSMENTS 1. [ No ] Based on your check of records, does the store team member have any due or overdue deployment health assessments which need to be completed with this PHA? VII. INDIVIDUAL MEDICAL READINESS 1. [ No ] Does the store team member have an Assignment Limitation Code C? 2. [ 1 Expires: ] Number of months in the past year the store team member has been in temporary duty status 3. [ Classification: 1 ] Most recently documented dental exam 4. [ No: Typhoid ] Is the store team member current on all required immunizations in the immunization tracking system? 6. Does the store team member have the following laboratory tests [...] need to be forwarded to the Health P 3 Armament/Ordnance Ima Technician completing PART C: One deployment within the past five years. Member is currently on a temporary profile or limited duty end 12/09/2024. Member reports very good health. Member has never used tobacco products. No VA rating. Pain level: 0. Member is not currently taking prescription or jrcq-zsa-opjsqsm medications. No other significant findings. JLV reviewed. No other discrepancies found. Date Record Review Completed: PART C. HEALTH CARE PROVIDER I. MENTAL HEALTH ASSESSMENT (MHA) PROVIDER INFORMATION 1. Last Name: SEAN 2. First Name: NANCI 3. Middle Name: 4. Service Branch: [employer] 5. 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 Title: Physician (DO WILLIAM) 7. EMAIL: [email or web address] 8. Facility: [address] [place], [place] [address] 9. Unit: [address] [place], [place] [address] 10. Address: [address] [place] [address] 11. State: [place] 12. Zip Code: [address] 13. Phone: [phone] 14. Date HCP Review initiated: 1. Member [...] NANCI 3. Middle Name: 4. Service Branch: [employer] 5. 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 Title: Physician (DO WILLIAM) 7. EMAIL: [email or web address] 8. Facility: [address] [place], [place] [address] 9. Unit: [address] [place] [address] 10. Address: [address] [place] [address] 11. State: [place] 12. Zip Code: [address] 13. Phone: [phone] 14. Date HCP Review initiated: IV. PERIODIC HEALTH ASSESSMENT PROVIDER RECOMMENDATIONS and REFERRALS 1. Provider concerns with this assessment: No issues or concerns identified V. SUMMARY AND COMMENTS 1. Additional information summarizing findings during the store team member assessment: 2. Provider Comments: member with [...] your review of all documentation, is the store team member medically deployable without limitations? Reference Cece 6490.07 Yes (store team member DOES NOT currently have a medical condition that limits deployability) Date PHA Completed: END OF VR8556 REPORT Impression:Meets m edical standards per NNAMDI [...] is able to complete duties required by [employer]. No acute complaints.NO: Fly w aiver. Initial Waiver Date: Waiver Exp Date: [facility] julia daniel. Test results reviewed: Audio: Audiogram H-1, no asymmetric hearing loss, no significant threshhold shift Optometry:Meets vision standards for: Near and distant visual acuity, IOP, Depth perception, Phorias EKG: _ PHYSICAL EXAM: HEENT: N ormal Valsalva: N ormal Joints: N ormal Spine:Normal Skin:Normal Neuro: N ormal Lungs: N ormal Heart: N ormal Abdomen: N ormal Comments: ANNUAL PERIODIC HEALTH ASSESSMENT I. APPLICATION SPEC INFORMATION AND DEMOGRAPHICS (SMI) 1. Last Name: MAY 2. First Name: ZAKI 3. Middle Name: Sudarshan 4. Assessment Date: 5. : 6. Age: 27 7. Gender: M 8. DoD ID Number: [id number] 9. Service Branch: [employer] 10. 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 [facility] 14. Duty Station/Location: [place] 15. [facility]: [id number] 16. Is this your first Periodic Health Assessment (PHA)?: N 17. Are you enrolled in a secure messaging system with your health care provider?: 18. Current contact information: Preferred Method: Email 1 DSN: Day Time Phone: [phone] Night Time Phone: [phone] Email 1: [email or web address] Email 2: Address: [address] [place] [address] City: [place] State: [place] Zip Code: [id number] 19. Point of contact who can always reach you: Name: Rodo Foy Phone 1: [phone] Phone 2: EMAIL: Address: City: State: Zip Code: II. DEPLOYMENT INFORMATION (DEP) 1. [ 1 ] Total number of deployments in the PAST 5 YEARS 2. [ [place] ] Primary country of last deployment 3. [ ] Date departed theater 4. [ N ] Are you going to deploy within the NEXT 120 DAYS? III. OCCUPATIONAL INFORMATION (OCC) 1 [ [id number] ] What is your occupational code 2. [...] easily startled? 6. d. [ No ] [place] numb or detached from others, activities, or your surroundings? 6. e. [ Not answered ] [place] guilt or unable to stop blaming yourself [...] like to schedule a visit with a psychology tech, mental health care provider, or a community [...] 8. [ None ] What prescriptions or qmzd-qim-gvttvxb medications are you CURRENTLY taking for health [...] had a cholesterol check by a health team primary care physician within the PAST 5 YEARS? 13.a. In [...] was provided: Conditions: Pilar Cyst removal Where: [facility] 5. Member acknowledged responsibility for reporting health issues. 7. [ No ] Woud you like to schedule an appointment with a health care provider to discuss any health concerns? XI. SEPARATION AND RESIDENTIAL 1. [ No ] Are you planning to separate or retire within the next year from Active Duty or [place] Duty (activated for greater than 30 continuous days) OR do you intend to file a claim for disability compensation with the [employer] Benefits Administration? PART B. RECORD REVIEW AND RECOMMENDATIONS I. RECORD REVIEWER INFORMATION 1. Last Name: SAMIA 2. First Name: SABRINA 3. Middle Name: CARROL 4. Service Branch: [employer] 5. Status: 6. Title: Medic/Paid Intern/Operations And Maintenance Technican 7. EMAIL: [email or web address] 8. Facility: [facility] 9. Unit: [facility] 10. Address: [address] [place] [address] 11. State: [facility]. Zip Code: [address] 13. Phone: [phone] 14. Date Record Review: II. MEDICAL SCREENING 1. [ ] Date of store team member's most recent PHA 2. [ 5 feet 11 inches Date: ] store team member's most recently documented height 3. [ 155 pounds Date: ] store team member's most recently documented weight 4. [ 121/73 Date: ] store team member's most recently documented blood pressure reading 5. [ No ] Does the store team member have a history of abnormal blood pressure since their last PHA? 6. [ Yes ] Does the store team member have a laboratory test of sickle cell trait documented in their permanent medical record? 7. [ No Cholesterol Test Documented ] What is the date of the store team member's most recently documented cholesterol test? 9. [ No Active Medications Documented ] List of store team member's active medications listed in their permanent medical record 10. [ No ] Is there a discrepancy between the active medication record review and the store team member's self-reported list of medications? 11. [ pilar cyst removal ] List documented significant care the store team member has received since their last PHA from a provider OUTSIDE the Health System 12. [ No ] Is there a discrepancy between the store team member's list of OUTSIDE care (from OT5), and the OUTSIDE care found in the record? 13. [ No Inside Care Documented ] List documented significant care the store team member has received since their last PHA from a provider INSIDE the Health System 15. [ Not Answered ] Confirm that vaccine exemptions are listed in the medical record for each vaccine listed III. OCCUPATION-SPECIFIC EXAMINATIONS 1. [ ] When was the store team member's most recently documented special operational duty physical exam? IV. FAMILY HISTORY AND LIFESTYLE 1. [ Yes ] Does the [id number] reflect the store team member's reported family history? 2. [ No ] Is there a record of the store team member receiving a syphillis, chlamydia and gonorrhea test since their last PHA? . DEPLOYMENT-RELATED HEALTH ASSESSMENTS 1. [ No ] Based on your check of records, does the store team member have any due or overdue deployment health assessments which need to be completed with this PHA? VII. INDIVIDUAL MEDICAL READINESS 1. [ No ] Does the store team member have an Assignment Limitation Code C? 3. [ Classification: 1 ] Most recently documented dental exam 4. [ No: Meningococcal ] Is the store team member current on all required immunizations in the immunization tracking system? 6. Does the store team member have the following laboratory tests [...] need to be forwarded to the Health P 3 Armament/Ordnance Ima Technician completing PART C: No DLCs, pain, medications/supplements, major stressors, gambling, alcohol/tobacco concerns. Adequate diet, exercise, and sleep. Reported some numbness/tingling on SHPE earlier this yr. H/o finger injury. Date Record Review Completed: PART C. HEALTH CARE PROVIDER I. MENTAL HEALTH ASSESSMENT (MHA) PROVIDER INFORMATION 1. Last Name: WOJCIECH 2. First Name: DENNIS 3. Middle Name: 4. Service Branch: [employer] 5. 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 Title: Physician (DO WILLIAM) 7. EMAIL: [email or web address] 8. Facility: [facility] 9. Unit: [facility] 10. Address: [address] [place] [address] 11. State: [place] 12. Zip Code: [address] 13. Phone: [phone] 14. Date HCP Review initiated: 1. Member [...] DENNIS 3. Middle Name: 4. Service Branch: [employer] [place] 5. 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 Title: Physician (, DO) 7. EMAIL: [email or web address] 8. Facility: [facility] 9. Unit: [facility] 10. Address: [address] [place] [address] 11. State: [place] 12. Zip Code: [address] 13. Phone: [phone] 14. Date HCP Review initiated: IV. PERIODIC HEALTH ASSESSMENT PROVIDER RECOMMENDATIONS and REFERRALS 1. Provider concerns with this assessment: No issues or concerns identified V. SUMMARY AND COMMENTS 1. Additional information summarizing findings during the store team member assessment: 2. Provider Comments: No new medical concern . INDIVIDUAL MEDICAL READINESS DISPOSITION DETERMINATION IRON: Ready DEN: Ready IMM: Ready LAB: Ready ME: Ready IMR Status: Fully Medically Ready VII. SERVICE MEDICAL DEPLOYABILITY EVALUATION INDICATED Based on your review of all documentation, is the store team member medically deployable without limitations? Reference Cece 6490.07 Yes (store team member DOES NOT currently have a medical condition that limits deployability) Date PHA Completed: END OF [id number] REPORT Impression: Meets F CIII m edical standards per NNAMDI 48-123/MSD. Aeromedical Disposition: No DNIF. DD 2992 s igned. No AF469 changes based on this encounter. [employer]. 03/07/2025 [id number] AMDS Functional Status Combined list of recent functional and cognitive assessments recorded at Department of Defense and Veterans Affairs (VA).VA Functional [place] Measurement (FIM) Scale: 1 = Total Assistance (Subject = 0% +), 2 = Maximal Assistance (Subject = 25% +), 3 = Moderate Assistance (Subject = 50% +), 4 = Minimal Assistance (Subject = 75% +), 5 = Supervision, 6 = Modified [place] (Device), 7 = Complete [place] (Timely, Safely). Assessment Date/Time Source Assessment Type Assessment Skill Assessment Score Assessment Details No data available for this section
--- OUTSIDE RECORDS SUMMARY | 2025-03-07 08:14 | XMS_ITS | Clinical Summary ---
Author Organization [facility] Address [address] [facility] [address] [place] [id number] Phone Care Team Providers Care Palliative Care Nurse Name Role Phone Stevie Arevalo Primary Care [...] topic Medical Devices Not on file Insurance [facility] [employer] NET PARTIAL [employer] [facility] [employer] NET PARTIAL Member Subscriber Plan / Payer (Ef fective 2021-Present) Name:Law Zaki Relation to Subscriber:Self Name:FrankorikaelvieZaki Payer ID:Not on file Group ID:Not on file Type:Medicaid Address: [address] [facility] Address: [facility] [id number] [place] [phone] [facility] PARTIAL [facility] [employer] NET PARTIAL Member Subscriber Plan / Payer (Ef fective 2021-) Name:Zaki Foy Relation to Subscriber:Self Name:Zaki Foy Payer ID:Not on file Group ID:Not on file Type:Medicaid Address: [address] [facility] Address: [facility] [id number] [place] [phone] Member Subscriber Plan / Payer (Ef fective 2021-Present) Name:Zaki Foy Relation to Subscriber:Self Name:Zaki Foy Payer ID:Not on file Group ID:Not on file Type:Medicaid Address: [address] [facility] Address: [facility] [id number] [place] [phone] [facility] NET PARTIAL Member Subscriber Plan / Payer (Ef fective 2021-Present) Name:Zaki Foy Relation to Subscriber:Self Name:Zaki Foy Payer ID:Not on file Group ID:Not on file Type:Medicaid Address: [address] [facility] NET PARTIAL SELECT Care Teams Palliative Care Nurse Relationship Specialty Start Date End Date Stevie Arevalo PA [address] [place] [phone] [email or web address] PCP - General Physician Community Organization Worker 08/28/22 Additional Source Comments The information contained in this document represents components of the legal health record. It is not the complete legal health record.[facility]
[2025-03-07 08:17] VITALS: BP 124/68; PULSE 98; TEMP 36.6; O2SAT 68; BMI 21.0
--- NOTE | 2025-03-07 08:17 | MHC.PC.OV ---
Vital Signs 03/07/25 08:17 Height 6 ft 0.75 in Weight 158 lb 0.8 oz BMI 21.0 BP 124/68 Blood Pressure Location Rt brachial Pulse 98 Pulse Source Pulse Oximeter Temp 97.9 F Pulse Oximetry (%) 68 L Intake Visit Reasons: Establish Care Intake Note: Having issues with anxiety Allergies No Known Allergies Allergy (Verified 03/07/25 08:21) Tobacco use date assessed: 03/07/25 Dental Screening Dental Screen Date: 03/07/25 Did you have a dental visit in the last 12 months?: Yes Did you have a dental problem in the last 6 months where you did not have access to dental care?: No Was dental information given to patient?: No [facility] Medical History (Updated 03/07/25 @ 08:48 by Pavel Miramontes MD) Generalized anxiety disorder Numbness Back pain Surgical History (Updated 10/04/24 @ 13:55 by REGIS Yun) Hx of tooth extraction H/O colonoscopy Social History Housing: House Are you 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 1. Little interest or pleasure in doing things: not at all 2. Feeling down, depressed, or hopeless: not at all 3. Trouble falling or staying asleep, or sleeping too much: not at all 4. Feeling tired or having little energy: not at all 5. Poor appetite or overeating: not at all 6. Feeling bad about yourself - or that you are a failure or have let yourself or your family down: not at all 7. Trouble concentrating on things, such as reading the newspaper or watching television: not at all 8. Moving or speaking so slowly that other people could have noticed. Or the opposite - being so fidgety or restless that you have been moving around a lot more than usual: not at all 9. Thoughts that you would be better off or of hurting yourself in some way: not at all Total score: 0 Source: Developed by Drs. Nicholas Callaway, Marvin Cortes and colleagues, with an educational klaudia from [employer]. Thrive Questionnaire Date Thrive assessed: 03/07/25 I am a: Patient What is your living situation today?: I have a steady place to live Within the past 12 months, did the food you bought not last and you didn't have the money to get more?: Never true Within the past 12 months, did you worry whether your food would run out before you got money to buy more?: Never true Do you have trouble paying for medicines?: No Do you have trouble getting transportation to medical appointments?: No Do you have trouble paying your heating and electricity bill?: No Do you have trouble taking care of your child, family member or friend?: No Do you have trouble with day-to-day activities such as bathing, preparing meals, shopping, managing finances, etc.?: No Are you currently unemployed and looking for a job?: No Are you interested in more education?: No THRIVE Score: 0 AUDIT C Alcohol Use Questionnaire (AUDIT-C) 1. How often do you have a drink containing alcohol?: 2-4 times a month 2. How many drinks containing alcohol do you have on a typical day when you are drinking?: 3 or 4 3. How often do you have six or more drinks on one occasion?: Less than monthly Total Score: 4 WOLFGANG-7 AMB Questionnaire WOLFGANG-7 Date WOLFGANG - 7 assessed: 03/07/25 Feeling nervous, anxious, or on edge: 1 = Several days Not being able to stop or control worryin = Not at all Worrying too much about different things: 1 = Several days Trouble relaxin = More than half the days Being so restless that it is hard to sit still: 1 = Several days Becoming easily annoyed or irritable: 1 = Several days Feeling afraid as if something awful might happen: 0 = Not at all Total WOLFGANG-7 score (0-4 normal; 5-9 mild; 10-14 moderate; 15-21 severe): 6 Source: Developed by Amber Randle Kurt Kroenke and colleagues, with an educational klaudia from [employer]. Physical exam (Primary Care) Vital Signs: Last Vital Signs Temp 97.9 F 03/07/25 08:17 Pulse 98 03/07/25 08:17 BP 124/68 03/07/25 08:17 Pulse Ox 68 L 03/07/25 08:17 BMI result Body Mass Index 21.0 Tobacco/Smoking Status: Tobacco use Status Tobacco use date assessed 03/07/25 03/07/25 08:28 Patient Tobacco Use Status Never used Tobacco 03/07/25 08:28 e-Cigarette/Vaping Use Never Used 03/07/25 08:28 PHQ-9: PHQ-9 Score PHQ-9: Total score 0 03/07/25 08:28 Thrive Assessment: Date of Thrive Assessment Date Thrive assessed 03/07/25 03/07/25 08:28 Coding Level of Care Code Est Pt Level 4 (03495) Complex EM visit Add On G2211 Diagnoses Generalized anxiety disorder F41.1 Assessment & Plan Assessment & Plan (1) Generalized anxiety disorder: Code(s): F41.1 - Generalized anxiety disorder Category: Medical Plan: History of Present Illness - The patient is a 29-year-old male presenting with back pain and anxiety. - Herniated intervertebral disc: The patient had a ruptured disc earlier this year, leading to surgery in September, followed by a re-herniation in December, with another surgery planned for April. - Herniated intervertebral disc: Pain management includes Tylenol, Advil, and gabapentin, with limited effectiveness reported. - Anxiety disorder: The patient describes chronic anxiety symptoms, including restlessness and irritability, with no prior medication use but considering treatment due to relationship impact. Review of Systems - Musculoskeletal: Reports persistent back pain due to herniated disc. - Neurological: Denies any sleep disturbances, reports feeling refreshed upon waking. - Psychiatric: Reports chronic anxiety, characterized by restlessness and irritability. Plan Patient was informed and verbally consented to the use of an ambient scribe for clinic note documentation during this visit. 1. Herniated Intervertebral Disc - Plan: Awaiting rescheduled surgery in early April. Current pain management includes Tylenol, Advil, and gabapentin, with monitoring of pain levels and medication adjustment as needed. 2. Anxiety Disorder - Plan: Start citalopram 10 mg daily, with a follow-up in one month to evaluate side effects and effectiveness. The patient should keep a log of symptoms and medication effects. Discussion Notes I discussed with the patient the nature of his anxiety and the role of SSRIs, specifically citalopram, in managing symptoms. We reviewed the importance of adherence to medication and the potential side effects, emphasizing the need for a gradual adjustment period. I also explained the necessity of keeping a symptom log to track progress and side effects. We agreed on a follow-up in one month to assess the medication's impact and make any necessary adjustments. Patient Instructions - Take citalopram 10 mg once daily as prescribed. - Keep a daily log of symptoms and any side effects experienced. - Monitor pain levels and adjust [id number] pain medication as needed. - Follow up in one month to evaluate the effectiveness of the medication and discuss any concerns.
== END 2025-03-07 08:49 | disposition home or self-care (01) ==
PROVIDERS: PCP Internal Medicine; Visit Provider Internal Medicine
DX: F41.1 Generalized anxiety disorder (principal)

== ENCOUNTER → 2025-03-07 08:07 | Outpatient (BNVA) | payer OTHER, SELFPAY | PROVIDERS: PCP Internal Medicine; Visit Provider Internal Medicine | DX: F41.1 Generalized anxiety disorder (principal) | CPT/HCPCS: 99212 ==

== ENCOUNTER 2025-04-13 14:22 | Outpatient (AMB) | payer OTHER, SELFPAY ==
[2025-04-13 14:33] VITALS: BP 116/74; PULSE 70; RESP 16; TEMP 36.3; O2SAT 100; BMI 20.7
--- NOTE | 2025-04-13 14:33 | A.OFFPC_ITS ---
Vital Signs 04/13/25 14:33 Height 6 ft 0.75 in Weight 156 lb BMI 20.7 BP 116/74 Blood Pressure Location Rt brachial Position Sitting Respiration 16 Pulse 70 Pulse Source Pulse Oximeter Temp 97.3 F Temp Source Temporal Artery Scan Pulse Oximetry (%) 100 Oxygen Delivery Method Room Air Intake Visit Reasons: 1 month f/u Accompanied by: Self / Same As Patient Allergies No Known Allergies Allergy (Verified 04/13/25 16:45) Medication List - Last Reconciled 04/13/25 by Ananya Berry PA-C gabapentin 300 mg PO TID PRN sertraline (Zoloft) 25 mg PO DAILY Tobacco use date assessed: 04/13/25 Dental Screening Dental Screen Date: 04/13/25 Did you have a dental visit in the last 12 months?: Yes Was dental information given to patient?: Patient has dentist HPI 1 month f/u HPI0 Details The patient is a 29-year-old male presenting with anxiety and a thyroid nodule. The patient has a history of a herniated intervertebral disc, initially treated with surgery in September, which was re-herniated four months later. He is scheduled for another surgery at [facility] due to persistent symptoms, including foot drop and lack of Achilles reflex. The patient reports anxiety, feeling constantly on edge, and having obsessive- compulsive tendencies. He has been prescribed citalopram, which he took at 10 mg but experienced adverse effects, leading to a switch to sertraline (Zoloft) 25 mg. 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 An ultrasound of the kidneys and bladder was no rmal, but a referral to a urologist was not followed up. Family history is significant for colon cancer in a brother diagnosed before age 50, breast cancer in the mother, and lung cancer in the mother, possibly related to past smoking. 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 - Family Status: with two child je, a boy and a girl, aged 10 and 7, shared custody with ex-partner. - Exercise: Engages in physical activity , previously noted during discussions of blood in urine. [facility] Medical History (Updated 04/13/25 @ 16:54 by Ananya Berry PA-C) Herniated intervertebral disc of lumbar spine Thyroid nodule Family history of lung cancer Family history of breast cancer in mother Family history of colon cancer Hematuria OCD (obsessive compulsive disorder) Generalized anxiety disorder Numbness Back pain Surgical History H/O vasectomy Hx of tooth extraction H/O colonoscopy Family History Mother No problems noted. Father No problems noted. 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 1. Little interest or pleasure in doing things: not at all 2. Feeling down, depressed, or hopeless: not at all 3. Trouble falling or staying asleep, or sleeping too much: not at all 4. Feeling tired or having little energy: not at all 5. Poor appetite or overeating: not at all 6. Feeling bad about yourself - or that you are a failure or have let yourself or your family down: not at all 7. Trouble concentrating on things, such as reading the newspaper or watching television: not at all 8. Moving or speaking so slowly that other people could have noticed. Or the opposite - being so fidgety or restless that you have been moving around a lot more than usual: not at all 9. Thoughts that you would be better off or of hurting yourself in some way: not at all Total score: 0 Depression Screening Interpretation: Negative Depression Screening Done: Yes 13111 - PHQ-9 Billing: Yes Source: Developed by Drs. Nicholas Callaway, Amber Parish, Marvin Mueller and colleagues, with an educational klaudia from [employer]. Thrive Questionnaire Date Thrive assessed: 04/13/25 I am a: Patient What is your living situation today?: I have a steady place to live Within the past 12 months, did the food you bought not last and you didn't have the money to get more?: Never true Within the past 12 months, did you worry whether your food would run out before you got money to buy more?: Never true Do you have trouble paying for medicines?: No Do you have trouble getting transportation to medical appointments?: No Do you have trouble paying your heating and electricity bill?: No Do you have trouble taking care of your child, family member or friend?: No Do you have trouble with day-to-day activities such as bathing, preparing meals, shopping, managing finances, etc.?: No Are you currently unemployed and looking for a job?: No Are you interested in more education?: No THRIVE Score: 0 AUDIT C Alcohol Use Questionnaire (AUDIT-C) 1. How often do you have a drink containing alcohol?: Monthly or less 2. How many drinks containing alcohol do you have on a typical day when you are drinking?: 3 or 4 3. How often do you have six or more drinks on one occasion?: Less than monthly Total Score: 3 Score Reviewed/Action Taken: No WOLFGANG-7 AMB Questionnaire WOLFGANG-7 Date WOLFGANG - 7 assessed: 04/13/25 Feeling nervous, anxious, or on edge: 1 = Several days Not being able to stop or control worryin = Not at all Worrying too much about different things: 1 = Several days Trouble relaxin = More than half the days Being so restless that it is hard to sit still: 1 = Several days Becoming easily annoyed or irritable: 1 = Several days Feeling afraid as if something awful might happen: 0 = Not at all Total WOLFGANG-7 score (0-4 normal; 5-9 mild; 10-14 moderate; 15-21 severe): 6 Source: Developed by Drs. Nicholas Callaway, Amber Parish, Marvin Mueller and colleagues, with an educational klaudia from [employer]. WOLFGANG-7 Assessment Billing WOLFGANG-7 Assessment Tool: WOLFGANG-7 Assessment 58778 Review of Systems Const Details: - Neurological: Reports foot drop and lack of Achilles reflex. - Psychiatric: Reports anxiety, obsessive-compulsive tendencies, and feeling constantly on edge. - Genitourinary: Reports blood in urine for five years. - Endocrine: Reports tenderness in the thyroid area, possible nodule. All systems reviewed & are unremarkable except as noted in HPI and below Physical exam (Primary Care) Vital Signs: Last Vital Signs Temp 97.3 F 04/13/25 14:33 Pulse 70 04/13/25 14:33 Resp 16 04/13/25 14:33 BP 116/74 04/13/25 14:33 Pulse Ox 100 04/13/25 14:33 Oxygen Delivery Method Room Air 04/13/25 14:33 Care Plan Goal for BP management: <140/90 at Goal BMI result Body Mass Index 20.7 BMI Assessment/Plan discussion: High BMI High, discussed plan: lifestyle, weight reduction, dietary, physical activity, alcohol moderation and other Tobacco/Smoking Status: Tobacco use Status Tobacco use date assessed 04/13/25 04/13/25 14:42 Patient Tobacco Use Status Never used Tobacco 04/13/25 14:42 e-Cigarette/Vaping Use Never Used 04/13/25 14:42 PHQ-9: PHQ-9 Score PHQ-9: Total score 0 04/13/25 14:42 Depression Screening Interpretation: Negative Thrive Assessment: Date of Thrive Assessment Date Thrive assessed 04/13/25 04/13/25 14:42 Const Other: Appearance: Alert. Oriented X3. No acute distress. Head: Normal external exam. Normocephalic. Atraumatic. Eyes: Pupils are equal, round, and reactive to light. Extraocular movements intact. Conjunctiva and sclera normal. Eyelids normal. Ears: External auditory canal normal. Tympanic membranes normal. Throat: Pharynx normal. Uvula midline. Moist mucous membranes. Neck: Normal inspection. Neck supple. Full range of motion. No adenopathy. No meningeal signs. No neck mass noted. Tenderness noted on palpation of the thyroid area, possible thyroid nodule. Cardiovascular: Normal heart rate and rhythm. Heart sound normal. No murmurs noted. Pulses normal throughout. Respiratory: No respiratory distress. Painless inspiration. Breath sounds normal. No wheezes/rales/rhonchi noted. Chest nontender. No accessory muscle usage noted or decreased air movement noted. Abdomen: Soft and nontender. Bowel sounds normal in all 4 quadrants. No distention noted. No organomegaly noted. No visible injury noted. Back: No costovertebral angle tenderness. Full range of motion noted. History of herniated intervertebral disc. Skin: Skin warm and dry. Normal skin color. Normal skin turgor. No rashes/lesions/lacerations noted. Extremities: No lower extremity edema. Extremities exhibit normal range of motion. Noted foot drop and no Achilles reflex. Neuro: Oriented X 3. No motor deficit. + chronic sensory deficit to LLE. Reflexes normal except for absent Achilles reflex on the Left. Office Procedures Flu Questionnaire Does the patient have a severe egg allergy?: No Does the patient have severe life threatening allergies?: No Does the patient have a fever or illness today?: No Has the patient ever had Guillain-[place] Syndrome?: No Has the patient ever had any past reaction to a flu shot?: No Immunizations Fluarix [id number] (PF) 45 mcg (15 mcg x 3)/0.5 mL IM syringe Performing Provider: Ananya Berry PA-C [facility] Administered by: Chana Guzman CMA on 04/13/25 14:49 Dose Route Admin Location Dispensed Lot Number Expiration Date NDC Headliner Installer 0.5 mL IM Left Deltoid 0.5 mL [id number] 01/09/26 [id number] [employer] VIS Given Date VIS Provided VIS Publication Date 04/13/25 Single Vaccine 24 Eligibility Eligibility Date Funding Source Not [facility] [place] 04/13/25 Private Results Reviewed Results Reviewed: - Imaging: Previous ultrasound of kidneys and bladder was normal. Coding Level of Care Code Est Pt Level 4 (62587) Complex EM visit Add On G2211 Diagnoses Herniated intervertebral disc of lumbar spine M51.26 Generalized anxiety disorder F41.1 Hematuria R31.9 Thyroid nodule E04.1 Additional Codes PHQ-9 - 49663 - PHQ-9 Billing: Yes ([id number]) WOLFGANG-7 Assessment Billing - WOLFGANG-7 Assessment Tool: WOLFGANG-7 Assessment 03676 ([id number]) Time Spent (min) 50 Assessment & Plan Assessment & Plan (1) Herniated intervertebral disc of lumbar spine: Code(s): M51.26 - Other intervertebral disc displacement, lumbar region Category: Medical Plan: The patient is scheduled for surgery at [facility] to address the re-herniation of the intervertebral disc, which has resulted in foot drop and lack of Achilles reflex. (2) Generalized anxiety disorder: Code(s): F41.1 - Generalized anxiety disorder Category: Medical Plan: The patient was initially prescribed citalopram 10 mg but experienced adverse effects, leading to a switch to sertraline (Zoloft) 25 mg. (3) Hematuria: Code(s): R31.9 - Hematuria, unspecified Category: Medical Plan: The patient has a history of hematuria for five years, with a previous normal ultrasound of kidneys and bladder; a referral to a urologist is planned for further evaluation. (4) Thyroid nodule: Code(s): E04.1 - Nontoxic single thyroid nodule Category: Medical Plan: A thyroid ultrasound is planned to evaluate the tenderness and possible nodule detected during the physical examination. Plan Plan Patient was informed and verbally consented to the use of an ambient scribe for clinic note documentation during this visit. 1. Herniated Intervertebral Disc The patient is scheduled for surgery at [facility] to address the re-herniation of the intervertebral disc, which has resulted in foot drop and lack of Achilles reflex. 2. Anxiety The patient was initially prescribed citalopram 10 mg but experienced adverse effects, leading to a switch to sertraline (Zoloft) 25 mg. 3. Blood In Urine (Hematuria) The patient has a history of hematuria for five years, with a previous normal ultrasound of kidneys and bladder; a referral to a urologist is planned for further evaluation. 4. Thyroid Nodule A thyroid ultrasound is planned to evaluate the tenderness and possible nodule detected during the physical examination. During the visit, we discussed the patient's anxiety management, including the transition from citalopram to sertraline due to adverse effects. We also addressed the need for surgical intervention for the herniated disc and the importance of evaluating the thyroid nodule with an ultrasound. The patient was informed about the planned urology referral for hematuria and the significance of family history in cancer screenings. Follow-up plans include monitoring the response to sertraline and scheduling necessary diagnostic tests. Orders: Orders Influenza [id number] Immunization Today Ananya Berry PA-C Z23 - Encounter for immunization C Reactive Protein Today Ananya Berry PA-C Z00.00 - Encounter for general adult medical examination without abnormal findings Hemoglobin A1c Today Ananya Berry PA-C Z00.00 - Encounter for general adult medical examination without abnormal findings Liver Panel Today Ananya Berry PA-C Z00.00 - Encounter for general adult medical examination without abnormal findings DHEA Sulfate Today Ananya Berry PA-C Z00.00 - Encounter for general adult medical examination without abnormal findings Testosterone, Free/Total Today Ananya Berry PA-C Z00.00 - Encounter for general adult medical examination without abnormal findings US thyroid Today Ananya Berry PA-C E04.1 - Nontoxic single thyroid nodule Complete Blood Count Auto Diff Today Ananya Berry PA-C Z00.00 - Encounter for general adult medical examination without abnormal findings [facility]. Panel Fast Today Ananya Berry PA-C Z00.00 - Encounter for general adult medical examination without abnormal findings PSA,Total (Free>4and<10) Today Ananya Berry PA-C Z00.00 - Encounter for general adult medical examination without abnormal findings UA CC w/rflx Micro + Cult Today Ananya Berry PA-C Z00.00 - Encounter for general adult medical examination without abnormal findings TSH reflex Free T4 Today Ananya Berry PA-C Z00.00 - Encounter for general adult medical examination without abnormal findings Lipid Panel Today Ananya Berry PA-C Z00.00 - Encounter for general adult medical examination without abnormal findings Magnesium Today Ananya Berry PA-C Z00.00 - Encounter for general adult medical examination without abnormal findings Vitamin B12 and Folate Today Ananya Berry PA-C Z00.00 - Encounter for general adult medical examination without abnormal findings Vitamin D 25-OH Total Today Ananya Berry PA-C Z00.00 - Encounter for general adult medical examination without abnormal findings Dihydrotestosterone Today Ananya Berry PA-C Z00.00 - Encounter for general adult medical examination without abnormal findings Referrals Psychiatry Outpatient Consultation Service Ananya Berry PA-C F41.1 - Generalized anxiety disorder, F41.9 - Anxiety disorder, unspecified, F42.9 - Obsessive-compulsive disorder, unspecified Urology Referral Ananya Berry PA-C R31.9 - Hematuria, unspecified Gastroenterology Referral Ananya Berry PA-C Z12.11 - Encounter for screening for malignant neoplasm of colon, Z80.0 - Family history of malignant neoplasm of digestive organs, Z80.1 - Family history of malignant neoplasm of trachea, bronchus and lung, Z80.3 - Family history of malignant neoplasm of breast, Z98.52 - Vasectomy status Medications: New sertraline (Zoloft) 25 mg PO DAILY 90 tabs 3RF REGIS Wiley-Ivan Changed From gabapentin 300 mg PO TID 90 caps 11RF To gabapentin 300 mg PO TID PRN REGIS Ibarra Patient Instructions: - Take sertraline (Zoloft) 25 mg as prescribed. - Schedule and attend the thyroid ultrasound appointment. - Follow up with the urologist for evaluation of blood in urine. - Monitor for any side effects of new medication and report them. - Attend scheduled surgery for herniated disc at [facility]. - Maintain regular follow-up appointments as discussed.
--- OUTSIDE RECORDS SUMMARY | 2025-04-13 15:59 | XMS_ITS | Clinical Summary ---
Author Organization [facility] Address [address] [facility] [address] [place] [id number] Phone Care Team Providers Care Project Construction Assistant Manager Name Role Phone Stevie Arevalo Primary Care [...] 12/08/2011 HIV ONE-TIME SCREENING (18-65 YEARS) 12/08/2011 INFLUENZA VACCINE (#1) 2025 , 05/13/2019, 05/03/2012, Additional history exists COVID-19 VACCINE ( season) 2025 11/07/2020, 10/17/2020 Adult Td,Tdap Booster 09/26/2030 09/26/2020, [...] topic Medical Devices Not on file Insurance [facility] [place] [address] [place] [address] [employer] [facility] NET PARTIAL Member Subscriber Plan / Payer (Ef fective 2021-Present) Name:Law Zaki Relation to Subscriber:Self Name:Zaki Foy Payer ID:Not on file Group ID:Not on file Type:Medicaid Address: [address] [facility] PARTIAL [facility] [employer] NET PARTIAL [facility] [employer] Member Subscriber Plan / Payer (Ef fective 2021-Present) Name:Jalenjason Zaki Relation to Subscriber:Self Name:Zaki Foy Payer ID:Not on file Group ID:Not on file Type:Medicaid Address: [address] [employer] [facility] [employer] NET [place]IAL [place] [address] SAFETY NET PARTIAL Member Subscriber Plan / Payer (Ef fective 2021-Present) Name:Zaki Foy Relation to Subscriber:Self Name:Zaki Foy Payer ID:Not on file Group ID:Not on file Type:Medicaid Address: [address] [facility] NET PARTIAL Member Subscriber Plan / Payer (Ef fective 2021-) Name:Zaki Foy Relation to Subscriber:Self Name:Zaki Foy Payer ID:Not on file Group ID:Not on file Type:Medicaid Address: [address] [facility] NET PARTIAL Member Subscriber Plan / Payer (Ef fective 2021-Present) Name:Zaki Foy Relation to Subscriber:Self Name:Zaki Foy Payer ID:Not on file Group ID:Not on file Type:Medicaid Address: [address] [employer] Care Teams Project Construction Assistant Manager Relationship Specialty Start Date End Date Stevie Arevalo PA [address] [place] [phone] [email or web address] PCP - General Physician Customer Success Advocate 08/28/22 Additional Source Comments The information contained in this document represents components of the legal health record. It is not the complete legal health record.[facility]
== END 2025-04-13 15:16 | disposition home or self-care (01) ==
LOC: HO.HMCSH 14:22
PROVIDERS: PCP Internal Medicine; Visit Provider Physician Assistant Medical
DX: M51.26 Other intervertebral disc displacement, lumbar region (principal); F41.1 Generalized anxiety disorder; R31.9 Hematuria, unspecified; E04.1 Nontoxic single thyroid nodule; Z23 Encounter for immunization

== ENCOUNTER → 2025-04-13 14:22 | Outpatient (BNVA) | payer OTHER, SELFPAY | PROVIDERS: PCP Internal Medicine; Visit Provider Physician Assistant Medical | DX: E04.1 Nontoxic single thyroid nodule (principal); F41.9 Anxiety disorder, unspecified; M21.379 Foot drop, unspecified foot; M51.26 Other intervertebral disc displacement, lumbar region; F41.1 Generalized anxiety disorder; R31.9 Hematuria, unspecified; Z23 Encounter for immunization | CPT/HCPCS: 90471; 90656; 96127; 99212 ==

== ENCOUNTER 2025-06-19 14:58 | Outpatient (REF) | payer OTHER, SELFPAY ==
--- OUTSIDE RECORDS SUMMARY | 2025-06-16 23:59 | XMS_ITS | Continuity of Care Document ---
Author Organization [facility] Address [address] [place] [address] [address]liver, [address] [place] [address]- Care Team Providers Care Social Work Associate Name Role Phone Ananya Sanford Primary Care Physician Encounter [facility] Date(s): 05/17/25 - 06/16/25 [facility] [address] [place] [address] Drive [address] [place], [place] [address] Attending Physician: Admtr, Ar8 Admitting Physician: Admtr, Ar8 Referring Physician: Admtr, Ar8 Encounter Type: Triage Allergies, Adverse Reactions, Alerts No Known Allergies Immunizations Given and Recorded Vaccine Date Status Refusal Reason SARS-CoV-2 (COVID-19) mRNA BNT-162b2 vac 11/07/20 Given SARS-CoV-2 (COVID-19) mRNA BNT-162b2 vac 10/17/20 Given Medications escitalopram 10 mg oral tablet 0 Refills, Maintenance, 05/17/25 11:34:00 AM EST, Partial fill upon patient request if the prescription is for a schedule II opioid drug. Start Date: 05/17/25 Status: Ordered Medication Dispense Status: Completed Total Allowed Fills: 1 Fills Dispensed: 0 gabapentin 300 mg oral capsule 300 mg, 1, capsule, By Mouth, Daily, Refills 0, Maintenance, 03/29/25 3:20:00 PM EDT, Partial fill upon patient request if the prescription is for a schedule II opioid drug. Start Date: 03/29/25 Status: Ordered Medication Dispense Status: Completed Total Allowed Fills: 1 Fills Dispensed: 0 HYDROmorphone 2 mg oral tablet = 2 mg, By Mouth, Every 6 hours, PRN Pain , Severe, # 28 tablet, 0 Refills, Maintenance, 04/20/25 8:07:00 PM EDT, Tablet, [facility]/pharmacy #[id number], Partial fill upon patient request if the prescription is for a schedule II opioid drug., 181.5, cm, 04/07/25 13:43:00 EDT, Height, 70.8, kg, 04/20/25 14:37:00EDT, Dry Weight Start Date: 04/20/25 Status: Ordered Medication Dispense Status: Completed Quantity: 28.0 Unit: tablet Total Allowed Fills: 1 Fills Dispensed: 0 levoFLOXacin 750 mg oral tablet 0 Refills, Maintenance, 05/17/25 11:34:00 AM EST, Partial fill upon patient request if the prescription is for a schedule II opioid drug. Start Date: 05/17/25 Status: Ordered Medication Dispense Status: Completed Total Allowed Fills: 1 Fills Dispensed: 0 methocarbamol 500 mg oral tablet 0 Refills, Maintenance, 05/17/25 11:34:00 AM EST, Partial fill upon patient request if the prescription is for a schedule II opioid drug. Start Date: 05/17/25 Status: Ordered Medication Dispense Status: Completed Total Allowed Fills: 1 Fills Dispensed: 0 sertraline 25 mg oral tablet 0 Refills, Maintenance, 05/17/25 11:34:00 AM EST, Partial fill upon patient request if the prescription is for a schedule II opioid drug. Start Date: 05/17/25 Status: Ordered Medication Dispense Status: Completed Total Allowed Fills: 1 Fills Dispensed: 0 tiZANidine 4 mg oral tablet 4 mg, By Mouth, 3 times a day, PRN, # 60 tablet, Refills 0, Tot. Refills 0, Maintenance, Spasm, 04/20/25 8:07:00 PM EDT, Route to Pharmacy Electronically, [facility]/pharmacy #[id number], Partial fill upon patientrequest if the prescription is for a schedule II opioid drug., 181.5, cm, 04/07/25 13:43:00 EDT, Height, 70.8, kg, 04/20/25 14:37:00 EDT, Dry Weight Start Date: 04/20/25 Status: Ordered Medication Dispense Status: Completed Quantity: 60.0 Unit: tablet Total Allowed Fills: 1 Fills Dispensed: 0 Problem List Condition Confirmation Course Effective Dates Status Health St atus Informant Anxiety Confirmed Active deployment status Confirmed Active Lumbar herniated disc L5/S1 Confirmed Active Pilar cysts Confirmed Active Social History Social History Type Response Smoking Status Never (less than 100 in lifetime) entered on: 04/07/25 Sex Sex Representation Male (finding) Patient Care team information Care Team Personnel Name: Ananya Sanford Position: Reference Physician Member Role: PCP Address: [address] [place] [address] Telecom: Care Team Related Persons Name: FILEMON OLVERA Name: ELLIOTT OLVERA Name: ANDI ORNELAS Insurance Providers Guarantor name: POLLY Health Plan Information #: 1 Payer: [facility] Payer Identifier: POLLY Member Number: [id number] Group Number: [id number] Subscriber Identifier: POLLY Relationship to Subscriber: self Coverage Type: () Coverage Verification Date: POLLY Telecom: POLLY Address: NA
--- NOTE | ~2025-06-19 | US_ITS ---
EXAMINATION: US THYROID CLINICAL INFORMATION: Nontoxic single thyroid nodule. Provider palpated left neck lump. Please evaluate. COMPARISON: None available. TECHNIQUE: Linear transducer grayscale and color Doppler examination with attention to the region of the thyroid and with attention to the palpable lump felt by the provider. FINDINGS: SIZE: Measurements of the thyroid lobes and nodules are given in sagittal, anteroposterior and transverse dimensions respectively. Right Thyroid Lobe: 6.0 x 1.7 x 2.0 cm, volume 10.5 mL. Parenchyma: The gland echotexture is homogeneous. Thyroid vascularity is normal. Left Thyroid Lobe: 5.3 x 1.5 x 1.7 cm, volume 6.7 mL. Parenchyma: The gland echotexture is homogeneous. Thyroid vascularity is normal. Isthmus: 0.3 cm in maximum AP dimension. Estimated total number of nodules greater than or equal to 1 cm: 0. There are no discrete nodules present. NODES: No lymphadenopathy is seen in the tissue surrounding the thyroid gland. Imaging of the area of concern within the left neck demonstrates a normal-appearing subcentimeter cervical lymph node with normal fatty hilum and normal cortex. US/US thyroid IMPRESSION: 1. Normal thyroid gland. No nodules. 2. No abnormality in the left neck to correlate with the palpable lump. Only normal-appearing lymph nodes are noted. Electronically signed by: Hollis Boyle MD 06/19/2025 04:24 PM JAD WRIGHT
--- OUTSIDE RECORDS SUMMARY | 2025-06-20 00:22 | XMS_ITS | Clinical Summary ---
Author Organization [facility] Address [address] [facility] [address] [place] [phone] Phone Care Team Providers Care Arcade Games Mechanic Name Role Phone Stevie Arevalo Primary Care [...] topic Medical Devices Not on file Insurance [facility] [place] [place] [address] [facility] NET PARTIAL Member Subscriber Plan / Payer (Ef fective 2021-Present) Name:Law Zaki Relation to Subscriber:Self Name:Zaki Foy Payer ID:Not on file Group ID:Not on file Type:Medicaid Address: [address] [facility] Address: [facility] [id number] [place] [id number] [facility] NET PARTIAL [facility] [employer] NET PARTIAL Member Subscriber Plan / Payer (Ef fective 2021-Present) Name:Jalenjason Zaki Relation to Subscriber:Self Name:Zaki Foy Payer ID:Not on file Group ID:Not on file Type:Medicaid Address: [address] [facility] Address: [facility] [id number] [place] [address] [facility] [employer] [place] [address] [employer] NET PARTIAL Member Subscriber Plan / Payer (Ef fective 2021-Present) Name:Zaki Foy Relation to Subscriber:Self Name:Zaki Foy Payer ID:Not on file Group ID:Not on file Type:Medicaid Address: [address] [facility] Address: [address] [address] [facility] NET PARTIAL Member Subscriber Plan / Payer (Ef fective 2021-) Name:Zaki Foy Relation to Subscriber:Self Name:Zaki Foy Payer ID:Not on file Group ID:Not on file Type:Medicaid Address: [address] [facility] NET PARTIAL Member Subscriber Plan / Payer (Ef fective 2021-Present) Name:Zaki Foy Relation to Subscriber:Self Name:Zaki Foy Payer ID:Not on file Group ID:Not on file Type:Medicaid Address: [address] [facility] Address: [facility] [id number] [place] [address] Care Teams Arcade Games Mechanic Relationship Specialty Start Date End Date Stevie Arevalo PA [address] [place] [phone] [email or web address] PCP - General Physician Relief Pharmacist 08/28/22 Additional Source Comments The information contained in this document represents components of the legal health record. It is not the complete legal health record.[facility]
== END 2025-06-19 14:59 | disposition home or self-care (01) ==
LOC: HO.US 14:58
PROVIDERS: PCP Physician Assistant Medical; Visit Provider Physician Assistant Medical
DX: E04.1 Nontoxic single thyroid nodule (principal)
CPT/HCPCS: 76536

== ENCOUNTER → 2025-06-19 15:00 | Outpatient (BNV) | payer OTHER, SELFPAY | PROVIDERS: PCP Physician Assistant Medical; Visit Provider Radiology Diagnostic Radiology | DX: E04.1 Nontoxic single thyroid nodule (principal) | CPT/HCPCS: 76536 ==

== ENCOUNTER 2025-06-27 14:59 | Outpatient (REF) | payer OTHER, SELFPAY | END 2025-06-27 15:00 | disposition home or self-care (01) | LOC: HO.LAB 14:59 | PROVIDERS: PCP Internal Medicine; Visit Provider Urology | DX: R31.29 Other microscopic hematuria (principal); N39.0 Urinary tract infection, site not specified | CPT/HCPCS: 81003; 88112; 99202 ==

== ENCOUNTER 2025-06-27 14:59 | Outpatient (AMB) | payer OTHER, SELFPAY ==
--- NOTE | 2025-06-27 15:12 | A.OFFVIS_ITS ---
Intake Visit Reasons: Microhematuria SET UA Intake Note: New Patient is present for Micro Hematuria Urology Rx:none Blood Thinners:none Imaging completed: none Smoker:No Academic Tutor Required: No Accompanied by: Self / Same As Patient Allergies No Known Allergies Allergy (Verified 06/27/25 15:13) HPI Comments Details: Zaki is a pleasant male. He is a patient of Dr. Ibarra. 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 No smoking history No kidney stone history Will obtain imaging with renal bladder ultrasound [facility] Medical History (Updated 04/13/25 @ 16:54 by Ananya Berry PA-C) Herniated intervertebral disc of lumbar spine Thyroid nodule Family history of lung cancer Family history of breast cancer in mother Family history of colon cancer Hematuria OCD (obsessive compulsive disorder) Generalized anxiety disorder Numbness Back pain Surgical History (Updated 04/18/25 @ 16:45 by Juani Rendon RN) Hx of lumbosacral spine surgery (09/13/24) H/O vasectomy Hx of tooth extraction H/O colonoscopy Family History Mother No problems noted. Father No problems noted. 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 Do you presently have visiting nurse or other home services: No Patient Tobacco Use Status: Never used Tobacco e-Cigarette/Vaping Use: Never Used service: Yes Current occupational status: employed Cognitive needs: No Hearing needs: No Vision needs: No Review of Systems Const Denies chills and Denies fever(s) Card Reports no additional complaints and Denies syncope Resp Denies cough GI Denies abdominal pain and Denies heartburn Reports as per HPI and Denies change in libido Neuro Denies syncope Psych Denies change in libido Endo Denies change in libido Physical Exam Const General: cooperative, healthy appearing, comfortable and no acute distress Orientation/consciousness: patient oriented x3 HEENT Face and sinus: Yes normal facial exam Mouth: moist mucous membranes Neck Neck: Yes normal visual inspection, Yes full ROM and Yes trachea midline Chest Chest palpation & inspection: normal inspection of the chest Resp Effort & Inspection: normal respiratory effort, able to speak in complete sentences and no respiratory distress GI Inspection: Yes normal to inspection Back/Spine/Pelvis Cervical Spine: normal cervical lordosis Thoracic/Lumbar Spine: thoracic and lumbar spine normal to inspection Skin General skin exam: no rashes or lesions noted Neuro General: patient oriented x3, gait normal, tone normal and moves all extremities Extrem General: Yes normal to inspection and Yes capillary refill normal Results AMB Urinalysis, Automated UA Leukoctes 0 Hailee/uL Last Edit by Patricia Jackson [facility] on 06/27/25 15:22 UA Nitrite Negative Last Edit by Patricia Jackson [facility] on 06/27/25 15:22 UA Urobilinogen 0.2 mg/dL Last Edit by Patricia Jackson [facility] on 06/27/25 15:22 UA Protein 15 mg/dL Last Edit by Patricia Jackson [facility] on 06/27/25 15:22 UA pH 6.0 Last Edit by Patricia Jackson [facility] on 06/27/25 15:22 UA Blood 80 Von/uL Last Edit by Patricia Jackson [facility] on 06/27/25 15:22 UA Specific [place] 1.020 Last Edit by Patricia Jackson [facility] on 06/27/25 15:2 2 UA Ketone Negative Last Edit by Patricia Jackson [facility] on 06/27/25 15:22 UA Bilirubin 0 mg/dL Last Edit by Patricia Jackson [facility] on 06/27/25 15:22 UA Glucose 0 mg/dL Last Edit by Patricia Jackson [facility] on 06/27/25 15:22 Results Reviewed Results Reviewed: Laboratory Last Values Urine pH (Auto) 6.0 06/27/25 15:21 Specific [place] (Auto) 1.020 06/27/25 15:21 Urine Protein (Auto) 15 mg/dL 06/27/25 15:21 Glucose (UA)(Auto) 0 mg/dL 06/27/25 15:21 Urine Ketones (Auto) Negative 06/27/25 15:21 Urine Blood (Auto) 80 Von/uL 06/27/25 15:21 Urine Nitrite (Auto) Negative 06/27/25 15:21 Urine Bilirubin (Auto) 0 mg/dL 06/27/25 15:21 Urine Urobilinogen (Auto) 0.2 mg/dL 06/27/25 15:21 Leukocyte Esterase (Auto) 0 Hailee/uL 06/27/25 15:21 Assessment & Plan Assessment & Plan (1) Hematuria: Code(s): R31.9 - Hematuria, unspecified Category: Medical Plan Renal bladder imaging with follow-up Orders: Orders AMB Urinalysis Automated Today R31.29 - Other microscopic hematuria Urine Cytology Today R31.29 - Other microscopic hematuria US retroperitoneal comp Today N39.0 - Urinary tract infection, site not specified, R31.9 - Hematuria, unspecified Patient Instructions: This note is constructed using voice recognition software. While every effort has been made to ensure accuracy almond pan finisher errors may have been included. Imaging studies, laboratory and physical exam results were discussed and reviewed in detail. No major barriers to patient understanding were identified. An opportunity to ask questions regarding the treatment plan was provided. All questions were answered. The patient expressed understanding and agreement with the above treatment plan. The patient is aware they should contact our office by phone for worsening of their current condition or the appearance of new urologic symptoms. Compliance is encouraged with any medications and followup testing that is ordered. It is a privilege to participate in the urologic care of your patient. If you have any questions or concerns regarding treatment for the above conditions, or other urologic issues, please do not hesitate to contact me. The office telephone contact is [phone]. Sincerely, Dr Indra Aguilera MD, [facility] - Urology Compassionate Specialist Care for the Genitourinary System Coding Level of Care Code New Pt Level 3 (59280) Diagnoses Hematuria R31.9
--- OUTSIDE RECORDS SUMMARY | 2025-06-27 19:20 | XMS_ITS | Clinical Summary ---
Author Organization [facility] Address [address] [facility] [address] [place] [phone] Phone Care Team Providers Care Wood Patternmaker Name Role Phone Stevie Arevalo Primary Care [...] topic Medical Devices Not on file Insurance [facility] NET PART[place] [address] [facility] NET PART[employer] Member Subscriber Plan / Payer (Ef fective 2021-Present) Name:Law Zaki Relation to Subscriber:Self Name:Zaki Foy Payer ID:Not on file Group ID:Not on file Type:Medicaid Address: [address] [facility] Address: [facility] [id number] [place] [phone] [facility] [employer] NET PARTIAL [facility] [employer] NET PARTIAL Member Subscriber Plan / Payer (Ef fective 2021-Present) Name:Jalenjason Zaki Relation to Subscriber:Self Name:Zaki Foy Payer ID:Not on file Group ID:Not on file Type:Medicaid Address: [address] [facility] Address: [facility] [id number] [place] [address] [facility] [employer] [place] [address] [place] [address] [employer] NET PARTIAL Member Subscriber Plan / Payer (Ef fective 2021-Present) Name:Zaki Foy Relation to Subscriber:Self Name:Zaki Foy Payer ID:Not on file Group ID:Not on file Type:Medicaid Address: [address] [facility] Address: [address] [address] [facility] NET PARTIAL Member Subscriber Plan / Payer (Ef fective 2021-) Name:Zaki Foy Relation to Subscriber:Self Name:Zaki Foy Payer ID:Not on file Group ID:Not on file Type:Medicaid Address: [address] [facility] NET PARTIAL Member Subscriber Plan / Payer (Ef fective 2021-Present) Name:Zaki Foy Relation to Subscriber:Self Name:Zaki Foy Payer ID:Not on file Group ID:Not on file Type:Medicaid Address: [address] [facility] Address: [facility] [id number] [place] [address] Care Teams Wood Patternmaker Relationship Specialty Start Date End Date Stevie Arevalo PA [address] [place] [phone] [email or web address] PCP - General Physician Appliance Fixer 08/28/22 Additional Source Comments The information contained in this document represents components of the legal health record. It is not the complete legal health record.[facility]
== END 2025-06-27 16:19 | disposition home or self-care (01) ==
LOC: HO.HUSH 14:59
PROVIDERS: PCP Internal Medicine; Visit Provider Urology
DX: R31.29 Other microscopic hematuria (principal); R31.9 Hematuria, unspecified
CPT/HCPCS: 99203